=== PATIENT | female | born 1960 | race Caucasian/White ===

== ENCOUNTER → 2016-09-26 | Outpatient (REF) | payer OTHER, MEDICAID ==
[~2016-09-26] MED LIST: *MAMMOGRAM; *XRAY -; /ALEN70TA OR; /ESOM40CA OR; ACET65TA; ASPI325T OR; ATENOLOL50 PO; AUG875 PO; BEXTRA PO; CALCTAB22 OR; CELEBRE200 PO; COLC0.6T; COLC0.6T OR; CORE6.25; COREG625 PO; CRESTOR5 PO; DIOVAN80 PO; FLEXERIL10 PO; FOLI1TAB OR; INDERAL PO; ISOS30BRAN; ISOS30BRAN OR; LASI40TA OR; LIPITOR10 PO; LIPITOR40 PO; LOVASTAT20 PO; METH2.5T OR; PLAV75TA2; PLAV75TA2 OR; PLAVIX75 PO; POTA10CA2 OR; PRED1TA; PRED1TA OR; PRED20TA; PRIL20CA; PRILOSEC40 PO; RANITIDINE PO; SIMV80TA OR; SYNT50TA; SYNT50TA OR; TEMOVATECR TOPICAL; THERGRAN OR; TRAM50TA2; TRAM50TA2 OR; VICO5TAB OR; ZOCO80TA; [UNRECOGNIZED DRUG - OTHER] OR; lactobacillus; ranexa OR
[2016-09-26 17:04] LABS: MEAN CORPUSCULAR HEMOGLOBIN 30.2 pg (27.0-33.0); MEAN CORPUSCULAR HGB CONC 32.5 g/dl (32.0-36.5); MEAN CORPUSCULAR VOLUME 92.9 fl (80.0-96.0); RED CELL DISTRIBUTION WIDTH 14.1 % (11.5-14.5); WHITE BLOOD COUNT 5.8 K/mm3 (4.0-10.0)
== END ==
LOC: M SFHCCLAY 09:59
PROVIDERS: ATTEND Family Medicine
DX: E78.5 Hyperlipidemia, unspecified (principal)

== ENCOUNTER → 2016-10-13 | Outpatient (CLI) | payer MEDICARE, MEDICAID ==
--- NOTE | 2016-10-13 12:08 | REPMRS ---
Patient History The patient states she had a clinical breast exam in Patient is postmenopausal. No known family history of cancer. Digital Woman Screen Mammo: October 13, 2016 - Exam #: [id number] Bilateral CC and MLO view(s) were taken. Technologist: Emeli Espinosa, Technologist Prior study comparison: September 19, 2015, bilateral digital mammo screening bilat, performed at [facility]. September 13, 2014, bilateral digital mammo screening bilat, performed at [facility]. FINDINGS: The breast tissue is heterogeneously dense. This may lower the sensitivity of mammography. There has been no change in the appearance of the mammogram from the prior studies. There is a moderate amount of residual fibroglandular tissue which is fairly symmetric. There is no interval development of dominant mass, areas of architectural distortion, or clustered microcalcification typical of malignancy. ASSESSMENT: BI-RADS/ACR category 1 mammogram. Negative. Recommendation Routine screening mammogram in 1 year (for women over age 40). This mammogram was interpreted with the aid of an FDA-approved computer-aided dectection system. Electronically Signed By: Guerrero Fuller MD 10/13/16 [id number]
== END ==
LOC: M WHC 10:51
PROVIDERS: ATTEND Family Medicine
DX: Z12.31 Encounter for screening mammogram for malignant neoplasm of breast (principal); Z78.0 Asymptomatic menopausal state

== ENCOUNTER → 2016-11-06 | Outpatient (REF) | payer MEDICARE, MEDICAID | LOC: M SFHCCLAY 17:19 | PROVIDERS: ATTEND Family Medicine | DX: R10.30 Lower abdominal pain, unspecified (principal) | CPT/HCPCS: 81002; 87086; G0463 ==

== ENCOUNTER → 2016-11-07 | Outpatient (REF) | payer MEDICARE, MEDICAID | LOC: M SFHCCLAY 08:38 | PROVIDERS: ATTEND Family Medicine | DX: E78.5 Hyperlipidemia, unspecified (principal) ==

== ENCOUNTER → 2017-01-20 | Outpatient (REF) | payer MEDICARE, MEDICAID ==
[2017-01-20 17:17] LABS: BASO % 0.7 % (0.0-1.0); EOS # 0.2 K/mm3 (0.0-0.50); EOS % 3.1 % (0.0-3.0); LARGE UNSTAINED CELL # 0.1 K/mm3 (0.0-0.4); LARGE UNSTAINED CELL % 1.7 % (0.0-4.0); LYMPH # 1.9 K/mm3 (1.5-4.5); LYMPH % 29.4 % (24.0-44.0); MEAN CORPUSCULAR HEMOGLOBIN 31.3 pg (27.0-33.0); MEAN CORPUSCULAR VOLUME 94.9 fl (80.0-96.0); MONO # 0.3 K/mm3 (0.0-0.8); MONO % 4.9 % (0.0-5.0); NEUTROPHILS # 3.8 K/mm3 (1.8-7.7); NEUTROPHILS % 60.1 % (36.0-66.0); PLATELET COUNT, AUTOMATED 286 k/mm3 (150-450); RED CELL DISTRIBUTION WIDTH 14.9 % (11.5-14.5); WHITE BLOOD COUNT 6.4 K/mm3 (4.0-10.0)
[2017-01-20 18:55] LABS: ALT/SGPT 47 U/L (12-78); ANION GAP 8 MEQ/L (8-16); BLOOD UREA NITROGEN 15 MG/DL (7-18); CARBON DIOXIDE LEVEL 28 MEQ/L (21-32); CHLORIDE LEVEL 105 MEQ/L (98-107); CREATININE FOR GFR 0.85 MG/DL (0.55-1.02); GLOMERULAR FILTRATION RATE > 60.0 (>51); GLUCOSE, FASTING 104 MG/DL (70-105); POTASSIUM SERUM 4.5 MEQ/L (3.5-5.1); SODIUM LEVEL 141 MEQ/L (136-145)
== END ==
LOC: M SFHCCLAY 10:15
PROVIDERS: ATTEND Family Medicine
DX: M06.9 Rheumatoid arthritis, unspecified (principal)

== ENCOUNTER → 2017-03-24 | Outpatient (REF) | payer MEDICAID, MEDICARE ==
[2017-03-24 12:13] LABS: ANION GAP 7 MEQ/L (8-16); BLOOD UREA NITROGEN 10 MG/DL (7-18); CARBON DIOXIDE LEVEL 30 MEQ/L (21-32); CHLORIDE LEVEL 101 MEQ/L (98-107); CREATININE FOR GFR 0.75 MG/DL (0.55-1.02); GLOMERULAR FILTRATION RATE > 60.0 (>51); GLUCOSE, FASTING 104 MG/DL (70-105); POTASSIUM SERUM 3.9 MEQ/L (3.5-5.1); SODIUM LEVEL 138 MEQ/L (136-145)
[2017-03-24 12:14] LABS: CALCIUM LEVEL 9.1 MG/DL (8.5-10.1)
== END ==
LOC: M LABDRAWC 11:33
PROVIDERS: ATTEND Internal Medicine Cardiovascular Disease
DX: I25.10 Atherosclerotic heart disease of native coronary artery without angina pectoris (principal); I10 Essential (primary) hypertension

== ENCOUNTER → 2017-04-02 | Outpatient (REF) | payer MEDICARE ==
[2017-04-02 13:22] LABS: FREE T4 1.08 NG/DL (0.76-1.46)
== END ==
LOC: M SFHCCLAY 08:49
PROVIDERS: ATTEND Family Medicine
DX: E03.9 Hypothyroidism, unspecified (principal)

== ENCOUNTER → 2017-08-11 | Outpatient (REF) | payer MEDICARE ==
[2017-08-11 16:59] LABS: MEAN CORPUSCULAR HEMOGLOBIN 30.7 pg (27.0-33.0); MEAN CORPUSCULAR HGB CONC 33.8 g/dl (32.0-36.5); MEAN CORPUSCULAR VOLUME 90.8 fl (80.0-96.0); PLATELET COUNT, AUTOMATED 280 10^3/uL (150-450); RED CELL DISTRIBUTION WIDTH 14.6 % (11.5-14.5); WHITE BLOOD COUNT 6.8 10^3/uL (4.0-10.0)
[2017-08-11 17:09] LABS: CALCIUM LEVEL 9.2 MG/DL (8.5-10.1); CREATININE FOR GFR 1.02 MG/DL (0.55-1.02); GLOMERULAR FILTRATION RATE 59.5 (>51); POTASSIUM SERUM 3.3 MEQ/L (3.5-5.1)
== END ==
LOC: M SFHCCLAY 10:27
PROVIDERS: ATTEND Family Medicine
DX: M06.4 Inflammatory polyarthropathy (principal); Z79.899 Other long term (current) drug therapy

== ENCOUNTER → 2017-11-03 | Outpatient (REF) | payer MEDICARE ==
[2017-11-04 12:33] LABS: HEMATOCRIT 38.7 % (36.0-47.0); MEAN CORPUSCULAR HGB CONC 33.6 g/dl (32.0-36.5); MEAN CORPUSCULAR VOLUME 92.1 fl (80.0-96.0); PLATELET COUNT, AUTOMATED 276 10^3/uL (150-450); RED CELL DISTRIBUTION WIDTH 15.5 % (11.5-14.5); WHITE BLOOD COUNT 17.2 10^3/uL (4.0-10.0)
[2017-11-04 12:51] LABS: ALT/SGPT 32 U/L (12-78); ANION GAP 8 MEQ/L (8-16); BLOOD UREA NITROGEN 20 MG/DL (7-18); CALCIUM LEVEL 9.7 MG/DL (8.5-10.1); CARBON DIOXIDE LEVEL 31 MEQ/L (21-32); CHLORIDE LEVEL 101 MEQ/L (98-107); CREATININE FOR GFR 0.84 MG/DL (0.55-1.30); GLOMERULAR FILTRATION RATE > 60.0 (>51); GLUCOSE, FASTING 106 MG/DL (70-100); POTASSIUM SERUM 3.8 MEQ/L (3.5-5.1); SODIUM LEVEL 140 MEQ/L (136-145)
== END ==
LOC: M SFHCCLAY 14:30
DX: Z51.81 Encounter for therapeutic drug level monitoring (principal); Z79.899 Other long term (current) drug therapy; M06.4 Inflammatory polyarthropathy
CPT/HCPCS: 84460

== ENCOUNTER → 2017-11-05 | Outpatient (CLI) | payer MEDICARE | LOC: M WHC 10:08 | DX: Z12.31 Encounter for screening mammogram for malignant neoplasm of breast (principal) | CPT/HCPCS: 77067 ==

== ENCOUNTER → 2017-12-02 | Outpatient (REF) | payer MEDICARE ==
[2017-12-02 12:03] LABS: BASO # 0.1 10^3/uL (0.0-0.2); BASO % 0.8 % (0.0-1.0); EOS # 0.2 10^3/uL (0.0-0.50); EOS % 2.4 % (0.0-3.0); HEMATOCRIT 37.9 % (36.0-47.0); HEMOGLOBIN 12.6 g/dl (12.0-15.5); IMMATURE GRANULOCYTE % 0.2 % (0-3.0); LYMPH % 24.5 % (24.0-44.0); MEAN CORPUSCULAR HEMOGLOBIN 30.4 pg (27.0-33.0); MEAN CORPUSCULAR HGB CONC 33.2 g/dl (32.0-36.5); MEAN CORPUSCULAR VOLUME 91.5 fl (80.0-96.0); MONO # 0.6 10^3/uL (0.0-0.8); NEUTROPHILS # 5.4 10^3/uL (1.8-7.7); NEUTROPHILS % 65.1 % (36.0-66.0); PLATELET COUNT, AUTOMATED 308 10^3/uL (150-450); RED BLOOD COUNT 4.14 10^6/uL (4.00-5.40); RED CELL DISTRIBUTION WIDTH 15.7 % (11.5-14.5); WHITE BLOOD COUNT 8.3 10^3/uL (4.0-10.0)
[2017-12-02 12:30] LABS: ERYTHROCYTE SEDIMENTATION RATE 27 mm/hr (0-30)
[2017-12-02 13:08] LABS: ALBUMIN 3.9 GM/DL (3.2-5.2); ALBUMIN/GLOBULIN RATIO 1.15 (1.00-1.93); ALKALINE PHOSPHATASE 92 U/L (45-117); ALT/SGPT 28 U/L (12-78); ANION GAP 7 MEQ/L (8-16); AST/SGOT 13 U/L (7-37); BILIRUBIN,TOTAL 0.4 MG/DL (0.2-1.0); BLOOD UREA NITROGEN 17 MG/DL (7-18); CALCIUM LEVEL 9.3 MG/DL (8.5-10.1); CARBON DIOXIDE LEVEL 31 MEQ/L (21-32); CHLORIDE LEVEL 103 MEQ/L (98-107); CREATININE FOR GFR 0.66 MG/DL (0.55-1.30); GLOMERULAR FILTRATION RATE > 60.0 (>51); GLUCOSE, FASTING 90 MG/DL (70-100); POTASSIUM SERUM 4.5 MEQ/L (3.5-5.1); SODIUM LEVEL 141 MEQ/L (136-145); TOTAL PROTEIN 7.3 GM/DL (6.4-8.2)
== END ==
LOC: M LABDRAWC 11:42
DX: I31.9 Disease of pericardium, unspecified (principal); Z79.899 Other long term (current) drug therapy; M06.4 Inflammatory polyarthropathy
CPT/HCPCS: 84460

== ENCOUNTER → 2018-03-09 | Outpatient (REF) | payer MEDICARE ==
[2018-03-09 19:04] LABS: ANION GAP 6 MEQ/L (8-16); BLOOD UREA NITROGEN 17 MG/DL (7-18); CALCIUM LEVEL 8.9 MG/DL (8.5-10.1); CARBON DIOXIDE LEVEL 28 MEQ/L (21-32); CHLORIDE LEVEL 104 MEQ/L (98-107); CREATININE FOR GFR 0.73 MG/DL (0.55-1.30); GLOMERULAR FILTRATION RATE > 60.0 (>51); GLUCOSE, FASTING 98 MG/DL (70-100); HEMOGLOBIN 12.5 g/dl (12.0-15.5); MEAN CORPUSCULAR HEMOGLOBIN 31.3 pg (27.0-33.0); MEAN CORPUSCULAR HGB CONC 33.8 g/dl (32.0-36.5); MEAN CORPUSCULAR VOLUME 92.7 fl (80.0-96.0); PLATELET COUNT, AUTOMATED 245 10^3/uL (150-450); POTASSIUM SERUM 4.3 MEQ/L (3.5-5.1); RED BLOOD COUNT 3.99 10^6/uL (4.00-5.40); RED CELL DISTRIBUTION WIDTH 14.1 % (11.5-14.5); RHEUMATOID FACTOR QUANT < 10.0 IU/ML (<15.0); SODIUM LEVEL 138 MEQ/L (136-145); WHITE BLOOD COUNT 6.6 10^3/uL (4.0-10.0)
[2018-03-09 19:47] LABS: ERYTHROCYTE SEDIMENTATION RATE 2 mm/hr (0-30)
[2018-03-12 00:12] LABS: ANA (HEP2) Negative (.)
[2018-03-12 00:12] LABS: CYCLIC CITRULLINATED PEPTIDE 9 units (0-19)
== END ==
LOC: M SFHCCLAY 13:05
DX: M06.4 Inflammatory polyarthropathy (principal)
CPT/HCPCS: 80048

== ENCOUNTER → 2018-04-20 | Outpatient (REF) | payer MEDICARE ==
[2018-04-20 18:33] LABS: HEMATOCRIT 34.5 % (36.0-47.0); HEMOGLOBIN 11.6 g/dl (12.0-15.5); MEAN CORPUSCULAR HEMOGLOBIN 31.4 pg (27.0-33.0); MEAN CORPUSCULAR HGB CONC 33.6 g/dl (32.0-36.5); MEAN CORPUSCULAR VOLUME 93.5 fl (80.0-96.0); PLATELET COUNT, AUTOMATED 289 10^3/uL (150-450); RED BLOOD COUNT 3.69 10^6/uL (4.00-5.40); RED CELL DISTRIBUTION WIDTH 14.9 % (11.5-14.5); WHITE BLOOD COUNT 6.1 10^3/uL (4.0-10.0)
[2018-04-20 18:48] LABS: ANION GAP 6 MEQ/L (8-16); BLOOD UREA NITROGEN 20 MG/DL (7-18); CALCIUM LEVEL 8.8 MG/DL (8.5-10.1); CARBON DIOXIDE LEVEL 30 MEQ/L (21-32); CHLORIDE LEVEL 105 MEQ/L (98-107); CREATININE FOR GFR 0.73 MG/DL (0.55-1.30); GLOMERULAR FILTRATION RATE > 60.0 (>51); GLUCOSE, FASTING 97 MG/DL (70-100); POTASSIUM SERUM 4.1 MEQ/L (3.5-5.1); SODIUM LEVEL 141 MEQ/L (136-145)
== END ==
LOC: M SFHCCLAY 10:24
DX: M06.4 Inflammatory polyarthropathy (principal)
CPT/HCPCS: 80048

== ENCOUNTER → 2018-06-02 | Outpatient (REF) | payer MEDICARE ==
[2018-06-02 17:19] LABS: HEMATOCRIT 36.9 % (36.0-47.0); HEMOGLOBIN 12.1 g/dl (12.0-15.5); MEAN CORPUSCULAR HEMOGLOBIN 31.5 pg (27.0-33.0); MEAN CORPUSCULAR HGB CONC 32.8 g/dl (32.0-36.5); MEAN CORPUSCULAR VOLUME 96.1 fl (80.0-96.0); PLATELET COUNT, AUTOMATED 316 10^3/uL (150-450); RED BLOOD COUNT 3.84 10^6/uL (4.00-5.40); RED CELL DISTRIBUTION WIDTH 15.9 % (11.5-14.5); WHITE BLOOD COUNT 7.8 10^3/uL (4.0-10.0)
[2018-06-02 17:45] LABS: ANION GAP 9 MEQ/L (8-16); BLOOD UREA NITROGEN 14 MG/DL (7-18); CARBON DIOXIDE LEVEL 28 MEQ/L (21-32); CHLORIDE LEVEL 102 MEQ/L (98-107); CREATININE FOR GFR 0.72 MG/DL (0.55-1.30); GLOMERULAR FILTRATION RATE > 60.0 (>51); GLUCOSE, FASTING 87 MG/DL (70-100); POTASSIUM SERUM 4.2 MEQ/L (3.5-5.1); SODIUM LEVEL 139 MEQ/L (136-145)
== END ==
LOC: M SFHCCLAY 11:34
DX: M06.4 Inflammatory polyarthropathy (principal)
CPT/HCPCS: 80048

== ENCOUNTER → 2018-10-12 | Outpatient (REF) | payer MEDICARE, MEDICAID ==
[~2018-10-12] MED LIST changes: +ASPI81TA85 PO; +ATOR40TA75 PO; +CARV25TA PO; +HYDR25TAB PO; +LISI-542 PO; +OMEP40CA2 PO; +TIZA4CAP PO; +VITA20008 PO; +ZETI10TA30 PO
[2018-10-12 16:38] LABS: HEMATOCRIT 36.5 % (36.0-47.0); HEMOGLOBIN 12.2 g/dl (12.0-15.5); MEAN CORPUSCULAR HEMOGLOBIN 31.7 pg (27.0-33.0); MEAN CORPUSCULAR HGB CONC 33.4 g/dl (32.0-36.5); MEAN CORPUSCULAR VOLUME 94.8 fl (80.0-96.0); PLATELET COUNT, AUTOMATED 275 10^3/uL (150-450); RED BLOOD COUNT 3.85 10^6/uL (4.00-5.40); WHITE BLOOD COUNT 6.5 10^3/uL (4.0-10.0)
[2018-10-12 16:39] LABS: BLOOD UREA NITROGEN 16 MG/DL (7-18); CALCIUM LEVEL 8.9 MG/DL (8.5-10.1); CARBON DIOXIDE LEVEL 30 MEQ/L (21-32); CHLORIDE LEVEL 102 MEQ/L (98-107); CREATININE FOR GFR 0.65 MG/DL (0.55-1.30); GLOMERULAR FILTRATION RATE > 60.0 (>51); GLUCOSE, FASTING 86 MG/DL (70-100); POTASSIUM SERUM 3.9 MEQ/L (3.5-5.1); SODIUM LEVEL 139 MEQ/L (136-145)
== END ==
LOC: M SFHCCLAY 11:34
PROVIDERS: ATTEND Family Medicine
DX: M06.4 Inflammatory polyarthropathy (principal)
CPT/HCPCS: 80048; 85027; G0463

== ENCOUNTER → 2018-10-14 | Outpatient (REF) | payer MEDICARE ==
[2018-10-20 00:07] LABS: FATS NEUTRAL Normal (.); FATS TOTAL Normal (.)
== END ==
LOC: M SFHCCLAY 15:58
PROVIDERS: ATTEND Family Medicine
DX: M06.4 Inflammatory polyarthropathy (principal); R19.7 Diarrhea, unspecified

== ENCOUNTER → 2018-12-22 | Outpatient (CLI) | payer MEDICARE ==
[~2018-12-22] MED LIST changes: -/ESOM40CA OR; +NEXI1CAP3 OR
--- NOTE | 2018-12-22 14:05 | REPMRS ---
Patient History The patient states she has not had a clinical breast exam in over a year. Family history of endometrial cancer in maternal cousin, colorectal cancer in maternal cousin, ovarian cancer in paternal cousin. Took unspecified hormones for 5 years. 3D TOMOSYNTHESIS WAS PERFORMED. Digital Woman Screen Mammo: December 22, 2018 - Exam #: [id number] Bilateral CC and MLO view(s) were taken. Technologist: Whitney De Leon, Technologist Prior study comparison: November 05, 2017, digital woman screen mammo performed at [facility]. October 13, 2016, digital woman screen mammo performed at [facility]. FINDINGS: The breast tissue is heterogeneously dense. This may lower the sensitivity of mammography. There has been no change in the appearance of the mammogram from the prior studies. There is a moderate amount of residual fibroglandular tissue which is fairly symmetric. There is no interval development of dominant mass, areas of architectural distortion, or clustered microcalcification typical of malignancy. Assessment: BI-RADS/ACR category 1 mammogram. Negative Mammogram. Recommendation Routine screening mammogram in 1 year (for women over age 40). This mammogram was interpreted with the aid of an FDA-approved computer-aided dectection system. Electronically Signed By: Guerrero Fuller MD 12/22/18 [id number]
== END ==
LOC: M WHC 13:24
PROVIDERS: ATTEND Family Medicine
DX: Z12.31 Encounter for screening mammogram for malignant neoplasm of breast (principal)

== ENCOUNTER → 2019-01-11 | Outpatient (REF) | payer MEDICARE, MEDICAID ==
[2019-01-11 19:05] LABS: BASO % 0.3 % (0.0-1.0); LYMPH % 8.3 % (24.0-44.0); MEAN CORPUSCULAR HEMOGLOBIN 31.7 pg (27.0-33.0); MEAN CORPUSCULAR HGB CONC 32.4 g/dl (32.0-36.5); MEAN CORPUSCULAR VOLUME 97.6 fl (80.0-96.0); MONO # 0.3 10^3/uL (0.0-0.8); MONO % 2.4 % (0.0-5.0); NEUTROPHILS # 10.6 10^3/uL (1.8-7.7); NEUTROPHILS % 88.3 % (36.0-66.0); PLATELET COUNT, AUTOMATED 401 10^3/uL (150-450); RED BLOOD COUNT 3.79 10^6/uL (4.00-5.40)
[2019-01-11 19:11] LABS: ALBUMIN 3.7 GM/DL (3.2-5.2); ALT/SGPT 30 U/L (12-78); BILIRUBIN,TOTAL 0.3 MG/DL (0.2-1.0); BLOOD UREA NITROGEN 17 MG/DL (7-18); CALCIUM LEVEL 8.9 MG/DL (8.5-10.1); CARBON DIOXIDE LEVEL 25 MEQ/L (21-32); CHLORIDE LEVEL 104 MEQ/L (98-107); GLOMERULAR FILTRATION RATE > 60.0 (>51); GLUCOSE, FASTING 222 MG/DL (70-100); POTASSIUM SERUM 4.2 MEQ/L (3.5-5.1); SODIUM LEVEL 138 MEQ/L (136-145); TOTAL PROTEIN 7.3 GM/DL (6.4-8.2)
[2019-01-11 20:23] LABS: ERYTHROCYTE SEDIMENTATION RATE 32 mm/hr (0-30)
== END ==
LOC: M LABDRAWC 17:14
PROVIDERS: ATTEND Internal Medicine Rheumatology
DX: I31.9 Disease of pericardium, unspecified (principal); M17.0 Bilateral primary osteoarthritis of knee

== ENCOUNTER → 2019-02-04 | Outpatient (REF) | payer MEDICARE, MEDICAID ==
[2019-02-04 16:54] LABS: BLOOD UREA NITROGEN 24 MG/DL (7-18); CALCIUM LEVEL 9.2 MG/DL (8.5-10.1); CARBON DIOXIDE LEVEL 31 MEQ/L (21-32); CHLORIDE LEVEL 102 MEQ/L (98-107); CREATININE FOR GFR 0.57 MG/DL (0.55-1.30); FREE T4 0.92 NG/DL (0.76-1.46); GLOMERULAR FILTRATION RATE > 60.0 (>51); GLUCOSE, FASTING 90 MG/DL (70-100); POTASSIUM SERUM 3.8 MEQ/L (3.5-5.1); SODIUM LEVEL 140 MEQ/L (136-145)
[2019-02-04 17:57] LABS: HEMOGLOBIN A1c 6.3 %
== END ==
LOC: M SFHCCLAY 11:44
PROVIDERS: ATTEND Family Medicine
DX: R73.09 Other abnormal glucose (principal); M06.4 Inflammatory polyarthropathy; E03.9 Hypothyroidism, unspecified
CPT/HCPCS: 80048; 83036; 84439; 84443; G0463

== ENCOUNTER 2019-05-05 12:42 | Emergency (ER) | payer MEDICARE, MEDICAID ==
[~2019-05-05] VITALS: Ht 157.5 cm; Wt 71.8 kg
[~2019-05-05 12:42] MED LIST changes: +ZETI10TA16 PO; -ZETI10TA30 PO
[2019-05-05] MEDS ORDERED: NS 1,000 ML IV ONE (13:30)
[2019-05-05] MEDS ORDERED: MORPHINE 4 MG/ML 1ML VIAL/SYRINGE (J2270) IV ONE (13:30)
[2019-05-05] MEDS ORDERED: ONDANSETRON 4MG/2ML VIAL (J2405) IV ONE (13:30)
[2019-05-05 13:32] LABS: BASO # 0.1 10^3/uL (0.0-0.2); BASO % 0.4 % (0.0-1.0); EOS # 0.1 10^3/uL (0.0-0.5); EOS % 1.1 % (0.0-3.0); HEMATOCRIT 36.8 % (36.0-47.0); HEMOGLOBIN 12.4 g/dl (12.0-15.5); LYMPH # 1.7 10^3/uL (1.5-5.0); LYMPH % 14.8 % (24.0-44.0); MEAN CORPUSCULAR HEMOGLOBIN 31.2 pg (27.0-33.0); MEAN CORPUSCULAR HGB CONC 33.7 g/dl (32.0-36.5); MEAN CORPUSCULAR VOLUME 92.7 fl (80.0-96.0); MONO # 0.7 10^3/uL (0.0-0.8); MONO % 6.2 % (0.0-5.0); NEUTROPHILS % 77.1 % (36.0-66.0); PLATELET COUNT, AUTOMATED 362 10^3/uL (150-450); RED BLOOD COUNT 3.97 10^6/uL (4.00-5.40); WHITE BLOOD COUNT 11.7 10^3/uL (4.0-10.0)
[2019-05-05 13:57] LABS: ALBUMIN 4.1 GM/DL (3.2-5.2); ALT/SGPT 28 U/L (12-78); BILIRUBIN,DIRECT 0.2 MG/DL (0.0-0.2); BILIRUBIN,TOTAL 0.7 MG/DL (0.2-1.0); BLOOD UREA NITROGEN 19 MG/DL (7-18); CALCIUM LEVEL 9.6 MG/DL (8.5-10.1); CARBON DIOXIDE LEVEL 27 MEQ/L (21-32); CHLORIDE LEVEL 100 MEQ/L (98-107); CREATININE FOR GFR 0.82 MG/DL (0.55-1.30); GLOMERULAR FILTRATION RATE > 60.0 (>51); GLUCOSE, FASTING 94 MG/DL (70-100); LIPASE 103 U/L (73-393); POTASSIUM SERUM 4.3 MEQ/L (3.5-5.1); SODIUM LEVEL 136 MEQ/L (136-145); TOTAL PROTEIN 7.4 GM/DL (6.4-8.2)
[2019-05-05] MEDS ORDERED: ISOVUE-370 76% 100ML VIAL (Q9967) As Ordered ONE (13:58)
--- NOTE | 2019-05-05 14:27 | REP ---
Clinical: Lower abdominal pain. Technique: Axial contrast enhanced images from the lung bases to the pubic symphysis using 100 ml Isovue 370 intravenous contrast material with coronal and sagittal re-formations. Findings: A redundant sigmoid colon is appreciated extending into the deep right bola pelvis with focal area of mucosal thickening and pericolonic stranding surrounding diverticula and consistent with acute diverticulitis (images 115-130). No free air or free fluid to suggest perforation. No bowel obstruction. The remainder of the small and large bowel is grossly unremarkable. Liver includes hypodensities compatible with small benign cysts. Spleen, pancreas, gallbladder, bilateral adrenal glands and right kidney are normal. Left kidney demonstrates mild chronic cortical scarring. Pelvis demonstrates collapsed normal bladder and evidence of prior hysterectomy. No ascites. No free air. No adenopathy. Abdominal aorta without aneurysm or dissection. Musculoskeletal structures demonstrate degenerative changes without focal osseous abnormality. Lung bases are clear. Impression: 1. Redundant sigmoid colon extending into the right lower quadrant and demonstrating acute diverticulitis without perforation or obstruction. 2. Hepatic hypodensities likely representing small benign hepatic cysts measuring to 1 cm. Electronically Signed by Serafin Snyder MD 05/05/2019 02:17 P
[2019-05-05] MEDS ORDERED: AUGM500T34 PO (15:59)
[2019-05-05] MEDS ORDERED: AUGMENTIN 500 MG TAB PO ONE (16:00)
[2019-05-05] MEDS ORDERED: PERC5TAB12 PO (16:03)
[2019-05-05 16:11] VITALS: BP 124/60
[2019-05-05] MEDS ORDERED: PERCOCET 5MG/325MG TAB PO ONE (16:15)
--- NOTE | 2019-05-06 07:07 | ECGEPIP ---
[facility] - ED Test Date: 2019-05-05 Pat Name: PATRICK WALSH Department: Room: - Gender: Female Medical Claims Assistant: CT : 1960 Requested By: JEAN HARO PA-C. Order Number: [id number] Reading MD: Yung Lew Measurements Intervals Covel Rate: 64 P: 28 OK: 152 QRS: -6 QRSD: 82 T: 47 QT: 382 QTc: 396 Interpretive Statements SINUS RHYTHM BENIGN EARLY REPOLARIZATION NO PRIORS FOR COMPARISON Electronically Signed on 05-06-2019 7:07:06 EDT by Yung Lew
== END 2019-05-05 16:16 | disposition home or self-care (01) ==
LOC: EDBD 12:42 → M ED 12:42
DX: K57.32 Diverticulitis of large intestine without perforation or abscess without bleeding (principal); I25.2 Old myocardial infarction; I10 Essential (primary) hypertension; E87.5 Hyperkalemia; G43.909 Migraine, unspecified, not intractable, without status migrainosus; M54.9 Dorsalgia, unspecified; Z95.1 Presence of aortocoronary bypass graft; Z95.5 Presence of coronary angioplasty implant and graft; Z79.82 Long term (current) use of aspirin; Z79.899 Other long term (current) drug therapy; Z91.018 Allergy to other foods; Z88.1 Allergy status to other antibiotic agents; Z88.5 Allergy status to narcotic agent; Z88.8 Allergy status to other drugs, medicaments and biological substances
CPT/HCPCS: 74177; 80048; 80076; 81001; 83690; 85025; 93005; 96361; 96374; 96375; 99284; G0463; J2270; J2405; Q9967

== ENCOUNTER 2019-05-09 11:22 | Inpatient (IN) | payer MEDICARE, MEDICAID ==
[~2019-05-09] VITALS: Ht 157.5 cm; Wt 73.8 kg
[~2019-05-09 11:22] MED LIST changes: +AUGM500T34 PO; +PERC5TAB12 PO
[2019-05-09] MEDS ORDERED: ALL10TAB29 PO (11:52)
[2019-05-09 12:21] LABS: BASO # 0.1 10^3/uL (0.0-0.2); BASO % 0.4 % (0.0-1.0); EOS # 0.1 10^3/uL (0.0-0.5); EOS % 0.8 % (0.0-3.0); HEMATOCRIT 36.8 % (36.0-47.0); HEMOGLOBIN 12.5 g/dl (12.0-15.5); LYMPH # 1.1 10^3/uL (1.5-5.0); LYMPH % 7.9 % (24.0-44.0); MEAN CORPUSCULAR HEMOGLOBIN 31.6 pg (27.0-33.0); MEAN CORPUSCULAR VOLUME 93.2 fl (80.0-96.0); MONO % 6.8 % (0.0-5.0); NEUTROPHILS # 11.9 10^3/uL (1.5-8.5); NEUTROPHILS % 83.7 % (36.0-66.0); PLATELET COUNT, AUTOMATED 372 10^3/uL (150-450); RED BLOOD COUNT 3.95 10^6/uL (4.00-5.40); WHITE BLOOD COUNT 14.2 10^3/uL (4.0-10.0)
[2019-05-09 12:42] LABS: ALBUMIN 3.9 GM/DL (3.2-5.2); ALT/SGPT 22 U/L (12-78); BILIRUBIN,DIRECT 0.2 MG/DL (0.0-0.2); BILIRUBIN,TOTAL 0.5 MG/DL (0.2-1.0); BLOOD UREA NITROGEN 17 MG/DL (7-18); CALCIUM LEVEL 9.4 MG/DL (8.5-10.1); CARBON DIOXIDE LEVEL 26 MEQ/L (21-32); CHLORIDE LEVEL 98 MEQ/L (98-107); CREATININE FOR GFR 0.88 MG/DL (0.55-1.30); GLOMERULAR FILTRATION RATE > 60.0 (>51); GLUCOSE, FASTING 110 MG/DL (70-100); LIPASE 87 U/L (73-393); POTASSIUM SERUM 3.9 MEQ/L (3.5-5.1); SODIUM LEVEL 136 MEQ/L (136-145); TOTAL PROTEIN 7.2 GM/DL (6.4-8.2)
[2019-05-09] MEDS ORDERED: MORPHINE 4 MG/ML 1ML VIAL/SYRINGE (J2270) IV ONE (13:00)
[2019-05-09] MEDS ORDERED: NS 1,000 ML IV ONE (13:00)
[2019-05-09] MEDS ORDERED: ONDANSETRON 4MG/2ML VIAL (J2405) IV ONE (13:00)
[2019-05-09] MEDS ORDERED: ISOVUE-370 76% 100ML VIAL (Q9967) As Ordered ONE (13:07)
--- NOTE | 2019-05-09 13:30 | HPEPDOC ---
[facility] Medical History & Physical Date of Admission May 09, 2019 Date of Service: May 09, 2019 History and Physical CHIEF COMPLAINT: abdominal pain, diarrhea HISTORY OF PRESENT ILLNESS: 58 yo female was seen in ED on 05/05/19, discharged home with diagnosis of diverticulitis and augmentin therapy, returns for worsening abdominal pain and nausea with diarrhea. States her pain worsens with eating. Rates as 5-7/10, diffuse abdominal. Denies any other medical complaints. Denies chest pain, shortness of breath, vomiting. PAST MEDICAL HISTORY: CAD/CABG STEVIE'S SYNDROME HYPOTHYROID HYPERLIPIDEMIA GERD MIXED INCONTINENCE REVIEW OF SYSTEMS: Negative except as per HPI. HOME MEDICATIONS: Please see below. PHYSICAL EXAMINATION: VITAL SIGNS: See below GENERAL APPEARANCE: NAD, lying comfortably in bed HEENT: NC/AT, EOMI CARDIOVASCULAR: +S1S2, RRR LUNGS: CTA B/L ABDOMEN: +BS, soft, diffuse tender Ext: no edema LABORATORY DATA: See below. MICROBIOLOGY: Please see below. ASSESSMENT: 58 yo female for diverticulitis failing outpatient therapy with Augmentin #diverticulitis - NPO/IV fluids - has cipro allergy - started Zosyn #CAD s/p CABG - continue ASA/plavix/statin #HTN - HCTZ on hold, continue carvedilol, lisinopril #STEVIE'S SYNDROME #HYPOTHYROID - continue synthroid #HYPERLIPIDEMIA - continue statin, zetia therapy #GERD #MIXED INCONTINENCE #DVT prophylaxis - mechanical Vital Signs Vital Signs Date Time Temp Pulse Resp B/P (MAP) Pulse Ox O2 Delivery O2 Flow Rate FiO2 05/09/19 13:17 78 18 138/78 (98) 98 Room Air 05/09/19 11:57 99.2 Laboratory Data Labs 24H Laboratory Tests 2 05/09/19 12:04: 05/09/19 12:05: Immature Granulocyte % (Auto) 0.4, White Blood Count 14.2H, Red Blood Count 3.95L, Hemoglobin 12.5, Hematocrit 36.8, Mean Corpuscular Volume 93.2, Mean Corpuscular Hemoglobin 31.6, Mean Corpuscular Hemoglobin Concent 34.0, Red Cell Distribution Width 15.0H, Platelet Count 372, Neutrophils (%) (Auto) 83.7H, Lymphocytes (%) (Auto) 7.9L, Monocytes (%) (Auto) 6.8H, Eosinophils (%) (Auto) 0.8, Basophils (%) (Auto) 0.4, Neutrophils # (Auto) 11.9H, Lymphocytes # (Auto) 1.1L, Monocytes # (Auto) 1.0H, Eosinophils # (Auto) 0.1, Basophils # (Auto) 0.1, Nucleated Red Blood Cells % (auto) 0.0, Anion Gap 12, Glomerular Filtration Rate > 60.0, Calcium Level 9.4, Aspartate Amino Transf (AST/SGOT) 9, Alanine Aminotransferase (ALT/SGPT) 22, Alkaline Phosphatase 97, Total Bilirubin 0.5, Direct Bilirubin 0.2, Total Protein 7.2, Albumin 3.9, Albumin/Globulin Ratio 1 .18, Lipase 87 05/09/19 12:09: Urine Color BIGG, Urine Appearance HAZY, Urine pH 6.0, Urine Specific [place] 1.023, Urine Protein NEGATIVE, Urine Glucose (UA) NEGATIVE, Urine Ketones TRACEH, Urine Blood NEGATIVE, Urine Nitrite NEGATIVE, Urine Bilirubin NEGATIVE, Urine Urobilinogen 0.2, Urine Leukocyte Esterase NEGATIVE, Urine WBC (Auto) 1, Urine RBC (Auto) 4H, Urine Hyaline Casts (Auto) 0, Urine Bacteria (Auto) NEGATIVE, Urine Squamous Epithelial Cells 1, Urine Mucus (Auto) SMALL, Urine Sperm (Auto) CBC/BMP Laboratory Tests 05/09/19 12:05 Red Blood Count 3.95 L, Mean Corpuscular Volume 93.2, Mean Corpuscular Hemoglobin 31.6, Mean Corpuscular Hemoglobin Concent 34.0, Red Cell Distribution Width 15.0 H, Neutrophils (%) (Auto) 83.7 H, Lymphocytes (%) (Auto) 7.9 L, Monocytes (%) (Auto) 6.8 H, Eosinophils (%) (Auto) 0.8, Basophils (%) (Auto) 0.4, Neutrophils # (Auto) 11.9 H, Lymphocytes # (Auto) 1.1 L, Monocytes # (Auto) 1.0 H, Eosinophils # (Auto) 0.1, Basophils # (Auto) 0.1 Microbiology Microbiology 05/09/19 Blood Culture, Received Pending Home Medications Scheduled Amoxicillin/Potassium Clav (Augmentin 500-125 Tablet) 1 Each Tablet, 1 TAB PO TID FOR 7 DAYS, FILLED 05/05/19 Aspirin (Aspir 81) 81 Mg Tab, 81 MG PO DAILY Atorvastatin Calcium (Atorvastatin Calcium) 40 Mg Tab, 40 MG PO QHS Calcium Carbonate (Calcium) 600 Mg Tablet, 600 MG PO BID Carvedilol (Carvedilol) 25 Mg Tab, 25 MG PO BID Cetirizine HCl (Cetirizine HCl) 10 Mg Tablet, 1 TAB PO DAILY Cholecalciferol (Vitamin D3) (Vitamin D3) 2,000 Unit Tablet, 2,000 UNIT PO DAILY Clopidogrel Bisulfate (Clopidogrel) 75 Mg Tablet, 75 MG PO QHS Ezetimibe (Zetia) 10 Mg Tab, 10 MG PO QHS Folic Acid (Folic Acid) 1 Mg Tablet, 2 MG PO DAILY Hydrochlorothiazide (Hydrochlorothiazide) 25 Mg Tab, 25 MG PO DAILY Isosorbide Mononitrate (Isosorbide Mononitrate ER) 60 Mg Tab.er.24h, 60 MG PO DAILY Levothyroxine Sodium (Synthroid) 25 Mcg Tablet, 25 MCG PO QAM Lisinopril (Lisinopril) 10 Mg Tablet, 10 MG PO QHS Methotrexate Sodium (Methotrexate) 2.5 Mg Tablet, 15 MG PO QWEEK SATURDAYS Multivitamins (Thera M Plus Tablet) 1 Each Tablet, 1 TAB PO DAILY Omeprazole (Omeprazole) 40 Mg Cap, 40 MG PO DAILY Potassium Chloride (Potassium Chloride) 10 Meq Tablet.er, 10 MEQ PO TID Scheduled PRN Naphazoline HCl/Pheniramine (Visine-A Eye Allergy Drops) 15 Ml Drops, 1 DROP OU Q6H PRN for ALLERGIES Nitroglycerin (Nitrostat) 0.4 Mg Tab.subl, 0.4 MG SL ASDIRECTED PRN for CHEST PAIN Oxycodone HCl/Acetaminophen (Oxycodone-Acetaminophen 5-325) 1 Each Tablet, 1 TAB PO Q8H PRN for PAIN Tizanidine HCl (Tizanidine HCl) 4 Mg Tablet, 4 MG PO QHS PRN for MUSCLE SPASMS Allergies Coded Allergies: FISH (Verified Allergy, Severe, THROAT SWELLING, 02/02/18) Quinolones (Verified Allergy, Unknown, hives, and Headache, 05/05/19) ciprofloxacin (Verified Allergy, Unknown, swelling, rash, 05/05/19) codeine (Verified Adverse Reaction, Unknown, n/v, 05/05/19) A-FIB/CHADSVASC A-FIB History Current/History of A-Fib/PAF?: No Current PO Anticoag Therapy: No JUSTIN HOWARD MD May 09, 2019 13:30
[2019-05-09] MEDS ORDERED: DILUENT IV ONE (13:45)
[2019-05-09] MEDS ORDERED: NS IV ONE (13:45)
[2019-05-09] MEDS ORDERED: CLOP75TA2 PO (13:46)
[2019-05-09] MEDS ORDERED: TIZA4TAB4 PO (13:46)
[2019-05-09] MEDS ORDERED: SYNT25TA PO (13:46)
[2019-05-09] MEDS ORDERED: METH2.5T48 PO (13:46)
[2019-05-09] MEDS ORDERED: CALC600T5 PO (13:46)
[2019-05-09] MEDS ORDERED: FOLI1TAB11 PO (13:46)
[2019-05-09] MEDS ORDERED: POTA1TAB23 PO (13:46)
[2019-05-09] MEDS ORDERED: ISOS60TA2 PO (13:46)
[2019-05-09] MEDS ORDERED: LISI10TA4 PO (13:46)
[2019-05-09] MEDS ORDERED: AUGM500T34 PO (13:46)
[2019-05-09] MEDS ORDERED: D 202000 PO (13:46)
[2019-05-09] MEDS ORDERED: VITMTA PO (13:46)
[2019-05-09] MEDS ORDERED: OXYC1TAB23 PO (13:47)
[2019-05-09] MEDS ORDERED: [UNRECOGNIZED DRUG - CODE] OU (13:48)
[2019-05-09] MEDS ORDERED: NITR4TASL SL (13:48)
[2019-05-09] MEDS: PANTOPRAZOLE 40MG INJ (PROTONIX) (C9113) IV SCH (13:50)
[2019-05-09] MEDS ORDERED: PIPERACILLIN/TAZOBACTAM SOD 3.375 GM in D5W MINI-BAG PLUS 50 ML IV ONE (14:00)
[2019-05-09] MEDS ORDERED: NITROGLYCERIN 0.4 MG SUBL TABLET SL PRN (14:15)
[2019-05-09 14:35] VITALS: BP 137/67
[2019-05-09] MEDS: NS 1,000 ML IV SCH (14:51)
[2019-05-09] MEDS: ASPIRIN 81 MG ENTERIC TAB PO SCH (14:51)
[2019-05-09] MEDS: FOLIC ACID 1 MG TAB PO SCH (14:51)
[2019-05-09] MEDS: VITAMIN D 1,000 INTERNATIONAL UNITS TABLET PO SCH (14:51)
[2019-05-09] MEDS: MULTIVITAMINS/MINERALS THERAP 1 TAB PO SCH (14:51)
[2019-05-09] MEDS: ISOSORBIDE MON. (IMDUR) 60 MG XR TAB PO SCH (14:53)
--- NOTE | 2019-05-09 18:45 | REP ---
CT abdomen and pelvis without oral but with IV contrast: History: Increased right lower quadrant pain. History of diverticulitis. Comparison CT study May 05, 2019. CT contrast dose: 100 ml of intravenous Isovue [address] findings: Preliminary digital gravel machine operator radiograph is unremarkable. The lung bases are clear. There is a 1 cm cyst in the left lobe of the liver unchanged. No focal hepatic lesion is seen. Gallbladder is unremarkable. No splenic abnormalities observed. No abnormality is seen in the pancreas. No adrenal lesion is seen. There is some cortical scarring in the upper pole left kidney. A small accessory splenule is noted in the left upper quadrant. No hydronephrosis is seen. There is left colonic diverticulosis. The sigmoid colon is redundant as previously noted and on the right side of midline there is an improved pattern of mural thickening and pericolonic streaking consistent with improving diverticulitis. This appears to be adjacent to the right ovary. There is no evidence of abscess or free intraperitoneal air. Uterus is surgically absent. The appendix is normal in appearance. Impression: Improved sigmoid colon diverticulitis adjacent to the right adnexa in the right pelvis. No abscess or free air. Otherwise unchanged. Status post hysterectomy. Electronically Signed by Saroj Obando MD 05/09/2019 06:48 P
[2019-05-09] MEDS: MORPHINE 4 MG/ML 1ML VIAL/SYRINGE (J2270) IV PRN (19:57)
[2019-05-09] MEDS: LISINOPRIL 10 MG TAB PO SCH (21:00)
[2019-05-09] MEDS: CARVedilol 12.5 MG TAB PO SCH (21:00)
[2019-05-09] MEDS: CLOPIDOGREL 75 MG TAB PO SCH (21:31)
[2019-05-09] MEDS: ATORVASTATIN 20 MG TAB PO SCH (21:31)
[2019-05-09] MEDS: EZETIMIBE 10 MG TAB (ZETIA) PO SCH (21:31)
[2019-05-09] MEDS: PIPERACILLIN/TAZOBACTAM SOD 3.375 GM in D5W MINI-BAG PLUS 50 ML IV SCH (21:32)
[2019-05-09 22:00] VITALS: BP 115/54
[2019-05-10] MEDS: NS 1,000 ML IV SCH ×2 (00:59→11:49)
[2019-05-10] MEDS: LEVOTHYROXINE 25MCG TABLET (0.025MG) PO SCH (05:12)
[2019-05-10] MEDS: PIPERACILLIN/TAZOBACTAM SOD 3.375 GM in D5W MINI-BAG PLUS 50 ML IV SCH ×3 (05:12→21:11)
[2019-05-10 06:00] VITALS: BP 119/72
[2019-05-10 06:10] LABS: BASO # 0.1 10^3/uL (0.0-0.2); BASO % 0.3 % (0.0-1.0); EOS # 0.2 10^3/uL (0.0-0.5); HEMOGLOBIN 10.7 g/dl (12.0-15.5); LYMPH # 1.4 10^3/uL (1.5-5.0); LYMPH % 9.7 % (24.0-44.0); MEAN CORPUSCULAR HEMOGLOBIN 31.6 pg (27.0-33.0); MEAN CORPUSCULAR HGB CONC 33.4 g/dl (32.0-36.5); MEAN CORPUSCULAR VOLUME 94.4 fl (80.0-96.0); MONO # 1.1 10^3/uL (0.0-0.8); MONO % 7.9 % (0.0-5.0); NEUTROPHILS # 11.6 10^3/uL (1.5-8.5); NEUTROPHILS % 80.6 % (36.0-66.0); PLATELET COUNT, AUTOMATED 305 10^3/uL (150-450); RED BLOOD COUNT 3.39 10^6/uL (4.00-5.40); WHITE BLOOD COUNT 14.4 10^3/uL (4.0-10.0)
[2019-05-10 06:30] LABS: BLOOD UREA NITROGEN 11 MG/DL (7-18); CALCIUM LEVEL 8.4 MG/DL (8.5-10.1); CARBON DIOXIDE LEVEL 25 MEQ/L (21-32); CHLORIDE LEVEL 103 MEQ/L (98-107); CREATININE FOR GFR 0.78 MG/DL (0.55-1.30); GLOMERULAR FILTRATION RATE > 60.0 (>51); GLUCOSE, FASTING 106 MG/DL (70-100); POTASSIUM SERUM 3.3 MEQ/L (3.5-5.1); SODIUM LEVEL 137 MEQ/L (136-145)
[2019-05-10 08:00] VITALS: BP 112/80
[2019-05-10] MEDS ORDERED: POTASSIUM CHLORIDE 10 MEQ SR TABLET PO ONE (08:15)
--- NOTE | 2019-05-10 08:47 | IPNPDOC ---
Subjective Date Seen The patient was seen on 05/10/19. Subjective Chief Complaint/HPI Patient lying comfortably in bed as I entered the room. She reports two loose stools since last night. No blood in stools. Abdominal pain persists. Constitutional: Denies: Chills, Fever Pulmonary: Denies: Dyspnea, Cough Cardiovascular: Denies: Chest Pain, Palpitations, Orthopnea, Edema Gastrointestinal: Reports: Nausea, Abdominal Pain, Diarrhea; Denies: Vomiting, Melena, Hematochezia Psych: Reports: Mood Normal Objective Physical Examination General Exam: Positive: Alert, Cooperative, No Acute Distress ENT Exam: Positive: Mucous membr. moist/pink Neck Exam: Positive: Supple Chest Exam: Positive: Clear to auscultation, Normal air movement; Negative: Rales, Rhonchi, Wheezing Heart Exam: Positive: Rate Normal Abdomen Exam: Positive: Normal bowel sounds, Tenderness (diffuse) Extremity Exam: Negative: Edema Skin Exam: Positive: Nl turgor and temperature Psych Exam: Positive: Mood NL Assessment /Plan Problems (1) Diverticulitis Status: Acute Response to Treatment: Stable Problem Text: 05/10/19: WBC 14.4. Afebrile. Day #2 Zoysn. BC pending . NPO. IVF NS @ 90/hr CT abdomen/pelvis Impression: Improved sigmoid colon diverticulitis adjacent to the right adnexa in the right pelvis. No abscess or free air. Otherwise unchanged. Status post hysterectomy. (2) Hypertension Status: Chronic Response to Treatment: Stable Problem Text: 05/10/19 Stable. She remains on Carvidilol and Lisinopril (3) CAD (coronary artery disease) Status: Chronic Response to Treatment: Stable Problem Text: 05/10/19: Remains on Lipitor, Plavix, Zetia (4) Hypothyroid Status: Chronic Response to Treatment: Stable Problem Text: 05/10/19: Levothyroxine 25mg (5) Rheumatoid arthritis Status: Chronic Response to Treatment: Stable Plan/VTE VTE Prophylaxis Ordered?: Yes (TEDS and Sequentials ) VS, I&O, 24H, Fishbone Vital Signs/I&O Vital Signs Date Time Temp Pulse Resp B/P (MAP) Pulse Ox O2 Delivery O2 Flow Rate FiO2 05/10/19 06:00 98.1 71 17 119/72 (88) 98 05/09/19 14:28 Room Air I&O- Last 24 Hours up to 6 AM 05/10/19 05:59 Intake Total 590 ml Output Total 310 ml Balance 280 ml Laboratory Data 24H LABS Laboratory Tests 2 05/09/19 12:04: Lactic Acid Level 2.1*H 05/09/19 12:05: Immature Granulocyte % (Auto) 0.4, White Blood Count 14.2H, Red Blood Count 3.95L, Hemoglobin 12.5, Hematocrit 36.8, Mean Corpuscular Volume 93.2, Mean Corpuscular Hemoglobin 31.6, Mean Corpuscular Hemoglobin Concent 34.0, Red Cell Distribution Width 15.0H, Platelet Count 372, Neutrophils (%) (Auto) 83.7H, Lymphocytes (%) (Auto) 7.9L, Monocytes (%) (Auto) 6.8H, Eosinophils (%) (Auto) 0.8, Basophils (%) (Auto) 0.4, Neutrophils # (Auto) 11.9H, Lymphocytes # (Auto) 1.1L, Monocytes # (Auto) 1.0H, Eosinophils # (Auto) 0.1, Basophils # (Auto) 0.1, Nucleated Red Blood Cells % (auto) 0.0, Anion Gap 12, Glomerular Filtration Rate > 60.0, Calcium Level 9.4, Aspartate Amino Transf (AST/SGOT) 9, Alanine Aminotransferase (ALT/SGPT) 22, Alkaline Phosphatase 97, Total Bilirubin 0.5, Direct Bilirubin 0.2, Total Protein 7.2, Albumin 3.9, Albumin/Globulin Ratio 1.18, Lipase 87 05/09/19 12:09: Urine Color BIGG, Urine Appearance HAZY, Urine pH 6.0, Urine Specific [place] 1.023, Urine Protein NEGATIVE, Urine Glucose (UA) NEGATIVE, Urine Ketones TRACEH, Urine Blood NEGATIVE, Urine Nitrite NEGATIVE, Urine Bilirubin NEGATIVE, Urine Urobilinogen 0.2, Urine Leukocyte Esterase NEGATIVE, Urine WBC (Auto) 1, Urine RBC (Auto) 4H, Urine Hyaline Casts (Auto) 0, Urine Bacteria (Auto) NEGATIVE, Urine Squamous Epithelial Cells 1, Urine Mucus (Auto) SMALL, Urine Sperm (Auto) 05/09/19 17:22: Lactic Acid Followup at 4 Hours 1.6 05/10/19 05:46: Immature Granulocyte % (Auto) 0.5, White Blood Count 14.4H, Red Blood Count 3.39L, Hemoglobin 10.7L, Hematocrit 32.0L, Mean Corpuscular Volume 94.4, Mean Corpuscular Hemoglobin 31.6, Mean Corpuscular Hemoglobin Concent 33.4, Red Cell Distribution Width 15.2H, Platelet Count 305, Neutrophils (%) (Auto) 80.6H, Lymphocytes (%) (Auto) 9.7L, Monocytes (%) (Auto) 7.9H, Eosinophils (%) (Auto) 1.0, Basophils (%) (Auto) 0.3, Neutrophils # (Auto) 11.6H, Lymphocytes # (Auto) 1.4L, Monocytes # (Auto) 1.1H, Eosinophils # (Auto) 0.2, Basophils # (Auto) 0.1, Nucleated Red Blood Cells % (auto) 0.0, Anion Gap 9, Glomerular Filtration Rate > 60.0, Blood Urea Nitrogen 11, Creatinine 0.78, Sodium Level 137, Potassium Level 3.3L, Chloride Level 103, Carbon Dioxide Level 25, Calcium Level 8.4L CBC/BMP Laboratory Tests 05/09/19 12:05 Red Blood Count 3.95 L, Mean Corpuscular Volume 93.2, Mean Corpuscular Hemoglobin 31.6, Mean Corpuscular Hemoglobin Concent 34.0, Red Cell Distribution Width 15.0 H, Neutrophils (%) (Auto) 83.7 H, Lymphocytes (%) (Auto) 7.9 L, Monocytes (%) (Auto) 6.8 H, Eosinophils (%) (Auto) 0.8, Basophils (%) (Auto) 0.4, Neutrophils # (Auto) 11.9 H, Lymphocytes # (Auto) 1.1 L, Monocytes # (Auto) 1.0 H, Eosinophils # (Auto) 0.1, Basophils # (Auto) 0.1 05/10/19 05:46 Red Blood Count 3.39 L, Mean Corpuscular Volume 94.4, Mean Corpuscular Hemoglobin 31.6, Mean Corpuscular Hemoglobin Concent 33.4, Red Cell Distribution Width 15.2 H, Neutrophils (%) (Auto) 80.6 H, Lymphocytes (%) (Auto) 9.7 L, Monocytes (%) (Auto) 7.9 H, Eosinophils (%) (Auto) 1.0, Basophils (%) (Auto) 0.3, Neutrophils # (Auto) 11.6 H, Lymphocytes # (Auto) 1.4 L, Monocytes # (Auto) 1.1 H, Eosinophils # (Auto) 0.2, Basophils # (Auto) 0.1, Calcium Level 8.4 L Microbiology Microbiology 05/09/19 Blood Culture, Received Pending 05/09/19 Blood Culture, Received Pending DIANA FAUSTIN MACHINE ADJUSTER LEADER May 10, 2019 08:47
[2019-05-10] MEDS: CARVedilol 12.5 MG TAB PO SCH ×2 (09:00→21:10)
[2019-05-10] MEDS: PANTOPRAZOLE 40MG INJ (PROTONIX) (C9113) IV SCH (09:48)
[2019-05-10] MEDS: ASPIRIN 81 MG ENTERIC TAB PO SCH (09:56)
[2019-05-10] MEDS: MULTIVITAMINS/MINERALS THERAP 1 TAB PO SCH (09:57)
[2019-05-10] MEDS: OMEPRAZOLE 20 MG CAP PO SCH (09:58)
[2019-05-10] MEDS: FOLIC ACID 1 MG TAB PO SCH (09:58)
[2019-05-10] MEDS: VITAMIN D 1,000 INTERNATIONAL UNITS TABLET PO SCH (09:58)
[2019-05-10] MEDS: ISOSORBIDE MON. (IMDUR) 60 MG XR TAB PO SCH (09:58)
[2019-05-10] MEDS: MORPHINE 4 MG/ML 1ML VIAL/SYRINGE (J2270) IV PRN (10:30)
[2019-05-10] MEDS: ONDANSETRON 4MG/2ML VIAL (J2405) IV PRN (14:27)
[2019-05-10] MEDS: ATORVASTATIN 20 MG TAB PO SCH (21:09)
[2019-05-10] MEDS: EZETIMIBE 10 MG TAB (ZETIA) PO SCH (21:10)
[2019-05-10] MEDS: CLOPIDOGREL 75 MG TAB PO SCH (21:10)
[2019-05-10] MEDS: ACETAMINOPHEN 500 MG TAB PO PRN (21:11)
[2019-05-10] MEDS: LISINOPRIL 10 MG TAB PO SCH (21:11)
[2019-05-10 22:00] VITALS: BP 125/61
[2019-05-11] MEDS: NS 1,000 ML IV SCH (00:37)
[2019-05-11] MEDS: LEVOTHYROXINE 25MCG TABLET (0.025MG) PO SCH (05:35)
[2019-05-11] MEDS: PIPERACILLIN/TAZOBACTAM SOD 3.375 GM in D5W MINI-BAG PLUS 50 ML IV SCH ×3 (05:35→23:44)
[2019-05-11 06:00] VITALS: BP 101/46
[2019-05-11 06:13] LABS: BASO % 0.2 % (0.0-1.0); EOS # 0.1 10^3/uL (0.0-0.5); EOS % 0.7 % (0.0-3.0); HEMOGLOBIN 9.9 g/dl (12.0-15.5); LYMPH # 1.2 10^3/uL (1.5-5.0); LYMPH % 6.2 % (24.0-44.0); MEAN CORPUSCULAR HEMOGLOBIN 30.6 pg (27.0-33.0); MEAN CORPUSCULAR VOLUME 92.6 fl (80.0-96.0); MONO # 1.1 10^3/uL (0.0-0.8); MONO % 5.4 % (0.0-5.0); NEUTROPHILS # 16.7 10^3/uL (1.5-8.5); NEUTROPHILS % 86.4 % (36.0-66.0); PLATELET COUNT, AUTOMATED 295 10^3/uL (150-450); RED BLOOD COUNT 3.24 10^6/uL (4.00-5.40); WHITE BLOOD COUNT 19.3 10^3/uL (4.0-10.0)
[2019-05-11 06:36] LABS: BLOOD UREA NITROGEN 7 MG/DL (7-18); CALCIUM LEVEL 8.1 MG/DL (8.5-10.1); CARBON DIOXIDE LEVEL 24 MEQ/L (21-32); CHLORIDE LEVEL 107 MEQ/L (98-107); GLOMERULAR FILTRATION RATE > 60.0 (>51); GLUCOSE, FASTING 98 MG/DL (70-100); POTASSIUM SERUM 3.1 MEQ/L (3.5-5.1); SODIUM LEVEL 140 MEQ/L (136-145)
[2019-05-11 08:19] VITALS: BP 90/66
[2019-05-11] MEDS ORDERED: NS 500 ML IV ONE (09:45)
[2019-05-11] MEDS: PANTOPRAZOLE 40MG INJ (PROTONIX) (C9113) IV SCH (09:56)
[2019-05-11] MEDS: FOLIC ACID 1 MG TAB PO SCH (09:57)
[2019-05-11] MEDS: ASPIRIN 81 MG ENTERIC TAB PO SCH (09:57)
[2019-05-11] MEDS: OMEPRAZOLE 20 MG CAP PO SCH (09:57)
[2019-05-11] MEDS: MULTIVITAMINS/MINERALS THERAP 1 TAB PO SCH (09:57)
[2019-05-11] MEDS: VITAMIN D 1,000 INTERNATIONAL UNITS TABLET PO SCH (09:57)
--- NOTE | 2019-05-11 10:00 | IPNPDOC ---
Subjective Date Seen The patient was seen on 05/11/19. Subjective Chief Complaint/HPI Abd pain worse today. Having some diarrhea now Constitutional: Reports: Fever (Tmax 100.4); Denies: Chills Pulmonary: Reports: Dyspnea (Difficulty taking deep breath due to abd pain); Denies: Cough Cardiovascular: Denies: Chest Pain, Palpitations Gastrointestinal: Reports: Nausea, Abdominal Pain, Diarrhea; Denies: Vomiting, Constipation Objective Physical Examination General Exam: Positive: Alert, Cooperative, Mild Distress (appear uncomfortable) ENT Exam: Positive: Mucous membr. moist/pink Neck Exam: Positive: Supple Chest Exam: Positive: Clear to auscultation, Normal air movement; Negative: Rales, Rhonchi, Wheezing Heart Exam: Positive: Rate Normal, Regular Rhythm Abdomen Exam: Positive: Normal bowel sounds, Tenderness (Very tender with guarding and rebound tenderness. ) Extremity Exam: Negative: Edema Skin Exam: Positive: Nl turgor and temperature Psych Exam: Positive: Mood NL Assessment /Plan Problems (1) Sepsis Status: Acute Problem Text: Hypotension, Leukocytosis WBC now = 19. Tamx 100.4 despite Zosyn Give IVF Bolus Replace K+ with K runs and check mag level Hold Antihypertensives GI panel ordered due to new diarrhea Repeat CT/Pelvis due to above with increased tenderness (2) Diverticulitis Status: Acute Response to Treatment: Stable Problem Text: 05/11 - Increased abd pain with rise in WBC to 19 and fever 100.4 despite Zosyn. Now with diarrhea. Get Gi panel. Add Flagyl \ 05/10/19: WBC 14.4. Afebrile. Day #2 Zoysn. BC pending . NPO. IVF NS @ 90/hr CT abdomen/pelvis Impression: Improved sigmoid colon diverticulitis adjacent to the right adnexa in the right pelvis. No abscess or free air. Otherwise unchanged. Status post hysterectomy. (3) Hypertension Status: Chronic Response to Treatment: Stable Problem Text: 05/11 - Hold Carvedilol, Lisinopril and Cardura due to hypotension - see above 05/10/19 Stable. She remains on Carvidilol and Lisinopril (4) CAD (coronary artery disease) Status: Chronic Response to Treatment: Stable Problem Text: 05/10/19: Remains on Lipitor, ASA, Plavix, Zetia (5) Hypothyroid Status: Chronic Response to Treatment: Stable Problem Text: 05/10/19: Levothyroxine 25mg (6) Rheumatoid arthritis Status: Chronic Response to Treatment: Stable Plan/VTE VTE Prophylaxis Ordered?: Yes (TEDS and Sequentials ) VS, I&O, 24H, Fishbone Vital Signs/I&O Vital Signs Date Time Temp Pulse Resp B/P (MAP) Pulse Ox O2 Delivery O2 Flow Rate FiO2 05/11/19 08:19 97.7 69 16 90/66 (74) 95 05/09/19 14:28 Room Air I&O- Last 24 Hours up to 6 AM 05/11/19 06:00 Intake Total 1590 ml Output Total 600 ml Balance 990 ml Laboratory Data 24H LABS Laboratory Tests 2 05/11/19 05:21: Immature Granulocyte % (Auto) 1.1, White Blood Count 19.3H, Red Blood Count 3.24L, Hemoglobin 9.9L, Hematocrit 30.0L, Mean Corpuscular Volume 92.6, Mean Corpuscular Hemoglobin 30.6, Mean Corpuscular Hemoglobin Concent 33.0, Red Cell Distribution Width 14.7H, Platelet Count 295, Neutrophils (%) (Auto) 86.4H, Lymphocytes (%) (Auto) 6.2L, Monocytes (%) (Auto) 5.4H, Eosinophils (%) (Auto) 0.7, Basophils (%) (Auto) 0.2, Neutrophils # (Auto) 16.7H, Lymphocytes # (Auto) 1.2L, Monocytes # (Auto) 1.1H, Eosinophils # (Auto) 0.1, Basophils # (Auto) 0.0, Nucleated Red Blood Cells % (auto) 0.0, Anion Gap 9, Glomerular Filtration Rate > 60.0, Blood Urea Nitrogen 7, Creatinine 0.80, Sodium Level 140, Potassium Level 3.1L, Chloride Level 107, Carbon Dioxide Level 24, Calcium Level 8.1L CBC/BMP Laboratory Tests 05/11/19 05:21 Red Blood Count 3.24 L, Mean Corpuscular Volume 92.6, Mean Corpuscular Hemoglobin 30.6, Mean Corpuscular Hemoglobin Concent 33.0, Red Cell Distribution Width 14.7 H, Neutrophils (%) (Auto) 86.4 H, Lymphocytes (%) (Auto) 6.2 L, Mon ocytes (%) (Auto) 5.4 H, Eosinophils (%) (Auto) 0.7, Basophils (%) (Auto) 0.2, Neutrophils # (Auto) 16.7 H, Lymphocytes # (Auto) 1.2 L, Monocytes # (Auto) 1.1 H, Eosinophils # (Auto) 0.1, Basophils # (Auto) 0.0, Calcium Level 8.1 L Microbiology Microbiology 05/09/19 Blood Culture - Preliminary, Resulted No growth after 24 hours . All specim... 05/09/19 Blood Culture - Preliminary, Resulted No growth after 24 hours . All specim... LELA KELLEY PA-C May 11, 2019 10:00
[2019-05-11 10:02] LABS: MAGNESIUM LEVEL 1.9 MG/DL (1.8-2.4)
[2019-05-11] MEDS: KCL 10MEQ/100ML SWI (KRUN) 10 MEQ in APPROPRIATE DILUENT 1 EA IV SCH ×4 (10:27→14:54)
[2019-05-11] MEDS: GASTROGRAFIN SOLUTION 30ML PO SCH ×2 (10:38→11:17)
[2019-05-11] MEDS: LR 1,000 ML IV SCH ×2 (11:29→19:30)
[2019-05-11 11:50] VITALS: BP 117/65
[2019-05-11] MEDS ORDERED: ISOVUE-370 76% 100ML VIAL (Q9967) As Ordered ONE (11:58)
[2019-05-11 14:00] VITALS: BP 114/62
[2019-05-11] MEDS: metroNIDAZOLE 500 MG in APPROPRIATE DILUENT 1 EA IV SCH ×2 (14:02→21:34)
--- NOTE | 2019-05-11 14:28 | REP ---
CT ABDOMEN/PELVIS WITHOUT AND WITH IV CONTRAST: WITH ORAL CONTRAST. HISTORY: Acute worsening abdominal tenderness with increased white blood cell count. Fever. Comparison CT study, May 09, 2019 and May 05, 2019. CT CONTRAST DOSE: 100 mL of intravenous Isovue-370. CT FINDINGS: Preliminary digital deburring and tooling machine operator radiograph is unremarkable. There is no evidence of pleural effusion. The lung bases are clear. There is a small cyst in the liver, unchanged. No new focal liver lesion is seen. Gallbladder is mildly distended without wall thickening or pericholecystic fluid. No adrenal or pancreatic lesion is seen. The kidneys are again seen to enhance symmetrically. There is a small accessory splenule. No evidence of abscess in the upper abdomen. No free air is seen. There are air-fluid levels in the transverse colon question mild ileus. There is mural thickening more or less diffusely in the sigmoid colon and descending colon. There is scattered diverticulosis in the sigmoid colon. There is a persistent area of mural thickening and pericolonic streaking adjacent to the sigmoid colon in the right pelvis. There is a small quantity of fluid in the paracolic gutter associated with this. This is similar to the appearance on May 09, 2019. No charles abscess is seen. The diffuse mural thickening raises question of enterocolitis. The uterus is surgically absent. No ovarian lesion is seen. No other evidence of abscess or free air is seen elsewhere in the pelvis or abdomen. IMPRESSION: Diffuse mural thickening pattern in the left colon, question enterocolitis perhaps antibiotic associated. Mild diverticulitis pattern in the sigmoid colon with pericolonic streaking and edema to the right of midline along the pelvic sidewall as on previous CT studies and essentially unchanged. No abscess or free air seen. Electronically Signed by Saroj Obando MD 05/11/2019 03:27 P
[2019-05-11] MEDS: ACETAMINOPHEN 500 MG TAB PO PRN ×2 (14:31→23:45)
[2019-05-11 20:00] VITALS: BP 117/55
[2019-05-11] MEDS: CLOPIDOGREL 75 MG TAB PO SCH (21:34)
[2019-05-11] MEDS: EZETIMIBE 10 MG TAB (ZETIA) PO SCH (21:34)
[2019-05-11] MEDS: ATORVASTATIN 20 MG TAB PO SCH (21:34)
[2019-05-12] MEDS: LR 1,000 ML IV SCH ×3 (00:27→19:30)
[2019-05-12] MEDS ORDERED: traMADol 50 MG TAB PO PRN (01:30)
[2019-05-12] MEDS: VANCOMYCIN ORAL SOL 250MG/5ML ORAL SYRINGE PO SCH ×2 (02:29→06:48)
[2019-05-12] MEDS: metroNIDAZOLE 500 MG in APPROPRIATE DILUENT 1 EA IV SCH ×3 (04:09→20:08)
[2019-05-12] MEDS: PIPERACILLIN/TAZOBACTAM SOD 3.375 GM in D5W MINI-BAG PLUS 50 ML IV SCH ×3 (05:58→22:48)
[2019-05-12] MEDS: LEVOTHYROXINE 25MCG TABLET (0.025MG) PO SCH (05:58)
[2019-05-12 06:00] VITALS: BP 108/48
[2019-05-12 06:31] LABS: BASO # 0.1 10^3/uL (0.0-0.2); BASO % 0.6 % (0.0-1.0); EOS # 0.4 10^3/uL (0.0-0.5); EOS % 3.8 % (0.0-3.0); HEMATOCRIT 27.2 % (36.0-47.0); LYMPH % 19.1 % (24.0-44.0); MEAN CORPUSCULAR HEMOGLOBIN 31.4 pg (27.0-33.0); MEAN CORPUSCULAR HGB CONC 33.1 g/dl (32.0-36.5); MEAN CORPUSCULAR VOLUME 94.8 fl (80.0-96.0); MONO # 0.7 10^3/uL (0.0-0.8); MONO % 6.3 % (0.0-5.0); NEUTROPHILS # 7.2 10^3/uL (1.5-8.5); NEUTROPHILS % 69.4 % (36.0-66.0); PLATELET COUNT, AUTOMATED 263 10^3/uL (150-450); RED BLOOD COUNT 2.87 10^6/uL (4.00-5.40); WHITE BLOOD COUNT 10.4 10^3/uL (4.0-10.0)
[2019-05-12 06:51] LABS: BLOOD UREA NITROGEN 4 MG/DL (7-18); CALCIUM LEVEL 8.2 MG/DL (8.5-10.1); CARBON DIOXIDE LEVEL 23 MEQ/L (21-32); CHLORIDE LEVEL 111 MEQ/L (98-107); CREATININE FOR GFR 0.66 MG/DL (0.55-1.30); GLOMERULAR FILTRATION RATE > 60.0 (>51); GLUCOSE, FASTING 89 MG/DL (70-100); SODIUM LEVEL 142 MEQ/L (136-145)
[2019-05-12 08:30] VITALS: BP 110/62
[2019-05-12] MEDS: VITAMIN D 1,000 INTERNATIONAL UNITS TABLET PO SCH (09:30)
[2019-05-12] MEDS: ASPIRIN 81 MG ENTERIC TAB PO SCH (09:30)
[2019-05-12] MEDS: FOLIC ACID 1 MG TAB PO SCH (09:30)
[2019-05-12] MEDS: MULTIVITAMINS/MINERALS THERAP 1 TAB PO SCH (09:31)
[2019-05-12] MEDS: OMEPRAZOLE 20 MG CAP PO SCH (09:31)
[2019-05-12] MEDS: POTASSIUM CHLORIDE 10 MEQ SR TABLET PO SCH ×2 (10:15→20:07)
[2019-05-12] MEDS: KCL 10MEQ/100ML SWI (KRUN) 10 MEQ in APPROPRIATE DILUENT 1 EA IV SCH ×2 (10:15→11:45)
--- NOTE | 2019-05-12 11:39 | IPNPDOC ---
Subjective Date Seen The patient was seen on 05/12/19. Subjective Chief Complaint/HPI Pt this morning states that she is comfortable when lying in bed, abd pain increases with movement. She states that she has not had any diarrhea, she has had a few loose stools but none in 2 days. General: Reports: Fatigue Constitutional: Denies: Chills, Fever Pulmonary: Reports: Dyspnea, Cough Cardiovascular: Denies: Chest Pain, Palpitations Gastrointestinal: Reports: Abdominal Pain; Denies: Nausea, Vomiting, Diarrhea, Constipation Neurological: Denies: Weakness Psych: Reports: Mood Normal Objective Physical Examination General Exam: Positive: Alert, Cooperative, No Acute Distress ENT Exam: Positive: Mucous membr. moist/pink Neck Exam: Positive: Supple Chest Exam: Positive: Clear to auscultation, Normal air movement; Negative: Rales, Rhonchi, Wheezing Heart Exam: Positive: Rate Normal, Regular Rhythm Abdomen Exam: Positive: Normal bowel sounds, Tenderness (moderately diffusely tender with gentle palpation) Extremity Exam: Negative: Edema Skin Exam: Positive: Nl turgor and temperature Psych Exam: Positive: Mood NL Assessment /Plan Problems (1) Sepsis Status: Acute Problem Text: 05/12 Pressures improved, afebrile more than 24 hours, WBC down from 19 to 10, GI panel Neg, will d/c Vanco, Cont with Flagyl/Zosyn, discussed with JW. 05/11 Hypotension, Leukocytosis WBC now = 19. Tamx 100.4 despite Zosyn Give IVF Bolus Replace K+ with K runs and check mag level Hold Antihypertensives GI panel ordered due to new diarrhea Repeat CT/Pelvis due to above with increased tenderness (2) Diverticulitis Status: Acute Response to Treatment: Stable Problem Text: 05/12 see above. 05/11 - Increased abd pain with rise in WBC to 19 and fever 100.4 despite Zosyn. Now with diarrhea. Get Gi panel. Add Flagyl \ 05/10/19: WBC 14.4. Afebrile. Day #2 Zoysn. BC pending . NPO. IVF NS @ 90/hr CT abdomen/pelvis Impression: Improved sigmoid colon diverticulitis adjacent to the right adnexa in the right pelvis. No abscess or free air. Otherwise unchanged. Status post hysterectomy. (3) Hypertension Status: Chronic Response to Treatment: Stable Problem Text: 05/11 - Hold Carvedilol, Lisinopril and Cardura due to hypotension - see above 05/10/19 Stable. She remains on Carvidilol and Lisinopril (4) CAD (coronary artery disease) Status: Chronic Response to Treatment: Stable Problem Text: 05/10/19: Remains on Lipitor, ASA, Plavix, Zetia (5) Hypothyroid Status: Chronic Response to Treatment: Stable Problem Text: 05/10/19: Levothyroxine 25mg (6) Rheumatoid arthritis Status: Chronic Response to Treatment: Stable Plan/VTE VTE Prophylaxis Ordered?: Yes (TEDS and Sequentials ) VS, I&O, 24H, Fishbone Vital Signs/I&O Vital Signs Date Time Temp Pulse Resp B/P (MAP) Pulse Ox O2 Delivery O2 Flow Rate FiO2 05/12/19 08:30 98.1 62 18 110/62 (78) 97 05/09/19 14:28 Room Air I&O- Last 24 Hours up to 6 AM 05/12/19 06:00 Intake Total 3430 ml Balance 3430 ml Laboratory Data 24H LABS Laboratory Tests 2 05/12/19 05:11: Immature Granulocyte % (Auto) 0.8, White Blood Count 10.4H, Red Blood Count 2.87L, Hemoglobin 9.0L, Hematocrit 27.2L, Mean Corpuscular Volume 94.8, Mean Corpuscular Hemoglobin 31.4, Mean Corpuscular Hemoglobin Concent 33.1, Red Cell Distribution Width 15.0H, Platelet Count 263, Neutrophils (%) (Auto) 69.4H, Lymphocytes (%) (Auto) 19.1L, Monocytes (%) (Auto) 6.3H, Eosinophils (%) (Auto) 3.8H, Basophils (%) (Auto) 0.6, Neutrophils # (Auto) 7.2, Lymphocytes # (Auto) 2.0, Monocytes # (Auto) 0.7, Eosinophils # (Auto) 0.4, Basophils # (Auto) 0.1, Nucleated Red Blood Cells % (auto) 0.0, Anion Gap 8, Glomerular Filtration Rate > 60.0, Blood Urea Nitrogen 4L, Creatinine 0.66, Sodium Level 142, Potassium Level 3.0L, Chloride Level 111H, Carbon Dioxide Level 23, Calcium Level 8.2L CBC/BMP Laboratory Tests 05/12/19 05:11 Red Blood Count 2.87 L, Mean Corpuscular Volume 94.8, Mean Corpuscular H emoglobin 31.4, Mean Corpuscular Hemoglobin Concent 33.1, Red Cell Distribution Width 15.0 H, Neutrophils (%) (Auto) 69.4 H, Lymphocytes (%) (Auto) 19.1 L, Monocytes (%) (Auto) 6.3 H, Eosinophils (%) (Auto) 3.8 H, Basophils (%) (Auto) 0.6, Neutrophils # (Auto) 7.2, Lymphocytes # (Auto) 2.0, Monocytes # (Auto) 0.7, Eosinophils # (Auto) 0.4, Basophils # (Auto) 0.1, Calcium Level 8.2 L Microbiology Microbiology 05/09/19 Blood Culture - Preliminary, Resulted No Growth after 48 hours. All Specime... 05/09/19 Blood Culture - Preliminary, Resulted No Growth after 48 hours. All Specime... 05/12/19 Gastrointestinal Tract Panel (PCR) - Final, Complete CAROL BARRERA PA-C May 12, 2019 11:39
[2019-05-12] MEDS ORDERED: ISOVUE-370 76% 100ML VIAL (Q9967) As Ordered ONE (15:15)
--- NOTE | 2019-05-12 16:11 | REP ---
CT pulmonary angiogram: With IV contrast. History: Rule out pulmonary embolus. Comparison studies: Comparison CT ANGIO is from August 05, 2009. Contrast dose: 75 mL of Isovue [address] technique: Helical scanning is acquired and overlapping 1.5 mm and contiguous 3 mm axial images are reformatted. In addition, maximum intensity projection and multiplanar re-formation images are generated in sagittal and coronal imaging projections. CT pulmonary angiographic findings: There is good opacification of the pulmonary arterial tree. There is no CT evidence of pulmonary embolus. No filling defect or vessel cutoff is seen in the pulmonary arterial tree on maximal intensity projection images. Thoracic aorta enhances homogeneously. No aneurysm or dissection is seen. There is some vascular calcification. Incidental note is made of an aberrant right subclavian artery unchanged from the comparison study. Great vessel origins are otherwise unremarkable. No pericardial effusion is seen. There is a small sliver of bilateral pleural fluid. There is no evidence of infiltrate, pulmonary mass, or significant pulmonary nodule. There are surgical clips in the left axillary soft tissues. No bony destructive lesion is seen. There is a 1.1 cm cyst in the liver, unchanged from the 2009 study. Impression: No CT evidence of pulmonary embolus. Aberrant right subclavian artery again noted incidentally. Small sliver of pleural fluid present bilaterally. Otherwise negative. Electronically Signed by Saroj Obando MD 05/12/2019 04:13 P
[2019-05-12] MEDS: ENOXAPARIN 40 MG/0.4 ML SYRINGE (J1650) SC SCH (16:40)
--- NOTE | 2019-05-12 17:13 | IPN ---
DATE: 05/12/2019 Holley had pleuritic chest discomfort today. It is worse with deep inspiration. It is felt left precordial region, felt similar to previous pericarditis that she experienced. We did an EKG; it was unremarkable. Echocardiogram has been ordered. I ordered a D-Dimer; it came back elevated at 4200. Did a spiral CT angiogram. Showed no evidence of pulmonary embolism, just a small sliver of pleural fluid. The patient was made aware of negative findings. The patient was on sequential compression devices (SCDs)/thromboembolism deterrents (TEDs); pharmacologic venous thromboembolism (VTE) prophylaxis was held until we are sure she was not a surgical candidate. At this point, we will start Lovenox and discontinue the SCDs.
--- NOTE | 2019-05-12 19:07 | ECHO ---
DATE OF PROCEDURE: 05/12/2019 REFERRING PHYSICIAN: Dr. Kumar and Dr. Mendosa INDICATION: Chest pain. Height 157 cm Weight 71 kg. DIMENSIONS: IVS 1.1 LV 4.1 LVPW 1.1 LA 3.2 Aorta 2.9 IVC 1.9 Mitral E wave velocity 88, A-wave 84 E prime septal 7.4 E prime lateral 4.8 FINDINGS: The study is of acceptable technical quality. The patient is in sinus rhythm. Left ventricle is normal size and systolic function, estimated LVEF 65-70%. Right ventricle appears normal. Both atria appear normal. Aortic valve is minimally sclerotic but mobility is preserved. Mitral tricuspid valves appear normal. Pulmonic valve was not well seen. Trivial pericardial effusion is noted. Inferior vena cava is normal size. Aortic root and aortic arch appear normal. Limited visualization of the abdominal aorta also appears normal. Doppler interrogation of aortic valve reveals trace insufficiency and no stenosis. There is mild mitral and mild tricuspid insufficiency. Calculated pulmonary artery pressure is around 30 mmHg corresponding to upper limits of normal values or possibly mild pulmonary hypertension. Mitral inflow pattern and tissue Doppler imaging of mitral annulus reveal grade 2 diastolic dysfunction indicative of elevated LVEDP. CONCLUSIONS: 1. Study is of good technical quality. 2. Normal LV size with preserved LV systolic function and likely grade 2 diastolic dysfunction. 3. Trace aortic insufficiency. 4. Mild mitral and tricuspid insufficiency. 5. Probably normal central venous pressure and mild and possibly mild pulmonary hypertension. 6. Trivial pericardial effusion. COMMENT: SBE prophylaxis not recommended.
[2019-05-12] MEDS: EZETIMIBE 10 MG TAB (ZETIA) PO SCH (20:07)
[2019-05-12] MEDS: ATORVASTATIN 20 MG TAB PO SCH (20:07)
[2019-05-12] MEDS: CLOPIDOGREL 75 MG TAB PO SCH (20:07)
[2019-05-12 22:00] VITALS: BP 142/63
[2019-05-12] MEDS: ONDANSETRON 4MG/2ML VIAL (J2405) IV PRN (22:19)
[2019-05-13] MEDS: metroNIDAZOLE 500 MG in APPROPRIATE DILUENT 1 EA IV SCH ×3 (04:22→21:33)
[2019-05-13 06:00] VITALS: BP 155/70
[2019-05-13] MEDS: LEVOTHYROXINE 25MCG TABLET (0.025MG) PO SCH (06:25)
[2019-05-13] MEDS: PIPERACILLIN/TAZOBACTAM SOD 3.375 GM in D5W MINI-BAG PLUS 50 ML IV SCH ×3 (06:25→22:51)
[2019-05-13 06:34] LABS: BASO # 0.1 10^3/uL (0.0-0.2); BASO % 0.7 % (0.0-1.0); EOS # 0.3 10^3/uL (0.0-0.5); EOS % 4.6 % (0.0-3.0); HEMATOCRIT 29.1 % (36.0-47.0); HEMOGLOBIN 9.7 g/dl (12.0-15.5); LYMPH % 27.6 % (24.0-44.0); MEAN CORPUSCULAR HEMOGLOBIN 30.6 pg (27.0-33.0); MEAN CORPUSCULAR HGB CONC 33.3 g/dl (32.0-36.5); MEAN CORPUSCULAR VOLUME 91.8 fl (80.0-96.0); MONO # 0.6 10^3/uL (0.0-0.8); MONO % 7.6 % (0.0-5.0); NEUTROPHILS # 4.2 10^3/uL (1.5-8.5); NEUTROPHILS % 58.5 % (36.0-66.0); PLATELET COUNT, AUTOMATED 307 10^3/uL (150-450); RED BLOOD COUNT 3.17 10^6/uL (4.00-5.40); WHITE BLOOD COUNT 7.2 10^3/uL (4.0-10.0)
[2019-05-13 06:44] LABS: BLOOD UREA NITROGEN 4 MG/DL (7-18); CALCIUM LEVEL 8.4 MG/DL (8.5-10.1); CARBON DIOXIDE LEVEL 25 MEQ/L (21-32); CHLORIDE LEVEL 112 MEQ/L (98-107); CREATININE FOR GFR 0.62 MG/DL (0.55-1.30); GLOMERULAR FILTRATION RATE > 60.0 (>51); GLUCOSE, FASTING 87 MG/DL (70-100); POTASSIUM SERUM 3.7 MEQ/L (3.5-5.1); SODIUM LEVEL 143 MEQ/L (136-145)
[2019-05-13] MEDS: LR 1,000 ML IV SCH ×3 (09:19→21:31)
[2019-05-13] MEDS: POTASSIUM CHLORIDE 10 MEQ SR TABLET PO SCH ×2 (09:19→21:33)
[2019-05-13] MEDS: VITAMIN D 1,000 INTERNATIONAL UNITS TABLET PO SCH (09:19)
[2019-05-13] MEDS: FOLIC ACID 1 MG TAB PO SCH (09:19)
[2019-05-13] MEDS: ASPIRIN 81 MG ENTERIC TAB PO SCH (09:19)
[2019-05-13] MEDS: MULTIVITAMINS/MINERALS THERAP 1 TAB PO SCH (09:20)
[2019-05-13] MEDS: OMEPRAZOLE 20 MG CAP PO SCH (09:20)
--- NOTE | 2019-05-13 10:00 | IPNPDOC ---
Subjective Date Seen The patient was seen on 05/13/19. Subjective Chief Complaint/HPI Pt this morning states that she feels a bit better than she has. She states that her abd is still quite tender, has had green slimy stools. She reports CP with deep inspiration only, none with rest. General: Denies: Fatigue Constitutional: Denies: Fever Pulmonary: Denies: Dyspnea, Cough Cardiovascular: Reports: Chest Pain; Denies: Palpitations Gastrointestinal: Reports: Abdominal Pain; Denies: Nausea Neurological: Denies: Weakness Psych: Reports: Mood Normal Objective Physical Examination General Exam: Positive: Alert, Cooperative, No Acute Distress ENT Exam: Positive: Mucous membr. moist/pink Neck Exam: Positive: Supple Chest Exam: Positive: Clear to auscultation, Normal air movement; Negative: Rales, Rhonchi, Wheezing Heart Exam: Positive: Rate Normal, Regular Rhythm Abdomen Exam: Positive: Normal bowel sounds, Tenderness (moderately diffusely tender with gentle palpation) Extremity Exam: Negative: Edema Skin Exam: Positive: Nl turgor and temperature Psych Exam: Positive: Mood NL Assessment /Plan Problems (1) Sepsis Status: Acute Problem Text: 05/13 Pressures stable, remain afebrile, WBC has normalized. Will cont with ZOsyn/Flagyl, anticipate transition to PO tomorrow. Will attempt to advance her diet today. 05/12 Pressures improved, afebrile more than 24 hours, WBC down from 19 to 10, GI panel Neg, will d/c Vanco, Cont with Flagyl/Zosyn, discussed with JW. 05/11 Hypotension, Leukocytosis WBC now = 19. Tamx 100.4 despite Zosyn Give IVF Bolus Replace K+ with K runs and check mag level Hold Antihypertensives GI panel ordered due to new diarrhea Repeat CT/Pelvis due to above with increased tenderness (2) Pleuritic chest pain Status: Acute Response to Treatment: Stable, Improving Problem Specific Plan: Monitor Clinically Problem Text: EKG, CT ang Neg. (3) Diverticulitis Status: Acute Response to Treatment: Stable Problem Text: 05/12 see above. 05/11 - Increased abd pain with rise in WBC to 19 and fever 100.4 despite Zosyn. Now with diarrhea. Get Gi panel. Add Flagyl \ 05/10/19: WBC 14.4. Afebrile. Day #2 Zoysn. BC pending . NPO. IVF NS @ 90/hr CT abdomen/pelvis Impression: Improved sigmoid colon diverticulitis adjacent to the right adnexa in the right pelvis. No abscess or free air. Otherwise unchanged. Status post hysterectomy. (4) Hypertension Status: Chronic Response to Treatment: Stable Problem Text: 05/13 pressures starting to climb, will restart carvedilol today. 05/11 - Hold Carvedilol, Lisinopril and Cardura due to hypotension - see above 05/10/19 Stable. She remains on Carvidilol and Lisinopril (5) CAD (coronary artery disease) Status: Chronic Response to Treatment: Stable Problem Text: 05/10/19: Remains on Lipitor, ASA, Plavix, Zetia (6) Hypothyroid Status: Chronic Response to Treatment: Stable Problem Text: 05/10/19: Levothyroxine 25mg (7) Rheumatoid arthritis Status: Chronic Response to Treatment: Stable Plan/VTE VTE Prophylaxis Ordered?: Yes (TEDS and Sequentials ) VS, I&O, 24H, Fishbone Vital Signs/I&O Vital Signs Date Time Temp Pulse Resp B/P (MAP) Pulse Ox O2 Delivery O2 Flow Rate FiO2 05/13/19 06:00 99.0 60 20 155/70 (98) 98 05/09/19 14:28 Room Air I&O- Last 24 Hours up to 6 AM 05/13/19 06:00 Intake Total 2015 ml Output Total 200 ml Balance 1815 ml Laboratory Data 24H LABS Laboratory Tests 2 05/12/19 14:10: D-Dimer, Quantitative 3558.10H 05/13/19 05:37: Immature Granulocyte % (Auto) 1.0, White Blood Count 7.2, Red Blood Count 3.17L, Hemoglobin 9.7L, Hematocrit 29.1L, Mean Corpuscular Volume 91.8, Mean [place] uscular Hemoglobin 30.6, Mean Corpuscular Hemoglobin Concent 33.3, Red Cell Distribution Width 15.0H, Platelet Count 307, Neutrophils (%) (Auto) 58.5, Lymphocytes (%) (Auto) 27.6, Monocytes (%) (Auto) 7.6H, Eosinophils (%) (Auto) 4.6H, Basophils (%) (Auto) 0.7, Neutrophils # (Auto) 4.2, Lymphocytes # (Auto) 2.0, Monocytes # (Auto) 0.6, Eosinophils # (Auto) 0.3, Basophils # (Auto) 0.1, Nucleated Red Blood Cells % (auto) 0.0, Anion Gap 6L, Glomerular Filtration Rate > 60.0, Blood Urea Nitrogen 4L, Creatinine 0.62, Sodium Level 143, Potassium Level 3.7#, Chloride Level 112H, Carbon Dioxide Level 25, Calcium Level 8.4L CBC/BMP Laboratory Tests 05/13/19 05:37 Red Blood Count 3.17 L, Mean Corpuscular Volume 91.8, Mean Corpuscular Hemoglobin 30.6, Mean Corpuscular Hemoglobin Concent 33.3, Red Cell Distribution Width 15.0 H, Neutrophils (%) (Auto) 58.5, Lymphocytes (%) (Auto) 27.6, Monocytes (%) (Auto) 7.6 H, Eosinophils (%) (Auto) 4.6 H, Basophils (%) (Auto) 0.7, Neutrophils # (Auto) 4.2, Lymphocytes # (Auto) 2.0, Monocytes # (Auto) 0.6, Eosinophils # (Auto) 0.3, Basophils # (Auto) 0.1, Calcium Level 8.4 L Microbiology Microbiology 05/09/19 Blood Culture - Preliminary, Resulted No Growth after 72 hours. All specime... 05/09/19 Blood Culture - Preliminary, Resulted No Growth after 72 hours. All specime... 05/12/19 Gastrointestinal Tract Panel (PCR) - Final, Complete CAROL BARRERA PA-C May 13, 2019 10:00
[2019-05-13] MEDS: CARVedilol 12.5 MG TAB PO SCH ×2 (11:35→21:34)
[2019-05-13 14:00] VITALS: BP 144/78
[2019-05-13] MEDS ORDERED: LIDOCAINE 1% MDV 20ML VIAL As Ordered ONE (15:30)
--- NOTE | 2019-05-13 16:37 | REP ---
MIDLINE CATHETER INSERTION The procedure was performed under the direct supervision of Dr. Fuller. The risks and benefits of the procedure were explained to the patient and informed consent was obtained. The right basilic vein was localized using ultrasound guidance. The skin was prepped and draped in a sterile fashion. 1% lidocaine was used as a local anesthetic. Using ultrasound guidance the basilic vein was cannulated and a 0.018 guide wire was inserted. The needle was removed and a 4.5 Mexican dilator and peel-away sheath was inserted over the guide wire. A 4.5 Mexican single-lumen catheter was cut to length of 14 cm. The dilator was removed and the catheter was inserted over the guide wire. The peel-away sheath was removed and the catheter was flushed with heparinized saline as per Hospital protocol. The catheter was affixed to the skin and a sterile dressing was applied. The patient tolerated the procedure well and there were no immediate complications. Electronically Signed by MARIA R Sue 05/13/2019 04:20 P Electronically Signed by Saroj Oabndo MD 05/13/2019 04:28 P
--- NOTE | 2019-05-13 16:50 | ECGEPIP ---
[facility] Test Date: 2019-05-12 Pat Name: PATRICK WALSH Department: Room: [place] [address] Gender: Female Substance Abuse Specialist: JONELLE : 1960 Requested By: Ramiro Mendosa Order Number: [id number] Reading MD: Sumit Scanlon Measurements Intervals [place] Rate: 62 P: 11 OK: 148 QRS: 0 QRSD: 81 T: 13 QT: 385 QTc: 393 Interpretive Statements SINUS RHYTHM Poor R wave progression Electronically Signed on 05-13-2019 16:50:37 EDT by Sumit Scanlon
[2019-05-13] MEDS: ENOXAPARIN 40 MG/0.4 ML SYRINGE (J1650) SC SCH (17:00)
[2019-05-13] MEDS: SODIUM CHLORIDE 0.9% INJ 10 ML SYR IV SCH (17:00)
[2019-05-13] MEDS: ATORVASTATIN 20 MG TAB PO SCH (21:33)
[2019-05-13] MEDS: EZETIMIBE 10 MG TAB (ZETIA) PO SCH (21:34)
[2019-05-13] MEDS: CLOPIDOGREL 75 MG TAB PO SCH (21:34)
[2019-05-13 22:00] VITALS: BP 152/76
[2019-05-14] MEDS: metroNIDAZOLE 500 MG in APPROPRIATE DILUENT 1 EA IV SCH ×3 (03:38→21:16)
[2019-05-14 06:00] VITALS: BP 152/69
[2019-05-14] MEDS: LEVOTHYROXINE 25MCG TABLET (0.025MG) PO SCH (06:17)
[2019-05-14] MEDS: PIPERACILLIN/TAZOBACTAM SOD 3.375 GM in D5W MINI-BAG PLUS 50 ML IV SCH ×3 (06:17→22:36)
[2019-05-14] MEDS: ONDANSETRON 4MG/2ML VIAL (J2405) IV PRN ×2 (06:17→13:13)
[2019-05-14] MEDS: SODIUM CHLORIDE 0.9% INJ 10 ML SYR IV SCH ×2 (06:18→17:22)
[2019-05-14 06:32] LABS: BASO # 0.1 10^3/uL (0.0-0.2); BASO % 0.8 % (0.0-1.0); EOS # 0.3 10^3/uL (0.0-0.5); EOS % 3.5 % (0.0-3.0); HEMOGLOBIN 9.8 g/dl (12.0-15.5); LYMPH # 2.1 10^3/uL (1.5-5.0); MEAN CORPUSCULAR HEMOGLOBIN 30.6 pg (27.0-33.0); MEAN CORPUSCULAR HGB CONC 33.8 g/dl (32.0-36.5); MEAN CORPUSCULAR VOLUME 90.6 fl (80.0-96.0); MONO # 0.6 10^3/uL (0.0-0.8); MONO % 7.4 % (0.0-5.0); NEUTROPHILS % 60.7 % (36.0-66.0); PLATELET COUNT, AUTOMATED 342 10^3/uL (150-450); WHITE BLOOD COUNT 8.2 10^3/uL (4.0-10.0)
[2019-05-14 06:46] LABS: BLOOD UREA NITROGEN 3 MG/DL (7-18); CALCIUM LEVEL 8.7 MG/DL (8.5-10.1); CARBON DIOXIDE LEVEL 24 MEQ/L (21-32); CHLORIDE LEVEL 111 MEQ/L (98-107); CREATININE FOR GFR 0.69 MG/DL (0.55-1.30); GLOMERULAR FILTRATION RATE > 60.0 (>51); GLUCOSE, FASTING 85 MG/DL (70-100); POTASSIUM SERUM 3.8 MEQ/L (3.5-5.1); SODIUM LEVEL 143 MEQ/L (136-145)
[2019-05-14] MEDS: ASPIRIN 81 MG ENTERIC TAB PO SCH (07:51)
[2019-05-14] MEDS: VITAMIN D 1,000 INTERNATIONAL UNITS TABLET PO SCH (07:51)
[2019-05-14] MEDS: MULTIVITAMINS/MINERALS THERAP 1 TAB PO SCH (07:51)
[2019-05-14] MEDS: OMEPRAZOLE 20 MG CAP PO SCH (07:51)
[2019-05-14] MEDS: POTASSIUM CHLORIDE 10 MEQ SR TABLET PO SCH ×2 (07:52→21:16)
[2019-05-14] MEDS: LR 1,000 ML IV SCH ×2 (07:52→13:13)
[2019-05-14] MEDS: FOLIC ACID 1 MG TAB PO SCH (07:52)
[2019-05-14] MEDS: CARVedilol 12.5 MG TAB PO SCH ×2 (07:57→21:17)
[2019-05-14 14:00] VITALS: BP 133/69
[2019-05-14] MEDS: ENOXAPARIN 40 MG/0.4 ML SYRINGE (J1650) SC SCH (17:23)
[2019-05-14] MEDS: ATORVASTATIN 20 MG TAB PO SCH (21:16)
[2019-05-14] MEDS: CLOPIDOGREL 75 MG TAB PO SCH (21:16)
[2019-05-14] MEDS: EZETIMIBE 10 MG TAB (ZETIA) PO SCH (21:16)
[2019-05-14 22:00] VITALS: BP 149/75
[2019-05-15] MEDS: metroNIDAZOLE 500 MG in APPROPRIATE DILUENT 1 EA IV SCH ×3 (03:35→20:41)
[2019-05-15 06:00] VITALS: BP 149/70
[2019-05-15 06:29] LABS: BASO # 0.1 10^3/uL (0.0-0.2); BASO % 1.1 % (0.0-1.0); EOS # 0.3 10^3/uL (0.0-0.5); EOS % 3.6 % (0.0-3.0); HEMATOCRIT 30.6 % (36.0-47.0); HEMOGLOBIN 10.2 g/dl (12.0-15.5); LYMPH % 24.6 % (24.0-44.0); MEAN CORPUSCULAR HEMOGLOBIN 31.3 pg (27.0-33.0); MEAN CORPUSCULAR HGB CONC 33.3 g/dl (32.0-36.5); MEAN CORPUSCULAR VOLUME 93.9 fl (80.0-96.0); MONO # 0.7 10^3/uL (0.0-0.8); MONO % 8.4 % (0.0-5.0); NEUTROPHILS # 4.9 10^3/uL (1.5-8.5); NEUTROPHILS % 59.3 % (36.0-66.0); PLATELET COUNT, AUTOMATED 324 10^3/uL (150-450); RED BLOOD COUNT 3.26 10^6/uL (4.00-5.40); WHITE BLOOD COUNT 8.2 10^3/uL (4.0-10.0)
[2019-05-15] MEDS: LEVOTHYROXINE 25MCG TABLET (0.025MG) PO SCH (06:33)
[2019-05-15] MEDS: PIPERACILLIN/TAZOBACTAM SOD 3.375 GM in D5W MINI-BAG PLUS 50 ML IV SCH ×3 (06:34→23:10)
[2019-05-15] MEDS: SODIUM CHLORIDE 0.9% INJ 10 ML SYR IV SCH ×2 (06:34→17:34)
[2019-05-15 06:56] LABS: BLOOD UREA NITROGEN 6 MG/DL (7-18); CALCIUM LEVEL 8.4 MG/DL (8.5-10.1); CARBON DIOXIDE LEVEL 26 MEQ/L (21-32); CHLORIDE LEVEL 111 MEQ/L (98-107); CREATININE FOR GFR 0.72 MG/DL (0.55-1.30); GLOMERULAR FILTRATION RATE > 60.0 (>51); GLUCOSE, FASTING 95 MG/DL (70-100); POTASSIUM SERUM 3.8 MEQ/L (3.5-5.1); SODIUM LEVEL 144 MEQ/L (136-145)
--- NOTE | 2019-05-15 07:45 | IPN ---
DATE: 05/14/2019 Holley is seen [facility]. I was hoping she would be discharged today, but she says she does not feel well. She is nauseated and has abdominal pain. PHYSICAL EXAM: VITAL SIGNS: Stable. LUNGS: Clear. HEART: Regular rate and rhythm. ABDOMEN: Soft, is mildly, diffusely tender. No guarding or referred pain. LABS: CBC and CMP unremarkable. IMPRESSION: Diverticulitis. PLAN: We will continue her intravenous (IV) antibiotics for another day. I will reduce the IV fluid rate to try to stimulate appetite. Hopefully, she will be feeling well enough for discharge tomorrow.
[2019-05-15] MEDS: CARVedilol 12.5 MG TAB PO SCH ×2 (08:02→20:42)
[2019-05-15] MEDS: ASPIRIN 81 MG ENTERIC TAB PO SCH (08:02)
[2019-05-15] MEDS: LR 1,000 ML IV SCH (08:02)
[2019-05-15] MEDS: FOLIC ACID 1 MG TAB PO SCH (08:03)
[2019-05-15] MEDS: VITAMIN D 1,000 INTERNATIONAL UNITS TABLET PO SCH (08:03)
[2019-05-15] MEDS: MULTIVITAMINS/MINERALS THERAP 1 TAB PO SCH (08:03)
[2019-05-15] MEDS: POTASSIUM CHLORIDE 10 MEQ SR TABLET PO SCH ×2 (08:03→20:43)
[2019-05-15] MEDS: OMEPRAZOLE 20 MG CAP PO SCH (08:03)
[2019-05-15] MEDS ORDERED: FLUCONAZOLE 50MG TABLET PO ONE (13:00)
[2019-05-15 14:00] VITALS: BP 146/71
[2019-05-15] MEDS: SODIUM CHLORIDE 0.9% INJ 10 ML SYR IV PRN (16:20)
[2019-05-15] MEDS: ENOXAPARIN 40 MG/0.4 ML SYRINGE (J1650) SC SCH (17:33)
--- NOTE | 2019-05-15 20:21 | IPN ---
DATE: 05/15/2019 Holley is feeling better everyday. She is equivocal on going home today. She is having some right-sided abdominal pain. She also apparently is developing some vulvar vaginitis. PHYSICAL EXAMINATION: Vital signs stable, afebrile. Lungs clear. Heart regular rate, rhythm. Abdomen soft, tender right lower quadrant, less than yesterday, but still some significant tenderness. No costovertebral angle (CVA) tenderness. PLAN: Continue IV antibiotics for another day. She should be stable for discharge tomorrow. I gave her some Diflucan for the yeast infection. Anticipate discharge tomorrow.
[2019-05-15 20:37] VITALS: BP 155/94
[2019-05-15] MEDS: CLOPIDOGREL 75 MG TAB PO SCH (20:41)
[2019-05-15] MEDS: ATORVASTATIN 20 MG TAB PO SCH (20:42)
[2019-05-15] MEDS: EZETIMIBE 10 MG TAB (ZETIA) PO SCH (20:42)
[2019-05-15] MEDS: ACETAMINOPHEN 500 MG TAB PO PRN (20:43)
[2019-05-15 22:00] VITALS: BP 157/91
[2019-05-16] MEDS: SODIUM CHLORIDE 0.9% INJ 10 ML SYR IV PRN (00:51)
[2019-05-16] MEDS ORDERED: MICONAZOLE-7 VAGINAL 2% CREAM 47.7 GM PV ONE (02:30)
[2019-05-16] MEDS ORDERED: CLOTRIMAZOLE 1% VAG CR 45 GM PV ONE (02:45)
[2019-05-16] MEDS: metroNIDAZOLE 500 MG in APPROPRIATE DILUENT 1 EA IV SCH ×2 (03:22→12:42)
[2019-05-16] MEDS: PIPERACILLIN/TAZOBACTAM SOD 3.375 GM in D5W MINI-BAG PLUS 50 ML IV SCH (05:21)
[2019-05-16 06:00] VITALS: BP 142/82
[2019-05-16] MEDS: LEVOTHYROXINE 25MCG TABLET (0.025MG) PO SCH (06:07)
[2019-05-16] MEDS: SODIUM CHLORIDE 0.9% INJ 10 ML SYR IV SCH (06:47)
[2019-05-16] MEDS: VITAMIN D 1,000 INTERNATIONAL UNITS TABLET PO SCH (10:30)
[2019-05-16] MEDS: FOLIC ACID 1 MG TAB PO SCH (10:30)
[2019-05-16] MEDS: MULTIVITAMINS/MINERALS THERAP 1 TAB PO SCH (10:30)
[2019-05-16] MEDS: OMEPRAZOLE 20 MG CAP PO SCH (10:30)
[2019-05-16] MEDS: POTASSIUM CHLORIDE 10 MEQ SR TABLET PO SCH (10:30)
[2019-05-16] MEDS: ASPIRIN 81 MG ENTERIC TAB PO SCH (10:30)
[2019-05-16 10:34] VITALS: BP 147/42
[2019-05-16] MEDS: CARVedilol 12.5 MG TAB PO SCH (10:34)
[2019-05-16] MEDS: ONDANSETRON 4MG/2ML VIAL (J2405) IV PRN (12:48)
[2019-05-16] MEDS ORDERED: FLUBLOK(EGG FREE)(QUAD)INFLUENZA VACC 0.5ML SYRINGE (90682)18YRS&OLDER IM ONE (13:00)
[2019-05-16 14:00] VITALS: BP 131/66
--- NOTE | 2019-05-17 13:59 | DS.PDOC ---
Discharge Summary General Date of Admission May 09, 2019 at 13:13 Date of Discharge May 16, 2019 Primary Care Physician: Gage Kumar MD Attending Physician: Gage Kumar MD Discharge Summary PROCEDURES PERFORMED DURING STAY: [None]. ADMITTING DIAGNOSES: 1. Diverticulitis 2. HTN 3. CAD 4. Hypothyroidism 5. RA DISCHARGE DIAGNOSES: 1. Diverticulitis 2. Sepsis 3. HTN 4. CAD 5. Hypothyroidism 6. RA COMPLICATIONS/CHIEF COMPLAINT: Diverticulitis. HISTORY OF PRESENT ILLNESS: 58 yo female was seen in ED on 05/05/19, discharged home with diagnosis of diverticulitis and augmentin therapy, returns for worsening abdominal pain and nausea with diarrhea. States her pain worsens with eating. Rates as 5-7/10, diffuse abdominal. Denies any other medical complaints. Denies chest pain, shortness of breath, vomiting HOSPITAL COURSE: Patient was admitted to [facility] for further management of her diverticulitis with IV abx therpay, Zoysn initially. On day 3 she became hypotensive and her WBC trended up to 19, Temp of 100.4 despite abx therapy. At that time Metronidazole and Vanco were added to her regimen and antihypertensives were held. On day 4 her pressures started to improve, her WBC came down to 10. Vanco was d/c and she remained on Zoysn and Metrondiazole. She did develop some pleuritic chest pain on day 4 as well. She had an EKG; it was unremarkable. Echocardiogram was ordered. D-Dimer came back elevated at 4200. She had a spiral CT angiogram. Showed no evidence of pulmonary embolism, just a small sliver of pleural fluid. She did have a PICC line inserted d/t poor IV access. She improved slowly throughout her hospital course. She was ready for discharge on day #9. She was discharged on Augmentin to complete a total of 2 days. DISCHARGE MEDICATIONS: Please see below. ALLERGIES: Please see below. PHYSICAL EXAMINATION ON DISCHARGE: VITAL SIGNS: Please see below. GENERAL: AOx3, in NAD HEENT: unremarkable NECK: soft, supple, no lymphadenopathy CARDIOVASCULAR EXAMINATION: RRR RESPIRATORY EXAMINATION: CTA ABDOMINAL EXAMINATION: soft, non-tender, non-distended EXTREMITIES: no edema SKIN: warm, dry PSYCHIATRIC EXAMINATION: mood normal LABORATORY DATA: Please see below. IMAGING: Abdominal CT x 2, CTA PROGNOSIS: Good ACTIVITY: As tolerated DIET: As tolerated DISCHARGE PLAN: To home with f/u with PCP within one week DISCHARGE INSTRUCTIONS: 1. F/U with PCP in one week ITEMS TO FOLLOWUP ON ON OUTPATIENT: 1. Methotrexate on hold DISCHARGE CONDITION: Stable Vital Signs/I&Os Vital Signs Date Time Temp Pulse Resp B/P (MAP) Pulse Ox O2 Delivery O2 Flow Rate FiO2 05/16/19 06:00 97.6 54 18 142/82 (102) 96 I&O- Last 24 Hours up to 6 AM 05/16/19 05:59 Intake Total 1000 ml Output Total 1925 ml Balance -925 ml Microbiology Microbiology 05/09/19 Blood Culture - Final, Complete NO GROWTH AFTER 5 DAYS 05/09/19 Blood Culture - Final, Complete NO GROWTH AFTER 5 DAYS 05/12/19 Gastrointestinal Tract Panel (PCR) - Final, Complete Discharge Medications Scheduled Amoxicillin/Potassium Clav (Augmentin 500-125 Tablet) 1 Each Tablet, 1 TAB PO TID, (Reported) FOR 7 DAYS, FILLED 05/05/19 Aspirin (Aspir 81) 81 Mg Tab, 81 MG PO DAILY, (Reported) Atorvastatin Calcium (Atorvastatin Calcium) 40 Mg Tab, 40 MG PO QHS, (Reported) Calcium Carbonate (Calcium) 600 Mg Tablet, 600 MG PO BID, (Reported) Carvedilol (Carvedilol) 25 Mg Tab, 25 MG PO BID, (Reported) Cetirizine HCl (Cetirizine HCl) 10 Mg Tablet, 1 TAB PO DAILY, (Reported) Cholecalciferol (Vitamin D3) (Vitamin D3) 2,000 Unit Tablet, 2,000 UNIT PO DAILY, (Reported) Clopidogrel Bisulfate (Clopidogrel) 75 Mg Tablet, 75 MG PO QHS, (Reported) Ezetimibe (Zetia) 10 Mg Tab, 10 MG PO QHS, (Reported) Folic Acid (Folic Acid) 1 Mg Tablet, 2 MG PO DAILY, (Reported) Hydrochlorothiazide (Hydrochlorothiazide) 25 Mg Tab, 25 MG PO DAILY, (Reported) Isosorbide Mononitrate (Isosorbide Mononitrate ER) 60 Mg Tab.er.24h, 60 MG PO DAILY, (Reported) Levothyroxine Sodium (Synthroid) 25 Mcg Tablet, 25 MCG PO QAM, (Reported) Lisinopril (Lisinopril) 10 Mg Tablet, 10 MG PO QHS, (Reported) Multivitamins (Thera M Plus Tablet) 1 Each Tablet, 1 TAB PO DAILY, (Reported) Omeprazole (Omeprazole) 40 Mg Cap, 40 MG PO DAILY, (Reported) Potassium Chloride (Potassium Chloride) 10 Meq Tablet.er, 10 MEQ PO TID, (Reported) Scheduled PRN Naphazoline HCl/Pheniramine (Visine-A Eye Allergy Drops) 15 Ml Drops, 1 DROP OU Q6H PRN for ALLERGIES, (Reported) Nitroglycerin (Nitrostat) 0.4 Mg Tab.subl, 0.4 MG SL ASDIRECTED PRN for CHEST PAIN, (Reported) Oxycodone HCl/Acetaminophen (Oxycodone-Acetaminophen 5-325) 1 Each Tablet, 1 TAB PO Q8H PRN for PAIN, (Reported) Tizanidine HCl (Tizanidine HCl) 4 Mg Tablet, 4 MG PO QHS PRN for MUSCLE SPASMS, (Reported) Allergies Coded Allergies: FISH (Verified Allergy, Severe, THROAT SWELLING, 02/02/18) Quinolones (Verified Allergy, Unknown, hives, and Headache, 05/05/19) ciprofloxacin (Verified Allergy, Unknown, swelling, rash, 05/05/19) codeine (Verified Adverse Reaction, Unknown, n/v, 05/05/19) DIANA FAUSTIN May 16, 2019 07:41
== END 2019-05-16 14:32 | disposition home or self-care (01) | DRG 391 ==
LOC: M ED 11:22 → M ED INP 13:13 → M MSPAV 14:31
PROVIDERS: ADMIT Internal Medicine; ATTEND Family Medicine
PROC: 02HV33Z Insertion of Infusion Device into Superior Vena Cava, Percutaneous Approach (ICD-10-PCS; principal; 2019-05-13 14:59)
DX: K57.92 Diverticulitis of intestine, part unspecified, without perforation or abscess without bleeding (principal); A41.9 Sepsis, unspecified organism; I24.1 Dressler's syndrome; I10 Essential (primary) hypertension; I25.10 Atherosclerotic heart disease of native coronary artery without angina pectoris; E03.9 Hypothyroidism, unspecified; M06.9 Rheumatoid arthritis, unspecified; Z79.899 Other long term (current) drug therapy; Z79.82 Long term (current) use of aspirin; Z88.5 Allergy status to narcotic agent; Z88.8 Allergy status to other drugs, medicaments and biological substances; Z91.013 Allergy to seafood; E78.5 Hyperlipidemia, unspecified; K21.9 Gastro-esophageal reflux disease without esophagitis

== ENCOUNTER → 2019-05-25 | Outpatient (REF) | payer MEDICARE, MEDICAID ==
[~2019-05-25] MED LIST changes: +ALL10TAB29 PO; +CALC600T5 PO; +CLOP75TA2 PO; +D 202000 PO; +FOLI1TAB11 PO; +ISOS60TA2 PO; +LISI10TA4 PO; +METH2.5T48 PO; +NITR4TASL SL; -OMEP40CA2 PO; +OMEP40CA97 PO; +OXYC1TAB23 PO; +POTA1TAB23 PO; +SYNT25TA PO; +TIZA4TAB4 PO; +VITMTA PO; +[UNRECOGNIZED DRUG - CODE] OU
[2019-05-25 17:07] LABS: ALBUMIN 3.8 GM/DL (3.2-5.2); ALT/SGPT 30 U/L (12-78); BILIRUBIN,TOTAL 0.5 MG/DL (0.2-1.0); BLOOD UREA NITROGEN 18 MG/DL (7-18); CALCIUM LEVEL 9.3 MG/DL (8.5-10.1); CARBON DIOXIDE LEVEL 26 MEQ/L (21-32); CHLORIDE LEVEL 104 MEQ/L (98-107); CREATININE FOR GFR 0.74 MG/DL (0.55-1.30); GLOMERULAR FILTRATION RATE > 60.0 (>51); GLUCOSE, FASTING 100 MG/DL (70-100); POTASSIUM SERUM 4.6 MEQ/L (3.5-5.1); SODIUM LEVEL 138 MEQ/L (136-145)
[2019-05-25 17:21] LABS: BASO # 0.1 10^3/uL (0.0-0.2); BASO % 0.8 % (0.0-1.0); EOS # 0.2 10^3/uL (0.0-0.5); HEMATOCRIT 34.6 % (36.0-47.0); HEMOGLOBIN 11.4 g/dl (12.0-15.5); LYMPH # 1.5 10^3/uL (1.5-5.0); LYMPH % 16.7 % (24.0-44.0); MEAN CORPUSCULAR HEMOGLOBIN 31.1 pg (27.0-33.0); MEAN CORPUSCULAR HGB CONC 32.9 g/dl (32.0-36.5); MEAN CORPUSCULAR VOLUME 94.5 fl (80.0-96.0); MONO # 0.6 10^3/uL (0.0-0.8); MONO % 6.5 % (0.0-5.0); NEUTROPHILS # 6.7 10^3/uL (1.5-8.5); NEUTROPHILS % 73.4 % (36.0-66.0); PLATELET COUNT, AUTOMATED 394 10^3/uL (150-450); RED BLOOD COUNT 3.66 10^6/uL (4.00-5.40); WHITE BLOOD COUNT 9.1 10^3/uL (4.0-10.0)
== END ==
LOC: M SFHCCLAY 10:45
PROVIDERS: ATTEND Family Medicine
DX: K57.92 Diverticulitis of intestine, part unspecified, without perforation or abscess without bleeding (principal)

== ENCOUNTER → 2019-06-09 | Outpatient (CLI) | payer MEDICARE, MEDICAID ==
[~2019-06-09] MED LIST changes: +GASTROGRAFIN SOLUTION 30ML (Q9963) As Ordered ONE; +ISOVUE-370 76% 100ML VIAL (Q9967) As Ordered ONE
--- NOTE | 2019-06-09 16:13 | REP ---
CT abdomen pelvis with IV and oral contrast: History: Diverticulitis. Comparison CT study May 11, 2019. CT contrast dose: 100 ml of intravenous Isovue 370 CT findings: Preliminary digital professional sports scout radiograph is unremarkable. The lung bases are essentially clear. There is no evidence of pleural effusion or upper abdominal ascites. There are two stable small hepatic cysts. No splenic abnormality is seen. There is an accessory splenule inferiorly. No pancreatic abnormalities observed. No abnormalities noted in the gallbladder. Kidneys enhance symmetrically. There is some cortical scarring or thinning in the upper pole on the left unchanged. No adrenal lesion is observed. No retroperitoneal mass or adenopathy is observed. Previously noted mural thickening in the distal colon is improved. There is left colonic diverticulosis. The previously noted right pelvic sidewall pericolonic fat streaking and induration is improved. The normal right ovary is seen adjacent to this area, previously obscured by inflammation. No pericolonic fluid collection is seen. Normal appendix is seen in the region as well. No free fluid is noted. Urinary bladder is unremarkable. The uterus is surgically absent. Impression: Left colonic diverticulosis again noted. Previously noted sigmoid diverticulitis with pericolonic inflammation along the right pelvic sidewall. This is improved. No abscess is seen. Electronically Signed by Saroj Oabndo MD 06/09/2019 04:49 P
== END ==
LOC: M RAD 13:24
PROVIDERS: ATTEND Family Medicine
DX: K57.30 Diverticulosis of large intestine without perforation or abscess without bleeding (principal); K76.89 Other specified diseases of liver
CPT/HCPCS: 74177; Q9963; Q9967

== ENCOUNTER → 2019-06-15 | Outpatient (REF) | payer MEDICARE, MEDICAID ==
[~2019-06-15] MED LIST changes: -GASTROGRAFIN SOLUTION 30ML (Q9963) As Ordered ONE; -ISOVUE-370 76% 100ML VIAL (Q9967) As Ordered ONE
[2019-06-15 12:11] LABS: BASO # 0.1 10^3/uL (0.0-0.2); BASO % 0.7 % (0.0-1.0); EOS # 0.2 10^3/uL (0.0-0.5); EOS % 2.5 % (0.0-3.0); HEMATOCRIT 35.6 % (36.0-47.0); HEMOGLOBIN 11.5 g/dl (12.0-15.5); LYMPH # 2.2 10^3/uL (1.5-5.0); LYMPH % 24.5 % (24.0-44.0); MEAN CORPUSCULAR HEMOGLOBIN 30.6 pg (27.0-33.0); MEAN CORPUSCULAR HGB CONC 32.3 g/dl (32.0-36.5); MEAN CORPUSCULAR VOLUME 94.7 fl (80.0-96.0); MONO # 0.5 10^3/uL (0.0-0.8); NEUTROPHILS # 5.8 10^3/uL (1.5-8.5); NEUTROPHILS % 65.8 % (36.0-66.0); PLATELET COUNT, AUTOMATED 295 10^3/uL (150-450); RED BLOOD COUNT 3.76 10^6/uL (4.00-5.40); WHITE BLOOD COUNT 8.8 10^3/uL (4.0-10.0)
[2019-06-15 12:12] LABS: BLOOD UREA NITROGEN 14 MG/DL (7-18); C REACTIVE PROTEIN QUANTITATIV 0.35 MG/DL (0.00-0.30); CARBON DIOXIDE LEVEL 26 MEQ/L (21-32); CHLORIDE LEVEL 109 MEQ/L (98-107); CREATININE FOR GFR 0.74 MG/DL (0.55-1.30); GLOMERULAR FILTRATION RATE > 60.0 (>51); GLUCOSE, FASTING 98 MG/DL (70-100); MAGNESIUM LEVEL 2.1 MG/DL (1.8-2.4); SODIUM LEVEL 140 MEQ/L (136-145)
[2019-06-15 13:29] LABS: ERYTHROCYTE SEDIMENTATION RATE 30 mm/hr (0-30)
== END ==
LOC: M SFHCCLAY 07:50
PROVIDERS: ATTEND Family Medicine
DX: R19.7 Diarrhea, unspecified (principal); M06.4 Inflammatory polyarthropathy
CPT/HCPCS: 80048; 83735; 85025; 85652; 86140; 87493; G0463

== ENCOUNTER → 2019-08-02 | Outpatient (CLI) | payer MEDICARE, MEDICAID ==
--- NOTE | 2019-08-02 16:16 | REP ---
Clinical: Right hip pain. Technique: Neutral and frog lateral views of the right hip. Findings: Mild osteoarthritic degenerative changes include increase sclerosis to the acetabular roof with marginal spurring along with cortical irregularity and enthesopathy at the greater trochanter. No acute fracture or dislocation. Impression: Mild osteoarthritic degenerative changes. Electronically Signed by Serafin Snyder MD 08/02/2019 04:07 P
== END ==
LOC: M CLY 15:41
PROVIDERS: ATTEND Family Medicine
DX: M16.11 Unilateral primary osteoarthritis, right hip (principal); M25.551 Pain in right hip
CPT/HCPCS: 73502; G0463

== ENCOUNTER → 2019-11-04 | Outpatient (REF) | payer MEDICARE, MEDICAID ==
[2019-11-04 16:26] LABS: HEMATOCRIT 33.2 % (36.0-47.0); HEMOGLOBIN 10.9 g/dl (12.0-15.5); MEAN CORPUSCULAR HEMOGLOBIN 31.4 pg (27.0-33.0); MEAN CORPUSCULAR HGB CONC 32.8 g/dl (32.0-36.5); MEAN CORPUSCULAR VOLUME 95.7 fl (80.0-96.0); PLATELET COUNT, AUTOMATED 370 10^3/uL (150-450); RED BLOOD COUNT 3.47 10^6/uL (4.00-5.40); WHITE BLOOD COUNT 5.7 10^3/uL (4.0-10.0)
[2019-11-04 17:02] LABS: ALBUMIN 3.6 GM/DL (3.2-5.2); ALT/SGPT 30 U/L (12-78); BILIRUBIN,TOTAL 0.2 MG/DL (0.2-1.0); BLOOD UREA NITROGEN 20 MG/DL (7-18); CALCIUM LEVEL 9.1 MG/DL (8.8-10.2); CARBON DIOXIDE LEVEL 31 MEQ/L (21-32); CHLORIDE LEVEL 104 MEQ/L (98-107); CHOLESTEROL LEVEL 135 MG/DL (<200); CREATININE FOR GFR 0.76 MG/DL (0.55-1.30); GLOMERULAR FILTRATION RATE > 60.0 (>45); GLUCOSE, FASTING 98 MG/DL (70-100); HDL CHOLESTEROL 45 MG/DL (>40); LDL CHOLESTEROL 67 MG/DL (<100); NON-HDL-C 90 MG/DL; POTASSIUM SERUM 4.6 MEQ/L (3.5-5.1); SODIUM LEVEL 139 MEQ/L (136-145); TOTAL PROTEIN 6.8 GM/DL (6.4-8.2); TRIGLYCERIDES LEVEL 116 MG/DL (<150)
== END ==
LOC: M SFHCCLAY 11:56
PROVIDERS: ATTEND Family Medicine
DX: K57.92 Diverticulitis of intestine, part unspecified, without perforation or abscess without bleeding (principal); M06.9 Rheumatoid arthritis, unspecified; E03.9 Hypothyroidism, unspecified

== ENCOUNTER → 2019-11-07 | Outpatient (CLI) | payer MEDICARE, MEDICAID ==
--- NOTE | 2019-11-07 19:03 | REP ---
Right shoulder three views: There is demineralization. There is question of a nondisplaced fracture of the glenoid rim inferiorly. Recommend CT for confirmation. No dislocation. The acromioclavicular joint is unremarkable. There are no calcifications or foreign bodies. Impression: Questionable nondisplaced fracture of the glenoid rim inferiorly. Recommend CT for confirmation. Demineralization. No dislocation. Electronically Signed by Guerrero Barillas MD 11/07/2019 06:54 P
== END ==
LOC: M CLY 09:01
PROVIDERS: ATTEND Family Medicine
DX: S46.011A Strain of muscle(s) and tendon(s) of the rotator cuff of right shoulder, initial encounter (principal); W18.30XA Fall on same level, unspecified, initial encounter; Y92.9 Unspecified place or not applicable

== ENCOUNTER → 2019-11-15 | Outpatient (CLI) | payer MEDICARE, MEDICAID ==
--- NOTE | 2019-11-15 20:20 | REP ---
Clinical: History of rotator cuff injury with possible glenoid fracture on x-ray. Correlation: Right shoulder x-ray series dated 11/07/2019. Technique: Axial noncontrast images through the right shoulder with coronal and sagittal re-formations. Findings: Mild age-related osteopenia is appreciated along with mild/moderate arthritic changes including cortical irregularity and spurring at the acromioclavicular joint and acromion process as well as spurring along the greater tuberosity of the posterior humeral head. The calcified glenoid rim demonstrates subtle sclerosis and irregularity without evidence for acute fracture. Inferior spurring at the acromion with decrease subacromial space to 6.9 mm is appreciated. No obvious effusion. Musculotendinous structures appear relatively intact and normal by noncontrast CT evaluation. Impression: Moderate arthritic changes as noted above. No evidence for glenoid fracture. Electronically Signed by Serafin Snyder MD 11/15/2019 08:10 P
== END ==
LOC: M RAD 09:54
PROVIDERS: ATTEND Family Medicine
DX: S42.141A Displaced fracture of glenoid cavity of scapula, right shoulder, initial encounter for closed fracture (principal); Y92.89 Other specified places as the place of occurrence of the external cause; Y93.89 Activity, other specified; Y99.8 Other external cause status; X58.XXXA Exposure to other specified factors, initial encounter

== ENCOUNTER → 2019-12-29 | Outpatient (REF) | payer MEDICARE, MEDICAID ==
[2019-12-29 16:10] LABS: BLOOD UREA NITROGEN 18 MG/DL (7-18); CALCIUM LEVEL 9.7 MG/DL (8.8-10.2); CARBON DIOXIDE LEVEL 28 MEQ/L (21-32); CHLORIDE LEVEL 106 MEQ/L (98-107); CREATININE FOR GFR 0.82 MG/DL (0.55-1.30); GLOMERULAR FILTRATION RATE > 60.0 (>45); GLUCOSE, FASTING 106 MG/DL (70-100); POTASSIUM SERUM 4.6 MEQ/L (3.5-5.1); SODIUM LEVEL 140 MEQ/L (136-145)
[2019-12-29 16:14] LABS: HEMATOCRIT 36.1 % (36.0-47.0); HEMOGLOBIN 12.1 g/dl (12.0-15.5); MEAN CORPUSCULAR HGB CONC 33.5 g/dl (32.0-36.5); MEAN CORPUSCULAR VOLUME 95.5 fl (80.0-96.0); PLATELET COUNT, AUTOMATED 319 10^3/uL (150-450); RED BLOOD COUNT 3.78 10^6/uL (4.00-5.40); WHITE BLOOD COUNT 5.9 10^3/uL (4.0-10.0)
== END ==
LOC: M SFHCCLAY 10:45
PROVIDERS: ATTEND Family Medicine
DX: M06.4 Inflammatory polyarthropathy (principal); Z79.899 Other long term (current) drug therapy

== ENCOUNTER 2020-01-18 12:26 | Emergency (ER) | payer MEDICARE, MEDICAID ==
[~2020-01-18] VITALS: Ht 157.5 cm; Wt 69.0 kg
[2020-01-18] MEDS ORDERED: ONDANSETRON 4MG/2ML VIAL IV ONE (13:00)
[2020-01-18] MEDS ORDERED: NS 1,000 ML IV ONE (13:00)
[2020-01-18 13:25] LABS: BASO # 0.1 10^3/uL (0.0-0.2); BASO % 0.6 % (0.0-1.0); EOS # 0.2 10^3/uL (0.0-0.5); EOS % 1.8 % (0.0-3.0); HEMATOCRIT 37.1 % (36.0-47.0); HEMOGLOBIN 12.8 g/dl (12.0-15.5); LYMPH # 1.5 10^3/uL (1.5-5.0); LYMPH % 13.4 % (24.0-44.0); MEAN CORPUSCULAR HEMOGLOBIN 32.1 pg (27.0-33.0); MEAN CORPUSCULAR HGB CONC 34.5 g/dl (32.0-36.5); MONO # 0.8 10^3/uL (0.0-0.8); MONO % 7.3 % (0.0-5.0); NEUTROPHILS # 8.6 10^3/uL (1.5-8.5); NEUTROPHILS % 76.3 % (36.0-66.0); PLATELET COUNT, AUTOMATED 331 10^3/uL (150-450); RED BLOOD COUNT 3.99 10^6/uL (4.00-5.40); WHITE BLOOD COUNT 11.3 10^3/uL (4.0-10.0)
[2020-01-18 13:36] LABS: INR 1.03; PARTIAL THROMBOPLASTIN TIME 29.4 SECONDS (25.0-38.4); PROTHROMBIN TIME 13.2 SECONDS (11.8-14.0)
[2020-01-18 13:56] LABS: ALT/SGPT 32 U/L (12-78); BILIRUBIN,DIRECT 0.1 MG/DL (0.0-0.2); BILIRUBIN,TOTAL 0.4 MG/DL (0.2-1.0); BLOOD UREA NITROGEN 19 MG/DL (7-18); CALCIUM LEVEL 9.1 MG/DL (8.8-10.2); CARBON DIOXIDE LEVEL 26 MEQ/L (21-32); CHLORIDE LEVEL 103 MEQ/L (98-107); CREATININE FOR GFR 0.84 MG/DL (0.55-1.30); GLOMERULAR FILTRATION RATE > 60.0 (>45); GLUCOSE, FASTING 96 MG/DL (70-100); POTASSIUM SERUM 4.4 MEQ/L (3.5-5.1); SODIUM LEVEL 136 MEQ/L (136-145); TOTAL PROTEIN 7.6 GM/DL (6.4-8.2)
[2020-01-18] MEDS ORDERED: ISOVUE-370 76% 100ML VIAL As Ordered ONE (14:03)
[2020-01-18] MEDS ORDERED: MORPHINE 4 MG/ML 1ML VIAL/SYRINGE (J2270) IV ONE (14:45)
[2020-01-18] MEDS ORDERED: ONDA4TAB6 PO (15:29)
[2020-01-18] MEDS ORDERED: FLAG500T PO (15:29)
[2020-01-18] MEDS ORDERED: AUGM875T28 PO (15:29)
[2020-01-18] MEDS ORDERED: metroNIDAZOLE (FLAGYL) 500 MG TAB PO ONE (15:30)
[2020-01-18] MEDS ORDERED: AUGMENTIN 875 MG TAB PO ONE (15:30)
--- NOTE | 2020-01-18 15:34 | REP ---
CT ABDOMEN AND PELVIS WITH IV CONTRAST: TECHNIQUE: Axial contrast enhanced images from the lung bases to the pubic symphysis using 100 mL Isovue-370 intravenous contrast material with multiplanar reformations. The visualized lung bases demonstrate no infiltrate. There is a 1 cm cyst in the medial segment of the left lobe of the liver. A smaller subcentimeter cyst is seen in the anterior segment of the right lobe near the gallbladder fossa. There is focal fatty infiltration along the fissure of the ligamentum teres. The gallbladder is grossly unremarkable. The spleen is normal in size with no intrinsic abnormality. The adrenal glands are normal. The pancreas is unchanged in appearance. There is mild left renal atrophy with no hydronephrosis. There is atherosclerotic calcification of the abdominal aorta without aneurysm. There is no adenopathy or free air. No bowel obstruction is seen. There is left colonic and sigmoid diverticulosis. There is acute diverticulitis of the sigmoid colon with trace free fluid in the pelvis. The patient has had a prior hysterectomy. The ovaries appear unremarkable. The urinary bladder is mildly distended and grossly unremarkable. There are degenerative changes of the spine. The appendix is normal. IMPRESSION: Sigmoid diverticulitis with trace free fluid in the pelvis. No other acute abnormality. Electronically Signed by Guerrero Fuller MD 01/18/2020 04:48 P
[2020-01-18 15:41] VITALS: BP 137/68
== END 2020-01-18 15:44 | disposition home or self-care (01) ==
LOC: M ED 12:26
DX: K57.32 Diverticulitis of large intestine without perforation or abscess without bleeding (principal); I10 Essential (primary) hypertension; I25.2 Old myocardial infarction; G43.909 Migraine, unspecified, not intractable, without status migrainosus; E03.9 Hypothyroidism, unspecified; M54.9 Dorsalgia, unspecified; K21.9 Gastro-esophageal reflux disease without esophagitis; M19.90 Unspecified osteoarthritis, unspecified site; Z95.5 Presence of coronary angioplasty implant and graft; Z88.2 Allergy status to sulfonamides; Z88.1 Allergy status to other antibiotic agents; Z88.5 Allergy status to narcotic agent; Z91.013 Allergy to seafood; Z79.899 Other long term (current) drug therapy; Z79.82 Long term (current) use of aspirin; Z79.02 Long term (current) use of antithrombotics/antiplatelets
CPT/HCPCS: 36415; 74177; 80048; 80076; 81001; 85025; 85610; 85730; 96361; 96374; 96375; 99284; J2270; J2405; Q9967

== ENCOUNTER → 2020-02-20 | Outpatient (CLI) | payer MEDICARE, MEDICAID ==
[~2020-02-20] MED LIST changes: +AUGM875T28 PO; +FLAG500T PO; +ONDA4TAB6 PO
--- NOTE | 2020-02-20 11:35 | REPMRS ---
Patient History The patient states she has not had a clinical breast exam in over a year. Family history of endometrial cancer in maternal cousin, colorectal cancer in maternal cousin, ovarian cancer in paternal cousin. Took unspecified hormones for 5 years. Digital Woman Screen Mammo: February 20, 2020 - Exam #: [id number] Bilateral CC and MLO view(s) were taken. Technologist: Anya Morrison, Technologist Prior study comparison: December 22, 2018, bilateral digital woman screen mammo performed at [facility]. November 05, 2017, digital woman screen mammo performed at [facility]. October 13, 2016, digital woman screen mammo performed at [facility]. FINDINGS: There are scattered fibroglandular densities. The Volpara volumetric breast density category is:B. There has been no change in the appearance of the mammogram from the prior studies. There is a mild amount of scattered fibroglandular density which is fairly symmetric. There is no interval development of dominant mass, architectural distortion, or grouped microcalcification suggestive of malignancy. 3-D tomosynthesis shows no additional findings. Assessment: BI-RADS/ACR category 1 mammogram. Negative Mammogram. Recommendation Routine screening mammogram of both breasts in 1 year (for women over age 40). This patient's Lifetime Breast Cancer Risk is estimated at 7.6 %. This mammogram was interpreted with the aid of an FDA-approved computer-aided dectection system. Electronically Signed By: Braden Obando MD 02/20/20 1005
== END ==
LOC: M WHC 09:29
PROVIDERS: ATTEND Family Medicine
DX: Z12.31 Encounter for screening mammogram for malignant neoplasm of breast (principal); Z80.0 Family history of malignant neoplasm of digestive organs; Z80.49 Family history of malignant neoplasm of other genital organs

== ENCOUNTER → 2020-03-10 | Outpatient (CLI) | payer MEDICARE, MEDICAID ==
[~2020-03-10] MED LIST changes: -ALL10TAB29 PO; +ASPI-161 PO; -ASPI81TA85 PO; +ASPI81TA86 PO; +CALC500T44 PO; -CALC600T5 PO; +CALC600T61 PO; +CETI-24 PO; +CETI10TA4 PO; +D31000TA2 PO; +DIPH2.5T15 PO; +IBUP-1022 PO; +LOMO2.5T PO; +META1POW PO; +META28.32 PO; +METR-265 PO; +NEOM500T PO; +ONDA-195 PO; +PERCOCET PO; +PROM25TA22 PO; +VISISOL2 OP
== END ==
LOC: M LABSMTC 08:04
PROVIDERS: ATTEND Anesthesiology
DX: Z01.818 Encounter for other preprocedural examination (principal); Z11.59 Encounter for screening for other viral diseases
CPT/HCPCS: C9803; U0003

== ENCOUNTER 2020-03-15 10:10 | Day surgery (SDC) | payer MEDICARE, MEDICAID ==
[~2020-03-15] VITALS: Ht 157.5 cm; Wt 67.6 kg
[~2020-03-15 10:10] MED LIST changes: -ASPI-161 PO; -CALC500T44 PO; -CETI10TA4 PO; -DIPH2.5T15 PO; -IBUP-1022 PO; -LOMO2.5T PO; -META1POW PO; -META28.32 PO; -METR-265 PO; -NEOM500T PO; +NS 1,000 ML IV ONE; -ONDA-195 PO; -PERCOCET PO; -PROM25TA22 PO
[2020-03-15] MEDS ORDERED: LIDOCAINE 2% 100MG/5ML SDV (FOR ANES.) As Ordered ONE (10:33)
[2020-03-15] MEDS ORDERED: propofoL 200 MG/20 ML VIAL As Ordered ONE (10:33)
[2020-03-15] MEDS ORDERED: ePHEDrine SULFATE 25 MG/5 ML(5MG/ML) SYRINGE As Ordered ONE (11:48)
[2020-03-15] MEDS ORDERED: PHENYLephrine HCL 500 MCG/5 ML (100MCG/ML) SYRINGE (J2370) As Ordered ONE (11:48)
--- NOTE | 2020-03-15 11:55 | ROOR ---
Patient Name: Holley Rodriguez Procedure Date: 03/15/2020 11:29 AM Date of : 1960 Age: 59 Room: [facility] Gender: Female Note Status: Finalized Procedure: Colonoscopy Indications: Follow-up of diverticulitis Providers: Gareth Peña Jr, MD Referring MD: Gage Kumar MD Requesting Provider: Medicines: Propofol per Anesthesia Complications: No immediate complications. Procedure: Pre-Anesthesia Assessment: - Prior to the procedure, a History and Physical was performed, and patient medications and allergies were reviewed. The patient is competent. The risks and benefits of the procedure and the sedation options and risks were discussed with the patient. All questions were answered and informed consent was obtained. Patient identification and proposed procedure were verified by the physician and the nurse in the pre-procedure area and in the procedure room. Mental Status Examination: alert and oriented. Airway Examination: normal oropharyngeal airway and neck mobility. Respiratory Examination: clear to auscultation. CV Examination: normal. ASA Grade Assessment: II - A patient with mild systemic disease. After reviewing the risks and benefits, the patient was deemed in satisfactory condition to undergo the procedure. The anesthesia plan was to use moderate sedation / analgesia (conscious sedation). Immediately prior to administration of medications, the patient was re-assessed for adequacy to receive sedatives. The heart rate, respiratory rate, oxygen saturations, blood pressure, adequacy of pulmonary ventilation, and response to care were monitored throughout the procedure. The physical status of the patient was re-assessed after the procedure. The Colonoscope was introduced through the anus and advanced to the cecum, identified by appendiceal orifice and ileocecal valve. The colonoscopy was performed without difficulty. The patient tolerated the procedure well. The quality of the bowel preparation was adequate. Findings: The rectum, descending colon, transverse colon, ascending colon, cecum, appendiceal orifice and ileocecal valve appeared normal. Multiple small and large-mouthed diverticula were found in the sigmoid colon. Impression: - The rectum, descending colon, transverse colon, ascending colon, cecum, appendiceal orifice and ileocecal valve are normal. - Diverticulosis in the sigmoid colon. - No specimens collected. Recommendation: - Discharge patient to home (ambulatory). - Return to my office in 2 weeks. aGreth Peña MD Gareth Peña Jr, MD 03/15/2020 11:55:23 AM Electronically signed by Gareth Peña Jr, MD Number of Addenda: 0 Note Initiated On: 03/15/2020 11:29 AM Estimated Blood Loss: Estimated blood loss: none.
[2020-03-15 12:30] VITALS: BP 147/70
== END 2020-03-15 13:12 | disposition home or self-care (01) ==
LOC: M OPP 10:10
PROVIDERS: ATTEND Surgery
DX: K57.32 Diverticulitis of large intestine without perforation or abscess without bleeding (principal); K57.30 Diverticulosis of large intestine without perforation or abscess without bleeding; I48.91 Unspecified atrial fibrillation; I25.2 Old myocardial infarction; Z79.82 Long term (current) use of aspirin; Z79.899 Other long term (current) drug therapy; Z95.5 Presence of coronary angioplasty implant and graft; Z88.2 Allergy status to sulfonamides; Z88.5 Allergy status to narcotic agent; Z88.8 Allergy status to other drugs, medicaments and biological substances; Z91.013 Allergy to seafood
CPT/HCPCS: 45378; J2370

== ENCOUNTER → 2020-04-18 | Outpatient (REF) | payer MEDICARE, MEDICAID ==
[~2020-04-18] MED LIST changes: +ASPI-161 PO; +CALC500T44 PO; +CETI10TA4 PO; +DIPH2.5T15 PO; +IBUP-1022 PO; +LOMO2.5T PO; +META1POW PO; +META28.32 PO; +METR-265 PO; +NEOM500T PO; -NS 1,000 ML IV ONE; +ONDA-195 PO; +PERCOCET PO; +PROM25TA22 PO
[2020-04-18 14:17] LABS: ALT/SGPT 30 U/L (12-78); BLOOD UREA NITROGEN 27 MG/DL (7-18); CARBON DIOXIDE LEVEL 30 MEQ/L (21-32); CHLORIDE LEVEL 104 MEQ/L (98-107); CREATININE FOR GFR 0.79 MG/DL (0.55-1.30); GLOMERULAR FILTRATION RATE > 60.0 (>45); GLUCOSE, FASTING 89 MG/DL (70-100); POTASSIUM SERUM 4.3 MEQ/L (3.5-5.1); SODIUM LEVEL 138 MEQ/L (136-145)
[2020-04-18 14:22] LABS: BASO # 0.1 10^3/uL (0.0-0.2); BASO % 0.9 % (0.0-1.0); EOS # 0.2 10^3/uL (0.0-0.5); EOS % 2.4 % (0.0-3.0); HEMATOCRIT 36.2 % (36.0-47.0); HEMOGLOBIN 11.8 g/dl (12.0-15.5); LYMPH # 2.3 10^3/uL (1.5-5.0); LYMPH % 28.7 % (24.0-44.0); MEAN CORPUSCULAR HGB CONC 32.6 g/dl (32.0-36.5); MEAN CORPUSCULAR VOLUME 98.1 fl (80.0-96.0); MONO # 0.6 10^3/uL (0.0-0.8); MONO % 6.9 % (0.0-5.0); NEUTROPHILS # 4.9 10^3/uL (1.5-8.5); NEUTROPHILS % 60.7 % (36.0-66.0); PLATELET COUNT, AUTOMATED 297 10^3/uL (150-450); RED BLOOD COUNT 3.69 10^6/uL (4.00-5.40)
== END ==
LOC: M SFHCCLAY 12:34
PROVIDERS: ATTEND Family Medicine
DX: M06.4 Inflammatory polyarthropathy (principal)

== ENCOUNTER → 2020-05-17 | Outpatient (CLI) | payer MEDICARE, MEDICAID | LOC: M LABSMTC 09:24 | PROVIDERS: ATTEND Anesthesiology | DX: Z01.812 Encounter for preprocedural laboratory examination (principal); Z20.828 Contact with and (suspected) exposure to other viral communicable diseases | CPT/HCPCS: C9803; U0003 ==

== ENCOUNTER 2020-05-22 06:55 | Inpatient (IN) | payer MEDICARE, MEDICAID ==
[~2020-05-22] VITALS: Ht 157.5 cm; Wt 73.9 kg
[2020-05-22] VITALS (7 sets, daily range): BP systolic 129–155; BP diastolic 58–76
[~2020-05-22 06:55] MED LIST changes: -ASPI-161 PO; -CALC500T44 PO; -CETI10TA4 PO; -DIPH2.5T15 PO; -IBUP-1022 PO; -LOMO2.5T PO; -META1POW PO; -META28.32 PO; -METR-265 PO; -NEOM500T PO; -ONDA-195 PO; -PERCOCET PO; -PROM25TA22 PO
[2020-05-22] MEDS ORDERED: ERTAPENEM SODIUM 1 GM in NS MINI-BAG PLUS 50 ML IV ONE (07:00)
[2020-05-22] MEDS ORDERED: ROCURONIUM BROMIDE 50 MG/5 ML VIAL As Ordered ONE ×2 (07:12→10:05)
[2020-05-22] MEDS ORDERED: propofoL 200 MG/20 ML VIAL As Ordered ONE (07:12)
[2020-05-22] MEDS ORDERED: MIDAZOLAM INJ 2MG/2ML VIAL (J2250 PER 1MG) As Ordered ONE (07:12)
[2020-05-22] MEDS ORDERED: LIDOCAINE 2% 100MG/5ML SDV (FOR ANES.) As Ordered ONE (07:12)
[2020-05-22] MEDS ORDERED: fentaNYL 250 MCG/5 ML INJECTION (J3010) As Ordered ONE (07:12)
[2020-05-22] MEDS ORDERED: BUPIVACAINE HCL 0.25% 10ML VIAL As Ordered ONE (07:22)
[2020-05-22] MEDS ORDERED: BUPIVACAINE/EPIN 0.25% 30 ML VIAL As Ordered ONE (07:22)
[2020-05-22] MEDS ORDERED: GLUCAGON INJ 1MG VIAL As Ordered ONE (07:22)
[2020-05-22] MEDS ORDERED: BUPIVACAINE LIPOSOME/PF 1.3% 20ML VIAL (13.3MG/ML)(EXPAREL)(C9290 PER1MG) As Ordered ONE (07:22)
[2020-05-22] MEDS ORDERED: ERTAPENEM 1GM VIAL(INVanz) (J1335 PER 500MG) As Ordered ONE (07:23)
[2020-05-22] MEDS ORDERED: METR-265 PO (07:25)
[2020-05-22] MEDS ORDERED: NEOM500T PO (07:25)
[2020-05-22] MEDS ORDERED: HYDROmorphone HCL 2 MG/ML 1ML VIAL (J1170) As Ordered ONE (09:33)
[2020-05-22] MEDS ORDERED: hydrALAZINE 20MG/ML 1ML VIAL (J0360 PER 20MG) As Ordered ONE (09:36)
[2020-05-22] MEDS ORDERED: LABETALOL 100MG/20ML VIAL As Ordered ONE (09:42)
[2020-05-22] MEDS ORDERED: SUGAMMADEX SODIUM 500 MG/5 ML VIAL (BRIDION) As Ordered ONE ×2 (10:00→10:02)
[2020-05-22] MEDS ORDERED: METOCLOPRAMIDE INJ 10MG/2ML VIAL (J2765 PER 1) As Ordered ONE ×2 (10:01→12:04)
[2020-05-22] MEDS ORDERED: ONDANSETRON 4MG/2ML VIAL As Ordered ONE (10:01)
[2020-05-22] MEDS ORDERED: ACETAMINOPHEN 1000MG 100ML IV BTL (OFIRMEV) (J0131 PER 10MG) As Ordered ONE (10:02)
[2020-05-22] MEDS ORDERED: PHENYLephrine HCL 500 MCG/5 ML (100MCG/ML) SYRINGE (J2370) As Ordered ONE (10:18)
[2020-05-22] MEDS ORDERED: ONDANSETRON 4MG/2ML VIAL IV PRN ×2 (11:30→12:45)
[2020-05-22] MEDS ORDERED: fentaNYL 100 MCG/2 ML INJECTION (J3010) As Ordered ONE (11:49)
[2020-05-22] MEDS ORDERED: METOCLOPRAMIDE INJ 10MG/2ML VIAL (J2765 PER 1) IV PRN (12:45)
[2020-05-22] MEDS ORDERED: LR 1,000 ML IV SCH (12:45)
[2020-05-22] MEDS ORDERED: fentaNYL 100 MCG/2 ML INJECTION (J3010) IV PRN (12:45)
[2020-05-22] MEDS ORDERED: PERCOCET 5MG/325MG TAB PO PRN (12:45)
[2020-05-22] MEDS: NS 1,000 ML IV SCH ×2 (13:21→20:21)
[2020-05-22] MEDS: MORPHINE 2 MG/ML 1ML VIAL (J2270) IV PRN (14:25)
[2020-05-22] MEDS: KETOROLAC 30 MG/ML 1ML VIAL IV SCH ×2 (15:29→20:22)
[2020-05-23 02:00] VITALS: BP 126/53
[2020-05-23] MEDS: NS 1,000 ML IV SCH (02:39)
[2020-05-23] MEDS: KETOROLAC 30 MG/ML 1ML VIAL IV SCH ×4 (02:39→20:08)
[2020-05-23 05:59] LABS: HEMATOCRIT 32.5 % (36.0-47.0); HEMOGLOBIN 10.7 g/dl (12.0-15.5); MEAN CORPUSCULAR HEMOGLOBIN 31.6 pg (27.0-33.0); MEAN CORPUSCULAR HGB CONC 32.9 g/dl (32.0-36.5); MEAN CORPUSCULAR VOLUME 95.9 fl (80.0-96.0); PLATELET COUNT, AUTOMATED 230 10^3/uL (150-450); RED BLOOD COUNT 3.39 10^6/uL (4.00-5.40)
[2020-05-23 06:00] VITALS: BP 130/52
[2020-05-23 06:05] LABS: BLOOD UREA NITROGEN 13 MG/DL (7-18); CALCIUM LEVEL 7.7 MG/DL (8.8-10.2); CARBON DIOXIDE LEVEL 24 MEQ/L (21-32); CHLORIDE LEVEL 110 MEQ/L (98-107); CREATININE FOR GFR 0.72 MG/DL (0.55-1.30); GLOMERULAR FILTRATION RATE > 60.0 (>45); GLUCOSE, FASTING 86 MG/DL (70-100); POTASSIUM SERUM 3.9 MEQ/L (3.5-5.1); SODIUM LEVEL 140 MEQ/L (136-145)
[2020-05-23] MEDS: MORPHINE 2 MG/ML 1ML VIAL (J2270) IV PRN ×3 (06:12→18:23)
[2020-05-23] MEDS: PANTOPRAZOLE 40MG VIAL (C9113 PER 1) IV SCH (07:44)
[2020-05-23] MEDS ORDERED: ERTAPENEM SODIUM 1 GM in NS MINI-BAG PLUS 50 ML IV ONE (08:00)
[2020-05-23 10:00] VITALS: BP 131/53
[2020-05-23] MEDS: ALVIMOPAN 12 MG CAPSULE (ENTEREG) PO SCH ×2 (11:46→20:07)
[2020-05-23 14:00] VITALS: BP 130/52
[2020-05-23 18:00] VITALS: BP 140/54
[2020-05-23] MEDS: EZETIMIBE 10 MG TAB (ZETIA) PO SCH (20:09)
[2020-05-23] MEDS: CARVedilol 12.5 MG TAB PO SCH (20:09)
[2020-05-23] MEDS: lisinopriL 10 MG TAB PO SCH (20:10)
[2020-05-23 22:00] VITALS: BP 140/55
[2020-05-24 02:00] VITALS: BP 111/43
[2020-05-24] MEDS: KETOROLAC 30 MG/ML 1ML VIAL IV SCH ×4 (03:30→20:26)
[2020-05-24 06:00] VITALS: BP 111/43
[2020-05-24 06:14] LABS: HEMATOCRIT 31.3 % (36.0-47.0); HEMOGLOBIN 10.2 g/dl (12.0-15.5); MEAN CORPUSCULAR HEMOGLOBIN 31.6 pg (27.0-33.0); MEAN CORPUSCULAR HGB CONC 32.6 g/dl (32.0-36.5); MEAN CORPUSCULAR VOLUME 96.9 fl (80.0-96.0); PLATELET COUNT, AUTOMATED 206 10^3/uL (150-450); RED BLOOD COUNT 3.23 10^6/uL (4.00-5.40); WHITE BLOOD COUNT 6.2 10^3/uL (4.0-10.0)
[2020-05-24 06:33] LABS: BLOOD UREA NITROGEN 9 MG/DL (7-18); CALCIUM LEVEL 8.2 MG/DL (8.8-10.2); CARBON DIOXIDE LEVEL 26 MEQ/L (21-32); CHLORIDE LEVEL 113 MEQ/L (98-107); CREATININE FOR GFR 0.61 MG/DL (0.55-1.30); GLOMERULAR FILTRATION RATE > 60.0 (>45); GLUCOSE, FASTING 86 MG/DL (70-100); POTASSIUM SERUM 3.7 MEQ/L (3.5-5.1); SODIUM LEVEL 143 MEQ/L (136-145)
[2020-05-24] MEDS ORDERED: FLUBLOK(EGG FREE)(QUAD)INFLUENZA VACC 0.5ML SYRINGE 18YRS & OLDER IM ONE (09:00)
[2020-05-24] MEDS: PANTOPRAZOLE 40MG VIAL (C9113 PER 1) IV SCH (09:06)
[2020-05-24] MEDS: ALVIMOPAN 12 MG CAPSULE (ENTEREG) PO SCH ×2 (09:06→20:26)
[2020-05-24] MEDS: ISOSORBIDE MON. (IMDUR) 60 MG XR TAB PO SCH (09:08)
[2020-05-24] MEDS: CARVedilol 12.5 MG TAB PO SCH ×2 (09:09→20:28)
[2020-05-24 10:00] VITALS: BP 102/54
[2020-05-24] MEDS: PERCOCET 5MG/325MG TAB PO PRN ×2 (11:35→17:07)
[2020-05-24 14:00] VITALS: BP 98/48
[2020-05-24 18:00] VITALS: BP 112/64
[2020-05-24] MEDS: lisinopriL 10 MG TAB PO SCH (20:28)
[2020-05-24] MEDS: EZETIMIBE 10 MG TAB (ZETIA) PO SCH (20:28)
[2020-05-24 22:00] VITALS: BP 115/50
[2020-05-25 02:00] VITALS: BP 122/53
[2020-05-25] MEDS: KETOROLAC 30 MG/ML 1ML VIAL IV SCH ×4 (03:12→21:00)
[2020-05-25 06:00] VITALS: BP 121/53
[2020-05-25 06:56] LABS: HEMATOCRIT 30.7 % (36.0-47.0); HEMOGLOBIN 10.1 g/dl (12.0-15.5); MEAN CORPUSCULAR HEMOGLOBIN 31.6 pg (27.0-33.0); MEAN CORPUSCULAR HGB CONC 32.9 g/dl (32.0-36.5); MEAN CORPUSCULAR VOLUME 95.9 fl (80.0-96.0); PLATELET COUNT, AUTOMATED 207 10^3/uL (150-450); WHITE BLOOD COUNT 5.6 10^3/uL (4.0-10.0)
[2020-05-25 07:08] LABS: BLOOD UREA NITROGEN 12 MG/DL (7-18); CALCIUM LEVEL 8.3 MG/DL (8.8-10.2); CARBON DIOXIDE LEVEL 27 MEQ/L (21-32); CHLORIDE LEVEL 112 MEQ/L (98-107); CREATININE FOR GFR 0.66 MG/DL (0.55-1.30); GLOMERULAR FILTRATION RATE > 60.0 (>45); GLUCOSE, FASTING 89 MG/DL (70-100); POTASSIUM SERUM 3.8 MEQ/L (3.5-5.1); SODIUM LEVEL 142 MEQ/L (136-145)
[2020-05-25] MEDS: PANTOPRAZOLE 40MG VIAL (C9113 PER 1) IV SCH (09:36)
[2020-05-25] MEDS: ALVIMOPAN 12 MG CAPSULE (ENTEREG) PO SCH ×2 (09:37→20:59)
[2020-05-25] MEDS: ISOSORBIDE MON. (IMDUR) 60 MG XR TAB PO SCH (09:38)
[2020-05-25] MEDS: CARVedilol 12.5 MG TAB PO SCH ×2 (09:39→20:59)
[2020-05-25 10:00] VITALS: BP 138/54
[2020-05-25 14:00] VITALS: BP 138/62
[2020-05-25] MEDS: PERCOCET 5MG/325MG TAB PO PRN (16:02)
[2020-05-25 18:00] VITALS: BP 137/53
[2020-05-25] MEDS: lisinopriL 10 MG TAB PO SCH (20:59)
[2020-05-25] MEDS: EZETIMIBE 10 MG TAB (ZETIA) PO SCH (20:59)
[2020-05-25 22:00] VITALS: BP 142/74
[2020-05-26 02:00] VITALS: BP 136/72
[2020-05-26] MEDS: KETOROLAC 30 MG/ML 1ML VIAL IV SCH ×4 (02:56→21:51)
[2020-05-26] MEDS: PERCOCET 5MG/325MG TAB PO PRN (03:38)
[2020-05-26 06:00] VITALS: BP 130/64
[2020-05-26 06:23] LABS: HEMATOCRIT 29.8 % (36.0-47.0); HEMOGLOBIN 9.7 g/dl (12.0-15.5); MEAN CORPUSCULAR HGB CONC 32.6 g/dl (32.0-36.5); MEAN CORPUSCULAR VOLUME 95.2 fl (80.0-96.0); PLATELET COUNT, AUTOMATED 218 10^3/uL (150-450); RED BLOOD COUNT 3.13 10^6/uL (4.00-5.40); WHITE BLOOD COUNT 5.6 10^3/uL (4.0-10.0)
[2020-05-26 06:42] LABS: BLOOD UREA NITROGEN 16 MG/DL (7-18); CALCIUM LEVEL 8.3 MG/DL (8.8-10.2); CARBON DIOXIDE LEVEL 28 MEQ/L (21-32); CHLORIDE LEVEL 112 MEQ/L (98-107); CREATININE FOR GFR 0.69 MG/DL (0.55-1.30); GLOMERULAR FILTRATION RATE > 60.0 (>45); GLUCOSE, FASTING 93 MG/DL (70-100); POTASSIUM SERUM 3.8 MEQ/L (3.5-5.1); SODIUM LEVEL 145 MEQ/L (136-145)
--- NOTE | 2020-05-26 09:17 | IPNPDOC ---
Text Note Date of Service The patient was seen on 05/26/20. NOTE No acute events overnight. She is tolerating diet, but is still not eating very much. She walks around the room and walked in the gardner once yesterday. Pain is controlled, and she denies nausea or emesis. She is still passing flatus, but no BM. VSSAF NAD abd - soft, TTP appropriate, incisions c/d/i labs - below A) 59y/o female POD#4 s/p lap colon resection P) reg diet amb in halls IS monitor labs await return of bowel function and plan on d/c home today or tomorrow Anson Grigsby DO VS,Fishbone, I+O VS, Fishbone, I+O Laboratory Tests 05/26/20 05:52 Vital Signs Date Time Temp Pulse Resp B/P (MAP) Pulse Ox O2 Delivery O2 Flow Rate FiO2 05/26/20 06:00 97.8 66 16 130/64 (86) 95 Room Air 05/23/20 10:00 2.0 05/22/20 11:34 100 I&O- Last 24 Hours up to 6 AM 05/26/20 06:00 Intake Total 700 ml Output Total 1270 ml Balance -570 ml NILS GRIGSBY DO May 26, 2020 09:17
[2020-05-26] MEDS: ALVIMOPAN 12 MG CAPSULE (ENTEREG) PO SCH ×2 (09:44→21:49)
[2020-05-26] MEDS: CARVedilol 12.5 MG TAB PO SCH ×2 (09:44→21:50)
[2020-05-26] MEDS: PANTOPRAZOLE 40MG VIAL (C9113 PER 1) IV SCH (09:45)
[2020-05-26] MEDS: ISOSORBIDE MON. (IMDUR) 60 MG XR TAB PO SCH (09:45)
[2020-05-26 10:00] VITALS: BP 122/54
[2020-05-26 14:00] VITALS: BP 142/65
[2020-05-26 18:00] VITALS: BP 145/65
[2020-05-26] MEDS: EZETIMIBE 10 MG TAB (ZETIA) PO SCH (21:49)
[2020-05-26] MEDS: lisinopriL 10 MG TAB PO SCH (21:50)
[2020-05-26] MEDS: diphenhydrAMINE CREAM 30GM TOP PRN (21:51)
[2020-05-26 22:00] VITALS: BP 124/60
[2020-05-27] MEDS: PERCOCET 5MG/325MG TAB PO PRN ×3 (00:10→21:41)
[2020-05-27 02:00] VITALS: BP 132/64
[2020-05-27] MEDS: KETOROLAC 30 MG/ML 1ML VIAL IV SCH ×2 (03:30→08:56)
[2020-05-27 05:56] VITALS: BP 142/64
[2020-05-27 06:44] LABS: HEMATOCRIT 29.7 % (36.0-47.0); HEMOGLOBIN 9.8 g/dl (12.0-15.5); MEAN CORPUSCULAR HEMOGLOBIN 31.2 pg (27.0-33.0); MEAN CORPUSCULAR VOLUME 94.6 fl (80.0-96.0); PLATELET COUNT, AUTOMATED 228 10^3/uL (150-450); RED BLOOD COUNT 3.14 10^6/uL (4.00-5.40); WHITE BLOOD COUNT 5.6 10^3/uL (4.0-10.0)
[2020-05-27 07:03] LABS: BLOOD UREA NITROGEN 14 MG/DL (7-18); CALCIUM LEVEL 8.4 MG/DL (8.8-10.2); CARBON DIOXIDE LEVEL 29 MEQ/L (21-32); CHLORIDE LEVEL 111 MEQ/L (98-107); CREATININE FOR GFR 0.68 MG/DL (0.55-1.30); GLOMERULAR FILTRATION RATE > 60.0 (>45); GLUCOSE, FASTING 90 MG/DL (70-100); POTASSIUM SERUM 3.9 MEQ/L (3.5-5.1); SODIUM LEVEL 143 MEQ/L (136-145)
--- NOTE | 2020-05-27 08:37 | IPNPDOC ---
Text Note Date of Service The patient was seen on 05/27/20. NOTE No acute events overnight. She is tolerating diet, but is still not eating very much. Pain is controlled, and she denies nausea or emesis. She is still passing flatus, but no BM. VSSAF NAD abd - soft, TTP appropriate, incisions c/d/i labs - below A) 59y/o female POD#5 s/p lap colon resection P) reg diet amb in halls IS monitor labs senna plus await return of bowel function and plan on d/c home today or tomorrow Anson Grigsby DO VS,Fishbone, I+O VS, Fishbone, I+O Laboratory Tests 05/27/20 06:23 Vital Signs Date Time Temp Pulse Resp B/P (MAP) Pulse Ox O2 Delivery O2 Flow Rate FiO2 05/27/20 05:56 98.1 56 16 142/64 (90) 97 Room Air 05/23/20 10:00 2.0 05/22/20 11:34 100 I&O- Last 24 Hours up to 6 AM 05/27/20 06:00 Intake Total 580 ml Output Total 900 ml Balance -320 ml NILS GRIGSBY DO May 27, 2020 08:37
[2020-05-27] MEDS ORDERED: SENOKOT S TAB PO PRN (08:45)
[2020-05-27] MEDS: CARVedilol 12.5 MG TAB PO SCH ×2 (08:59→21:40)
[2020-05-27] MEDS: ALVIMOPAN 12 MG CAPSULE (ENTEREG) PO SCH ×2 (08:59→21:40)
[2020-05-27] MEDS: PANTOPRAZOLE 40MG VIAL (C9113 PER 1) IV SCH (09:00)
[2020-05-27] MEDS: ISOSORBIDE MON. (IMDUR) 60 MG XR TAB PO SCH (09:00)
[2020-05-27 10:00] VITALS: BP 118/54
[2020-05-27] MEDS: diphenhydrAMINE CREAM 30GM TOP PRN ×2 (11:33→21:41)
[2020-05-27 14:00] VITALS: BP 124/60
[2020-05-27] MEDS: EZETIMIBE 10 MG TAB (ZETIA) PO SCH (21:40)
[2020-05-27] MEDS: lisinopriL 10 MG TAB PO SCH (21:40)
[2020-05-27 22:00] VITALS: BP 130/62
[2020-05-28 02:00] VITALS: BP 124/56
[2020-05-28] MEDS: PERCOCET 5MG/325MG TAB PO PRN ×2 (05:45→13:58)
[2020-05-28] MEDS: diphenhydrAMINE CREAM 30GM TOP PRN (05:54)
[2020-05-28 06:00] VITALS: BP 145/72
[2020-05-28 06:07] LABS: HEMOGLOBIN 9.9 g/dl (12.0-15.5); MEAN CORPUSCULAR HEMOGLOBIN 30.7 pg (27.0-33.0); MEAN CORPUSCULAR HGB CONC 31.9 g/dl (32.0-36.5); PLATELET COUNT, AUTOMATED 221 10^3/uL (150-450); RED BLOOD COUNT 3.23 10^6/uL (4.00-5.40); WHITE BLOOD COUNT 6.2 10^3/uL (4.0-10.0)
[2020-05-28 06:32] LABS: BLOOD UREA NITROGEN 16 MG/DL (7-18); CALCIUM LEVEL 8.5 MG/DL (8.8-10.2); CARBON DIOXIDE LEVEL 28 MEQ/L (21-32); CHLORIDE LEVEL 112 MEQ/L (98-107); CREATININE FOR GFR 0.66 MG/DL (0.55-1.30); GLOMERULAR FILTRATION RATE > 60.0 (>45); GLUCOSE, FASTING 82 MG/DL (70-100); POTASSIUM SERUM 3.9 MEQ/L (3.5-5.1); SODIUM LEVEL 145 MEQ/L (136-145)
[2020-05-28 08:21] VITALS: BP 142/72
[2020-05-28] MEDS: CARVedilol 12.5 MG TAB PO SCH (08:21)
[2020-05-28] MEDS: ALVIMOPAN 12 MG CAPSULE (ENTEREG) PO SCH (08:21)
[2020-05-28] MEDS: PANTOPRAZOLE 40MG VIAL (C9113 PER 1) IV SCH (08:22)
[2020-05-28] MEDS: ISOSORBIDE MON. (IMDUR) 60 MG XR TAB PO SCH (08:22)
[2020-05-28 10:38] VITALS: BP 127/56
[2020-05-28] MEDS ORDERED: PERCOCET PO (11:33)
[2020-05-28 14:04] VITALS: BP 128/56
--- NOTE | 2020-06-01 07:57 | IPN ---
DATE: 05/23/2020 SUBJECTIVE: The patient is postop from her laparoscopic sigmoid colectomy and has done well with the operation although pain control has been somewhat difficult overnight. She has been taking some minimal pain medication, had a little bit of nausea but no fevers, no chills. Her white count is normal. Her CLINT drain has been draining some serosanguinous fluid. Her urine output has been good overnight. OBJECTIVE: VITALS: Her vitals have been stable. Her urine output overnight was 725 yesterday and is making good urine output this morning, CLINT drain as I stated has serosanguinous fluid. LUNGS: Clear anteriorly. HEART: Regular. ABDOMEN: Slightly distended, mildly tender around the incision but without guarding, rebound or peritoneal signs. EXTREMITIES: Warm and well-perfused. IMPRESSION/PLAN: Patient is status post laparoscopic sigmoid colectomy and is doing well at this point, pain control has been somewhat of an issue overnight and will modify her pain medications today and we will see how she does. I do feel it is reasonable to start her on some clear liquids and see how she does with this. Will also drop her IV rate down given that she has an excellent urine output and will restart her medications later on today. MAXI
--- NOTE | 2020-06-01 08:07 | IPN ---
DATE: 05/23/2020 SUBJECTIVE: The patient overall has been doing well overnight. Still has some pain and discomfort in the incision site, but otherwise has had some flatus, has tolerated some clears without nausea, without vomiting. No bowel movements as of yet. Her Cristian-Nelson drain is decreased in amount but still has some serosanguinous fluid coming out. She has been afebrile. Her white count is normal. PHYSICAL EXAMINATION: On examination her abdomen is softly distended. It is a little less distended than yesterday and she has had more flatus. Otherwise her incision is plate drying machine tender around the incision itself, but otherwise no significant abdominal findings. Dressings are clean and dry. IMPRESSION AND PLAN: The patient is starting to make some progress. It is very slow at this point. We will discontinue her Mendieta catheter. We will start her on a regular diet and I have asked her to go slowly with that and take food as tolerated. We will continue to have her increase her activity as tolerated over the next 24-48 hours and depending on her tolerance, we may be able to get her out of the hospital as soon as she is ambulating well on her own. At this point it is still uncomfortable to get out of bed and that seems to be the most uncomfortable, when she has to use her abdominal muscles, as appropriately so in this postoperative setting. MAXI
--- NOTE | 2020-06-01 08:11 | RO ---
DATE OF OPERATION: 05/22/2020 PREOPERATIVE DIAGNOSIS: Recurrent episodes of sigmoid diverticulitis. POSTOPERATIVE DIAGNOSIS: Recurrent episodes of sigmoid diverticulitis. PROCEDURE: Laparoscopic sigmoid colectomy with coloproctostomy. SURGEON: Gareth Peña MD ICT TRAINER: Dr. Grigsby (provided retraction, exposure, assistance with the colorectal anastomosis). ANESTHESIA: General endotracheal. EBL: Minimal. FLUIDS: Crystalloid. DISPOSITION: Patient was brought to the recovery room awake, alert and hemodynamically stable. BRIEF OPERATIVE SUMMARY: The patient was brought to the operating room, was given general anesthesia. After adequate anesthesia and preoperative antibiotics were given the patient was prepped and draped in usual sterile fashion. A supraumbilical incision was made with skin knife; blunt dissection was carried down to fascia. Veress needle placed into the abdominal cavity and insufflated to 15 mmHg. 10 mm trocar was placed at this time and under direct visualization two lateral 5 mm right lateral 5 mm and right lower quadrant 12 mm trocar was placed. The patient was placed in steep Trendelenburg position and there were several adhesions of the sigmoid colon to the pelvis and these were taken down with Harmonic scalpel. Eventually after mobilizing this further where there was some obvious thickening of the sigmoid colon where these adhesions were, we were able to mobilize this quite nicely. There was quite a redundancy to the sigmoid colon in this area as well but eventually after mobilizing this area the mesentery was scored on the right side down to where the rectum was appreciated and the mesentery was taken with Harmonic scalpel down to the rectal branch off the sigmoid artery/inferior mesenteric artery. At this point the hole in the mesentery was made more proximal to the vessels and then UNIQUE stapler was used to transect the vessels on the mesentery itself. Once this was accomplished the descending colon/sigmoid area was mobilized a little bit further along the white line of Toldt making it easier to mobilize this sigmoid area so that it would flop down into the rectum nicely. Given the redundancy of this not a significant amount of mobilization was necessary and did not even have to take this off the Gerotas on this side, given the relative redundancy of this. After this was mobilized nicely the rectum/rectosigmoid junction was transected using [place] 60 stapler and periumbilical incision was made with skin knife. Electrocautery was used to cut the dermis and underlying subcutaneous tissue down through fascia and the sigmoid colon was brought out through this. It was transected using UNIQUE stapler after an anvil was placed in this and brought out through the end. There was a diverticulum right along the site and because of the diverticulum close to the anvil I resected this diverticulum and closed the site with 3-0 Vicryl and brought it over to the anvil itself making sure that this was going to be included within the specimen removed. Once this was accomplished this was returned to the abdominal cavity and the incision was closed with running #1 Vicryl. The anastomosis was created with 25 EEA stapler and air insufflation revealed no air leak under water pressure. The Tisseel was placed along the anastomosis and Cristian-Nelson drain was left in the bed of the dissection/pelvis area and the right lower quadrant was closed with Hal- Ruddy for the12 mm trocar site. All trocars were removed under direct visualization. #1 Vicryl was used to close the midline incision; once this was irrigated out it was closed with dexter as all incisions were. The drain was sutured in with silk and dry, sterile dressing applied. The patient was awakened, extubated and brought to recovery room awake, alert, and hemodynamically stable. Sponge and needle counts correct x2. MTDD
--- NOTE | 2020-06-01 08:14 | IPN ---
DATE: 05/25/2020 SUBJECTIVE: Patient is status post sigmoid colectomy with a coloproctostomy. Patient medically has done well and overall her drainage has been significantly less. Her overall pain is still problematic when she is moving around. She still has periumbilical discomfort and pain. She has been tolerating a diet without complaints. She has had no nausea or vomiting. She has had flatus without bowel movements and no blood per rectum. Her white count has been normal and her hematocrit has been slightly on the low side, but stable and she has been afebrile. IMPRESSION AND PLAN: The patient is status post sigmoid colectomy, is making slow but progressive improvement and currently her discharge is dependent on her activity level and whether she is comfortable enough to get out of bed alone or whether she will need assistance. So, we have physical therapy do a safety evaluation on her, but give her another 24 hours. I anticipate she should be leaving over the weekend, but we will see how she does with activity level prior to discharge. MAXI
--- NOTE | 2020-07-03 07:32 | DS ---
DATE OF ADMISSION: 05/22/2020 DATE OF DISCHARGE: 05/28/2020 PRINCIPAL DIAGNOSIS: Recurrent episodes of diverticulitis. ASSOCIATED DIAGNOSES: * History of hypertension. * History of hypercholesterolemia. * History of heart disease. * History of coronary artery disease. * History of pericarditis. * History of coronary artery bypass. * History of hysterectomy. * History of tubal ligation. * History of cardiac catheterization. * History of . PROCEDURES PERFORMED: Laparoscopic sigmoid colectomy with a coloproctostomy. BRIEF HISTORY OF PRESENT ILLNESS: The patient is a 59-year-old female who has had multiple episodes of recurrent diverticulitis with multiple treatments for this with antibiotics and presented for a semi-elective/sigmoid colectomy for this and recurrent episodes of diverticulitis. HOSPITAL COURSE SUMMARY: The patient was taken to the Operating Room where she underwent a laparoscopic sigmoid colectomy, tolerated the procedure well, however had a significant amount of discomfort postoperatively that eventually started to improve on a daily basis, but she was slow to be active and more around. She had some pain control issues at the site of her incision, but eventually she started mobilizing herself quite nicely and she was started on a clear liquid diet an advanced to a regular diet. Throughout her hospital course she was afebrile, had a normal white count. Hematocrit was stable. The pathology revealed segments of colon with diverticulosis, no active diverticulitis at this time. Prior to discharge she had some bowel movements and was tolerating a regular diet. DISCHARGE MEDICATIONS: At the time of discharge she was continued on her regular medications which include: * Atorvastatin. * Calcium. * Carvedilol. * Vitamin D. * Plavix. * Zetia. * Folic Acid. * Hydrochlorothiazide. * Isosorbide Mononitrate. * Lisinopril. * Multivitamins. * Omeprazole. * Potassium Chloride. * Tizanidine. * Synthroid. * P.r.n. Nitroglycerin. FOLLOW UP: She was to follow up in one week for stable removal and in 2-3 weeks for reevaluation. ACTIVITY/DIET: She was slowly told to increase her activity and diet. DISCHARGE INSTRUCTIONS: Local wound care advice had been given prior to discharge. MAXI
== END 2020-05-28 15:43 | disposition home health service (06) | DRG 331 ==
LOC: M OR 06:55 → M MSPAV 13:16
PROVIDERS: ADMIT Surgery; ATTEND Surgery
PROC: 0DBN4ZZ Excision of Sigmoid Colon, Percutaneous Endoscopic Approach (ICD-10-PCS; principal; 2020-05-22 08:30)
DX: K57.32 Diverticulitis of large intestine without perforation or abscess without bleeding (principal)

== ENCOUNTER 2020-06-05 15:46 | Inpatient (IN) | payer MEDICARE, MEDICAID ==
[~2020-06-05] VITALS: Ht 157.5 cm; Wt 76.1 kg
[2020-06-05] MEDS: CARVedilol 12.5 MG TAB PO SCH (03:33)
[~2020-06-05 15:46] MED LIST changes: +METR-265 PO; +NEOM500T PO; +PERCOCET PO
[2020-06-05] MEDS ORDERED: METH2.5T48 PO ×2 (16:14→21:16)
[2020-06-05] MEDS ORDERED: ONDANSETRON 4MG/2ML VIAL IV ONE (16:30)
[2020-06-05 17:00] LABS: BASO # 0.1 10^3/uL (0.0-0.2); BASO % 0.4 % (0.0-1.0); EOS # 0.1 10^3/uL (0.0-0.5); EOS % 1.3 % (0.0-3.0); HEMATOCRIT 34.8 % (36.0-47.0); HEMOGLOBIN 11.6 g/dl (12.0-15.5); LYMPH # 1.6 10^3/uL (1.5-5.0); LYMPH % 14.2 % (24.0-44.0); MEAN CORPUSCULAR HEMOGLOBIN 31.3 pg (27.0-33.0); MEAN CORPUSCULAR HGB CONC 33.3 g/dl (32.0-36.5); MEAN CORPUSCULAR VOLUME 93.8 fl (80.0-96.0); MONO # 0.7 10^3/uL (0.0-0.8); NEUTROPHILS # 8.6 10^3/uL (1.5-8.5); NEUTROPHILS % 76.9 % (36.0-66.0); PLATELET COUNT, AUTOMATED 370 10^3/uL (150-450); RED BLOOD COUNT 3.71 10^6/uL (4.00-5.40); WHITE BLOOD COUNT 11.1 10^3/uL (4.0-10.0)
--- NOTE | 2020-06-05 17:02 | REPVR ---
PROCEDURE INFORMATION: Exam: XR Chest, 1 View Exam date and time: 06/05/2020 4:23 PM Age: 59 years old Clinical indication: Chest pain TECHNIQUE: Imaging protocol: XR of the chest Views: 1 view. COMPARISON: CT ANGIO CHEST 05/12/2019 3:36 PM FINDINGS: Lungs: Clear appearing lungs. Pleural space: There is no evidence of pneumothorax and no evidence of pleural effusion. Heart/Mediastinum: The heart is normal in size. Bones/joints: There is osteophyte formation of the thoracic spine. IMPRESSION: Clear appearing lungs. Electronically signed by: Abdelrahman Harper On 06/05/2020 17:02:05 PM
[2020-06-05] MEDS ORDERED: ISOVUE-370 76% 100ML VIAL As Ordered ONE (17:04)
[2020-06-05 17:21] LABS: INR 1.08; PROTHROMBIN TIME 14.2 SECONDS (12.5-14.3)
[2020-06-05 17:22] LABS: PARTIAL THROMBOPLASTIN TIME 28.2 SECONDS (24.2-38.5)
[2020-06-05 17:26] LABS: ALBUMIN 3.3 GM/DL (3.2-5.2); BILIRUBIN,DIRECT 0.2 MG/DL (0.0-0.2); BILIRUBIN,TOTAL 0.6 MG/DL (0.2-1.0); C REACTIVE PROTEIN QUANTITATIV 12.8 MG/DL (0.00-0.30); THYROID STIMULATING HORMONE 0.99 uIU/ML (0.358-3.740); TOTAL PROTEIN 6.8 GM/DL (6.4-8.2)
[2020-06-05 17:34] LABS: ERYTHROCYTE SEDIMENTATION RATE 60 mm/hr (0-30)
[2020-06-05] MEDS: MORPHINE 2 MG/ML 1ML VIAL (J2270) IV PRN ×2 (18:06→21:02)
--- NOTE | 2020-06-05 18:40 | REPVR ---
PROCEDURE INFORMATION: Exam: CT Angiography Chest With Contrast Exam date and time: 06/05/2020 5:50 PM Age: 59 years old Clinical indication: Chest pain; Additional info: Chest pain, recent surgery TECHNIQUE: Imaging protocol: Computed tomographic angiography of the chest with intravenous contrast. 3D rendering (Not supervised by radiologist): MIP and/or 3D reconstructed images were created by the technologist. Radiation optimization: All CT scans at this facility use at least one of these dose optimization techniques: automated exposure control; mA and/or kV adjustment per patient size (includes targeted exams where dose is matched to clinical indication); or iterative reconstruction. Contrast material: ISOVUE 370; Contrast volume: 100 ml; Contrast route: INTRAVENOUS (IV); COMPARISON: CT ANGIO CHEST 05/12/2019 3:36 PM FINDINGS: Pulmonary arteries: There is opacification of the pulmonary arteries with no evidence of pulmonary embolus. Aorta: There is opacification of the aorta which appears intact. Lungs: The lungs appear clear. Heart: The heart is normal in size and there is no pericardial effusion. Mediastinal space: The right subclavian artery extends from the aortic arch and crosses the posterior aspect of the esophagus as a vascular sling consistent normal variation. Lymph nodes: There is no evidence of lymphadenopathy. Soft tissues: There is no evidence of soft tissue abnormality. Other findings: There is anterolateral osteophyte formation. IMPRESSION: No evidence of pulmonary embolus. Electronically signed by: Abdelrahman Harper On 06/05/2020 18:40:28 PM
--- NOTE | 2020-06-05 19:26 | REPVR ---
PROCEDURE INFORMATION: Exam: CT Abdomen And Pelvis With Contrast Exam date and time: 06/05/2020 5:50 PM Age: 59 years old Clinical indication: Abdominal pain; Generalized; Additional info: Abdominal pain, recent surgery TECHNIQUE: Imaging protocol: Computed tomography of the abdomen and pelvis with intravenous contrast. Radiation optimization: All CT scans at this facility use at least one of these dose optimization techniques: automated exposure control; mA and/or kV adjustment per patient size (includes targeted exams where dose is matched to clinical indication); or iterative reconstruction. Contrast material: ISOVUE 370; Contrast volume: 100 ml; Contrast route: INTRAVENOUS (IV); COMPARISON: CT ABD/PEL W/IV CONTRAST ONLY 01/18/2020 2:06 PM FINDINGS: Liver: There is a 1 cm cyst upper aspect of the liver. Variation in the enhancement of the liver which may in part be due to the timing of the bolus. Some of this may be the result of irregular fatty infiltration of the liver. Gallbladder and bile ducts: Normal appearing gallbladder. Pancreas: There is some irregularity of the pancreas but thought to be normal variation. Spleen: Normal size spleen. Small splenic nodule. Adrenals: Normal adrenal glands. Kidneys and ureters: There is enhancement of both kidneys. The left kidney is small compared to the right with areas of scarring probably the result previous pyelonephritis. Stomach and bowel: Patient has had removal of a portion of the sigmoid colon with a row of surgical clips at the anastomosis. Both distal and proximal to the area of anastomosis is evidence of perforation which abuts the surgical clips within the left pelvic sidewall and abutting the left side of the sigmoid colon. There are numerous diverticula in these areas. To the left within the pelvis is a collection of loculated pneumoperitoneum/ air measuring 6 cm x 6 cm. There is a small amount of fluid and inflammation which tracks back to the left side of the sigmoid colon. Considerations for this loculation of air would include perforated diverticula and anastomotic leak. The anastomosis does not appear grossly however the anastomosis is contiguous with the additional sutures in the left pelvic fat. The bubbles of free air are contiguous with the sutures in the left parapelvic fat. Above this 6 cm collection and anterior to the left psoas muscle and enhanced iliac artery is a additional 3 cm collection which communicates with the larger deeper collection. This has both air and fluid consistent with loculated pneumoperitoneum and infected fluid/early abscess formation. This can be tracked back to the area of diverticula along the left side of the sigmoid colon and the area of surgical clips that extend to the left pelvic sidewall. Appendix: The appendix appears within the range of normal. Intraperitoneal space: There is a moderate to large amount of pneumoperitoneum with collections below the diaphragm more anterior in position. Vasculature: Small left renal artery with atherosclerotic change at the origin. There is opacification of the aorta. There is atherosclerotic change of the aorta. Lymph nodes: Unremarkable. No enlarged lymph nodes. Urinary bladder: There is inflammation along the left side of the urinary bladder. Reproductive: The patient is status post hysterectomy.Findings were discussed with CRISTO AVILES at 06/05/2020 7:13 PM EDT. This was all discussed in detail. Bones/joints: DJD IMPRESSION: 1. Patient had surgery approximately 18 days ago. There is now moderate to severe pneumoperitoneum with a prominent amount of air below the diaphragm. And 2 loculations pneumoperitoneum left pelvis. 2. There is a row of surgical clips at the anastomosis of the sigmoid colon. The surgical clips also extend to the left pelvic region/left pelvic fat. Contiguous with the surgical clips at the left pelvic fat and also associated with the left side of the sigmoid colon is a loculation of free air measuring 6 cm. There is a small amount of fluid and inflammation. This is also contiguous with multiple diverticula proximal and distal to the area anastomosis. This large loculation pneumoperitoneum may be from diverticular perforation or anastomotic leak. This tracks anteriorly along the left psoas muscle and opacified left iliac artery where there is a additional 3 cm loculation of air and a small amount of fluid suspicious for early abscess formation . This is consistent with an area of inflammation and infected fluid. This mostly contains loculated free air. Inflammation also along the left side of the urinary bladder. Electronically signed by: Abdelrahman Harper On 06/05/2020 19:26:06 PM
[2020-06-05] MEDS ORDERED: PIPERACILLIN/TAZOBACTAM SOD 3.375 GM in D5W MINI-BAG PLUS 50 ML IV ONE (19:30)
[2020-06-05] MEDS ORDERED: LIDOCAINE 1% SDV 30ML VIAL As Ordered ONE (20:47)
[2020-06-05] MEDS ORDERED: BUPIVACAINE HCL 0.25% 30ML VIAL As Ordered ONE (20:47)
[2020-06-05] MEDS ORDERED: CETI10TA4 PO (21:16)
[2020-06-05] MEDS ORDERED: OXYC1TAB23 PO (21:16)
[2020-06-05] MEDS ORDERED: ASPI-161 PO (21:16)
[2020-06-05] MEDS ORDERED: fentaNYL 100 MCG/2 ML INJECTION (J3010) As Ordered ONE (21:49)
[2020-06-05] MEDS ORDERED: LIDOCAINE 2% 100MG/5ML SDV (FOR ANES.) As Ordered ONE (21:50)
[2020-06-05] MEDS ORDERED: dexameTHASONE 4 MG/ML 1ML VIAL (J1100 PER 1MG) As Ordered ONE (21:50)
[2020-06-05] MEDS ORDERED: ONDANSETRON 4MG/2ML VIAL As Ordered ONE (21:50)
[2020-06-05] MEDS ORDERED: MIDAZOLAM INJ 2MG/2ML VIAL (J2250 PER 1MG) As Ordered ONE (21:50)
[2020-06-05] MEDS ORDERED: propofoL 200 MG/20 ML VIAL As Ordered ONE (21:50)
[2020-06-05] MEDS ORDERED: ROCURONIUM BROMIDE 50 MG/5 ML VIAL As Ordered ONE (21:50)
[2020-06-05] MEDS ORDERED: ACETAMINOPHEN 1000MG 100ML IV BTL (OFIRMEV) (J0131 PER 10MG) As Ordered ONE (23:00)
[2020-06-05] MEDS ORDERED: HYDROmorphone HCL 2 MG/ML 1ML VIAL (J1170) As Ordered ONE (23:42)
[2020-06-05] MEDS ORDERED: hydrALAZINE 20MG/ML 1ML VIAL (J0360 PER 20MG) As Ordered ONE (23:46)
[2020-06-06] VITALS (12 sets, daily range): BP systolic 80–149; BP diastolic 38–90
[2020-06-06] MEDS ORDERED: SUGAMMADEX SODIUM 500 MG/5 ML VIAL (BRIDION) As Ordered ONE (00:03)
[2020-06-06] MEDS ORDERED: ROCURONIUM BROMIDE 50 MG/5 ML VIAL As Ordered ONE (01:13)
[2020-06-06] MEDS ORDERED: fentaNYL 100 MCG/2 ML INJECTION (J3010) As Ordered ONE (02:07)
[2020-06-06] MEDS: fentaNYL 100 MCG/2 ML INJECTION (J3010) IV PRN ×4 (02:10→02:38)
[2020-06-06] MEDS: LABETALOL 100MG/20ML VIAL IV PRN ×3 (02:18→02:32)
[2020-06-06] MEDS ORDERED: LR 1,000 ML IV SCH (02:45)
[2020-06-06] MEDS ORDERED: METOCLOPRAMIDE INJ 10MG/2ML VIAL (J2765 PER 1) IV PRN (02:45)
[2020-06-06] MEDS ORDERED: ONDANSETRON 4MG/2ML VIAL IV PRN (02:45)
[2020-06-06] MEDS ORDERED: LABETALOL 100MG/20ML VIAL As Ordered ONE (03:23)
[2020-06-06] MEDS: ONDANSETRON 4MG/2ML VIAL IV PRN (03:58)
[2020-06-06] MEDS: PIPERACILLIN/TAZOBACTAM SOD 3.375 GM in D5W MINI-BAG PLUS 50 ML IV SCH ×4 (03:59→21:22)
[2020-06-06] MEDS: LR 1,000 ML IV SCH ×3 (03:59→17:10)
[2020-06-06] MEDS: EZETIMIBE 10 MG TAB (ZETIA) PO SCH ×2 (04:10→21:22)
[2020-06-06] MEDS: ATORVASTATIN 20 MG TAB PO SCH ×2 (04:10→21:24)
[2020-06-06] MEDS: lisinopriL 10 MG TAB PO SCH ×2 (04:11→20:47)
[2020-06-06] MEDS: MORPHINE 2 MG/ML 1ML VIAL (J2270) IV PRN ×2 (05:36→14:36)
--- NOTE | 2020-06-06 08:27 | HPEPDOC ---
General Surgery H&P Date of Admission Jun 06, 2020 Attending Physician: JONATHAN LEMONS MD History and Physical CHIEF COMPLAINT: chest pain, shortness of breath HISTORY OF PRESENT ILLNESS: Patient is a 59 F who underwent laparoscopic sigmoid colectomy with anastomosis for recurrent acute diverticulitis on 05/22/2020 and discharged home on 05/28/2020. So she was about a week at home now. She presents with sudden onset of upper epigastric and chest pain which she describes as sharp, constant associated with her having difficulty taking deep breaths and being short of breath yesterday and has persisted through the night. This morning when she woke up felt worse, thus she decided to go to the ER. She denies fevers or chills. Since going home has been able to move her bowels which she describes as soft and formed but has had some loose stools this morning, nonbloddy. She reports fair appetite with some nausea since being discharged home. ALLERGIES: Please see below. HOME MEDICATIONS: Please see below. PAST MEDICAL HISTORY: 1. migraines. 2. Funmi's syndrome/pericarditis. 3. coronary artery disease/VA 4. hypercholesterolemia 5. recurrent acute diverticulits 6. GERD PAST SURGICAL HISTORY: 1. Laparoscopic sigmoid colectomy 2. cardiac stents november 05, CABG January 05. PERSONAL/SOCIAL HISTORY: Denies smoking, alcohol use, or recreational drug use. REVIEW OF SYSTEMS: GENERAL: as above, fair appetie since surgery. HEENT: Denies blurred vision and double vision. reports occasional tinnitus. Denies hoarseness. NECK: Denies any neck pain. CARDIOVASCULAR: reports associated lower mid chest pain. MUSCULOSKELETAL: Denies arthralgias, back pain and thrombophlebitis. SKIN: Denies rash. NEUROLOGIC: no recent migraine attacks. ENDOCRINE: Denies thyroid disease. HEMATOLOGY/ONCOLOGY: Denies any bleeding or clotting disorder. PULMONARY: Denies chronic cough, dyspnea and wheezing. GASTROINTESTINAL: see HPI. GENITOURINARY: Denies dysuria, frequency, hematuria and nocturia. ENDOCRINE: Denies polydipsia, polyphagia, polyuria, heat or cold intolerance. INFECTIOUS: received a dose antibiotic 2 weeks ago with surgery. NUTRITION: reports poor to fair appetite post surgery. PHYSICAL EXAMINATION: VITAL SIGNS: Please see below. GENERAL APPEARANCE: Patient seen at bedside, appears very uncomfortable, anxious appearance. Awake, alert, oriented. HEENT: Normocephalic, atraumatic. [place] palpebral conjunctivae. Anicteric sclerae. Lips very dry CHEST: No chest wall abnormalities. slight shallow breathing, splinting with deep breaths d/t abdominal distention NECK: Supple. No thyromegaly. No JVD LUNGS: Lung sounds are clear to auscultation bilaterally. No wheezing appreciated. HEART: No chest wall abnormalities. tachycardic and normal rhythm are regular with no murmurs. ABDOMEN: abdomen is moderately distended, soft, tympanitic, quiet. tender to palpation on all 4 quadrants but most tender over suprapubic area with moderate guarding throughout. Prior incisions around umbilicus - dry, no drainage, port sites dry. SKIN: warm and dry. EXTREMITIES: no significant extremity edema. NEUROLOGICAL: awake, alert, oriented. ANCILLARIES: . LABORATORY DATA: Please see below. MICROBIOLOGY: Please see below. IMAGING: CT abdomen and pelvis. IMPRESSION AND PLAN: concern for anastomotic leakage with her 2 weeks postop and with sudden onset of new abdominal pain/abdominal distention. Imaging shows pneumoperitoneum as well as focus of air around anastomosis, though not much ascites; associated ileus. Clinically has generalized peritonitis. to OR for diagnostic laparoscopy, possible exploratory laparotomy, possible bowel resection, diversion (ostomy) Vital Signs Vital Signs Date Time Temp Pulse Resp B/P (MAP) Pulse Ox O2 Delivery O2 Flow Rate FiO2 06/06/20 08:00 97.3 71 16 104/60 (75) 96 Nasal Cannula 2.0 I&Os I&O- Last 24 Hours up to 6 AM 06/06/20 06:00 Intake Total 1850 ml Output Total 530 ml Balance 1320 ml Laboratory Data Labs 24H Laboratory Tests 2 06/05/20 16:35: Immature Granulocyte % (Auto) 1.2, Neutrophils (%) (Auto) 76.9H, Lymphocytes (%) (Auto) 14.2L, Monocytes (%) (Auto) 6.0H, Eosinophils (%) (Auto) 1.3, Basophils (%) (Auto) 0.4, Neutrophils # (Auto) 8.6H, Lymphocytes # (Auto) 1.6, Monocytes # (Auto) 0.7, Eosinophils # (Auto) 0.1, Basophils # (Auto) 0.1, Nucleated Red Blood Cells % (auto) 0.0, Erythrocyte Sedimentation Rate 60H, Prothrombin Time 14.2H, Prothromb Time International Ratio 1.08, Activated Partial Thromboplast Time 28.2, Lactic Acid Level 1.1, Total Bilirubin 0.6, Direct Bilirubin 0.2, Aspartate Amino Transf (AST/SGOT) 13, Alanine Aminotransferase (ALT/SGPT) 26, Alkaline Phosphatase 112, C-Reactive Protein, Quantitative 12.80H, FT-Xda-V-Type Natriuretic Peptide 40, Total Protein 6.8, Albumin 3.3, Albumin/Globulin Ratio 0.9L, Lipase 53L, Thyroid Stimulating Hormone (TSH) 0.990 06/05/20 16:37: POC Glucose (Misc Panel) 104, POC Sodium (Misc Panel) 136, POC Potassium (Misc Panel) 3.8, POC Chloride (Misc Panel) 99, POC Total CO2 (Misc Panel) 23.0, POC Blood Urea Nitrogen (Misc Panel 16, POC Ionized Calcium (Misc Panel) 4.5, POC Creatinine (Misc Panel) 0.8, POC Hematocrit (Misc Panel) 35.0L 06/05/20 16:41: POC Troponin I (Misc) 0.00 06/05/20 21:08: Coronavirus (COVID-19)(PCR) NEGATIVE 06/06/20 08:10: CBC/BMP Laboratory Tests 06/05/20 16:35 Microbiology Microbiology 06/05/20 Blood Culture, Received Pending 06/05/20 Blood Culture, Received Pending Home Medications Scheduled Aspirin (Aspirin EC) 81 Mg Tablet.dr, 81 MG PO DAILY, (Reported) Atorvastatin Calcium (Atorvastatin Calcium) 40 Mg Tab, 40 MG PO QHS, (Reported) Calcium Carbonate/Vitamin D3 (Calcium 500-Vit D3 200 Tablet) 1 Each Tablet, 1 TAB PO BID, (Reported) Carvedilol (Carvedilol) 25 Mg Tab, 25 MG PO BID, (Reported) HOLD IF SBP<130 Cetirizine HCl (Cetirizine HCl) 10 Mg Tablet, 10 MG PO DAILY, (Reported) Cholecalciferol (Vitamin D3) (Vitamin D3) 1,000 Unit Tablet, 2,000 UNITS PO DAILY, (Reported) Clopidogrel Bisulfate (Clopidogrel) 75 Mg Tablet, 75 MG PO QHS, (Reported) Diphenoxylate HCl/Atropine (Lomotil 2.5-0.025 mg Tablet) 1 Each Tablet, 2 TAB PO QID, (Reported) Ezetimibe (Zetia) 10 Mg Tab, 10 MG PO QHS, (Reported) Folic Acid (Folic Acid) 1 Mg Tablet, 2 MG PO DAILY, (Reported) Isosorbide Mononitrate (Isosorbide Mononitrate ER) 60 Mg Tab.er.24h, 60 MG PO DAILY, (Reported) Levothyroxine Sodium (Synthroid) 25 Mcg Tablet, 25 MCG PO DAILY, (Reported) Methotrexate Sodium (Methotrexate) 2.5 Mg Tablet, 15 MG PO 1XWK, (Reported) THURSDAY Multivitamins (Thera M Plus Tablet) 1 Each Tablet, 1 TAB PO DAILY, (Reported) Omeprazole (Omeprazole) 40 Mg Cap, 40 MG PO DAILY, (Reported) Potassium Chloride (Potassium Chloride) 10 Meq Tablet.er, 10 MEQ PO TID, (Reported) Psyllium Husk (with Sugar) (Metamucil Powder) 575 Gm Powder, 1 PKT PO BID, (Reported) Scheduled PRN Nitroglycerin (Nitrostat) 0.4 Mg Tab.subl, 0.4 MG SL NITRO PRN for CHEST PAIN, (Reported) Ondansetron HCl (Ondansetron HCl) 4 Mg Tablet, 4 MG PO QID PRN for NAUSEA, (Reported) Oxycodone HCl/Acetaminophen (Oxycodone-Acetaminophen 5-325) 1 Each Tablet, 1 TAB PO Q6H PRN for PAIN, (Reported) Promethazine HCl (Promethazine HCl) 25 Mg Tablet, 25 MG PO TID PRN for NAUSEA, (Reported) Tizanidine HCl (Tizanidine HCl) 4 Mg Tablet, 4 MG PO QHS PRN for MUSCLE SPASMS, (Reported) Allergies Coded Allergies: FISH (Verified Allergy, Severe, THROAT SWELLING, 07/02/20) Quinolones (Verified Allergy, Intermediate, hives, and Headache, 07/02/20) ciprofloxacin (Verified Allergy, Intermediate, swelling, rash, 07/02/20) Sulfa (Sulfonamide Antibiotics) (Verified Allergy, Mild, rash, 07/02/20) codeine (Verified Adverse Reaction, Mild, n/v, 07/02/20) A-FIB/CHADSVASC A-FIB History Current/History of A-Fib/PAF?: No Current PO Anticoag Therapy: No JONATHAN LEMONS MD Jun 06, 2020 08:26
--- NOTE | 2020-06-06 08:30 | ECGEPIP ---
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
[2020-06-06 08:43] LABS: BASO % 0.1 % (0.0-1.0); HEMATOCRIT 31.1 % (36.0-47.0); HEMOGLOBIN 10.3 g/dl (12.0-15.5); LYMPH # 0.6 10^3/uL (1.5-5.0); LYMPH % 5.3 % (24.0-44.0); MEAN CORPUSCULAR HEMOGLOBIN 30.7 pg (27.0-33.0); MEAN CORPUSCULAR HGB CONC 33.1 g/dl (32.0-36.5); MEAN CORPUSCULAR VOLUME 92.8 fl (80.0-96.0); MONO # 0.2 10^3/uL (0.0-0.8); MONO % 2.2 % (0.0-5.0); NEUTROPHILS % 91.8 % (36.0-66.0); PLATELET COUNT, AUTOMATED 342 10^3/uL (150-450); RED BLOOD COUNT 3.35 10^6/uL (4.00-5.40); WHITE BLOOD COUNT 10.9 10^3/uL (4.0-10.0)
[2020-06-06 08:46] LABS: BLOOD UREA NITROGEN 12 MG/DL (7-18); CALCIUM LEVEL 8.6 MG/DL (8.8-10.2); CARBON DIOXIDE LEVEL 24 MEQ/L (21-32); CHLORIDE LEVEL 106 MEQ/L (98-107); CREATININE FOR GFR 0.71 MG/DL (0.55-1.30); GLOMERULAR FILTRATION RATE > 60.0 (>45); GLUCOSE, FASTING 140 MG/DL (70-100); POTASSIUM SERUM 3.9 MEQ/L (3.5-5.1); SODIUM LEVEL 137 MEQ/L (136-145)
[2020-06-06] MEDS: CETIRIZINE (ZyrTEC) 10 MG TAB PO SCH (09:19)
[2020-06-06] MEDS: KETOROLAC 30 MG/ML 1ML VIAL IV PRN ×2 (09:20→17:39)
[2020-06-06] MEDS: LEVOTHYROXINE 25MCG TABLET (0.025MG) PO SCH (09:20)
[2020-06-06] MEDS: PANTOPRAZOLE 40MG VIAL (C9113 PER 1) IV SCH (09:20)
[2020-06-06] MEDS: hydroCHLOROthiazide 25 MG TAB PO SCH (09:20)
[2020-06-06] MEDS: PERCOCET 5MG/325MG TAB PO PRN ×2 (09:20→17:39)
[2020-06-06] MEDS: ISOSORBIDE MON. (IMDUR) 60 MG XR TAB PO SCH (09:23)
[2020-06-06] MEDS: CARVedilol 12.5 MG TAB PO SCH ×2 (09:23→21:00)
[2020-06-06] MEDS: ENOXAPARIN 40MG/0.4ML SYRINGE (J1650 PER 10MG) SC SCH (09:33)
[2020-06-06] MEDS ORDERED: NS 500 ML IV ONE (21:00)
[2020-06-06] MEDS ORDERED: NS 1,000 ML IV ONE (22:15)
[2020-06-07] VITALS (7 sets, daily range): BP systolic 82–125; BP diastolic 40–60
[2020-06-07] MEDS ORDERED: NS 1,000 ML IV ONE (00:15)
[2020-06-07] MEDS ORDERED: NS 500 ML IV ONE (01:30)
[2020-06-07] MEDS: LR 1,000 ML IV SCH ×3 (02:34→21:14)
[2020-06-07] MEDS: PIPERACILLIN/TAZOBACTAM SOD 3.375 GM in D5W MINI-BAG PLUS 50 ML IV SCH ×4 (04:11→21:13)
[2020-06-07 07:13] LABS: HEMATOCRIT 28.2 % (36.0-47.0); HEMOGLOBIN 8.8 g/dl (12.0-15.5); MEAN CORPUSCULAR HEMOGLOBIN 31.1 pg (27.0-33.0); MEAN CORPUSCULAR HGB CONC 31.2 g/dl (32.0-36.5); MEAN CORPUSCULAR VOLUME 99.6 fl (80.0-96.0); PLATELET COUNT, AUTOMATED 246 10^3/uL (150-450); RED BLOOD COUNT 2.83 10^6/uL (4.00-5.40); WHITE BLOOD COUNT 9.2 10^3/uL (4.0-10.0)
[2020-06-07 08:06] LABS: BLOOD UREA NITROGEN 11 MG/DL (7-18); CALCIUM LEVEL 7.4 MG/DL (8.8-10.2); CARBON DIOXIDE LEVEL 22 MEQ/L (21-32); CHLORIDE LEVEL 115 MEQ/L (98-107); CREATININE FOR GFR 0.88 MG/DL (0.55-1.30); GLOMERULAR FILTRATION RATE > 60.0 (>45); GLUCOSE, FASTING 84 MG/DL (70-100); SODIUM LEVEL 144 MEQ/L (136-145)
[2020-06-07] MEDS: ENOXAPARIN 40MG/0.4ML SYRINGE (J1650 PER 10MG) SC SCH (08:32)
[2020-06-07] MEDS: LEVOTHYROXINE 25MCG TABLET (0.025MG) PO SCH (08:32)
[2020-06-07] MEDS: hydroCHLOROthiazide 25 MG TAB PO SCH (08:32)
[2020-06-07] MEDS: PANTOPRAZOLE 40MG VIAL (C9113 PER 1) IV SCH (08:32)
[2020-06-07] MEDS: CETIRIZINE (ZyrTEC) 10 MG TAB PO SCH (08:32)
[2020-06-07] MEDS: CARVedilol 12.5 MG TAB PO SCH ×2 (08:33→21:00)
[2020-06-07] MEDS: ISOSORBIDE MON. (IMDUR) 60 MG XR TAB PO SCH (08:33)
[2020-06-07] MEDS: KETOROLAC 30 MG/ML 1ML VIAL IV PRN (09:45)
[2020-06-07 09:49] LABS: C REACTIVE PROTEIN QUANTITATIV 7.35 MG/DL (0.00-0.30)
[2020-06-07 10:15] LABS: BASO % 0.4 % (0.0-1.0); EOS # 0.3 10^3/uL (0.0-0.5); LYMPH # 1.4 10^3/uL (1.5-5.0); LYMPH % 15.2 % (24.0-44.0); MONO # 0.5 10^3/uL (0.0-0.8); MONO % 5.9 % (0.0-5.0); NEUTROPHILS # 6.9 10^3/uL (1.5-8.5); NEUTROPHILS % 75.1 % (36.0-66.0)
[2020-06-07 10:21] LABS: PLATELET ESTIMATE NORMAL (NORMAL)
--- NOTE | 2020-06-07 10:57 | ROOPDOC ---
[facility] Report Of Operation Report of Operation DATE OF PROCEDURE: 06/05/20 PREPROCEDURE DIAGNOSES: pneumoperitoneum, possible anastomotic leakage. POSTPROCEDURE DIAGNOSES: anastomotic leakage. PROCEDURE: Diagnostic Laparoscopy, flexible sigmoidoscopy, diverting ileostomy, washout of abdomen. SURGEON: Ervin Johnson MD ENGINEER STATION MAINLINE: ANESTHESIA: General Anesthesia. ESTIMATED BLOOD LOSS: Approximately 30 mL. COMPLICATIONS:none REMARKS: Patient is a 59-year-old female who 2 weeks ago underwent laparoscopic sigmoid colectomy for recurrent acute diverticulitis and now presents today to the emergency room with a 2 day history of pain and discomfort over the upper abdomen and midline chest area, right shoulder area shortness of breath, abdominal distention and nausea and found to have positive pneumoperitoneum and air around the anastomotic site on evaluation in the ED. She's taken to the OR for diagnostic laparoscopy for suspicion for anastomotic leakage. PROCEDURE NOTE: . DESCRIPTION OF PROCEDURE: Patient was given a dose of Zosyn 3.375 g IV preoperatively while she was in the emergency room as well as IV fluid hydration. She was brought to the operating room, placed initially supine on the procedure table, compression boots and TEDs stockings were placed for DVT prophylaxis. Gen. endotracheal anesthesia then started. Anesthesia also placed additional peripheral IV and a radial A-line for intraoperative monitoring. A Mendieta catheter was placed with moderately concentrated urine. She had leftover Steri-Strips and the abdomen which was removed. She was placed on a lithotomy position on Vic stirrups. Her abdomen was then widely prepped and draped in usual sterile fashion.We paused for a surgical timeout using both pre-incision safety checklist to verify correct patient, procedure site and additional clinical information prior to beginning the procedure Patient's abdomen appears moderately distended. There is no drainage from her previous laparoscopic port sites even extraction site at the mid abdomen around the umbilicus. I have marked an area both on the right paramedian left paramedian for potential ostomy placement. I started with a left upper quadrant insertion of a Veress needle. Proper placement was confirmed with saline drop technique. CO2 insufflation started to pressure 15 mmHg. Using the same incision a 5 mm optical port was placed under direct vision of laparoscope. The insertion site was inspected for injury and none was found. She was placed on a steep Trendelenburg position. On entry I did not see any significant amounts of ascites. She has some small amount of scattered exudate on top of the liver as well as the right hemidiaphragm. The bowels were covered with omentum down to the pelvis including the area of the left colon and rectum. There were mildly distended loops of small bowel. I placed a 5 mm port over on the patient's periumbilical area also at the right lower quadrant area. There were some attachments of the omentum to the left colon as well as the pelvis which I divided with the Harmonic scalpel and retracted the omentum into the upper quadrants. She was repositioned tilting the left side upwards. There were a few loops of bowel that appears stuck to the medial side of the mesentery of the left colon with some associated inflammatory changes on the serosa. This was sharply divided with laparoscopic dionicio to avoid injury to the small bowel. After disorder all freed the small bowel was retracted away from the pelvis both manually and with her repositioning to a steeper Trendelenburg. There were a few signs of inflammatory changes but what I anticipate is the anastomotic site at the mid pelvic area. Patient has had a prior hysterectomy but both her ovaries and tubes are present. There is a small amount of serosanguineous fluid at the cul-de-sac but no gross purulent fluid nor stool found in that area. The descending colon approaching the area of the anastomosis is moderately distended. This was stuck over the left pelvic sidewall and I continued to mostly but bluntly dissect the colon away from the left anterior abdominal sidewall approaching the left pelvic sidewall and I was able to free this up to well beyond the area of the anastomosis as evidenced by the presence of the staple. The staple line itself appears mostly intact so inflamed and none initially manipulating the colon off the left pelvic sidewall there were some freed of bubbling of the leftover fluid. Again there was no evidence for gross stool spillage. At this point I feel that the pelvis with saline and draped to locate the site of anastomotic leakage by putting back pressure to the anastomosis from the distended left colon and I did not find any obvious areas of bubbling. After doing this, I decided to perform a flexible sigmoidoscopy. A flexible sigmoidoscope was placed transanally on entry there were hard pieces of stool in the rectum. Carefully I slowly advanced while looking for signs of bubbling with the pelvis filled with saline. There wasn't any evidence bubbling that I Notes and eventually well manipulating the colonoscope around the hard stools I was able to get beyond the anastomosis I slowly pulled down irrigated at the anastomotic line. This is only visible senior care mostly in the left anterior and posterior are hard bulky stools over the area that I could move. Overall I did not get any leakage evident with this maneuver. I sucked out some of the intracolonic air again to gain space. I re-scrubbed and returned to the operating room table. As the is no evidence of ongoing leakage at this point but there is concern for a prior anastomotic leak with the inflammatory exudates at the dome of the liver and left pelvic side wall, I decided to perform a diverting ileostomy. The cecum was located as well as the terminal ileum and I retrogradely ran the bowel to an area of the distal ileum that would reach the previously marked area in the right lower quadrant area. The proximal and distal points were marked and this was held with a grasper. The pneumoperitoneum was released. A circular skin i ncision was then created for the ileostomy with portion of the subcutaneous tissue removed. A vertical incision was created on the anterior sheath, the rectus muscles were bluntly divided and the posterior sheath was opened up nutrition. After release of the pneumoperitoneum the moderately distended loops of small bowel was preventing us from retrieving the marked area of the distal ileum, thus I placed a small Roni wound retractor. Eventually we found our marked area and delivered it through the ileostomy incision. The proximal and distal markings were located. The small bowel was then divided with a 55 mm stapler with a blue load and the distal and pushed back intra-abdominally. The mesentery was trimmed to straighten out the proximal small bowel for the ileostomy later on. At this point I returned to laparoscopy and look back on the pelvis. A 19 Bryce drain was placed on the left optic sidewall were de-aired initially was some either left over care or where the prior anastomotic leakage occurred. This came out through a separate incision in the left lower quadrant where her previous drain wasn't placed on the initial surgery. The abdomen was then deflated all ports were removed. The ileostomy was matured in a Staci fashion. The rest of the incisions closed with 4-0 Monocryl in subcuticular fashion Steri-Strips and gauze dressings in place until this incisions. The ileostomy flange was placed. The drain was secured to the skin with 2-0 silk. Overall patient remained hemodynamically stable though her blood pressures have been high throughout the case. At the end of the case she was making a lot less dilated.. She was successfully awakened, extubated and brought to recovery room in the stable condition. ERVIN JOHNSON MD Jun 07, 2020 10:35
--- NOTE | 2020-06-07 11:00 | IPNPDOC ---
Text Note Date of Service The patient was seen on 06/07/20. NOTE Patient looks much more comfortable today. She reports discomfort about 5 out of 10 on the lower abdomen. Her ileostomy has been working. She is denying any nausea, shortness of breath, persistent right shoulder pain. She has stayed mostly in bed postoperatively yesterday. There is reports blood pressure is better controlled. She is making adequate urine. On examination Patient appears to be a lot more comfortable than she was preoperatively and able to talk without any distress or shortness of breath. Skin is warm and dry. Lips appear mildly dry. No obvious jugular venous distention. No further splinting on deep breathing. Lung sounds are fairly clear though respiratory efforts are on a slight shallow side. No signs of increased efforts on breathing. Abdomen is mildly distended and slightly tympanitic to percussion. Right lower quadrant ostomy is viable and working. She has about 3 port sites that are covered with gauze to further clean and dry. She has a left lower quadrant drain that is still somewhat thick serosanguineous. Minimal lower extremity edema. POD1 Laparoscopy, diverting ileostomy, washout for anastomotic leak s/p sigmoid colectomy ileostomy is functioning She was advised to start getting out of bed and ambulate. He will continue antibiotics at this point but if she is able to tolerate diet may be able to convert this orally. We will DC the Mendieta catheter. She will require ostomy teaching [place] ostomy which most likely will determine how long she will stay in the hospital for. start clears follow up labs start ostomy teaching DVT prophylaxis in place with Lovenox. VS,Fishbone, I+O VS, Fishbone, I+O Laboratory Tests 06/07/20 06:08 06/07/20 06:09 Vital Signs Date Time Temp Pulse Resp B/P (MAP) Pulse Ox O2 Delivery O2 Flow Rate FiO2 06/07/20 08:00 98.8 67 16 125/60 (81) 100 Nasal Cannula 2.0 I&O- Last 24 Hours up to 6 AM 06/07/20 05:59 Intake Total 0 ml Output Total 2230 ml Balance -2230 ml JONATHAN LEMONS MD Jun 07, 2020 08:15
[2020-06-07] MEDS: PERCOCET 5MG/325MG TAB PO PRN ×2 (12:24→21:13)
[2020-06-07] MEDS: ACETAMINOPHEN TAB 650MG DOSE (2X325MG) PO PRN (15:26)
[2020-06-07] MEDS: lisinopriL 10 MG TAB PO SCH (21:00)
[2020-06-07] MEDS: EZETIMIBE 10 MG TAB (ZETIA) PO SCH (21:13)
[2020-06-07] MEDS: ATORVASTATIN 20 MG TAB PO SCH (21:14)
[2020-06-08] VITALS: BP 106/56
[2020-06-08] MEDS: LR 1,000 ML IV SCH (02:17)
[2020-06-08 04:00] VITALS: BP 120/70
[2020-06-08] MEDS: PIPERACILLIN/TAZOBACTAM SOD 3.375 GM in D5W MINI-BAG PLUS 50 ML IV SCH ×4 (04:04→22:42)
[2020-06-08] MEDS: PERCOCET 5MG/325MG TAB PO PRN ×2 (04:04→16:04)
[2020-06-08 08:00] VITALS: BP 133/63
[2020-06-08] MEDS: ENOXAPARIN 40MG/0.4ML SYRINGE (J1650 PER 10MG) SC SCH (09:20)
[2020-06-08] MEDS: PANTOPRAZOLE 40MG VIAL (C9113 PER 1) IV SCH (09:20)
[2020-06-08] MEDS: hydroCHLOROthiazide 25 MG TAB PO SCH (09:21)
[2020-06-08] MEDS: KETOROLAC 30 MG/ML 1ML VIAL IV PRN (09:22)
[2020-06-08] MEDS: CARVedilol 12.5 MG TAB PO SCH ×2 (09:23→20:55)
[2020-06-08] MEDS: LEVOTHYROXINE 25MCG TABLET (0.025MG) PO SCH (09:23)
[2020-06-08] MEDS: ISOSORBIDE MON. (IMDUR) 60 MG XR TAB PO SCH (09:23)
[2020-06-08] MEDS: CETIRIZINE (ZyrTEC) 10 MG TAB PO SCH (09:23)
--- NOTE | 2020-06-08 09:51 | IPNPDOC ---
Text Note Date of Service The patient was seen on 06/08/20. NOTE Patient mostly has had an uneventful 24 hours. She is complaining of some vague discomfort perirectally. Mild leftover discomfort on her abdomen. She is denying any shortness of breath, nausea. Her ileostomy has been working appropriately and has not been leaking. She has ambulated from the bed to the bathroom with a walker but has not yet outside. She has been afebrile and hemodynamically stable for the past 24 hours. On examination Patient looks comfortable, not showing any shortness of breath or discomfort l aying on the bed. Skin is warm and dry. Lungs are clear to auscultation bilaterally but slightly decreased on both lower areas mostly due to shallow respiratory effort. No rales or wheezing. Regular heart rate and rhythm Abdomen is round soft, mildly distended. Mild tenderness around the port site and the drain site. The drainage from the CLINT drain is starting to get thin serosanguineous mostly serous on the tube but still pinkish on the bowel. The drainage is gradually decreasing. Ileostomy is working. POD2 Laparoscopy, diverting ileostomy, washout for anastomotic leak s/p sigmoid colectomy i I think she is progressing accordingly. She is not showing any persistent peritonitis and cord drain is not leaking any stool. Her complaint of perirectal discomfort may be due to the fact that she does have a solid stools in the rectum and in the sigmoid colon. I'll give her 1 Dulcolax suppository and see if this will help her evacuate this. I'll advance her to soft diet. I instructed her to ambulate the hallways. I will move her to the regular floors that she has been hemodynamically stable for more than 24 hours. We will continue on getting her comfortable with taking care of her ostomy. Continue IV antibiotics for now. DVT prophylaxis via Lovenox. I anticipate she will need a few more days to a week to get comfortable with taking care of her ileostomy. VS,Fishbone, I+O VS, Fishbone, I+O Vital Signs Date Time Temp Pulse Resp B/P (MAP) Pulse Ox O2 Delivery O2 Flow Rate FiO2 06/08/20 09:23 133/63 06/08/20 09:23 65 06/08/20 08:00 97.7 18 97 Room Air 06/08/20 00:00 I&O- Last 24 Hours up to 6 AM 06/08/20 06:00 Intake Total 2592.5 ml Output Total 4085 ml Balance -1492.5 ml JONATHAN LEMONS MD Jun 08, 2020 09:51
[2020-06-08] MEDS ORDERED: SLF 3 ML SYR IV PRN (11:00)
[2020-06-08] MEDS ORDERED: BISACODYL 10 MG SUPP PR ONE (11:00)
[2020-06-08] MEDS: ONDANSETRON 4MG/2ML VIAL IV PRN (12:32)
[2020-06-08] MEDS: SLF 3 ML SYR IV SCH ×2 (12:33→22:42)
[2020-06-08 16:25] VITALS: BP 122/55
[2020-06-08] MEDS: ACETAMINOPHEN TAB 650MG DOSE (2X325MG) PO PRN (20:41)
[2020-06-08] MEDS: ATORVASTATIN 20 MG TAB PO SCH (20:55)
[2020-06-08] MEDS: EZETIMIBE 10 MG TAB (ZETIA) PO SCH (20:55)
[2020-06-08] MEDS: lisinopriL 10 MG TAB PO SCH (20:56)
[2020-06-08 22:00] VITALS: BP 104/52
[2020-06-09] MEDS: PIPERACILLIN/TAZOBACTAM SOD 3.375 GM in D5W MINI-BAG PLUS 50 ML IV SCH ×4 (04:51→17:32)
[2020-06-09] MEDS: ACETAMINOPHEN TAB 650MG DOSE (2X325MG) PO PRN ×2 (04:54→18:03)
[2020-06-09 05:40] LABS: BASO % 0.3 % (0.0-1.0); EOS # 0.3 10^3/uL (0.0-0.5); HEMATOCRIT 29.3 % (36.0-47.0); HEMOGLOBIN 9.6 g/dl (12.0-15.5); LYMPH # 1.1 10^3/uL (1.5-5.0); LYMPH % 10.6 % (24.0-44.0); MEAN CORPUSCULAR HEMOGLOBIN 30.2 pg (27.0-33.0); MEAN CORPUSCULAR HGB CONC 32.8 g/dl (32.0-36.5); MEAN CORPUSCULAR VOLUME 92.1 fl (80.0-96.0); MONO # 0.4 10^3/uL (0.0-0.8); MONO % 3.6 % (0.0-5.0); NEUTROPHILS # 8.8 10^3/uL (1.5-8.5); PLATELET COUNT, AUTOMATED 277 10^3/uL (150-450); RED BLOOD COUNT 3.18 10^6/uL (4.00-5.40); WHITE BLOOD COUNT 10.7 10^3/uL (4.0-10.0)
[2020-06-09 06:26] LABS: BLOOD UREA NITROGEN 8 MG/DL (7-18); CALCIUM LEVEL 8.2 MG/DL (8.8-10.2); CARBON DIOXIDE LEVEL 28 MEQ/L (21-32); CHLORIDE LEVEL 103 MEQ/L (98-107); CREATININE FOR GFR 0.82 MG/DL (0.55-1.30); GLOMERULAR FILTRATION RATE > 60.0 (>45); GLUCOSE, FASTING 100 MG/DL (70-100); POTASSIUM SERUM 3.1 MEQ/L (3.5-5.1); SODIUM LEVEL 138 MEQ/L (136-145)
[2020-06-09] MEDS: SLF 3 ML SYR IV SCH ×2 (06:39→17:31)
--- NOTE | 2020-06-09 08:54 | IPNPDOC ---
Text Note Date of Service The patient was seen on 06/09/20. NOTE No acute events overnight. She is starting to spike low grade fevers and she was sweating all night. Abd pains are improved and she overall feels better than she did yesterday. Denies nausea, emesis, or fevers, and she is having output from the ileostomy and a BM yesterday. No other complaints. Denies cough, SOB, or pain with urination. VSSAF T max 100.4 overnight Drain - 115cc/24 hours NAD abd - soft, TTP appropriate, incision c/d/i, drain serosanguinous labs - below A) 59y/o female s/p abd washout and diverting ileostomy for likely anastamotic leak s/p sigmoidectomy P) soft diet today ambulate in halls encourage IS plan on repeat CT tomorrow to look for fluid collections if she continues with fevers. Anson Grigsby DO VS,Fishbone, I+O VS, Fishbone, I+O Laboratory Tests 06/09/20 05:30 Vital Signs Date Time Temp Pulse Resp B/P (MAP) Pulse Ox O2 Delivery O2 Flow Rate FiO2 06/09/20 06:15 98.8 06/08/20 22:00 84 17 104/52 (69) 95 Room Air 06/08/20 00:00 I&O- Last 24 Hours up to 6 AM 06/09/20 06:00 Intake Total 1750 ml Output Total 3510 ml Balance -1760 ml NILS GRIGSBY DO Jun 09, 2020 08:54
[2020-06-09] MEDS: CARVedilol 12.5 MG TAB PO SCH ×2 (09:00→20:22)
[2020-06-09] MEDS: hydroCHLOROthiazide 25 MG TAB PO SCH (09:00)
[2020-06-09] MEDS: ISOSORBIDE MON. (IMDUR) 60 MG XR TAB PO SCH (09:00)
[2020-06-09 09:44] VITALS: BP 102/52
[2020-06-09] MEDS: PANTOPRAZOLE 40MG VIAL (C9113 PER 1) IV SCH (09:55)
[2020-06-09] MEDS: CETIRIZINE (ZyrTEC) 10 MG TAB PO SCH (09:55)
[2020-06-09] MEDS: POTASSIUM CHLORIDE 10 MEQ SR TABLET PO SCH ×2 (09:56→20:22)
[2020-06-09] MEDS: LEVOTHYROXINE 25MCG TABLET (0.025MG) PO SCH (09:56)
[2020-06-09] MEDS: ENOXAPARIN 40MG/0.4ML SYRINGE (J1650 PER 10MG) SC SCH (09:57)
[2020-06-09] MEDS: PERCOCET 5MG/325MG TAB PO PRN ×2 (10:11→17:31)
[2020-06-09 14:00] VITALS: BP 102/51
[2020-06-09] MEDS: ONDANSETRON 4MG/2ML VIAL IV PRN (17:29)
[2020-06-09 17:50] VITALS: BP 126/65
[2020-06-09] MEDS: metroNIDAZOLE (FLAGYL) 500MG TABLET PO SCH (20:21)
[2020-06-09] MEDS: EZETIMIBE 10 MG TAB (ZETIA) PO SCH (20:22)
[2020-06-09] MEDS: ATORVASTATIN 20 MG TAB PO SCH (20:22)
[2020-06-09] MEDS: lisinopriL 10 MG TAB PO SCH (20:23)
[2020-06-09] MEDS ORDERED: AUGMENTIN 875 MG TAB PO SCH (21:00)
[2020-06-09 22:00] VITALS: BP 110/56
[2020-06-10 02:00] VITALS: BP 113/57
[2020-06-10] MEDS: PERCOCET 5MG/325MG TAB PO PRN ×3 (02:11→20:31)
[2020-06-10] MEDS: metroNIDAZOLE (FLAGYL) 500MG TABLET PO SCH (04:04)
[2020-06-10 06:00] VITALS: BP 115/50
[2020-06-10 06:35] LABS: BASO % 0.4 % (0.0-1.0); EOS # 0.6 10^3/uL (0.0-0.5); HEMATOCRIT 28.3 % (36.0-47.0); HEMOGLOBIN 9.1 g/dl (12.0-15.5); LYMPH # 1.4 10^3/uL (1.5-5.0); LYMPH % 12.7 % (24.0-44.0); MEAN CORPUSCULAR HEMOGLOBIN 30.3 pg (27.0-33.0); MEAN CORPUSCULAR HGB CONC 32.2 g/dl (32.0-36.5); MEAN CORPUSCULAR VOLUME 94.3 fl (80.0-96.0); MONO # 0.5 10^3/uL (0.0-0.8); MONO % 4.5 % (0.0-5.0); NEUTROPHILS # 8.7 10^3/uL (1.5-8.5); NEUTROPHILS % 76.7 % (36.0-66.0); PLATELET COUNT, AUTOMATED 352 10^3/uL (150-450); WHITE BLOOD COUNT 11.3 10^3/uL (4.0-10.0)
[2020-06-10 07:03] LABS: ALBUMIN 2.4 GM/DL (3.2-5.2); ALT/SGPT 18 U/L (12-78); BILIRUBIN,TOTAL 0.3 MG/DL (0.2-1.0); BLOOD UREA NITROGEN 10 MG/DL (7-18); CALCIUM LEVEL 8.6 MG/DL (8.8-10.2); CARBON DIOXIDE LEVEL 24 MEQ/L (21-32); CHLORIDE LEVEL 107 MEQ/L (98-107); CREATININE FOR GFR 0.76 MG/DL (0.55-1.30); GLOMERULAR FILTRATION RATE > 60.0 (>45); GLUCOSE, FASTING 109 MG/DL (70-100); MAGNESIUM LEVEL 1.7 MG/DL (1.8-2.4); POTASSIUM SERUM 3.7 MEQ/L (3.5-5.1); SODIUM LEVEL 139 MEQ/L (136-145); TOTAL PROTEIN 5.9 GM/DL (6.4-8.2)
[2020-06-10] MEDS: hydroCHLOROthiazide 25 MG TAB PO SCH (09:00)
[2020-06-10] MEDS: ISOSORBIDE MON. (IMDUR) 60 MG XR TAB PO SCH (09:00)
[2020-06-10] MEDS: CARVedilol 12.5 MG TAB PO SCH ×2 (09:00→20:33)
--- NOTE | 2020-06-10 09:08 | IPNPDOC ---
Text Note Date of Service The patient was seen on 06/10/20. NOTE Yesterday she was having fevers throughout the day as well as an infiltrated IV in the left arm. The pain in the arm is improving and she is afebrile currently. Denies nausea, emesis, or abd pains and she is having output from the ileostomy and another BM yesterday. No other complaints. Denies cough, SOB, or pain with urination. VSSAF T max 101.8 overnight NAD abd - soft, TTP appropriate, incision c/d/i, drain serosanguinous labs - below A) 59y/o female s/p abd washout and diverting ileostomy for likely anastamotic leak s/p sigmoidectomy continuing to have fevers and leukocytosis P) soft diet today ambulate in halls encourage IS plan on repeat CT today to look for fluid collections switched her back to IV abx now that she has another IV Anson Grigsby DO VS,Fishbone, I+O VS, Fishbone, I+O Laboratory Tests 06/10/20 05:35 Vital Signs Date Time Temp Pulse Resp B/P (MAP) Pulse Ox O2 Delivery O2 Flow Rate FiO2 06/10/20 06:00 99.2 87 17 115/50 (71) 95 Room Air 06/08/20 00:00 I&O- Last 24 Hours up to 6 AM 06/10/20 06:00 Intake Total 1445 ml Output Total 1375 ml Balance 70 ml NILS GRIGSBY DO Jun 10, 2020 09:08
[2020-06-10] MEDS: PANTOPRAZOLE 40MG TAB (PROTONIX) PO SCH (09:36)
[2020-06-10] MEDS: CETIRIZINE (ZyrTEC) 10 MG TAB PO SCH (09:36)
[2020-06-10] MEDS: LEVOTHYROXINE 25MCG TABLET (0.025MG) PO SCH (09:36)
[2020-06-10] MEDS: POTASSIUM CHLORIDE 10 MEQ SR TABLET PO SCH ×2 (09:36→20:32)
[2020-06-10] MEDS: GASTROGRAFIN SOLUTION 30ML PO SCH ×2 (09:37→10:14)
[2020-06-10] MEDS: ENOXAPARIN 40MG/0.4ML SYRINGE (J1650 PER 10MG) SC SCH (09:38)
[2020-06-10 10:00] VITALS: BP 121/58
[2020-06-10] MEDS ORDERED: ISOVUE-370 76% 100ML VIAL As Ordered ONE (10:55)
[2020-06-10] MEDS: ONDANSETRON 4 MG TAB PO PRN ×2 (11:57→20:30)
[2020-06-10] MEDS: PIPERACILLIN/TAZOBACTAM SOD 3.375 GM in D5W MINI-BAG PLUS 50 ML IV SCH ×3 (11:57→23:53)
--- NOTE | 2020-06-10 12:27 | REPVR ---
PROCEDURE INFORMATION: Exam: CT Abdomen And Pelvis With Contrast Exam date and time: 06/10/2020 11:22 AM Age: 59 years old Clinical indication: Other: Leukocytosis; Prior surgery; Surgery date: <1 month; Surgery type: Resection and perf; Additional info: Leukocytosis S/P bowel perforation TECHNIQUE: Imaging protocol: Computed tomography of the abdomen and pelvis with intravenous contrast. Radiation optimization: All CT scans at this facility use at least one of these dose optimization techniques: automated exposure control; mA and/or kV adjustment per patient size (includes targeted exams where dose is matched to clinical indication); or iterative reconstruction. Contrast material: ISOUVE 370; Contrast volume: 100 ml; Contrast route: INTRAVENOUS (IV); Other contrast: Oral; COMPARISON: CT ABD/PEL W/IV CONTRAST ONLY 06/05/2020 5:39 PM FINDINGS: Lungs: The visualized lung bases demonstrate minor dependent atelectasis. Liver: The liver again contains a 12 mm cyst. It appears otherwise unremarkable. Gallbladder and bile ducts: No gallstones are evident, but ultrasound would be more sensitive. No gross biliary ductal dilatation. Pancreas: There is again mild fatty change of the pancreas. Spleen: A splenule is again present. The spleen itself appears unremarkable. Adrenals: Normal. No mass. Kidneys and ureters: The left kidney is again relatively small and with heterogeneous areas of scarring. It appears otherwise unremarkable. The right kidney appears unremarkable. Stomach and bowel: The small bowel is not obstructed. There is an interval new right lower quadrant ileostomy. There is again surgical anastomosis along the sigmoid colon. A new surgical drain is present in the pelvis, extending adjacent to the sigmoid colon, with its tip in the right pelvis. Previously, there was an extraluminal collection predominantly containing gas posterior to the sigmoid colon. Presently, there is a more irregularly shaped collection of fluid and gas here and extending anterior to the sigmoid colon with mild extension superiorly into the right pelvis, including adjacent to the tip of the surgical drain. This collection measures approximately 3.6 x 3.3 cm adjacent to the sigmoid colon (image [id number]) and 2.2 x 1.7 cm in the right pelvis (image [id number]). An additional collection of fluid and gas more superiorly in the left pelvis measures approximately 3.1 x 2.0 cm (image [id number]). A collection in the region previously measured approximately 3.0 x 2.0 cm). Appendix: The appendix appears normal. Intraperitoneal space: A few small foci of pneumoperitoneum are present. There is very small free fluid in the pelvis. Vasculature: Coronary artery calcifications are noted. The abdominal aorta is nonaneurysmal. Atherosclerotic vascular calcifications are again present. Lymph nodes: Unremarkable. No enlarged lymph nodes. Urinary bladder: Some gas is present in the urinary bladder. Reproductive: There has again been hysterectomy. Bones/joints: Degenerative changes again involve the spine and hips. Soft tissues: Unremarkable. IMPRESSION: 1. Interval right lower quadrant ileostomy since 06/05/20. 2. Interval placement of a surgical drain in the pelvis, including adjacent to the postoperative sigmoid colon. 3. Irregularly shaped collection of fluid and gas adjacent to to the operative sigmoid colon with mild extension superiorly into the right pelvis, including adjacent to the tip of the surgical drain, potentially an abscess, previously with a collection of predominantly gas more posteriorly. 4. Similar additional collection of fluid and gas more superiorly in the left pelvis. 5. Few small foci of pneumoperitoneum, presumably postoperative, with very small free fluid. Electronically signed by: Adria Szymanski On 06/10/2020 12:26:24 PM
[2020-06-10 14:00] VITALS: BP 120/70
[2020-06-10] MEDS: KETOROLAC 30 MG/ML 1ML VIAL IV PRN (14:56)
[2020-06-10 18:00] VITALS: BP 121/69
[2020-06-10] MEDS: ATORVASTATIN 20 MG TAB PO SCH (20:31)
[2020-06-10] MEDS: EZETIMIBE 10 MG TAB (ZETIA) PO SCH (20:31)
[2020-06-10] MEDS: lisinopriL 10 MG TAB PO SCH (20:33)
[2020-06-10 22:00] VITALS: BP 116/67
[2020-06-11 02:00] VITALS: BP 124/71
[2020-06-11 06:00] VITALS: BP 122/66
[2020-06-11] MEDS: PIPERACILLIN/TAZOBACTAM SOD 3.375 GM in D5W MINI-BAG PLUS 50 ML IV SCH ×3 (06:06→17:29)
[2020-06-11 06:46] LABS: BASO # 0.1 10^3/uL (0.0-0.2); BASO % 0.6 % (0.0-1.0); EOS # 0.7 10^3/uL (0.0-0.5); HEMATOCRIT 28.7 % (36.0-47.0); HEMOGLOBIN 9.1 g/dl (12.0-15.5); LYMPH # 1.8 10^3/uL (1.5-5.0); LYMPH % 19.1 % (24.0-44.0); MEAN CORPUSCULAR HEMOGLOBIN 30.2 pg (27.0-33.0); MEAN CORPUSCULAR HGB CONC 31.7 g/dl (32.0-36.5); MEAN CORPUSCULAR VOLUME 95.3 fl (80.0-96.0); MONO # 0.6 10^3/uL (0.0-0.8); MONO % 6.4 % (0.0-5.0); NEUTROPHILS % 64.2 % (36.0-66.0); PLATELET COUNT, AUTOMATED 371 10^3/uL (150-450); RED BLOOD COUNT 3.01 10^6/uL (4.00-5.40); WHITE BLOOD COUNT 9.3 10^3/uL (4.0-10.0)
[2020-06-11 07:42] LABS: ALBUMIN 2.4 GM/DL (3.2-5.2); ALT/SGPT 14 U/L (12-78); BILIRUBIN,TOTAL 0.4 MG/DL (0.2-1.0); BLOOD UREA NITROGEN 16 MG/DL (7-18); CALCIUM LEVEL 8.8 MG/DL (8.8-10.2); CARBON DIOXIDE LEVEL 24 MEQ/L (21-32); CHLORIDE LEVEL 111 MEQ/L (98-107); CREATININE FOR GFR 0.78 MG/DL (0.55-1.30); GLOMERULAR FILTRATION RATE > 60.0 (>45); GLUCOSE, FASTING 91 MG/DL (70-100); MAGNESIUM LEVEL 1.8 MG/DL (1.8-2.4); POTASSIUM SERUM 4.4 MEQ/L (3.5-5.1); SODIUM LEVEL 140 MEQ/L (136-145); TOTAL PROTEIN 5.7 GM/DL (6.4-8.2)
[2020-06-11] MEDS: CARVedilol 12.5 MG TAB PO SCH ×2 (08:01→20:26)
[2020-06-11] MEDS: CETIRIZINE (ZyrTEC) 10 MG TAB PO SCH (08:02)
[2020-06-11] MEDS: hydroCHLOROthiazide 25 MG TAB PO SCH (08:02)
[2020-06-11] MEDS: POTASSIUM CHLORIDE 10 MEQ SR TABLET PO SCH ×2 (08:02→20:26)
[2020-06-11] MEDS: ISOSORBIDE MON. (IMDUR) 60 MG XR TAB PO SCH (08:02)
[2020-06-11] MEDS: LEVOTHYROXINE 25MCG TABLET (0.025MG) PO SCH (08:02)
[2020-06-11] MEDS: PANTOPRAZOLE 40MG TAB (PROTONIX) PO SCH (08:02)
[2020-06-11 10:00] VITALS: BP 118/54
--- NOTE | 2020-06-11 10:39 | IPNPDOC ---
Text Note Date of Service The patient was seen on 06/11/20. NOTE Patient's we can course reviewed. She had low-grade fever on Thursday as well as mild leukocytosis and some nausea. The fever went away after the IV antibiotics was restarted. Her WBC count today is normal. She has CT abdomen and pelvis done yesterday. She has been afebrile since Thursday evening. She still reports some mild nausea. On examination Patient looks comfortable, not showing any shortness of breath or discomfort laying on the bed. She was working on her incentive spirometer and able to get up to 1000mls but only for a few breath. This does not seem to be short of breath. Skin is warm and dry. Lungs are clear to auscultation bilaterally but slightly decreased on both lower areas mostly due to shallow respiratory effort. No rales or wheezing. Regular heart rate and rhythm Abdomen is round soft, minimally distended. Mild tenderness around the port site and the drain site. The drainage from the CLINT drain is starting to get thin serosanguineous mostly serous on the tube but still pinkish on the bowel. The drainage is gradually decreasing. Ileostomy is working. Drain output for the past 48 hours has trailed off. Still serosanguineous. POD2 Laparoscopy, diverting ileostomy, washout for anastomotic leak s/p sigmoid colectomy A few issues remain. She still has some mild nausea. She is on soft diet and I will keep her on it for now. She hasn't ambulated to the hallways yet and we will get physical therapy for that. She had some mild leukocytosis which is resolved after resumption of Zosyn. I reviewed the CT abdomen and pelvis and I don't think that there is a discrete abscess collection. I will observe her course for now and if she continues to get better that collection may not need to be drained though if she still shows some signs of systemic inflammatory response, we may need to place a new drain to where the collection is and remove the surgical drain which is only at the tip of the collection. Otherwise the CAT scan did not reveal anything surprising save for some postoperative changes. I have spoken to the nurse to continue to work with her with getting her familiar with ostomy care. Continue IV antibiotics for now. She remains on Zosyn day 5. I'll get Absent CRP tomorrow. She is scheduled to have a midline catheter placed today as were having a hard time maintaining peripheral access on her. VS,Saranyae, I+O VS, Juarezbone, I+O Laboratory Tests 06/11/20 06:29 Vital Signs Date Time Temp Pulse Resp B/P (MAP) Pulse Ox O2 Delivery O2 Flow Rate FiO2 06/11/20 08:02 114/57 06/11/20 08:01 79 06/11/20 06:00 98.6 14 98 Room Air 06/08/20 00:00 I&O- Last 24 Hours up to 6 AM 06/11/20 05:59 Intake Total 1990 ml Output Total 1970 ml Balance 20 ml JONATHAN LEMONS MD Jun 11, 2020 10:39
[2020-06-11] MEDS: ONDANSETRON 4 MG TAB PO PRN ×2 (10:41→18:45)
[2020-06-11] MEDS: PERCOCET 5MG/325MG TAB PO PRN ×2 (11:29→18:45)
[2020-06-11 14:00] VITALS: BP 134/56
[2020-06-11] MEDS ORDERED: LIDOCAINE 1% MDV 20ML VIAL As Ordered ONE (14:14)
[2020-06-11] MEDS: ENOXAPARIN 40MG/0.4ML SYRINGE (J1650 PER 10MG) SC SCH (15:22)
[2020-06-11] MEDS: SODIUM CHLORIDE 0.9% INJ 10 ML SYR IV SCH (17:30)
[2020-06-11 18:00] VITALS: BP 123/51
[2020-06-11] MEDS: lisinopriL 10 MG TAB PO SCH (20:26)
[2020-06-11] MEDS: ATORVASTATIN 20 MG TAB PO SCH (20:26)
[2020-06-11] MEDS: EZETIMIBE 10 MG TAB (ZETIA) PO SCH (20:27)
[2020-06-11] MEDS ORDERED: PROMETHAZINE 25 MG TAB PO ONE (21:00)
[2020-06-11 22:00] VITALS: BP 145/69
[2020-06-12] VITALS (9 sets, daily range): BP systolic 83–137; BP diastolic 46–73
[2020-06-12] MEDS: PIPERACILLIN/TAZOBACTAM SOD 3.375 GM in D5W MINI-BAG PLUS 50 ML IV SCH ×4 (00:06→17:55)
[2020-06-12] MEDS: ONDANSETRON 4 MG TAB PO PRN ×3 (00:51→16:54)
[2020-06-12] MEDS: PERCOCET 5MG/325MG TAB PO PRN ×3 (00:52→16:54)
[2020-06-12] MEDS ORDERED: SODIUM CHLORIDE 0.9% 1000ML IV ONE (03:30)
[2020-06-12 05:36] LABS: BASO # 0.1 10^3/uL (0.0-0.2); BASO % 0.8 % (0.0-1.0); EOS # 0.6 10^3/uL (0.0-0.5); EOS % 6.5 % (0.0-3.0); HEMATOCRIT 29.4 % (36.0-47.0); HEMOGLOBIN 9.2 g/dl (12.0-15.5); LYMPH # 1.8 10^3/uL (1.5-5.0); LYMPH % 19.8 % (24.0-44.0); MEAN CORPUSCULAR HEMOGLOBIN 30.1 pg (27.0-33.0); MEAN CORPUSCULAR HGB CONC 31.3 g/dl (32.0-36.5); MEAN CORPUSCULAR VOLUME 96.1 fl (80.0-96.0); MONO # 0.6 10^3/uL (0.0-0.8); MONO % 7.2 % (0.0-5.0); NEUTROPHILS # 5.5 10^3/uL (1.5-8.5); NEUTROPHILS % 61.5 % (36.0-66.0); PLATELET COUNT, AUTOMATED 430 10^3/uL (150-450); RED BLOOD COUNT 3.06 10^6/uL (4.00-5.40); WHITE BLOOD COUNT 8.9 10^3/uL (4.0-10.0)
[2020-06-12] MEDS ORDERED: NS 1,000 ML IV ONE ×3 (05:45→18:30)
[2020-06-12 06:02] LABS: ALBUMIN 2.5 GM/DL (3.2-5.2); BILIRUBIN,TOTAL 0.3 MG/DL (0.2-1.0); C REACTIVE PROTEIN QUANTITATIV 13.5 MG/DL (0.00-0.30); CALCIUM LEVEL 8.7 MG/DL (8.8-10.2); CREATININE FOR GFR 1.52 MG/DL (0.55-1.30); GLOMERULAR FILTRATION RATE 37.1 (>45); MAGNESIUM LEVEL 1.8 MG/DL (1.8-2.4); POTASSIUM SERUM 5.4 MEQ/L (3.5-5.1); TOTAL PROTEIN 6.1 GM/DL (6.4-8.2)
[2020-06-12] MEDS: SODIUM CHLORIDE 0.9% INJ 10 ML SYR IV SCH ×2 (06:13→17:55)
--- NOTE | 2020-06-12 07:47 | ECGEPIP ---
[facility] Test Date: 2020-06-12 Pat Name: PATRICK WALSH Department: Room: [place] [address] Gender: Female Frontload Driver: HADLEY : 1960 Requested By: Kimberly Patel Order Number: [id number] Reading MD: Corrine Law Measurements Intervals [place] Rate: 61 P: 29 WV: 143 QRS: 12 QRSD: 88 T: 32 QT: 394 QTc: 399 Interpretive Statements SINUS RHYTHM CHANGE IN P AXIS IMPROVED STS COMPRED WITH 06/05/20 Electronically Signed on 06-12-2020 7:47:10 EDT by Corrine Law
--- NOTE | 2020-06-12 08:03 | IPNPDOC ---
Text Note Date of Service The patient was seen on 06/12/20. NOTE Overnight patient reports that she was having some intermittent chills. Early this morning she had some leakage from her ostomy and while getting up to go to the bathroom, patient felt dizzy was having some heavy, chest pain at the midsternal area as well as nausea which is no longer present at the time that I saw the patient. She had negative cardiac workup including an EKG and a troponin at that time. Patient reports still has some low-grade nausea but no chest pain is no longer present. Her vitals for the past 24 hours show she is afebrile heart rate is in the 60s t o 70s. Early this morning when she was symptomatic with her chest pain her blood pressure was low in the mid 80s systolic. This morning when she was asymptomatic her blood pressure is return to normal at 115/73. She is satting 96 200% at room air. On examination Patient looks fairly comfortable, not showing any shortness of breath or discomfort laying on the bed. Skin is warm and dry. Lungs are clear to auscultation bilaterally but slightly decreased on both lower areas mostly due to shallow respiratory effort. No rales or wheezing. Regular heart rate and rhythm Abdomen is round soft, minimally distended. Minimally tender on deep palpation over the left lower abdomen and slightly in the suprapubic area. Her CLINT drain has not been draining much for the past 24 hours. I stripped the tubing of the drain and did not get any further drainage. Her ileostomy has a new function is working appropriately POD2 Laparoscopy, diverting ileostomy, washout for anastomotic leak s/p sigmoid colectomy She still acting she's having some low-grade sepsis may be some continued leakage at the anastomosis specially with the most prior CT. There is some undrained collection medial to the sigmoid colon which I'll have radiology place a drain on as our current drain though located at the tip of this collection is not draining much. She also has some pockets of air at the left lateral sidewall, not much fluid around that area. Her ileostomy is working but she has not been taking much orally which probably is contributing to the low blood pressure as her ostomy has been putting out more than a liter since this started working. I'll give her an extra 1 L IV fluid today. I will continue current an tibiotics for now. We will continue to work with her getting comfortable with her ileostomy. This does not seem like she would be ready to go home the next few days. DVT prophylaxis with Lovenox. VS,Fishbone, I+O VS, Fishbone, I+O Laboratory Tests 06/12/20 05:16 Vital Signs Date Time Temp Pulse Resp B/P (MAP) Pulse Ox O2 Delivery O2 Flow Rate FiO2 06/12/20 06:00 97.0 66 16 97 Room Air 06/12/20 05:55 115/73 (87) 06/08/20 00:00 I&O- Last 24 Hours up to 6 AM 06/12/20 05:59 Intake Total 1540 ml Output Total 2595 ml Balance -1055 ml JONATHAN LEMONS MD Jun 12, 2020 08:03
[2020-06-12] MEDS: CARVedilol 12.5 MG TAB PO SCH ×2 (08:23→21:00)
[2020-06-12] MEDS: hydroCHLOROthiazide 25 MG TAB PO SCH (08:23)
[2020-06-12] MEDS: ISOSORBIDE MON. (IMDUR) 60 MG XR TAB PO SCH (08:24)
[2020-06-12] MEDS: LR 1,000 ML IV SCH ×2 (08:30→16:53)
[2020-06-12] MEDS: CETIRIZINE (ZyrTEC) 10 MG TAB PO SCH (08:32)
[2020-06-12] MEDS: PANTOPRAZOLE 40MG TAB (PROTONIX) PO SCH (08:32)
[2020-06-12] MEDS: LEVOTHYROXINE 25MCG TABLET (0.025MG) PO SCH (08:32)
[2020-06-12] MEDS: POTASSIUM CHLORIDE 10 MEQ SR TABLET PO SCH ×2 (08:38→21:00)
[2020-06-12] MEDS: MAALOX 30 ML SUSP *UDC PO SCH ×2 (13:39→17:55)
[2020-06-12] MEDS ORDERED: LIDOCAINE 1% MDV 20ML VIAL As Ordered ONE (14:04)
[2020-06-12] MEDS ORDERED: SODIUM BICARBONATE 8.4% INJ 50MEQ 50 ML VIAL As Ordered ONE (14:04)
[2020-06-12] MEDS: ENOXAPARIN 40MG/0.4ML SYRINGE (J1650 PER 10MG) SC SCH (16:53)
[2020-06-12 17:15] LABS: CALCIUM LEVEL 9.3 MG/DL (8.8-10.2); CREATININE FOR GFR 1.23 MG/DL (0.55-1.30); GLOMERULAR FILTRATION RATE 47.4 (>45); POTASSIUM SERUM 6.1 MEQ/L (3.5-5.1)
[2020-06-12] MEDS ORDERED: DEXTROSE 50% 50 ML SYRINGE IV STA (18:29)
[2020-06-12] MEDS ORDERED: ALBUTEROL SULFATE 2.5 MG/0.5 ML INH NEB SOLN NEB ONE (18:30)
--- NOTE | 2020-06-12 18:36 | CR.PDOC ---
General Date of Consultation: Jun 12, 2020 Attending Physician: DARLENE HOBBS MD Consultation REASON FOR CONSULTATION/CHIEF COMPLAINT: acute kidney injury HISTORY OF PRESENT ILLNESS: Ms. Rodriguez is a 59 yo F with a hx of rheumatoid arthritis, CAD s/p CABG in 2007, HTN, and recurrent diverticulitis. She is POD #6 from a laparoscopy, diverting ileostomy, washout for anastomotic leak s/p sigmoid colectomy. Hospital services consulted for rising creatinine and potassium, as well as lactic acidosis. Suspect infectious process from persistently leaking anastomosis. CT abdo from 06/10/20 showing fluid collection adjacent to operative sigmoid possibly an abscess, as well as a similar collection superiorly in the pelvis. , Status post CT-guided drain placement near noted collection on prior imaging. Discussed with Dr. Johnson, it appears her ileostomy is producing a lot of liquid, approximately 2 L today concerned that her hypotension is likely related to hypovolemia from increased output. On my examination, blood pressure is 137/60, heart rate 72, respiratory rate 16, temperature 98.9. Chart review, however, patient was hypertensive this morning to 90s over 40s. Pressure rebounded after IV bolus administration. Lab review from this morning shows potassium of 5.4, creatinine 1.5, GFR 37.1, and a CRP of 13.5. Aggressive fluid resuscitation. Patient's creatinine normalized to 1.23. However, repeat P showing elevated potassium to 6.1. Lactic acid 2.2. For the patient endorsed pressure-like chest pain this morning, substernal, nonradiating, however, EKG do not show acute ischemic findings, troponins were negative 2 today. ALLERGIES: Please see below. HOME MEDICATIONS: Please see below. PAST MEDICAL HISTORY: Rheumatoid arthritis Coronary artery disease status post CABG in 2007 Hypertension Hypothyroidism FUNMI'S SYNDROME PAST SURGICAL HISTORY: Laparoscopic sigmoid colectomy Laparoscopy, diverting ileostomy and washout for anastomotic leak FAMILY HISTORY: negative per patient SOCIAL HISTORY: Patient denies smoking Patient denies etoh use Patient denies illicit drug use REVIEW OF SYSTEMS: CONSTITUTIONAL: patient denies fevers, chills HEENT: patient denies blurred vision, loss of vision, headache,. CARDIOVASCULAR: patient denies chest pain, palpitations. RESPIRATORY: patient denies shortness of breath, cough, hemoptysis. GASTROINTESTINAL: abdominal pain, worse at LLQ drain GENITOURINARY: patient denies dysuria, discharge. SKIN: patient denies rashes. MUSCULOSKELETAL: patient denies joint pain, neck pain. NEUROLOGICAL: patient denies focal weakness, numbness, seizures. PSYCHIATRIC: patient denies SI/HI. ENDOCRINE: patient denies polyuria, heat intolerance, cold intolerance. HEMATOLOGIC/LYMPHATIC: patient denies easy bruising. PHYSICAL EXAMINATION: VITAL SIGNS: Please see below. General: NAD, comfortable HEENT: PERRLA, EOMI, sclerae clear Neck: supple, normal ROM, no JVD Respiratory: lungs CTAB, no wheeze, no rales, no crackles CVS: RRR, normal S1, S2, no murmurs Abdo: No rebound tenderness, tender to palpation in all 4 quadrant, worsening left lower quadrant drain. No rigidity Extremities: no edema, pulses 2+ MSK: no joint deformities, normal ROM Neuro: no focal neuro deficits, moving all 4 extremities, CN2-12 intact. Strength 5/5 in all 4 extremities. No nystagmus. Psych: calm, cooperative, AAO x 3 LABORATORY DATA: Please see below. ASSESSMENT/PLAN: Ms. Rodriguez is a 59 yo F with a hx of rheumatoid arthritis, CAD s/p CABG in 2007, HTN, and recurrent diverticulitis. She is POD #6 from a laparoscopy, diverting ileostomy, washout for anastomotic leak s/p sigmoid colectomy. Hospital services consulted for rising creatinine and potassium, as well as lactic acidosis. # Hyperkalemia: K 6.1. Hold lisinopril. Stopped potassium tabs. 5 units regular insulin. 25 g dextrose. 10 g albuterol. NS. Repeat BMP. #ALMITA: likely secondary to dehydration from high ostomy output. S/p 3L NS. Cr normalized. Trend. Monitor urine output. #Lactic acidosis: likely 2/2 tissue hypoperfusion from hypovelemia. Patient did not meet SIRS/sepsis criteria this morning. S/p 2.5L NS bolus. LA 2.5. Will give additional NS bolus, c/w NS 150 cc/hr given noted mild hyponatremia. Continue zosyn #CAD: c/w asa/statin. Monitor trop. EKG in am. 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 Monitor. Thank you for the consult. Will continue to follow. Vital Signs/I&O Vital Signs Date Time Temp Pulse Resp B/P (MAP) Pulse Ox O2 Delivery O2 Flow Rate FiO2 06/12/20 17:47 98.8 72 16 137/60 (85) 100 Room Air 06/08/20 00:00 I&O- Last 24 Hours up to 6 AM 06/12/20 06:00 Intake Total 1580 ml Output Total 3061 ml Balance -1481 ml Laboratory Data Labs 24H Laboratory Tests 2 06/12/20 05:16: Immature Granulocyte % (Auto) 4.2H, Neutrophils (%) (Auto) 61.5, Lymphocytes (%) (Auto) 19.8L, Monocytes (%) (Auto) 7.2H, Eosinophils (%) (Auto) 6.5H, Basophils (%) (Auto) 0.8, Neutrophils # (Auto) 5.5, Lymphocytes # (Auto) 1.8, Monocytes # (Auto) 0.6, Eosinophils # (Auto) 0.6H, Basophils # (Auto) 0.1, Nucleated Red Blood Cells % (auto) 0.0, Anion Gap 6L, Glomerular Filtration Rate 37.1L, Calcium Level 8.7L, Magnesium Level 1.8, Total Bilirubin 0.3, Aspartate Amino Transf (AST/SGOT) 10, Alanine Aminotransferase (ALT/SGPT) 16, Alkaline Phosphatase 92, C-Reactive Protein, Quantitative 13.50H, Total Protein 6.1L, Albumin 2.5L, Albumin/Globulin Ratio 0.7L 06/12/20 05:54: Bedside Glucose (Misc Panel) 87 06/12/20 06:13: Troponin I < 0.02 06/12/20 12:02: Troponin I < 0.02 06/12/20 16:33: Anion Gap 8, Glomerular Filtration Rate 47.4, Lactic Acid Level 2.2*H, Calcium Level 9.3 CBC/BMP Laboratory Tests 06/12/20 05:16 06/12/20 16:33 Microbiology Microbiology 06/12/20 Gram Stain, Received Pending 06/12/20 Abscess Culture, Received Pending 06/12/20 Anaerobic Culture, Received Pending 06/05/20 Blood Culture - Final, Complete NO GROWTH AFTER 5 DAYS 06/05/20 Blood Culture - Final, Complete NO GROWTH AFTER 5 DAYS Allergies Coded Allergies: FISH (Verified Allergy, Severe, THROAT SWELLING, 07/02/20) Quinolones (Verified Allergy, Intermediate, hives, and Headache, 07/02/20) ciprofloxacin (Verified Allergy, Intermediate, swelling, rash, 07/02/20) Sulfa (Sulfonamide Antibiotics) (Verified Allergy, Mild, rash, 07/02/20) codeine (Verified Adverse Reaction, Mild, n/v, 07/02/20) Home Medications Scheduled Aspirin (Aspirin EC) 81 Mg Tablet.dr, 81 MG PO DAILY, (Reported) Atorvastatin Calcium (Atorvastatin Calcium) 40 Mg Tab, 40 MG PO QHS, (Reported) Calcium Carbonate/Vitamin D3 (Calcium 500-Vit D3 200 Tablet) 1 Each Tablet, 1 TAB PO BID, (Reported) Carvedilol (Carvedilol) 25 Mg Tab, 25 MG PO BID, (Reported) HOLD IF SBP<130 Cetirizine HCl (Cetirizine HCl) 10 Mg Tablet, 10 MG PO DAILY, (Reported) Cholecalciferol (Vitamin D3) (Vitamin D3) 1,000 Unit Tablet, 2,000 UNITS PO DAILY, (Reported) Clopidogrel Bisulfate (Clopidogrel) 75 Mg Tablet, 75 MG PO QHS, (Reported) Diphenoxylate HCl/Atropine (Lomotil 2.5-0.025 mg Tablet) 1 Each Tablet, 2 TAB PO QID, (Reported) Ezetimibe (Zetia) 10 Mg Tab, 10 MG PO QHS, (Reported) Folic Acid (Folic Acid) 1 Mg Tablet, 2 MG PO DAILY, (Reported) Isosorbide Mononitrate (Isosorbide Mononitrate ER) 60 Mg Tab.er.24h, 60 MG PO DAILY, (Reported) Levothyroxine Sodium (Synthroid) 25 Mcg Tablet, 25 MCG PO DAILY, (Reported) Methotrexate Sodium (Methotrexate) 2.5 Mg Tablet, 15 MG PO 1XWK, (Reported) THURSDAY Multivitamins (Thera M Plus Tablet) 1 Each Tablet, 1 TAB PO DAILY, (Reported) Omeprazole (Omeprazole) 40 Mg Cap, 40 MG PO DAILY, (Reported) Potassium Chloride (Potassium Chloride) 10 Meq Tablet.er, 10 MEQ PO TID, (Reported) Psyllium Husk (with Sugar) (Metamucil Powder) 575 Gm Powder, 1 PKT PO BID, (Reported) Scheduled PRN Nitroglycerin (Nitrostat) 0.4 Mg Tab.subl, 0.4 MG SL NITRO PRN for CHEST PAIN, (Reported) Ondansetron HCl (Ondansetron HCl) 4 Mg Tablet, 4 MG PO QID PRN for NAUSEA, (Reported) Oxycodone HCl/Acetaminophen (Oxycodone-Acetaminophen 5-325) 1 Each Tablet, 1 TAB PO Q6H PRN for PAIN, (Reported) Promethazine HCl (Promethazine HCl) 25 Mg Tablet, 25 MG PO TID PRN for NAUSEA, (Reported) Tizanidine HCl (Tizanidine HCl) 4 Mg Tablet, 4 MG PO QHS PRN for MUSCLE SPASMS, (Reported) DARLENE HOBBS MD Jun 12, 2020 18:36
[2020-06-12] MEDS ORDERED: HumuLIN R (REGULAR) INSULIN (NovoLIN R) **100U/ML** PER UNIT IV STA (18:39)
[2020-06-12] MEDS ORDERED: HumuLIN R (REGULAR) INSULIN (NovoLIN R) **100U/ML** PER UNIT SC ONE (18:45)
[2020-06-12] MEDS: NS 1,000 ML IV SCH (20:11)
[2020-06-12] MEDS: ATORVASTATIN 20 MG TAB PO SCH (21:06)
[2020-06-12] MEDS: EZETIMIBE 10 MG TAB (ZETIA) PO SCH (21:06)
[2020-06-12 22:20] LABS: BLOOD UREA NITROGEN 17 MG/DL (7-18); CALCIUM LEVEL 8.8 MG/DL (8.8-10.2); CARBON DIOXIDE LEVEL 20 MEQ/L (21-32); CHLORIDE LEVEL 111 MEQ/L (98-107); CREATININE FOR GFR 1.12 MG/DL (0.55-1.30); GLOMERULAR FILTRATION RATE 52.8 (>45); GLUCOSE, FASTING 110 MG/DL (70-100); POTASSIUM SERUM 3.7 MEQ/L (3.5-5.1); SODIUM LEVEL 137 MEQ/L (136-145); TROPONIN I < 0.02 NG/ML (< 0.10)
[2020-06-13] MEDS: MAALOX 30 ML SUSP *UDC PO SCH ×4 (00:14→18:37)
[2020-06-13] MEDS: PIPERACILLIN/TAZOBACTAM SOD 3.375 GM in D5W MINI-BAG PLUS 50 ML IV SCH ×4 (00:14→18:37)
[2020-06-13] MEDS: NS 1,000 ML IV SCH ×3 (01:10→16:07)
[2020-06-13 02:00] VITALS: BP 138/54
[2020-06-13] MEDS: SODIUM CHLORIDE 0.9% INJ 10 ML SYR IV SCH ×2 (05:48→18:00)
[2020-06-13 06:00] VITALS: BP 150/70
[2020-06-13 06:20] LABS: BASO # 0.1 10^3/uL (0.0-0.2); BASO % 0.6 % (0.0-1.0); EOS # 0.5 10^3/uL (0.0-0.5); HEMATOCRIT 26.7 % (36.0-47.0); HEMOGLOBIN 8.4 g/dl (12.0-15.5); LYMPH # 1.5 10^3/uL (1.5-5.0); LYMPH % 14.8 % (24.0-44.0); MEAN CORPUSCULAR HEMOGLOBIN 29.5 pg (27.0-33.0); MEAN CORPUSCULAR HGB CONC 31.5 g/dl (32.0-36.5); MEAN CORPUSCULAR VOLUME 93.7 fl (80.0-96.0); MONO # 0.8 10^3/uL (0.0-0.8); MONO % 7.7 % (0.0-5.0); NEUTROPHILS # 7.1 10^3/uL (1.5-8.5); NEUTROPHILS % 68.4 % (36.0-66.0); PLATELET COUNT, AUTOMATED 447 10^3/uL (150-450); RED BLOOD COUNT 2.85 10^6/uL (4.00-5.40); WHITE BLOOD COUNT 10.3 10^3/uL (4.0-10.0)
[2020-06-13 06:52] LABS: ALBUMIN 2.2 GM/DL (3.2-5.2); ALT/SGPT 22 U/L (12-78); BILIRUBIN,TOTAL 0.2 MG/DL (0.2-1.0); BLOOD UREA NITROGEN 12 MG/DL (7-18); C REACTIVE PROTEIN QUANTITATIV 7.02 MG/DL (0.00-0.30); CALCIUM LEVEL 8.2 MG/DL (8.8-10.2); CARBON DIOXIDE LEVEL 19 MEQ/L (21-32); CHLORIDE LEVEL 114 MEQ/L (98-107); GLOMERULAR FILTRATION RATE > 60.0 (>45); GLUCOSE, FASTING 98 MG/DL (70-100); MAGNESIUM LEVEL 1.6 MG/DL (1.8-2.4); POTASSIUM SERUM 4.7 MEQ/L (3.5-5.1); SODIUM LEVEL 141 MEQ/L (136-145); TOTAL PROTEIN 5.5 GM/DL (6.4-8.2); TROPONIN I < 0.02 NG/ML (< 0.10)
--- NOTE | 2020-06-13 07:24 | IPNPDOC ---
Date Seen The patient was seen on 06/13/20. Progress Note SUBJECTIVE: patient was seen and examined at bedside. Reports peristent abdominal pain, worsening in lower abdomen. States that she is having trouble urinating. Per RN, she sat on comonode but was unable to urinate. Bladder scan at bedside reveals 400 cc. She denies fevers, chills. Chest pain has resolved. OBJECTIVE PHYSICAL EXAMINATION: VITAL SIGNS: Please see below. General: NAD, comfortable HEENT: PERRLA, EOMI, sclerae clear Neck: supple, normal ROM, no JVD Respiratory: lungs CTAB, no wheeze, no rales, no crackles CVS: RRR, normal S1, S2, no murmurs Abdo: No rebound tenderness, tender to palpation in all 4 quadrant, worse at left lower quadrant drain. Lower abdo pain to palpation overlying bladder. No rigidity Extremities: no edema, pulses 2+ MSK: no joint deformities, normal ROM Neuro: no focal neuro deficits, moving all 4 extremities, CN2-12 intact. Strength 5/5 in all 4 extremities. No nystagmus. Psych: calm, cooperative, AAO x 3 LABORATORY DATA, IMAGING STUDIES, MICROBIOLOGY: Please see below. DVT prophylaxis ordered?: Y, lovenox. ASSESSMENT AND PLAN: 59 yo F with a hx of rheumatoid arthritis, CAD s/p CABG in 2007, HTN, and recurrent diverticulitis. She is POD #6 from a laparoscopy, diverting ileostomy, washout for anastomotic leak s/p sigmoid colectomy. Hospit al services consulted for rising creatinine and potassium, as well as lactic acidosis. Suspect infectious process from persistently leaking anastomosis. Hyperkalemia and ALMITA have resolved. Acidosis persists, I discussed Dr. Johnson. No suspicion for bowel ischemia. Suspected hypovolemia from high-output stoma, will attempt to reduce output. # Hyperkalemia: resolved after stopping KCL tabs as well as albuterol, insulin/dextrose. Reduce dose of KCL to 20 meq bid. Continue to hold lisinopril. Repeat BMP in am. #ALMITA: resolved with IV hydration. #Lactic acidosis: likely 2/2 tissue hypoperfusion from hypovelemia. High output stoma. Continue zosyn. Surgery plan to reduce output with lomotil, metamucil. #CAD: c/w asa/statin.Trop <0.02 x 3. 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 Monitor. Will continue to follow. VS, [facility]O Vital Signs Date Time Temp Pulse Resp B/P (MAP) Pulse Ox O2 Delivery O2 Flow Rate FiO2 06/13/20 06:00 98.1 79 18 150/70 (96) 96 Room Air 06/08/20 00:00 I&O- Last 24 Hours up to 6 AM 06/13/20 06:00 Intake Total 3760 ml Output Total 3420 ml Balance 340 ml Laboratory Data 24H LABS Laboratory Tests 2 06/12/20 12:02: Troponin I < 0.02 06/12/20 16:33: Anion Gap 8, Glomerular Filtration Rate 47.4, Lactic Acid Level 2.2*H, Calcium Level 9.3 06/12/20 19:38: Bedside Glucose (Misc Panel) 134H 06/12/20 21:42: Lactic Acid Level 1.3 06/12/20 21:43: Anion Gap 6L, Glomerular Filtration Rate 52.8, Calcium Level 8.8, Troponin I < 0.02 06/13/20 06:08: Anion Gap 8, Glomerular Filtration Rate > 60.0, Calcium Level 8.2L, Troponin I < 0.02, Immature Granulocyte % (Auto) 3.5H, Neutrophils (%) (Auto) 68.4H, Lymphocytes (%) (Auto) 14.8L, Monocytes (%) (Auto) 7.7H, Eosinophils (%) (Auto) 5.0H, Basophils (%) (Auto) 0.6, Neutrophils # (Auto) 7.1, Lymphocytes # (Auto) 1.5, Monocytes # (Auto) 0.8, Eosinophils # (Auto) 0.5, Basophils # (Auto) 0.1, Nucleated Red Blood Cells % (auto) 0.0, Lactic Acid Level 2.1*H, Magnesium Level 1.6L, Total Bilirubin 0.2, Aspartate Amino Transf (AST/SGOT) 26, Alanine Aminotransferase (ALT/SGPT) 22, Alkaline Phosphatase 86, C-Reactive Protein, Quantitative 7.02H, Total Protein 5.5L, Albumin 2.2L, Albumin/Globulin Ratio 0.7L CBC/BMP Laboratory Tests 06/12/20 16:33 06/12/20 21:43 06/13/20 06:08 Microbiology Microbiology 06/12/20 Gram Stain - Final, Resulted 06/12/20 Abscess Culture, Resulted Pending 06/12/20 Anaerobic Culture, Received Pending 06/05/20 Blood Culture - Final, Complete NO GROWTH AFTER 5 DAYS 06/05/20 Blood Culture - Final, Complete NO GROWTH AFTER 5 DAYS DARLENE HOBBS MD Jun 13, 2020 07:24
--- NOTE | 2020-06-13 07:42 | IPNPDOC ---
Text Note Date of Service The patient was seen on 06/13/20. NOTE Her vitals for the past 24 hours show she is afebrile heart rate is in the 60s to 70s. Early this morning when she was symptomatic with her chest pain her blood pressure was low in the mid 80s systolic. This morning when she was asymptomatic her blood pressure is return to normal at 115/73. She is satting 96 200% at room air. On examination Patient looks fairly comfortable, not showing any shortness of breath or discomfort laying on the bed. Skin is warm and dry. Lungs are clear to auscultation bilaterally but slightly decreased on both lower areas mostly due to shallow respiratory effort. No rales or wheezing. Regular heart rate and rhythm Abdomen is round soft, minimally distended. Minimally tender on deep palpation over the left lower abdomen and slightly in the suprapubic area. Her CLINT drain has not been draining much for the past 24 hours. I stripped the tubing of the drain and did not get any further drainage. Her ileostomy has a new function is working appropriately POD8 Laparoscopy, diverting ileostomy, washout for anastomotic leak s/p sigmoid colectomy high ouput from ileostomy with volume contraction/dehydration/metabolic acidosis Ill try to slow down the output with metamucil and lomotil, continue with IVF hydration continue with PT continue with abx - WBC mildly elevated but PMNs not so much, CRP dropping down to 7 from 13 yesterday, await new cultures from the percutaneous drainage done yesterday, possibly need a repeat CT late this week or next week depending on hospital course DVT prophylaxis with lovenox VS,Fishbone, I+O VS, Fishbone, I+O Laboratory Tests 06/12/20 16:33 06/12/20 21:43 06/13/20 06:08 Vital Signs Date Time Temp Pulse Resp B/P (MAP) Pulse Ox O2 Delivery O2 Flow Rate FiO2 06/13/20 06:00 98.1 79 18 150/70 (96) 96 Room Air 06/08/20 00:00 I&O- Last 24 Hours up to 6 AM 06/13/20 06:00 Intake Total 3760 ml Output Total 3420 ml Balance 340 ml JONATHAN LEMONS MD Jun 13, 2020 07:42
[2020-06-13] MEDS: METAMUCIL (PSYLLIUM) PACKET PO SCH ×2 (08:32→20:50)
[2020-06-13] MEDS: ONDANSETRON 4 MG TAB PO PRN ×2 (08:33→16:12)
[2020-06-13] MEDS: CETIRIZINE (ZyrTEC) 10 MG TAB PO SCH (08:33)
[2020-06-13] MEDS: ENOXAPARIN 40MG/0.4ML SYRINGE (J1650 PER 10MG) SC SCH (08:33)
[2020-06-13] MEDS: PANTOPRAZOLE 40MG TAB (PROTONIX) PO SCH (08:33)
[2020-06-13] MEDS: PERCOCET 5MG/325MG TAB PO PRN ×3 (08:34→22:09)
[2020-06-13] MEDS: LEVOTHYROXINE 25MCG TABLET (0.025MG) PO SCH (08:34)
[2020-06-13] MEDS: LOMOTIL 2.5MG/0.025MG TABLET PO SCH ×3 (08:34→20:56)
[2020-06-13] MEDS: hydroCHLOROthiazide 25 MG TAB PO SCH (08:35)
[2020-06-13] MEDS: ISOSORBIDE MON. (IMDUR) 60 MG XR TAB PO SCH (08:35)
[2020-06-13] MEDS: CARVedilol 12.5 MG TAB PO SCH ×2 (08:36→20:51)
[2020-06-13] MEDS: POTASSIUM CHLORIDE 10 MEQ SR TABLET PO SCH ×3 (08:39→20:51)
[2020-06-13 11:35] VITALS: BP 120/60
[2020-06-13 13:45] VITALS: BP 117/56
[2020-06-13 14:36] LABS: BLOOD UREA NITROGEN 10 MG/DL (7-18); CALCIUM LEVEL 8.5 MG/DL (8.8-10.2); CARBON DIOXIDE LEVEL 19 MEQ/L (21-32); CHLORIDE LEVEL 111 MEQ/L (98-107); CREATININE FOR GFR 0.84 MG/DL (0.55-1.30); GLOMERULAR FILTRATION RATE > 60.0 (>45); GLUCOSE, FASTING 111 MG/DL (70-100); SODIUM LEVEL 140 MEQ/L (136-145)
[2020-06-13] MEDS: MAG SULF 1GM/100ML (MAG RUN) 1 GM in IV 1 EA IV SCH ×2 (16:08→17:17)
[2020-06-13] MEDS: IBUPROFEN 600MG TAB PO PRN (16:45)
[2020-06-13 17:48] VITALS: BP 107/48
[2020-06-13] MEDS: EZETIMIBE 10 MG TAB (ZETIA) PO SCH (20:52)
[2020-06-13] MEDS: ATORVASTATIN 20 MG TAB PO SCH (20:52)
[2020-06-13 22:00] VITALS: BP 132/59
[2020-06-14] MEDS: MAALOX 30 ML SUSP *UDC PO SCH ×5 (00:15→23:54)
[2020-06-14] MEDS: PIPERACILLIN/TAZOBACTAM SOD 3.375 GM in D5W MINI-BAG PLUS 50 ML IV SCH ×5 (00:15→23:54)
[2020-06-14 02:00] VITALS: BP 128/60
[2020-06-14] MEDS: NS 1,000 ML IV SCH (02:55)
[2020-06-14] MEDS: SODIUM CHLORIDE 0.9% INJ 10 ML SYR IV SCH ×2 (05:10→17:08)
[2020-06-14 05:40] LABS: HEMATOCRIT 25.2 % (36.0-47.0); MEAN CORPUSCULAR HEMOGLOBIN 30.1 pg (27.0-33.0); MEAN CORPUSCULAR HGB CONC 31.7 g/dl (32.0-36.5); MEAN CORPUSCULAR VOLUME 94.7 fl (80.0-96.0); PLATELET COUNT, AUTOMATED 438 10^3/uL (150-450); RED BLOOD COUNT 2.66 10^6/uL (4.00-5.40); WHITE BLOOD COUNT 8.3 10^3/uL (4.0-10.0)
[2020-06-14 05:57] LABS: EOSINOPHILS 3 % (0-3); LYMPHOCYTES 18 % (16-44); METAMYELOCYTES 1 % (0-0); MONOCYTES 6 % (0-5); MYELOCYTES 4 % (0-0); NEUTROPHILS 68 % (28-66); PLATELET ESTIMATE INCREASED (NORMAL)
[2020-06-14 06:00] VITALS: BP 100/50
[2020-06-14 06:01] LABS: ALBUMIN 2.3 GM/DL (3.2-5.2); ALT/SGPT 22 U/L (12-78); BILIRUBIN,TOTAL 0.2 MG/DL (0.2-1.0); BLOOD UREA NITROGEN 9 MG/DL (7-18); CALCIUM LEVEL 8.1 MG/DL (8.8-10.2); CARBON DIOXIDE LEVEL 21 MEQ/L (21-32); CHLORIDE LEVEL 112 MEQ/L (98-107); CREATININE FOR GFR 0.84 MG/DL (0.55-1.30); GLOMERULAR FILTRATION RATE > 60.0 (>45); GLUCOSE, FASTING 87 MG/DL (70-100); MAGNESIUM LEVEL 2.3 MG/DL (1.8-2.4); POTASSIUM SERUM 4.2 MEQ/L (3.5-5.1); SODIUM LEVEL 141 MEQ/L (136-145); TOTAL PROTEIN 5.6 GM/DL (6.4-8.2)
--- NOTE | 2020-06-14 07:30 | IPNPDOC ---
Date Seen The patient was seen on 06/14/20. Progress Note SUBJECTIVE: patient was seen and examined at bedside. Voiding has improved. Abdo pain improved. Tolerating diet. OBJECTIVE PHYSICAL EXAMINATION: VITAL SIGNS: Please see below. General: NAD, comfortable HEENT: PERRLA, EOMI, sclerae clear Neck: supple, normal ROM, no JVD Respiratory: lungs CTAB, no wheeze, no rales, no crackles CVS: RRR, normal S1, S2, no murmurs Abdo: No rebound tenderness, pain to palpation improved. CLINT drain minimal serosanguinous output. Extremities: no edema, pulses 2+ MSK: no joint deformities, normal ROM Neuro: no focal neuro deficits, moving all 4 extremities, CN2-12 intact. Strength 5/5 in all 4 extremities. No nystagmus. Psych: calm, cooperative, AAO x 3 LABORATORY DATA, IMAGING STUDIES, MICROBIOLOGY: Please see below. DVT prophylaxis ordered?: Y, lovenox. ASSESSMENT AND PLAN: 59 yo F with a hx of rheumatoid arthritis, CAD s/p CABG in 2007, HTN, and recurrent diverticulitis. She is POD #9 from a laparoscopy, diverting ileostomy, washout for anastomotic leak s/p sigmoid colectomy. Hospital services consulted for rising creatinine and potassium, as well as lactic acidosis. Suspect infectious process from persistently leaking anastomosis. Hyperkalemia and ALMITA have resolved. Lactic acid normalized. # Hyperkalemia: resolved. Reduce dose of KCL to 20 meq bid. Resume lisinopril at a reduced dose of 5 mg with parameters. Monitor BMP. #ALMITA: resolved with IV hydration. #Lactic acidosis: resolved. likely 2/2 tissue hypoperfusion from hypovelemia. High output stoma. Continue zosyn. Surgery plan to reduce output with lomotil, metamucil. #CAD: c/w asa/statin.Trop <0.02 x 3. 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 Monitor. DVT ppx: lovenox. Thank you for involving me in the care of this patient. Will sign off. Please re-consult as needed. VS, I&O, 24H, Fishbone Vital Signs/I&O Vital Signs Date Time Temp Pulse Resp B/P (MAP) Pulse Ox O2 Delivery O2 Flow Rate FiO2 06/14/20 06:00 98.3 60 18 100/50 (67) 97 Room Air 06/08/20 00:00 I&O- Last 24 Hours up to 6 AM 06/14/20 06:00 Intake Total 3560 ml Output Total 5000 ml Balance -1440 ml Laboratory Data 24H LABS Laboratory Tests 2 06/13/20 10:24: Lactic Acid Followup at 4 Hours 1.7 06/13/20 11:27: Urine Color YELLOW, Urine Appearance CLEAR, Urine pH 5.0, Urine Specific [place] 1.014, Urine Protein NEGATIVE, Urine Glucose (UA) NEGATIVE, Urine Ketones NE GATIVE, Urine Blood NEGATIVE, Urine Nitrite NEGATIVE, Urine Bilirubin NEGATIVE, Urine Urobilinogen 0.2, Urine Leukocyte Esterase NEGATIVE, Urine WBC (Auto) 10H, Urine RBC (Auto) 2, Urine Hyaline Casts (Auto) 0, Urine Bacteria (Auto) NEGATIVE, Urine Squamous Epithelial Cells 0, Urine Mucus (Auto) SMALL, Urine Sperm (Auto) 06/13/20 13:53: Anion Gap 10, Glomerular Filtration Rate > 60.0, Calcium Level 8.5L 06/14/20 05:20: Anion Gap 8, Glomerular Filtration Rate > 60.0, Calcium Level 8.1L, Immature Granulocyte % (Auto) , Neutrophils (%) (Auto) , Nucleated Red Blood Cells % (auto) 0.0, Neutrophils 68H, Lymphocytes (Manual) 18, Monocytes (Manual) 6H, Eo sinophils (Manual) 3, Metamyelocytes 1H, Myelocytes 4H, Platelet Estimate INCREASED, Magnesium Level 2.3, Total Bilirubin 0.2, Aspartate Amino Transf (AST/SGOT) 14, Alanine Aminotransferase (ALT/SGPT) 22, Alkaline Phosphatase 85, Total Protein 5.6L, Albumin 2.3L, Albumin/Globulin Ratio 0.7L CBC/BMP Laboratory Tests 06/13/20 13:53 06/14/20 05:20 Microbiology Microbiology 06/12/20 Gram Stain - Final, Resulted 06/12/20 Abscess Culture, Resulted Pending 06/12/20 Anaerobic Culture, Received Pending 06/05/20 Blood Culture - Final, Complete NO GROWTH AFTER 5 DAYS 06/05/20 Blood Culture - Final, Complete NO GROWTH AFTER 5 DAYS DARLENE HOBBS MD Jun 14, 2020 07:30
--- NOTE | 2020-06-14 08:19 | IPNPDOC ---
Text Note Date of Service The patient was seen on 06/14/20. NOTE Patient seems to turn the corner that she has done relatively well yesterday. She tolerated food. She still says she has episodes of nausea mostly in the morning when she wakes up but gets better during the course of the tape. No further chest pain episodes. He will also caught up with her hydration with resolution of the acidosis and electrolyte imbalance. I have put her on Metamucil and Lomotil to slow down her ileostomy output so she still had high output from yesterday. She is on IV fluid for extra hydration. On examination Patient looks fairly comfortable. Skin is warm and dry. Lungs are clear to auscultation bilaterally Regular heart rate and rhythm Abdomen is round soft, nondistended. CLINT drainage has markedly slowed down to almost nothing. 25 mL's recorded yesterday. This remained serosanguineous. Her ileostomy output remains thin liquid. No real area of tenderness on palpation. POD9 Laparoscopy, diverting ileostomy, washout for anastomotic leak s/p sigmoid colectomy high ouput from ileostomy with volume contraction/dehydration/metabolic acidosis L increase the Lomotil to 2 tablets 3 times a day and continue the Metamucil. I'll slow down on the IV fluid as it is under 50 mL seven-hour for now. Continue to monitor electrolytes. Continue with physical therapy and getting her comfortable with ileostomy care. DVT prophylaxis with Lovenox Continue with Zosyn VS,Fishbone, I+O VS, Fishbone, I+O Laboratory Tests 06/13/20 13:53 06/14/20 05:20 Vital Signs Date Time Temp Pulse Resp B/P (MAP) Pulse Ox O2 Delivery O2 Flow Rate FiO2 06/14/20 06:00 98.3 60 18 100/50 (67) 97 Room Air 06/08/20 00:00 I&O- Last 24 Hours up to 6 AM 06/14/20 06:00 Intake Total 3560 ml Output Total 5000 ml Balance -1440 ml JONATHAN LEMONS MD Jun 14, 2020 08:18
[2020-06-14] MEDS: PERCOCET 5MG/325MG TAB PO PRN ×2 (10:54→17:18)
[2020-06-14] MEDS: METAMUCIL (PSYLLIUM) PACKET PO SCH ×2 (10:54→21:05)
[2020-06-14] MEDS: LOMOTIL 2.5MG/0.025MG TABLET PO SCH ×3 (10:54→21:04)
[2020-06-14] MEDS: CARVedilol 12.5 MG TAB PO SCH ×2 (10:55→21:05)
[2020-06-14] MEDS: LEVOTHYROXINE 25MCG TABLET (0.025MG) PO SCH (10:56)
[2020-06-14] MEDS: hydroCHLOROthiazide 25 MG TAB PO SCH (10:56)
[2020-06-14] MEDS: CETIRIZINE (ZyrTEC) 10 MG TAB PO SCH (10:56)
[2020-06-14] MEDS: PANTOPRAZOLE 40MG TAB (PROTONIX) PO SCH (10:56)
[2020-06-14] MEDS: ONDANSETRON 4 MG TAB PO PRN (10:56)
[2020-06-14] MEDS: ISOSORBIDE MON. (IMDUR) 60 MG XR TAB PO SCH (10:56)
[2020-06-14] MEDS: ENOXAPARIN 40MG/0.4ML SYRINGE (J1650 PER 10MG) SC SCH (10:57)
[2020-06-14] MEDS: POTASSIUM CHLORIDE 10 MEQ SR TABLET PO SCH ×2 (10:57→21:04)
[2020-06-14] MEDS: KCL 20MEQ IN D5/0.45NS 1000ML 1,000 ML IV SCH (10:58)
[2020-06-14] MEDS: IBUPROFEN 600MG TAB PO PRN (12:34)
--- NOTE | 2020-06-14 13:25 | REP ---
PICC LINE INSERTION WITH SITE-RITE The procedure was performed by MARIA R Griffin, under the direct supervision of Dr. Obando. The risks and benefits of the procedure were explained to the patient and an informed consent was obtained both verbally and written. Directly prior to the start of the procedure, a formal time-out was done in the procedure room. The left lateral brachial vein was localized using ultrasound guidance. The skin was prepped and draped in a sterile fashion. Approximately 1 mL of 1% Lidocaine 10 mg/mL was used as a local anesthetic. Using ultrasound guidance, the left brachial vein was cannulated and a 0.018 guidewire was inserted. The needle was removed and a 4.5 Greek dilator and Peel-Away sheath was inserted over the guidewire. A 4.5 Greek single-lumen catheter was cut to a length of 10 cm. The dilator was removed and the catheter was inserted over the guidewire. The Peel- Away sheath was removed, and the catheter was flushed with heparinized saline as per hospital protocol. The catheter was affixed to the skin and a sterile dressing was applied. The patient tolerated the procedure well, and there were no immediate complications. The patient was discharged back up to the unit. MAXI
[2020-06-14 14:00] VITALS: BP 136/62
[2020-06-14 18:00] VITALS: BP 110/51
[2020-06-14] MEDS: EZETIMIBE 10 MG TAB (ZETIA) PO SCH (21:03)
[2020-06-14] MEDS: ATORVASTATIN 20 MG TAB PO SCH (21:04)
[2020-06-14 22:00] VITALS: BP 128/63
[2020-06-15] VITALS (7 sets, daily range): BP systolic 98–129; BP diastolic 50–64
[2020-06-15] MEDS: PERCOCET 5MG/325MG TAB PO PRN ×4 (00:07→21:58)
[2020-06-15] MEDS: KCL 20MEQ IN D5/0.45NS 1000ML 1,000 ML IV SCH ×2 (01:22→11:56)
[2020-06-15] MEDS: MAALOX 30 ML SUSP *UDC PO SCH ×4 (05:10→23:51)
[2020-06-15] MEDS: SODIUM CHLORIDE 0.9% INJ 10 ML SYR IV SCH ×2 (05:10→18:00)
[2020-06-15] MEDS: PIPERACILLIN/TAZOBACTAM SOD 3.375 GM in D5W MINI-BAG PLUS 50 ML IV SCH ×4 (05:13→23:50)
[2020-06-15 07:41] LABS: HEMATOCRIT 25.1 % (36.0-47.0); MEAN CORPUSCULAR HEMOGLOBIN 30.2 pg (27.0-33.0); MEAN CORPUSCULAR HGB CONC 31.9 g/dl (32.0-36.5); MEAN CORPUSCULAR VOLUME 94.7 fl (80.0-96.0); PLATELET COUNT, AUTOMATED 447 10^3/uL (150-450); RED BLOOD COUNT 2.65 10^6/uL (4.00-5.40); WHITE BLOOD COUNT 9.4 10^3/uL (4.0-10.0)
--- NOTE | 2020-06-15 08:01 | IPNPDOC ---
Text Note Date of Service The patient was seen on 06/15/20. NOTE Patient continues to slowly but gradually improve clinically. No events for the past 24 hours. Oral intake is still fair and she reports still some nausea after eating that goes away with Zofran. No vomiting reported. Her ileostomy output still remains high which is the main issue keeping her in the hospital as this has caused her to get dehydrated over the weekend. We have caught up with that and she is now adequately hydrated but after keep her on some IV fluids to maintain adequate hydration. She has been afebrile. We removed the drain yesterday. From her last laboratories her leukocytosis has resolved. On examination Patient looks a lot more comfortable, she is not showing any shortness of breath when we are conversing. Skin is warm and moist. Lungs are clear to auscultation bilaterally Regular heart rate and rhythm Abdomen is round soft, nondistended. Mild tenderness over the suprapubic area. A lot less tender over the left lower quadrant area. Nontender over the epigastric area. CLINT drain site is covered with a dry gauze. CLINT has been discontinued. Her ileostomy output still thin but showing some signs of curdling with the Metamucil. POD10 Laparoscopy, diverting ileostomy, washout for anastomotic leak s/p sigmoid colectomy high ouput from ileostomy with volume contraction/dehydration/metabolic acidosis Continue with current Lomotil at 2 tablets 3 times a day and Metamucil. I will give her Sandostatin once daily as an injection to continue to try slow down the output. Complete a 14 day course with Zosyn Repeat CT to be determined depending on clinical course. DVT prophylaxis with Lovenox Continue to work with physical therapy. She has made a good amount of improvement in terms of tolerance to activity the past few days Anticipate the discharge will be held up by how soon we can control the ileostomy output. VS,Fishbone, I+O VS, Fishbone, I+O Vital Signs Date Time Temp Pulse Resp B/P (MAP) Pulse Ox O2 Delivery O2 Flow Rate FiO2 06/15/20 03:44 65 112/50 (70) 06/15/20 02:00 98.5 18 96 Room Air I&O- Last 24 Hours up to 6 AM 06/15/20 06:00 Intake Total 3330 ml Output Total 4990 ml Balance -1660 ml JONATHAN LEMONS MD Jun 15, 2020 07:25
[2020-06-15 08:10] LABS: ALBUMIN 2.3 GM/DL (3.2-5.2); ALT/SGPT 21 U/L (12-78); BILIRUBIN,TOTAL 0.2 MG/DL (0.2-1.0); BLOOD UREA NITROGEN 9 MG/DL (7-18); CALCIUM LEVEL 8.5 MG/DL (8.8-10.2); CARBON DIOXIDE LEVEL 21 MEQ/L (21-32); CHLORIDE LEVEL 109 MEQ/L (98-107); CREATININE FOR GFR 0.92 MG/DL (0.55-1.30); GLOMERULAR FILTRATION RATE > 60.0 (>45); GLUCOSE, FASTING 92 MG/DL (70-100); MAGNESIUM LEVEL 1.9 MG/DL (1.8-2.4); POTASSIUM SERUM 4.7 MEQ/L (3.5-5.1); SODIUM LEVEL 139 MEQ/L (136-145); TOTAL PROTEIN 5.7 GM/DL (6.4-8.2)
[2020-06-15 08:20] LABS: EOSINOPHILS 7 % (0-3); LYMPHOCYTES 34 % (16-44); METAMYELOCYTES 2 % (0-0); MYELOCYTES 1 % (0-0); NEUTROPHILS 55 % (28-66)
[2020-06-15 08:21] LABS: PLATELET ESTIMATE NORMAL (NORMAL)
[2020-06-15] MEDS: ISOSORBIDE MON. (IMDUR) 60 MG XR TAB PO SCH (09:00)
[2020-06-15] MEDS ORDERED: OCTREOTIDE ACETATE 100MCG/ML VIAL (J2354 PER 25MCG) SC SCH (09:00)
[2020-06-15] MEDS: CARVedilol 12.5 MG TAB PO SCH ×2 (09:00→20:19)
[2020-06-15] MEDS: hydroCHLOROthiazide 25 MG TAB PO SCH (09:00)
[2020-06-15] MEDS: CETIRIZINE (ZyrTEC) 10 MG TAB PO SCH (10:01)
[2020-06-15] MEDS: POTASSIUM CHLORIDE 10 MEQ SR TABLET PO SCH ×2 (10:01→20:18)
[2020-06-15] MEDS: LEVOTHYROXINE 25MCG TABLET (0.025MG) PO SCH (10:02)
[2020-06-15] MEDS: LOMOTIL 2.5MG/0.025MG TABLET PO SCH ×4 (10:02→20:17)
[2020-06-15] MEDS: PANTOPRAZOLE 40MG TAB (PROTONIX) PO SCH (10:02)
[2020-06-15] MEDS: ENOXAPARIN 40MG/0.4ML SYRINGE (J1650 PER 10MG) SC SCH (10:03)
[2020-06-15] MEDS: METAMUCIL (PSYLLIUM) PACKET PO SCH ×2 (10:07→20:17)
--- NOTE | 2020-06-15 12:19 | REP ---
PERCUTANEOUS ABSCESS DRAINAGE DONE UNDER CT GUIDANCE The procedure was performed by MARIA R Griffin, under the direct supervision of Dr. Obando. The risks and benefits of the procedure were explained to the patient and an informed consent was obtained both verbally and written. Directly prior to the start of the procedure, a formal time-out was completed in the procedure room. The pelvic abscess was localized using CT guidance. The skin was prepped and draped in a sterile fashion. Approximately 7 mL of buffered Lidocaine was used as a local anesthetic. Using CT guidance a 17-gauge coaxial needle was inserted and advanced into an air pocket of abscess. Approximately 0.5 mL of fluid was aspirated and sent to the lab for further analysis. The needle was removed and hemostasis was achieved. Post CT imaging did not show any complications. The air pocket of abscess had disappeared. The patient tolerated the procedure fairly well and was discharged back up to the unit. MAXI
[2020-06-15] MEDS: ATORVASTATIN 20 MG TAB PO SCH (20:17)
[2020-06-15] MEDS: EZETIMIBE 10 MG TAB (ZETIA) PO SCH (20:18)
[2020-06-16] MEDS ORDERED: MICONAZOLE TOPICAL 2% CREAM 15GM EXT ONE (01:00)
[2020-06-16 02:00] VITALS: BP 131/60
[2020-06-16] MEDS: KCL 20MEQ IN D5/0.45NS 1000ML 1,000 ML IV SCH (04:08)
[2020-06-16] MEDS: PIPERACILLIN/TAZOBACTAM SOD 3.375 GM in D5W MINI-BAG PLUS 50 ML IV SCH ×3 (05:21→17:18)
[2020-06-16] MEDS: MAALOX 30 ML SUSP *UDC PO SCH ×3 (05:21→17:18)
[2020-06-16] MEDS: SODIUM CHLORIDE 0.9% INJ 10 ML SYR IV SCH ×2 (05:22→17:19)
[2020-06-16 06:00] VITALS: BP 140/73
[2020-06-16 07:10] LABS: HEMATOCRIT 28.1 % (36.0-47.0); HEMOGLOBIN 9.1 g/dl (12.0-15.5); MEAN CORPUSCULAR HEMOGLOBIN 30.3 pg (27.0-33.0); MEAN CORPUSCULAR HGB CONC 32.4 g/dl (32.0-36.5); MEAN CORPUSCULAR VOLUME 93.7 fl (80.0-96.0); PLATELET COUNT, AUTOMATED 503 10^3/uL (150-450); WHITE BLOOD COUNT 10.3 10^3/uL (4.0-10.0)
[2020-06-16 07:27] LABS: ALBUMIN 2.5 GM/DL (3.2-5.2); ALT/SGPT 30 U/L (12-78); BILIRUBIN,TOTAL 0.2 MG/DL (0.2-1.0); BLOOD UREA NITROGEN 10 MG/DL (7-18); C REACTIVE PROTEIN QUANTITATIV 2.49 MG/DL (0.00-0.30); CALCIUM LEVEL 8.7 MG/DL (8.8-10.2); CARBON DIOXIDE LEVEL 22 MEQ/L (21-32); CHLORIDE LEVEL 107 MEQ/L (98-107); CREATININE FOR GFR 0.88 MG/DL (0.55-1.30); GLOMERULAR FILTRATION RATE > 60.0 (>45); GLUCOSE, FASTING 92 MG/DL (70-100); POTASSIUM SERUM 4.9 MEQ/L (3.5-5.1); SODIUM LEVEL 136 MEQ/L (136-145); TOTAL PROTEIN 6.3 GM/DL (6.4-8.2)
[2020-06-16 08:24] LABS: ATYPICAL LYMPH 3 % (0-5); BASOPHILS 1 % (0-1); EOSINOPHILS 4 % (0-3); LYMPHOCYTES 19 % (16-44); METAMYELOCYTES 2 % (0-0); MONOCYTES 4 % (0-5); MYELOCYTES 1 % (0-0); NEUTROPHILS 63 % (28-66); PLATELET ESTIMATE INCREASED (NORMAL)
[2020-06-16 08:25] LABS: ANISOCYTOSIS 1+; MICROCYTOSIS 1+
[2020-06-16] MEDS: hydroCHLOROthiazide 25 MG TAB PO SCH (09:00)
[2020-06-16] MEDS: ISOSORBIDE MON. (IMDUR) 60 MG XR TAB PO SCH (09:00)
[2020-06-16] MEDS: CARVedilol 12.5 MG TAB PO SCH ×2 (09:00→20:49)
--- NOTE | 2020-06-16 09:07 | IPNPDOC ---
Text Note Date of Service The patient was seen on 06/16/20. NOTE No significant events for the past 24 hours. Continue patient continues to g radually feel better. Appetite remains fair though she has not have any significant nausea. No further chest pains. Her ileostomy continues to put out significant amount of this is decreased by an liter the less than 2 L yesterday with our current regimen. She's been afebrile. On examination Patient looks a lot more comfortable, she is not showing any shortness of breath when we are conversing. Skin is warm and moist. Lungs are clear to auscultation bilaterally Regular heart rate and rhythm Abdomen is round soft, nondistended. Minimal tenderness over the suprapubic area and left lower quadrant area. Nontender over the epigastric area. CLINT drain site is covered with a dry gauze. Ileostomy output still quite thin fluid, not normal succus yet with coagulated solid from the metamucil. Output is down to 1900mL yesterday. POD11 Laparoscopy, diverting ileostomy, washout for anastomotic leak s/p sigmoid colectomy high ouput from ileostomy with volume contraction/dehydration/metabolic acidosis Continue with current Lomotil at 2 tablets 3 times a day and Metamucil. I will increase the sandostatin to twice a day Complete a 14 day course with Zosyn DVT prophylaxis with Lovenox I will discontinue the ivf and just give her bolus if she needs it. advance diet to as tolerated. Continue to work with physical therapy. She has made a good amount of improvement in terms of tolerance to activity the past few days Anticipate the discharge will be held up by how soon we can control the ileostom y output. VS,Fishbone, I+O VS, Fishbone, I+O Laboratory Tests 06/16/20 06:35 Vital Signs Date Time Temp Pulse Resp B/P (MAP) Pulse Ox O2 Delivery O2 Flow Rate FiO2 06/16/20 06:00 98.7 63 19 140/73 (95) 97 06/15/20 22:28 Room Air l I&O- Last 24 Hours up to 6 AM 06/16/20 05:59 Intake Total 2910 ml Output Total 4740 ml Balance -1830 ml JONATHAN LEMONS MD Jun 16, 2020 09:07
[2020-06-16] MEDS: LEVOTHYROXINE 25MCG TABLET (0.025MG) PO SCH (09:59)
[2020-06-16] MEDS: LOMOTIL 2.5MG/0.025MG TABLET PO SCH ×4 (09:59→20:43)
[2020-06-16 10:00] VITALS: BP 122/59
[2020-06-16] MEDS: PANTOPRAZOLE 40MG TAB (PROTONIX) PO SCH (10:00)
[2020-06-16] MEDS: CETIRIZINE (ZyrTEC) 10 MG TAB PO SCH (10:01)
[2020-06-16] MEDS: POTASSIUM CHLORIDE 10 MEQ SR TABLET PO SCH ×2 (10:01→20:50)
[2020-06-16] MEDS: METAMUCIL (PSYLLIUM) PACKET PO SCH ×2 (10:02→20:50)
[2020-06-16] MEDS: OCTREOTIDE ACETATE 100MCG/ML VIAL (J2354 PER 25MCG) SC SCH ×2 (10:03→20:49)
[2020-06-16] MEDS: ENOXAPARIN 40MG/0.4ML SYRINGE (J1650 PER 10MG) SC SCH (10:05)
[2020-06-16] MEDS: IBUPROFEN 600MG TAB PO PRN ×2 (10:07→16:25)
[2020-06-16 14:00] VITALS: BP 115/62
[2020-06-16 18:00] VITALS: BP 117/68
[2020-06-16] MEDS: PERCOCET 5MG/325MG TAB PO PRN (20:43)
[2020-06-16] MEDS: ATORVASTATIN 20 MG TAB PO SCH (20:43)
[2020-06-16] MEDS: EZETIMIBE 10 MG TAB (ZETIA) PO SCH (20:43)
[2020-06-16 22:00] VITALS: BP 109/52
[2020-06-17] MEDS: PIPERACILLIN/TAZOBACTAM SOD 3.375 GM in D5W MINI-BAG PLUS 50 ML IV SCH ×4 (00:09→17:05)
[2020-06-17] MEDS: MAALOX 30 ML SUSP *UDC PO SCH ×4 (00:09→17:05)
[2020-06-17 06:00] VITALS: BP 124/69
[2020-06-17] MEDS: SODIUM CHLORIDE 0.9% INJ 10 ML SYR IV SCH ×2 (06:13→18:27)
[2020-06-17] MEDS: OCTREOTIDE ACETATE 100MCG/ML VIAL (J2354 PER 25MCG) SC SCH ×2 (09:33→20:13)
[2020-06-17] MEDS: LOMOTIL 2.5MG/0.025MG TABLET PO SCH ×4 (09:33→20:11)
[2020-06-17] MEDS: ENOXAPARIN 40MG/0.4ML SYRINGE (J1650 PER 10MG) SC SCH (09:33)
[2020-06-17] MEDS: LEVOTHYROXINE 25MCG TABLET (0.025MG) PO SCH (09:34)
[2020-06-17] MEDS: hydroCHLOROthiazide 25 MG TAB PO SCH (09:34)
[2020-06-17] MEDS: ISOSORBIDE MON. (IMDUR) 60 MG XR TAB PO SCH (09:34)
[2020-06-17] MEDS: PANTOPRAZOLE 40MG TAB (PROTONIX) PO SCH (09:34)
[2020-06-17] MEDS: CETIRIZINE (ZyrTEC) 10 MG TAB PO SCH (09:35)
[2020-06-17] MEDS: IBUPROFEN 600MG TAB PO PRN ×2 (09:35→17:06)
[2020-06-17] MEDS: CARVedilol 12.5 MG TAB PO SCH ×2 (09:35→20:12)
[2020-06-17] MEDS: POTASSIUM CHLORIDE 10 MEQ SR TABLET PO SCH ×2 (09:35→20:12)
[2020-06-17] MEDS: METAMUCIL (PSYLLIUM) PACKET PO SCH ×2 (09:36→20:13)
[2020-06-17] MEDS: SODIUM CHLORIDE 0.9% INJ 10 ML SYR IV PRN (09:36)
[2020-06-17] MEDS: ONDANSETRON 4 MG TAB PO PRN ×2 (09:38→17:06)
[2020-06-17 10:00] VITALS: BP 151/69
[2020-06-17] MEDS ORDERED: FLUCONAZOLE 100 MG TAB PO ONE (11:00)
--- NOTE | 2020-06-17 11:55 | IPNPDOC ---
Text Note Date of Service The patient was seen on 06/17/20. NOTE Patient is just about the same as yesterday. No significant events from yesterday. She seems to be more comfortable, tolerating more oral intake. Her ileostomy output also has started to thicken up a bit though output is still about 1900. She does not look dehydrated. On examination, patient looks very comfortable Lung sounds are clear to auscultation bilaterally Heart rate and rhythm are regular without murmurs Abdomen is soft, nondistended, mild tenderness over the suprapubic area. Ileostomy output looks curdled soft still not due to thick succus we usually see an ileostomy Impression and plan POD12 Laparoscopy, diverting ileostomy, washout for anastomotic leak s/p sigmoid colectomy high ouput from ileostomy with volume contraction/dehydration/metabolic acidosis Continue with current Lomotil at 2 tablets 3 times a day and Metamucil. I will increase the sandostatin to twice a day Complete a 14 day course with Zosyn DVT prophylaxis with Lovenox advance diet to as tolerated. Continue to work with physical therapy. She has made a good amount of improvement in terms of tolerance to activity the past few days L repeat the CT tomorrow as a follow-up. If she is able to maintain adequate hydration possibly looking and discharged sometime midweek. VS,Fishbone, I+O VS, Fishbone, I+O Vital Signs Date Time Temp Pulse Resp B/P (MAP) Pulse Ox O2 Delivery O2 Flow Rate FiO2 06/17/20 10:00 96.0 69 17 151/69 (96) 99 Room Air I&O- Last 24 Hours up to 6 AM 06/17/20 06:00 Intake Total 2410 ml Output Total 2425 ml Balance -15 ml JONATHAN LEMONS MD Jun 17, 2020 11:55
[2020-06-17 14:00] VITALS: BP 103/54
[2020-06-17 18:00] VITALS: BP 125/59
[2020-06-17] MEDS: PERCOCET 5MG/325MG TAB PO PRN (20:11)
[2020-06-17] MEDS: ATORVASTATIN 20 MG TAB PO SCH (20:12)
[2020-06-17] MEDS: EZETIMIBE 10 MG TAB (ZETIA) PO SCH (20:12)
[2020-06-17 22:00] VITALS: BP 127/55
[2020-06-18] MEDS: MAALOX 30 ML SUSP *UDC PO SCH ×4 (00:18→17:38)
[2020-06-18] MEDS: PIPERACILLIN/TAZOBACTAM SOD 3.375 GM in D5W MINI-BAG PLUS 50 ML IV SCH ×4 (00:18→17:36)
[2020-06-18 06:00] VITALS: BP_SYST 110; BP_DIAS 4; BP_DIAS 54
[2020-06-18] MEDS: SODIUM CHLORIDE 0.9% INJ 10 ML SYR IV SCH ×2 (06:04→17:38)
[2020-06-18] MEDS: GASTROGRAFIN SOLUTION 30ML PO SCH ×2 (08:22→09:01)
[2020-06-18] MEDS: ENOXAPARIN 40MG/0.4ML SYRINGE (J1650 PER 10MG) SC SCH (08:24)
[2020-06-18] MEDS: LEVOTHYROXINE 25MCG TABLET (0.025MG) PO SCH (08:24)
[2020-06-18] MEDS: ONDANSETRON 4 MG TAB PO PRN ×2 (08:24→17:37)
[2020-06-18] MEDS: POTASSIUM CHLORIDE 10 MEQ SR TABLET PO SCH ×2 (08:24→21:06)
[2020-06-18] MEDS: PANTOPRAZOLE 40MG TAB (PROTONIX) PO SCH (08:25)
[2020-06-18] MEDS: IBUPROFEN 600MG TAB PO PRN (08:25)
[2020-06-18 08:28] VITALS: BP 99/49
[2020-06-18] MEDS: CARVedilol 12.5 MG TAB PO SCH ×2 (08:29→21:07)
[2020-06-18] MEDS: hydroCHLOROthiazide 25 MG TAB PO SCH (08:29)
[2020-06-18] MEDS: ISOSORBIDE MON. (IMDUR) 60 MG XR TAB PO SCH (08:29)
[2020-06-18] MEDS: CETIRIZINE (ZyrTEC) 10 MG TAB PO SCH (09:03)
[2020-06-18] MEDS ORDERED: ISOVUE-370 76% 100ML VIAL As Ordered ONE (09:24)
--- NOTE | 2020-06-18 09:52 | REPVR ---
PROCEDURE INFORMATION: Exam: CT Abdomen And Pelvis With Contrast Exam date and time: 06/18/2020 9:26 AM Age: 59 years old Clinical indication: Abdominal pain; Prior surgery; Surgery date: Post-operative (0-2 days); Additional info: Ffup anastomotic leak S/P sigmoid colectomy TECHNIQUE: Imaging protocol: Computed tomography of the abdomen and pelvis with intravenous contrast. Radiation optimization: All CT scans at this facility use at least one of these dose optimization techniques: automated exposure control; mA and/or kV adjustment per patient size (includes targeted exams where dose is matched to clinical indication); or iterative reconstruction. Contrast material: ISOVUE 370; Contrast volume: 100 ml; Contrast route: INTRAVENOUS (IV); COMPARISON: CT ABD PELVIS WITH CONTRAST 06/10/2020 11:17 AM FINDINGS: Liver: 11 mm cyst within the hepatic dome. Heterogeneous hepatic steatosis. Stable 3 mm right hepatic lobe hypodensity, which is too small to definitively characterize, but likely represents a cyst. Gallbladder and bile ducts: Normal. No calcified stones. No ductal dilation. Pancreas: Normal. No ductal dilation. Spleen: Normal. No splenomegaly. Adrenals: Normal. No mass. Kidneys and ureters: Left renal cortical scarring. No hydronephrosis. Stomach and bowel: Status post partial colectomy. There is a tiny midline pelvic rim enhancing fluid collection along the caudal aspect of the distal sigmoid, measuring 1.7 cm x 1.8 cm. This is significantly decreased in size. Tiny gas and fluid containing collection in the left adnexal region, extending into the left paracolic gutter, also decreased in size. This measures up to approximately 3.0 cm x 0.9 cm. Trace gas within the right adnexal region. All of these collections appear to communicate with one another. The previously visualized fluid collection in the right adnexa has resolved. Colonic diverticulosis. Right upper quadrant ileostomy. No bowel obstruction. Appendix: No evidence of appendicitis. Intraperitoneal space: See "Stomach and bowel" finding. Vasculature: Moderate atherosclerotic vascular calcifications. Coronary artery calcifications. Lymph nodes: Unremarkable. No enlarged lymph nodes. Urinary bladder: Unremarkable as visualized. Reproductive: The patient appears to be status post hysterectomy. Bones/joints: Degenerative change of the spine. Bilateral hip joint DJD. Chronic mild L4 vertebral body compression deformity. Soft tissues: Unremarkable. IMPRESSION: 1. Marked interval decrease in size of the multiloculated gas and fluid containing pelvic collection. 2. Colonic diverticulosis. Electronically signed by: Anushka Ann On 06/18/2020 09:52:20 AM
[2020-06-18 10:00] VITALS: BP 117/58
[2020-06-18] MEDS: METAMUCIL (PSYLLIUM) PACKET PO SCH ×2 (10:08→21:07)
[2020-06-18] MEDS: OCTREOTIDE ACETATE 100MCG/ML VIAL (J2354 PER 25MCG) SC SCH ×2 (10:09→21:07)
[2020-06-18] MEDS: LOMOTIL 2.5MG/0.025MG TABLET PO SCH ×4 (10:09→21:06)
[2020-06-18 14:00] VITALS: BP 103/56
[2020-06-18 18:00] VITALS: BP 118/57
[2020-06-18] MEDS: ATORVASTATIN 20 MG TAB PO SCH (21:06)
[2020-06-18] MEDS: EZETIMIBE 10 MG TAB (ZETIA) PO SCH (21:07)
[2020-06-18] MEDS: PERCOCET 5MG/325MG TAB PO PRN (21:14)
[2020-06-18 22:00] VITALS: BP 143/68
[2020-06-19] MEDS: PIPERACILLIN/TAZOBACTAM SOD 3.375 GM in D5W MINI-BAG PLUS 50 ML IV SCH ×4 (00:20→17:09)
[2020-06-19] MEDS: MAALOX 30 ML SUSP *UDC PO SCH ×4 (00:20→17:09)
[2020-06-19 02:00] VITALS: BP 144/66
[2020-06-19] MEDS: SODIUM CHLORIDE 0.9% INJ 10 ML SYR IV SCH ×2 (05:09→17:10)
[2020-06-19 06:00] VITALS: BP 145/63
[2020-06-19 06:14] LABS: BASO # 0.1 10^3/uL (0.0-0.2); BASO % 0.9 % (0.0-1.0); EOS # 0.4 10^3/uL (0.0-0.5); EOS % 4.9 % (0.0-3.0); HEMATOCRIT 28.8 % (36.0-47.0); HEMOGLOBIN 9.2 g/dl (12.0-15.5); LYMPH # 1.7 10^3/uL (1.5-5.0); LYMPH % 19.4 % (24.0-44.0); MEAN CORPUSCULAR HEMOGLOBIN 29.4 pg (27.0-33.0); MEAN CORPUSCULAR HGB CONC 31.9 g/dl (32.0-36.5); MONO # 0.6 10^3/uL (0.0-0.8); NEUTROPHILS # 5.6 10^3/uL (1.5-8.5); NEUTROPHILS % 65.4 % (36.0-66.0); PLATELET COUNT, AUTOMATED 538 10^3/uL (150-450); RED BLOOD COUNT 3.13 10^6/uL (4.00-5.40); WHITE BLOOD COUNT 8.6 10^3/uL (4.0-10.0)
[2020-06-19 06:37] LABS: C REACTIVE PROTEIN QUANTITATIV 1.19 MG/DL (0.00-0.30); CREATININE FOR GFR 1.05 MG/DL (0.55-1.30); GLOMERULAR FILTRATION RATE 56.9 (>45); POTASSIUM SERUM 4.7 MEQ/L (3.5-5.1)
[2020-06-19] MEDS: OCTREOTIDE ACETATE 100MCG/ML VIAL (J2354 PER 25MCG) SC SCH ×2 (08:25→21:07)
[2020-06-19] MEDS: LOMOTIL 2.5MG/0.025MG TABLET PO SCH ×4 (08:25→21:08)
[2020-06-19] MEDS: METAMUCIL (PSYLLIUM) PACKET PO SCH ×2 (08:25→21:07)
[2020-06-19] MEDS: CETIRIZINE (ZyrTEC) 10 MG TAB PO SCH (08:26)
[2020-06-19] MEDS: POTASSIUM CHLORIDE 10 MEQ SR TABLET PO SCH ×2 (08:26→21:09)
[2020-06-19] MEDS: LEVOTHYROXINE 25MCG TABLET (0.025MG) PO SCH (08:26)
[2020-06-19] MEDS: PANTOPRAZOLE 40MG TAB (PROTONIX) PO SCH (08:26)
[2020-06-19] MEDS: ENOXAPARIN 40MG/0.4ML SYRINGE (J1650 PER 10MG) SC SCH (08:28)
[2020-06-19] MEDS: ISOSORBIDE MON. (IMDUR) 60 MG XR TAB PO SCH (08:29)
[2020-06-19] MEDS: CARVedilol 12.5 MG TAB PO SCH ×2 (08:29→21:09)
[2020-06-19] MEDS: hydroCHLOROthiazide 25 MG TAB PO SCH (08:29)
[2020-06-19 10:00] VITALS: BP 111/51
[2020-06-19] MEDS: PERCOCET 5MG/325MG TAB PO PRN ×2 (11:15→21:13)
[2020-06-19 14:00] VITALS: BP_SYST 114; BP_SYST 115; BP_DIAS 55; BP_DIAS 59
[2020-06-19 18:00] VITALS: BP 120/40
[2020-06-19] MEDS: ATORVASTATIN 20 MG TAB PO SCH (21:08)
[2020-06-19] MEDS: EZETIMIBE 10 MG TAB (ZETIA) PO SCH (21:08)
[2020-06-19 22:00] VITALS: BP 144/68
[2020-06-20] MEDS: MAALOX 30 ML SUSP *UDC PO SCH ×3 (00:38→11:16)
[2020-06-20] MEDS: PIPERACILLIN/TAZOBACTAM SOD 3.375 GM in D5W MINI-BAG PLUS 50 ML IV SCH ×3 (00:39→11:16)
[2020-06-20] MEDS: SODIUM CHLORIDE 0.9% INJ 10 ML SYR IV SCH (05:53)
[2020-06-20] MEDS: OCTREOTIDE ACETATE 100MCG/ML VIAL (J2354 PER 25MCG) SC SCH (08:16)
[2020-06-20] MEDS: ENOXAPARIN 40MG/0.4ML SYRINGE (J1650 PER 10MG) SC SCH (08:16)
[2020-06-20] MEDS: METAMUCIL (PSYLLIUM) PACKET PO SCH (08:18)
[2020-06-20] MEDS: CARVedilol 12.5 MG TAB PO SCH (08:20)
[2020-06-20 08:21] VITALS: BP 121/56
[2020-06-20] MEDS: hydroCHLOROthiazide 25 MG TAB PO SCH (08:21)
[2020-06-20] MEDS: LEVOTHYROXINE 25MCG TABLET (0.025MG) PO SCH (08:21)
[2020-06-20] MEDS: PANTOPRAZOLE 40MG TAB (PROTONIX) PO SCH (08:21)
[2020-06-20] MEDS: CETIRIZINE (ZyrTEC) 10 MG TAB PO SCH (08:21)
[2020-06-20] MEDS: ISOSORBIDE MON. (IMDUR) 60 MG XR TAB PO SCH (08:21)
[2020-06-20] MEDS: POTASSIUM CHLORIDE 10 MEQ SR TABLET PO SCH (08:22)
[2020-06-20] MEDS: LOMOTIL 2.5MG/0.025MG TABLET PO SCH ×2 (08:23→12:57)
[2020-06-20 10:00] VITALS: BP 107/57
[2020-06-20] MEDS: PERCOCET 5MG/325MG TAB PO PRN (11:11)
[2020-06-20] MEDS ORDERED: META1POW PO (12:21)
[2020-06-20] MEDS ORDERED: OXYC1TAB23 PO (12:21)
[2020-06-20] MEDS ORDERED: IBUP-1022 PO (12:21)
[2020-06-20] MEDS ORDERED: DIPH2.5T15 PO (12:24)
[2020-06-20] MEDS: SODIUM CHLORIDE 0.9% INJ 10 ML SYR IV PRN (12:26)
[2020-06-20] MEDS: ONDANSETRON 4 MG TAB PO PRN (13:36)
[2020-06-20 13:47] VITALS: BP 106/58
--- NOTE | 2020-07-17 11:25 | DS.PDOC ---
Discharge Summary General Date of Admission Jun 06, 2020 at 02:27 Date of Discharge 2019 Attending Physician: JONATHAN LEMONS MD Discharge Summary PROCEDURES PERFORMED DURING STAY: Diagnostic laparoscopy, intraoperative flexible sigmoidoscopy, drainage of abscess, diverting ileostomy for anastomotic leak. ADMITTING DIAGNOSES: DISCHARGE DIAGNOSES: 1. Generalized peritonitis secondary to anastomotic leak status post drainage and diversion 2. Status post sigmoid colectomy for recurrent acute diverticulitis. 3. High output ileostomy COMPLICATIONS/CHIEF COMPLAINT: Perforated Viscus. HISTORY OF PRESENT ILLNESS: Patient is a 59 F who underwent laparoscopic sigmoid colectomy with anastomosis for recurrent acute diverticulitis on 05/22/2020 and discharged home on 05/28/2020. So she was about a week at home now. She presents with sudden onset of upper epigastric and chest pain which she describes as sharp, constant associated with her having difficulty taking deep breaths and being short of breath yesterday and has persisted through the night. This morning when she woke up felt worse, thus she decided to go to the ER. She denies fevers or chills. Since going home has been able to move her bowels which she describes as soft and formed but has had some loose stools this morning, nonbloddy. She reports fair appetite with some nausea since being discharged home. HOSPITAL COURSE: Patient was emergently brought to the operating room after a brief period of IV fluid resuscitation. Intraoperatively there is evidence of some exudates around the liver likewise in the pelvis with IV was not able to find a big hole in the anastomosis at least laparoscopically. I tried to prove this with a flexible sigmoidoscopy and there was no active leakage when I insufflated air. A divert ing ileostomy was performed likewise drains were placed. She was continued on IV antibiotics. The drains remained serosanguineous and once the output has decreased this was removed. She did not immediately put out any output from her ileostomy up until postop day 2. We then advance her diet which she was initially tolerating. About postop day 4 she started putting out more than a l iter from her ileostomy and we had to give her Lomotil to help decrease this as well as Sandostatin as subcutaneous injection later on to help in decreasing the output and eventually were able to decrease the output. This did take a while and much of her levator hospital course was related to her high ileostomy output. I repeated the CT abdomen and pelvis to follow up on the anastomotic leakage and there were some small pockets of air fluid collections but smaller on repeat imaging on 06/10. I had radiology try to place a drain but this collections are fairly small. There were able to get in one of the pockets with CT guidance and aspirated fluid here but was too small to leave a drain in. Cultures of that were sent and there were no growth in that culture. Once we were able to control her ileostomy output and she felt comfortable taking care of her ileostomy, she was subsequently discharged home. At this point I have stopped her antibiotics that she has completed 14 days of it and she is not showing any further signs of retinitis nor sepsis. She will follow-up in my clinic in 2 weeks' time. She likewise has been set up for nursing visits at home to help her with her new ileostomy. DISCHARGE MEDICATIONS: Please see below. ALLERGIES: Please see below. PHYSICAL EXAMINATION ON DISCHARGE: VITAL SIGNS: Please see below. GENERAL: generally comfortable HEENT: normocephalic, anticteric sclerae, moist lips and mucosa NECK: supple, no JVD CARDIOVASCULAR EXAMINATION: regular heart rate and rhythm RESPIRATORY EXAMINATION: clear breath sounds ABDOMINAL EXAMINATION: slightly rounded, soft, nondistended, no tenderness, new rlq ileostomy with slightly thickened output semi liquid output. port sites incisions healing accordingly EXTREMITIES: no significan extremity edema SKIN: warm and moist NEUROLOGICAL EXAMINATION: awake, alert, oriented LABORATORY DATA: Please see below. IMAGING: CT abdomen and pelvis x 2 CT guided aspiration of postop fluid/abscess PROGNOSIS: good ACTIVITY: light activity, advance as tolerated. DIET: high fiber diet DISCHARGE PLAN: d/c home follow up in 2 weeks. Take lomotil, titrate to effect DISPOSITION: 01 Home, Self-Care. DISCHARGE INSTRUCTIONS: 1. follow up in clinic in 2 weeks 2. lomotil 2 tabs tid, titrate to ileostomy output. ITEMS TO FOLLOWUP ON ON OUTPATIENT: 1. ileostomy output. DISCHARGE CONDITION: Stable. TIME SPENT ON DISCHARGE: Greater than 45 minutes. Discharge Medications Scheduled Aspirin (Aspirin EC) 81 Mg Tablet.dr, 81 MG PO DAILY, (Reported) Atorvastatin Calcium (Atorvastatin Calcium) 40 Mg Tab, 40 MG PO QHS, (Reported) Calcium Carbonate/Vitamin D3 (Calcium 500-Vit D3 200 Tablet) 1 Each Tablet, 1 TAB PO BID, (Reported) Carvedilol (Carvedilol) 25 Mg Tab, 25 MG PO BID, (Reported) HOLD IF SBP<130 Cetirizine HCl (Cetirizine HCl) 10 Mg Tablet, 10 MG PO DAILY, (Reported) Cholecalciferol (Vitamin D3) (Vitamin D3) 1,000 Unit Tablet, 2,000 UNITS PO DAILY, (Reported) Clopidogrel Bisulfate (Clopidogrel) 75 Mg Tablet, 75 MG PO QHS, (Reported) Diphenoxylate HCl/Atropine (Lomotil 2.5-0.025 mg Tablet) 1 Each Tablet, 2 TAB PO QID, (Reported) Ezetimibe (Zetia) 10 Mg Tab, 10 MG PO QHS, (Reported) Folic Acid (Folic Acid) 1 Mg Tablet, 2 MG PO DAILY, (Reported) Isosorbide Mononitrate (Isosorbide Mononitrate ER) 60 Mg Tab.er.24h, 60 MG PO DAILY, (Reported) Levothyroxine Sodium (Synthroid) 25 Mcg Tablet, 25 MCG PO DAILY, (Reported) Methotrexate Sodium (Methotrexate) 2.5 Mg Tablet, 15 MG PO 1XWK, (Reported) THURSDAY Multivitamins (Thera M Plus Tablet) 1 Each Tablet, 1 TAB PO DAILY, (Reported) Omeprazole (Omeprazole) 40 Mg Cap, 40 MG PO DAILY, (Reported) Potassium Chloride (Potassium Chloride) 10 Meq Tablet.er, 10 MEQ PO TID, (Reported) Psyllium Husk (with Sugar) (Metamucil Powder) 575 Gm Powder, 1 PKT PO BID, (Reported) Scheduled PRN Nitroglycerin (Nitrostat) 0.4 Mg Tab.subl, 0.4 MG SL NITRO PRN for CHEST PAIN, (Reported) Ondansetron HCl (Ondansetron HCl) 4 Mg Tablet, 4 MG PO QID PRN for NAUSEA, (Reported) Oxycodone HCl/Acetaminophen (Oxycodone-Acetaminophen 5-325) 1 Each Tablet, 1 TAB PO Q6H PRN for PAIN, (Reported) Promethazine HCl (Promethazine HCl) 25 Mg Tablet, 25 MG PO TID PRN for NAUSEA, (Reported) Tizanidine HCl (Tizanidine HCl) 4 Mg Tablet, 4 MG PO QHS PRN for MUSCLE SPASMS, (Reported) Allergies Coded Allergies: FISH (Verified Allergy, Severe, THROAT SWELLING, 07/02/20) Quinolones (Verified Allergy, Intermediate, hives, and Headache, 07/02/20) ciprofloxacin (Verified Allergy, Intermediate, swelling, rash, 07/02/20) Sulfa (Sulfonamide Antibiotics) (Verified Allergy, Mild, rash, 07/02/20) codeine (Verified Adverse Reaction, Mild, n/v, 07/02/20) JONATHAN LEMONS MD Jul 17, 2020 11:24
== END 2020-06-20 14:21 | disposition home or self-care (01) | DRG 329 ==
LOC: M ED 15:46 → M SDC 21:01 → M ED INP 06-06 02:27 → ENRESERV 06-06 02:31 → M PCU 06-06 03:14 → M MSPAV 06-08 16:24
PROVIDERS: ADMIT Surgery; ATTEND Family Medicine
PROC: 0D1B4Z4 Bypass Ileum to Cutaneous, Percutaneous Endoscopic Approach (ICD-10-PCS; principal; 2020-06-06)
PROC: 02HV33Z Insertion of Infusion Device into Superior Vena Cava, Percutaneous Approach (ICD-10-PCS; 2020-06-11)
PROC: 0W9J3ZZ Drainage of Pelvic Cavity, Percutaneous Approach (ICD-10-PCS; 2020-06-12)
DX: K91.89 Other postprocedural complications and disorders of digestive system (principal); A41.9 Sepsis, unspecified organism; K57.92 Diverticulitis of intestine, part unspecified, without perforation or abscess without bleeding; N17.9 Acute kidney failure, unspecified; E87.2 Acidosis; Z79.82 Long term (current) use of aspirin; Z79.899 Other long term (current) drug therapy; Z88.2 Allergy status to sulfonamides; Z91.013 Allergy to seafood; Z88.5 Allergy status to narcotic agent; Z88.8 Allergy status to other drugs, medicaments and biological substances; G43.909 Migraine, unspecified, not intractable, without status migrainosus; I25.10 Atherosclerotic heart disease of native coronary artery without angina pectoris; I25.2 Old myocardial infarction; K21.9 Gastro-esophageal reflux disease without esophagitis; E78.00 Pure hypercholesterolemia, unspecified; I10 Essential (primary) hypertension; E03.9 Hypothyroidism, unspecified; E87.5 Hyperkalemia

== ENCOUNTER → 2020-06-26 | Outpatient (REF) | payer MEDICARE, MEDICAID ==
[~2020-06-26] MED LIST changes: +ACET1TAB55 PO; +ASPI-161 PO; +CALC500T44 PO; +CETI10TA4 PO; +CHOL4PW PO; +DIPH2.5T15 PO; +IBUP-1022 PO; +LOMO2.5T PO; +META1POW PO; +META28.32 PO; +ONDA-195 PO; +PRED5TA PO; +PROM25TA22 PO
[2020-06-26 15:52] LABS: HEMATOCRIT 36.7 % (36.0-47.0); HEMOGLOBIN 12.1 g/dl (12.0-15.5); MEAN CORPUSCULAR HEMOGLOBIN 30.3 pg (27.0-33.0); PLATELET COUNT, AUTOMATED 537 10^3/uL (150-450); RED BLOOD COUNT 3.99 10^6/uL (4.00-5.40); WHITE BLOOD COUNT 7.4 10^3/uL (4.0-10.0)
[2020-06-26 16:17] LABS: CALCIUM LEVEL 10.7 MG/DL (8.8-10.2); CREATININE FOR GFR 1.19 MG/DL (0.55-1.30); GLOMERULAR FILTRATION RATE 49.3 (>45)
== END ==
LOC: M SFHCCLAY 14:15
PROVIDERS: ATTEND Family Medicine
DX: R11.0 Nausea (principal); I25.10 Atherosclerotic heart disease of native coronary artery without angina pectoris; Z98.890 Other specified postprocedural states
CPT/HCPCS: 80048; 85027; G0463

== ENCOUNTER 2020-07-02 15:34 | Inpatient (IN) | payer MEDICARE, MEDICAID ==
[~2020-07-02] VITALS: Ht 157.5 cm; Wt 63.3 kg
[~2020-07-02 15:34] MED LIST changes: -ACET1TAB55 PO; -CALC500T44 PO; -CHOL4PW PO; -LOMO2.5T PO; -META28.32 PO; -ONDA-195 PO; -PRED5TA PO; -PROM25TA22 PO
[2020-07-02] MEDS ORDERED: NS 1,000 ML IV SCH (16:21)
[2020-07-02] MEDS ORDERED: ONDANSETRON 4MG/2ML VIAL IV ONE ×2 (16:30→22:30)
[2020-07-02 17:40] LABS: BASO # 0.1 10^3/uL (0.0-0.2); BASO % 0.9 % (0.0-1.0); EOS # 0.2 10^3/uL (0.0-0.5); EOS % 1.5 % (0.0-3.0); HEMATOCRIT 35.2 % (36.0-47.0); HEMOGLOBIN 11.6 g/dl (12.0-15.5); LYMPH # 1.7 10^3/uL (1.5-5.0); LYMPH % 16.5 % (24.0-44.0); MEAN CORPUSCULAR HEMOGLOBIN 29.5 pg (27.0-33.0); MEAN CORPUSCULAR VOLUME 89.6 fl (80.0-96.0); MONO # 0.8 10^3/uL (0.0-0.8); MONO % 7.5 % (0.0-5.0); NEUTROPHILS # 7.4 10^3/uL (1.5-8.5); NEUTROPHILS % 72.7 % (36.0-66.0); PLATELET COUNT, AUTOMATED 407 10^3/uL (150-450); RED BLOOD COUNT 3.93 10^6/uL (4.00-5.40); WHITE BLOOD COUNT 10.2 10^3/uL (4.0-10.0)
[2020-07-02 18:13] LABS: ALBUMIN 3.8 GM/DL (3.2-5.2); ALT/SGPT 98 U/L (12-78); BILIRUBIN,DIRECT 0.1 MG/DL (0.0-0.2); BILIRUBIN,TOTAL 0.3 MG/DL (0.2-1.0); BLOOD UREA NITROGEN 24 MG/DL (7-18); CALCIUM LEVEL 10.3 MG/DL (8.8-10.2); CARBON DIOXIDE LEVEL 18 MEQ/L (21-32); CHLORIDE LEVEL 103 MEQ/L (98-107); CK-MB VALUE MASS < 1.0 NG/ML (<3.6); CPK CREATINE PHOSPHOKINASE 47 U/L (26-192); GLOMERULAR FILTRATION RATE 53.9 (>45); GLUCOSE, FASTING 98 MG/DL (70-100); LIPASE 176 U/L (73-393); MB/CK RELATIVE INDEX 2.13 (< OR =4); POTASSIUM SERUM 4.6 MEQ/L (3.5-5.1); SODIUM LEVEL 132 MEQ/L (136-145); TOTAL PROTEIN 8.1 GM/DL (6.4-8.2); TROPONIN I < 0.02 NG/ML (< 0.10)
[2020-07-02] MEDS: GASTROGRAFIN SOLUTION 30ML PO SCH ×2 (19:32→19:57)
--- NOTE | 2020-07-02 19:49 | ECGEPIP ---
[facility] - ED Test Date: 2020-07-02 Pat Name: PATRICK WALSH Department: Room: - Gender: Female [employer] Dispatcher: jose d : 1960 Requested By: Chris Shelley Order Number: [id number] Reading MD: Wanda Brush Measurements Intervals [place] Rate: 90 P: 63 AK: 151 QRS: 3 QRSD: 82 T: 48 QT: 330 QTc: 406 Interpretive Statements SINUS RHYTHM NSTTW abnormalities Electronically Signed on 07-02-2020 19:48:58 EST by Wanda Brush
[2020-07-02] MEDS ORDERED: ISOVUE-370 76% 100ML VIAL As Ordered ONE (19:57)
--- NOTE | 2020-07-02 22:05 | REPVR ---
PROCEDURE INFORMATION: Exam: CT Abdomen And Pelvis With Contrast Exam date and time: 07/02/2020 9:14 PM Age: 59 years old Clinical indication: Abdominal pain; Generalized; Additional info: Gen abd pain, vomiting TECHNIQUE: Imaging protocol: Computed tomography of the abdomen and pelvis with intravenous contrast. Radiation optimization: All CT scans at this facility use at least one of these dose optimization techniques: automated exposure control; mA and/or kV adjustment per patient size (includes targeted exams where dose is matched to clinical indication); or iterative reconstruction. Contrast material: ISOVUE 370; Contrast volume: 100 ml; Contrast route: INTRAVENOUS (IV); COMPARISON: CT ABD PELVIS WITH CONTRAST 06/18/2020 9:36 AM FINDINGS: Lungs: Clear appearing lung bases. Heart: The heart is normal in size and there is no evidence pericardial effusion. Liver: 1.2 cm cyst midportion of the liver unchanged. 2.3 cm low-density area of the right lobe of liver abutting the falciform ligament. This is probably an area of fatty infiltration, however I would recommend a follow-up CT scan in 6 months for re-evaluation of this and to document stability. This area is more apparent than previous examinations. Gallbladder and bile ducts: Normal appearing common bile duct. The gallbladder is partially contracted there is some enhancement of the gallbladder wall. Pancreas: There is irregular fatty infiltration of the head of the pancreas but unchanged. Spleen: Normal spleen. Splenic nodule is noted. Adrenal glands: Normal adrenal glands. Kidneys and ureters: There is opacification of the kidneys. There is no evidence of hydronephrosis. Stomach and bowel: Abscess in the lower pelvis has markedly decreased since previous exams. Small abscess left pelvis decreased with a bubble of air probably in a diverticulum. There is no evidence of bowel obstruction. An ileostomy is noted right lower quadrant with no evidence of obstruction. Numerous surgical clips are noted in the pelvis at the sigmoid colon. Small abscess in the right pelvis is decreased since 06/18/2020. Intraperitoneal space: There is no evidence of pneumoperitoneum. Vasculature: There is prominent calcification of the aorta consistent with atherosclerotic change. There is opacification of the SMV and SMA. Lymph nodes: Unremarkable. No enlarged lymph nodes. Urinary bladder: Normal urinary bladder. There is some inflammation along the left side of the urinary bladder. Reproductive: Post hysterectomy. Bones/joints: There is moderate posterior disc osteophyte complex at the L5-S1 level. There is moderate broad-based disc protrusion L3-L4 and L4-L5. Old compression of the superior endplate of L4. IMPRESSION: 1. Surgical clips are noted in the region of the sigmoid colon. On the previous examination there were 3 areas of abscess within the pelvis and these are all markedly decreased. Continued inflammation along the left side of the urinary bladder and pelvis. 2. No evidence of bowel obstruction. 3. Gallbladder is contracted and there is some enhancement of the gallbladder wall but no surrounding inflammation. 4. 2.3 cm area of low density right lobe of the liver near the lower falciform ligament probably fatty infiltration but more apparent than previous exams. The patient should have a follow-up CT in 6 months to document stability Electronically signed by: Abdelrahman Harper On 07/02/2020 22:05:40 PM
[2020-07-02] MEDS ORDERED: META28.32 PO (23:11)
[2020-07-02] MEDS ORDERED: ONDA-195 PO (23:11)
[2020-07-02] MEDS ORDERED: CALC500T44 PO (23:11)
[2020-07-02] MEDS ORDERED: PROM25TA22 PO (23:11)
[2020-07-02] MEDS ORDERED: OXYC1TAB23 PO (23:11)
[2020-07-02] MEDS ORDERED: LOMO2.5T PO (23:11)
--- NOTE | 2020-07-02 23:23 | IPNPDOC ---
Text Note Date of Service The patient was seen on 07/02/20. NOTE TIME OF SERVICE 1150PM Ms. Paz is a 59 yr old F w a hx of diverticular abscess w perforation s/p colectomy w subsequent ileostomy in May, CAD/CABG & Dresslers syndrome, HTN, RA & Hypothyroidism who presented w c/o abdominal pain, n/v and anorexia. Despite recently completing a course of abx CT confirmed the presence of 3 small abscesses. She met SIRS criterial with transient tachycardia (RR 22 @ 15:34 and HR 107 @ 15:43). She will be admitted for management of SIRS vs sepsis, abdominal abscesses, and n/v. Plan: NPO, IVF, f/u lactic acid, Metronidazole , f/u w Rest per H&P VS,Fishbone, I+O VS, Fishbone, I+O Laboratory Tests 07/02/20 17:14 Vital Signs Date Time Temp Pulse Resp B/P (MAP) Pulse Ox O2 Delivery O2 Flow Rate FiO2 07/02/20 21:15 85 138/63 (88) 100 07/02/20 19:30 16 07/02/20 15:34 98.0 Room Air JAKY BENDER MD Jul 02, 2020 23:23
[2020-07-02] MEDS ORDERED: tiZANidine 4 MG TAB PO PRN (23:30)
[2020-07-02] MEDS ORDERED: PERCOCET 5MG/325MG TAB PO PRN (23:30)
[2020-07-02] MEDS ORDERED: NITROGLYCERIN 0.4 MG SUBL TABLET SL PRN (23:30)
--- NOTE | 2020-07-02 23:57 | HPEPDOC ---
[facility] Medical History & Physical Date of Admission Jul 02, 2020 Date of Service: Jul 02, 2020 Primary Care Physician: Gage Kumar MD Attending Physician: JAKY BENDER MD History and Physical CHIEF COMPLAINT: Nausea/vomiting HISTORY OF PRESENT ILLNESS: Patient is a 59-year-old female who presents with a 1 day history of vomiting. Patient states that she has been nauseous since being discharged from the hospital on 06/17/2020. Patient went to see her primary care physician last week who started her on medication for nausea which she says has not really been helping. Patient states that the medication has been putting her to sleep. Patient states that she started vomiting yesterday and had 2 or 3 episodes of vomiting yesterday. Patient described the liquid is a foamy green to yellow liquid. Patient says she hasn't been able to eat that much because of the nausea. Patient didn't vomit today until she arrived at the emergency department. Patient states that since being in the emergency department she did vomit once and again it was a foamy greenyellow. Patient states that since vomiting in the ED, her ostomy has been leaking and she feels like the stoma is smaller than it had been in the past. Patient recently had surgery forming the diverting ileostomy after she had an anastomosis site leak. Patient says she does not have any abdominal pain unless someone pushes on her abdomen. Patient has only been able to drink a small amount of cole tasha and ate a few crackers today. Patient does not have any other complaints today. PAST MEDICAL HISTORY: 1. Rheumatoid arthritis. 2. Coronary artery disease status post CABG. 3. Hypertension. 4. Hypothyroidism 5. Funmi's syndrome 6. Diverticulitis PAST SURGICAL HISTORY: 1. CABG in 2007. 2. Hysterectomy. 3. Previous . 4. Right ankle surgery 5. Colon resection 6. Colon surgery with diverting ileostomy due to anastomosis leak SOCIAL HISTORY: Patient denies tobacco, alcohol, or drug use. Patient lives at home with her . 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 Patient states that her brother had a heart attack when he was younger. Patient's sister has rheumatoid arthritis ALLERGIES: Please see below. REVIEW OF SYSTEMS: General: Patient denies fevers HEENT: Patient denies headaches Cardiovascular: Patient denies chest pain Respiratory: Patient denies shortness of breath, cough GI: Patient reports nausea and vomiting as above in HPI. Patient reports abdominal pain only to palpation : Patient denies increased frequency or pain with urination Extremities: Patient denies swelling or pain in extremities Neurological: Patient denies numbness or tingling in legs Skin: Patient denies any new rashes or lesions. Hematologic: Patient reports easy bruising which she attributes to being on Plavix Lymphatic: Patient denies any lumps lumps or bumps in neck, axilla, or groin HOME MEDICATIONS: Please see below. PHYSICAL EXAMINATION: VITAL SIGNS: See below General: Alert and oriented female patient who was sitting in the chair when I walked in the room. Patient did not appear to be in any acute distress. HEENT: Normocephalic, atraumatic, moist mucous membranes. Neck: No lymphadenopathy or thyromegaly Cardiac: Regular rate and rhythm, no murmurs, normal S1, normal S2 Pulm: Clear to auscultation bilaterally. No wheezes, rhonchi, rales Abd: Mildly tender to palpation. Abdomen was nondistended. Ileostomy was in place on the right side of the abdomen. Yellow fluid was in the bag and was leaking around the dressing. Ext: No edema bilateral lower extremities, dorsalis pedis and posterior tibial pulses 2/4 bilaterally. LABORATORY DATA: See below. IMAGING: CT of the abdomen and pelvis with IV and oral contrast performed on 07/02/2020 was reported to show surgical clips are noted in the region the sigmoid colon. On the previous examination there were 3 areas of abscess within the pelvis and these are all markedly decreased. Continued inflammation along the left side of the urinary bladder and pelvis. No evidence of bowel obstruction. Gallbladder is contracted and there is some enhancement of the gallbladder wall but no surrounding inflammation. 2.3 cm area of low density in the right lobe of the liver near the lower falciform ligament probably fatty infiltration but more apparent than previous exams. Patient should have a follow-up CT in 6 months to document stability MICROBIOLOGY: Please see below. ASSESSMENT: Patient is a 59 year old female who presents to the emergency department with a 1 day history of vomiting who is his about 4 weeks status post surgery for diverging ileostomy after perforated viscus. PLAN: 1. Nausea/vomiting. Patient has vomited a few times in the last 24 hours. Patient does not appear to be overly dehydrated on exam however, we will start IV fluids at 100 mL per hour of normal saline. We will advance the patient's diet as tolerated. Patient states that she has been nauseous since leaving the hospital on 06/20/2020. Patient has been on several different antinausea m edications status has not helped. Patient was due to see her surgeon tomorrow morning, 07/03/2020. Surgical consultation may be warranted. ER physician did speak with on-call surgeon who agreed with admission for vomiting control and IV hydration. 2. Abdominal abscess. This seems to be resolving secondary to her previous surgery. Patient's white blood cells are very mildly elevated at 10.2. Patient has no other signs of systemic inflammation as she has not been tachycardic or hypotensive nor has she had any fevers. Lactic acid level was drawn and is 1.9. We'll continue to monitor the patient. ER physician spoke with on-call surgeon who did not recommend antibiotics at this time. 3. Status post diverging ileostomy. At the time of examination the ileostomy was leaking. I will speak with nursing to see what can be done to redress the area. Patient does not like changing her bag because the smell makes her very nauseous. Patient does have a visiting nurse who has been coming in to help with changing of the ileostomy. If the ileostomy is still leaking, surgical consultation the warranted in the morning. 4. Elevated liver enzymes. Patient's AST and ALT are elevated which is a new finding. Patient's alkaline phosphatase is also elevated. This may be secondary to nausea and vomiting as well as slight dehydration. Repeat CMP has been ordered for tomorrow morning. Patient does have a possible fatty infiltration that was found on CT scan. Hepatitis panel will be ordered with the morning labs. Since the low density area in the patient's liver is new along with the new elevation the patient's liver enzymes, dedicated right upper quadrant ultrasound will be ordered for the morning. Patient is also on methotrexate which could be the issue however, the patient's never had any elevated liver enzymes. This medication will be held. 5. Hypertension. We will continue with the patient's home medications. 6. Coronary artery disease status post CABG. We'll continue with the patient's home medications. 7. GERD. Continue patient's home medications. 8. Rheumatoid arthritis. Patient's methotrexate is on hold at this time due to the patient's elevated liver enzymes. 9. Hypothyroidism. Continue the patient's home medications. 10. DVT prophylaxis: Heparin 5000 units every 8 hours. CODE STATUS: Full code Vital Signs Vital Signs Date Time Temp Pulse Resp B/P (MAP) Pulse Ox O2 Delivery O2 Flow Rate FiO2 07/02/20 21:15 85 138/63 (88) 100 07/02/20 19:30 16 07/02/20 15:34 98.0 Room Air Laboratory Data Labs 24H Laboratory Tests 2 07/02/20 17:14: Immature Granulocyte % (Auto) 0.9, Neutrophils (%) (Auto) 72.7H, Lymphocytes (%) (Auto) 16.5L, Monocytes (%) (Auto) 7.5H, Eosinophils (%) (Auto) 1.5, Basophils (%) (Auto) 0.9, Neutrophils # (Auto) 7.4, Lymphocytes # (Auto) 1.7, Monocytes # (Auto) 0.8, Eosinophils # (Auto) 0.2, Basophils # (Auto) 0.1, Nucleated Red Blood Cells % (auto) 0.0, Anion Gap 11, Glomerular Filtration Rate 53.9, Calcium Level 10.3H, Total Bilirubin 0.3, Direct Bilirubin 0.1, Aspartate Amino Transf (AST/SGOT) 79H, Alanine Aminotransferase (ALT/SGPT) 98H, Alkaline Phosphatase 122H, Total Creatine Kinase 47, Creatine Kinase MB < 1.0, Creatine Kinase MB Relative Index 2.13, Troponin I < 0.02, Total Protein 8.1, Albumin 3.8, Albumin /Globulin Ratio 0.9L, Lipase 176 07/02/20 17:48: POC Glucose (Misc Panel) 98, POC Sodium (Misc Panel) 131L, POC Potassium (Misc Panel) 4.7, POC Chloride (Misc Panel) 104, POC Total CO2 (Misc Panel) 18.0L, POC Blood Urea Nitrogen (Misc Panel 32H, POC Ionized Calcium (Misc Panel) 5.1, POC Creatinine (Misc Panel) 1.1, POC Hematocrit (Misc Panel) 38.0 07/02/20 22:50: CBC/BMP Laboratory Tests 07/02/20 17:14 Microbiology Microbiology 07/02/20 Blood Culture, Received Pending Home Medications Scheduled Aspirin (Aspirin EC) 81 Mg Tablet.dr, 81 MG PO DAILY Atorvastatin Calcium (Atorvastatin Calcium) 40 Mg Tab, 40 MG PO QHS Calcium Carbonate/Vitamin D3 (Calcium 500-Vit D3 200 Tablet) 1 Each Tablet, 1 TAB PO BID Carvedilol (Carvedilol) 25 Mg Tab, 25 MG PO BID HOLD IF SBP<130 Cetirizine HCl (Cetirizine HCl) 10 Mg Tablet, 10 MG PO DAILY Cholecalciferol (Vitamin D3) (Vitamin D3) 1,000 Unit Tablet, 2,000 UNITS PO DAILY Clopidogrel Bisulfate (Clopidogrel) 75 Mg Tablet, 75 MG PO QHS Diphenoxylate HCl/Atropine (Lomotil 2.5-0.025 mg Tablet) 1 Each Tablet, 2 TAB PO QID Ezetimibe (Zetia) 10 Mg Tab, 10 MG PO QHS Folic Acid (Folic Acid) 1 Mg Tablet, 2 MG PO DAILY Isosorbide Mononitrate (Isosorbide Mononitrate ER) 60 Mg Tab.er.24h, 60 MG PO DAILY Levothyroxine Sodium (Synthroid) 25 Mcg Tablet, 25 MCG PO DAILY Methotrexate Sodium (Methotrexate) 2.5 Mg Tablet, 15 MG PO 1XWK THURSDAY Multivitamins (Thera M Plus Tablet) 1 Each Tablet, 1 TAB PO DAILY Omeprazole (Omeprazole) 40 Mg Cap, 40 MG PO DAILY Potassium Chloride (Potassium Chloride) 10 Meq Tablet.er, 10 MEQ PO TID Psyllium Husk (with Sugar) (Metamucil Powder) 575 Gm Powder, 1 PKT PO BID Scheduled PRN Nitroglycerin (Nitrostat) 0.4 Mg Tab.subl, 0.4 MG SL NITRO PRN for CHEST PAIN Ondansetron HCl (Ondansetron HCl) 4 Mg Tablet, 4 MG PO QID PRN for NAUSEA Oxycodone HCl/Acetaminophen (Oxycodone-Acetaminophen 5-325) 1 Each Tablet, 1 TAB PO Q6H PRN for PAIN Promethazine HCl (Promethazine HCl) 25 Mg Tablet, 25 MG PO TID PRN for NAUSEA Tizanidine HCl (Tizanidine HCl) 4 Mg Tablet, 4 MG PO QHS PRN for MUSCLE SPASMS Allergies Coded Allergies: FISH (Verified Allergy, Severe, THROAT SWELLING, 07/02/20) Quinolones (Verified Allergy, Intermediate, hives, and Headache, 07/02/20) ciprofloxacin (Verified Allergy, Intermediate, swelling, rash, 07/02/20) Sulfa (Sulfonamide Antibiotics) (Verified Allergy, Mild, rash, 07/02/20) codeine (Verified Adverse Reaction, Mild, n/v, 07/02/20) A-FIB/CHADSVASC A-FIB History Current/History of A-Fib/PAF?: No GME ATTESTATION GME ATTESTATION My faculty preceptor for this patient encounter was physically present during the encounter and was fully available. All aspects of the patient interview, examination, medical decision making process, and medical care plan development were reviewed and approved by the faculty preceptor. The faculty preceptor is aware and concurs with the plan as stated in the body of this note and will attest to such by his/her cosignature. ATTENDING NOTE I reviewed the notes and agree with the findings as documented by with the additional diagnosis # SIRS vs Sepsis - metronidazole Pls see my addendum dated 07/02/20 for additional details MISSY MARTIN DO Jul 02, 2020 23:57 JAKY BENDER MD Jul 03, 2020 04:08
[2020-07-03 00:25] VITALS: BP 133/61
[2020-07-03] MEDS: NS 1,000 ML IV SCH ×3 (01:17→22:30)
[2020-07-03] MEDS: EZETIMIBE 10 MG TAB (ZETIA) PO SCH ×2 (01:17→20:26)
[2020-07-03] MEDS: ATORVASTATIN 20 MG TAB PO SCH ×2 (01:17→20:25)
[2020-07-03] MEDS: CLOPIDOGREL 75 MG TAB PO SCH ×2 (01:17→20:25)
[2020-07-03 04:00] VITALS: BP 124/61
[2020-07-03 04:59] LABS: BASO # 0.1 10^3/uL (0.0-0.2); EOS # 0.2 10^3/uL (0.0-0.5); EOS % 2.9 % (0.0-3.0); HEMATOCRIT 29.7 % (36.0-47.0); HEMOGLOBIN 9.9 g/dl (12.0-15.5); LYMPH % 24.8 % (24.0-44.0); MEAN CORPUSCULAR HEMOGLOBIN 30.1 pg (27.0-33.0); MEAN CORPUSCULAR HGB CONC 33.3 g/dl (32.0-36.5); MEAN CORPUSCULAR VOLUME 90.3 fl (80.0-96.0); MONO # 0.8 10^3/uL (0.0-0.8); MONO % 10.4 % (0.0-5.0); NEUTROPHILS # 4.8 10^3/uL (1.5-8.5); PLATELET COUNT, AUTOMATED 325 10^3/uL (150-450); RED BLOOD COUNT 3.29 10^6/uL (4.00-5.40)
[2020-07-03] MEDS ORDERED: metroNIDAZOLE 500 MG in IV 1 EA IV SCH (05:00)
[2020-07-03 05:29] LABS: ALBUMIN 3.2 GM/DL (3.2-5.2); ALT/SGPT 74 U/L (12-78); BILIRUBIN,TOTAL 0.3 MG/DL (0.2-1.0); BLOOD UREA NITROGEN 20 MG/DL (7-18); CALCIUM LEVEL 8.8 MG/DL (8.8-10.2); CARBON DIOXIDE LEVEL 18 MEQ/L (21-32); CHLORIDE LEVEL 107 MEQ/L (98-107); CREATININE FOR GFR 1.01 MG/DL (0.55-1.30); GLOMERULAR FILTRATION RATE 59.5 (>45); GLUCOSE, FASTING 94 MG/DL (70-100); MAGNESIUM LEVEL 1.8 MG/DL (1.8-2.4); SODIUM LEVEL 134 MEQ/L (136-145); TOTAL PROTEIN 6.3 GM/DL (6.4-8.2)
[2020-07-03] MEDS: HEPARIN SOD (PORCINE) 5000UNITS/ML 1ML VIAL/SYRINGE SC SCH ×3 (06:11→21:10)
[2020-07-03 08:00] VITALS: BP 140/65
[2020-07-03] MEDS ORDERED: CALCIUM/VITAMIN D 500 MG TAB PO SCH (09:00)
[2020-07-03] MEDS: ONDANSETRON 4MG/2ML VIAL IV PRN ×2 (09:35→17:00)
[2020-07-03] MEDS: CARVedilol 12.5 MG TAB PO SCH ×2 (09:37→20:25)
[2020-07-03] MEDS: LEVOTHYROXINE 25MCG TABLET (0.025MG) PO SCH (09:37)
[2020-07-03] MEDS: ISOSORBIDE MON. (IMDUR) 60 MG XR TAB PO SCH (09:38)
[2020-07-03] MEDS: OMEPRAZOLE 20 MG CAP PO SCH (09:38)
[2020-07-03] MEDS: MULTIVITAMINS/MINERALS THERAP 1 TAB PO SCH (09:38)
[2020-07-03] MEDS: ASPIRIN 81 MG ENTERIC TAB PO SCH (09:38)
[2020-07-03] MEDS: CETIRIZINE (ZyrTEC) 10 MG TAB PO SCH (09:38)
[2020-07-03] MEDS: FOLIC ACID 1 MG TAB PO SCH (09:38)
[2020-07-03] MEDS: VITAMIN D 1,000 INTERNATIONAL UNITS TABLET PO SCH (09:39)
[2020-07-03] MEDS: POTASSIUM CHLORIDE 10 MEQ SR TABLET PO SCH ×3 (09:39→20:26)
[2020-07-03] MEDS: LOMOTIL 2.5MG/0.025MG TABLET PO SCH ×4 (09:54→21:09)
[2020-07-03 10:27] LABS: HEPATITIS A ANTIBODY IGM NEGATIVE (NEGATIVE); HEPATITIS B SURFACE ANTIGEN NEGATIVE (NEGATIVE); HEPATITIS C VIRUS ABY INDEX 0.1 INDEX (<0.8)
[2020-07-03 12:00] VITALS: BP 123/63
[2020-07-03 12:12] LABS: C REACTIVE PROTEIN QUANTITATIV 0.84 MG/DL (0.00-0.30)
--- NOTE | 2020-07-03 14:16 | IPNPDOC ---
Text Note Date of Service The patient was seen on 07/03/20. NOTE Subjective: Patient is a 59-year-old female with a PMHx of CAD s/p CABG, HTN, Hypothyroidism, RA, Funmi's syndrome, Diverticulitis s/p ostomy presented to the hospital with a one-day history of nausea and vomiting. Patient was admitted to hospital service for further evaluation and treatment. General surgery was called on consultation. Patient was seen and examined at the bedside. Patient has had an uneventful evening. Has not experience any episodes of vomiting this morning. However, she did report nausea without any vomiting. Denies any chest pain, shortness of breath, palpitations, abdominal pain, or urinary discomfort. The output from her ostomy has remained relatively the same and continues to remain watery. Objective: Vitals (See below) General: Lying in bed, appears comfortable, awake / alert HEENT: NC, AT CVS: RRR, +S1S2 Lungs: Fair air entry b/l, -w/r/r Abdomen: Soft, ND, NT, + Ostomy Extremities: No evidence of edema, - Calf tenderness Assessment and plan: Nausea/vomiting - Patient has known experience any further episodes of vomiting yesterday - Patient has experienced some nausea this morning - Hemodynamically stable and afebrile - s/p leukocytosis - Lipase normal - CT abdomen / pelvis 07/03: 1. Surgical clips are noted in the region of the sigmoid colon. On the previous examination there were 3 areas of abscess within the pelvis and these are all markedly decreased. Continued inflammation along the left side of the urinary bladder and pelvis. 2. No evidence of bowel obstruction. 3. Gallbladder is contracted and there is some enhancement of the gallbladder wall but no surrounding inflammation. 4. 2.3 cm area of low density right lobe of the liver near the lower falciform ligament probably fatty infiltration but more apparent than previous exams. The patient should have a follow-up CT in 6 months to document stability - Will start patient on clear liquid diet; advance as tolerated - General surgery on consultation; discussed case with Dr. Peña - will advance diet and control nausea - c/w IV fluid hydration Abdominal abscess - Imaging compared to prior does show improvement - Hemodynamically stable and afebrile - s/p Leukocytosis - Will check pro-calcitonin - Discussed with general surgery; will discontinue antibiotics at this time. Dehydration - Cr appears to be elevated compared to baseline - c/w IV fluid hydration s/p Diverting ileostomy - c/w Dressing changes s/p Elevated liver enzymes - Improving - Hepatitis panel negative - Will c/w Atorvastatin; Will resume Methotrexate within 24 hours Hypertension - BP well controlled - c/w Isosorbide mononitrate, Carvedilol CAD s/p CABG - c/w ASA, Plavix, Isosorbide mononitrate, Carvedilol, Atovastatin Rheumatoid arthritis - Methotrexate on hold (re: elevated liver enzymes) - Will resume within 24 hours Hypothyroidism - c/w Levothyroxine GERD - c/w Omeprazole DVT prophylaxis - c/w Heparin Disposition: - Anticipate DC within 24 hours VS,Saranyae, I+O VS, Fishbone, I+O Laboratory Tests 07/02/20 17:14 07/03/20 04:49 Vital Signs Date Time Temp Pulse Resp B/P (MAP) Pulse Ox O2 Delivery O2 Flow Rate FiO2 07/03/20 12:00 96.5 69 18 123/63 (83) 96 Room Air I&O- Last 24 Hours up to 6 AM 07/03/20 06:00 Intake Total 1000 ml Output Total 400 ml Balance 600 ml VALERIA POTTS MD Jul 03, 2020 14:16
[2020-07-03] MEDS: METAMUCIL (PSYLLIUM) PACKET PO SCH ×2 (14:31→21:09)
[2020-07-03 16:00] VITALS: BP 130/60
[2020-07-03 20:00] VITALS: BP 126/60
[2020-07-03] MEDS: CALCIUM/VITAMIN D 500 MG TAB PO SCH (20:26)
[2020-07-04] VITALS: BP 114/57
[2020-07-04 04:00] VITALS: BP 146/70
[2020-07-04] MEDS: HEPARIN SOD (PORCINE) 5000UNITS/ML 1ML VIAL/SYRINGE SC SCH (04:57)
[2020-07-04 05:59] LABS: HEMATOCRIT 29.4 % (36.0-47.0); HEMOGLOBIN 9.2 g/dl (12.0-15.5); MEAN CORPUSCULAR HEMOGLOBIN 29.8 pg (27.0-33.0); MEAN CORPUSCULAR HGB CONC 31.3 g/dl (32.0-36.5); MEAN CORPUSCULAR VOLUME 95.1 fl (80.0-96.0); PLATELET COUNT, AUTOMATED 261 10^3/uL (150-450); RED BLOOD COUNT 3.09 10^6/uL (4.00-5.40); WHITE BLOOD COUNT 5.8 10^3/uL (4.0-10.0)
[2020-07-04 06:31] LABS: ATYPICAL LYMPH 1 % (0-5); BASOPHILS 2 % (0-1); EOSINOPHILS 9 % (0-3); LYMPHOCYTES 37 % (16-44); MONOCYTES 4 % (0-5); NEUTROPHILS 47 % (28-66); PLATELET ESTIMATE NORMAL (NORMAL)
[2020-07-04 06:35] LABS: ALBUMIN 2.4 GM/DL (3.2-5.2); ALT/SGPT 54 U/L (12-78); BILIRUBIN,TOTAL 0.1 MG/DL (0.2-1.0); BLOOD UREA NITROGEN 10 MG/DL (7-18); CALCIUM LEVEL 8.3 MG/DL (8.8-10.2); CARBON DIOXIDE LEVEL 16 MEQ/L (21-32); CHLORIDE LEVEL 117 MEQ/L (98-107); CREATININE FOR GFR 0.81 MG/DL (0.55-1.30); GLOMERULAR FILTRATION RATE > 60.0 (>45); GLUCOSE, FASTING 83 MG/DL (70-100); MAGNESIUM LEVEL 1.7 MG/DL (1.8-2.4); POTASSIUM SERUM 3.8 MEQ/L (3.5-5.1); SODIUM LEVEL 141 MEQ/L (136-145); TOTAL PROTEIN 5.7 GM/DL (6.4-8.2)
[2020-07-04] MEDS ORDERED: MAG SULF 1GM/100ML (MAG RUN) 1 GM in IV 1 EA IV ONE (06:45)
[2020-07-04 08:00] VITALS: BP 115/55
--- NOTE | 2020-07-04 08:40 | DS.PDOC ---
Discharge Summary General Date of Admission Jul 02, 2020 at 22:33 Date of Discharge 07/04/2020 Discharge Summary PROCEDURES PERFORMED DURING STAY: [None]. ADMITTING DIAGNOSES / DISCHARGE DIAGNOSES: s/p Nausea/vomiting Abdominal fluid collections - likely 2/2 sterile fluid collections, unlikely 2/2 abscess Dehydration s/p Diverting ileostomy s/p Elevated liver enzymes Hypertension CAD s/p CABG Rheumatoid arthritis Hypothyroidism GERD DVT prophylaxis COMPLICATIONS/CHIEF COMPLAINT: Sent in by home care HISTORY OF PRESENT ILLNESS: Patient is a 59-year-old female with a PMHx of CAD s/p CABG, HTN, Hypothyroidism, RA, Funmi's syndrome, Diverticulitis s/p ostomy presented to the hospital with a one-day history of nausea and vomiting. Patient was admitted to hospital service for further evaluation and treatment. General surgery was called on consultation. HOSPITAL COURSE: s/p Nausea/vomiting - Patient has tolerated regular diet; experiences some nausea, no vomiting - Hemodynamically stable and afebrile - s/p leukocytosis - Lipase normal - CT abdomen / pelvis 07/03: 1. Surgical clips are noted in the region of the sigmoid colon. On the previous examination there were 3 areas of abscess within the pelvis and these are all markedly decreased. Continued inflammation along the left side of the urinary bladder and pelvis. 2. No evidence of bowel obstruction. 3. Gallbladder is contracted and there is some enhancement of the gallbladder wall but no surrounding inflammation. 4. 2.3 cm area of low density right lobe of the liver near the lower falciform ligament probably fatty inf iltration but more apparent than previous exams. The patient should have a follow-up CT in 6 months to document stability - Diet fully advanced and tolerating - General surgery, Dr. Peña on consultation; will have outpatient follow up within 7 days - s/p IV fluid hydration Abdominal fluid collections - likely 2/2 sterile fluid collections, unlikely 2/2 abscess - Imaging compared to prior does show improvement - Hemodynamically stable and afebrile - s/p Leukocytosis - Pro-calcitonin negative; - s/p antibiotics. Dehydration - Cr appears to be elevated compared to baseline - c/w IV fluid hydration s/p Diverting ileostomy - c/w Dressing changes s/p Elevated liver enzymes - Improving - Hepatitis panel negative - c/w Atorvastatin; Will resume Methotrexate on discharge Hypertension - BP well controlled - c/w Isosorbide mononitrate, Carvedilol CAD s/p CABG - c/w ASA, Plavix, Isosorbide mononitrate, Carvedilol, Atorvastatin Rheumatoid arthritis - Methotrexate on hold (re: elevated liver enzymes) - Will resume on discharge Hypothyroidism - c/w Levothyroxine GERD - c/w Omeprazole DVT prophylaxis - c/w Heparin DISCHARGE MEDICATIONS: Please see below. ALLERGIES: Please see below. PHYSICAL EXAMINATION ON DISCHARGE: Vitals (See below) General: Lying in bed, remains comfortable and in no acute distress, awake / alert / oriented x3 HEENT: NC, AT CVS: RRR, +S1S2 Lungs: Fair air entry b/l, no visual wheezing, rhonchi or rales Abdomen: Soft, nondistended and nontender, + Ostomy Extremities: No evidence of LE edema, - Calf tenderness LABORATORY DATA: Please see below. ACTIVITY: [As tolerated]. DISCHARGE PLAN: Follow-up with primary care provider and Dr. Peña within the next 7 days Remain compliant with treatment plan and medications Return to the ER if you experience any problems DISPOSITION: Home with services DISCHARGE CONDITION: [Stable]. TIME SPENT ON DISCHARGE: 35 minutes. Vital Signs/I&Os Vital Signs Date Time Temp Pulse Resp B/P (MAP) Pulse Ox O2 Delivery O2 Flow Rate FiO2 07/04/20 08:00 97.0 66 18 115/55 (75) 100 Room Air I&O- Last 24 Hours up to 6 AM 07/04/20 06:00 Intake Total 1560 ml Output Total 1975 ml Balance -415 ml Laboratory Data Labs 24H Laboratory Tests 2 07/04/20 05:35: Neutrophils (%) (Auto) , Nucleated Red Blood Cells % (auto) 0.0, Neutrophils 47, Lymphocytes (Manual) 37, Monocytes (Manual) 4, Eosinophils (Manual) 9H, Basophils (Manual) 2H, Atypical Lymphocytes 1, Red Blood Cell Morphology NORMAL, Platelet Estimate NORMAL, Anion Gap 8, Glomerular Filtration Rate > 60.0, Calcium Level 8.3L, Magnesium Level 1.7L, Total Bilirubin 0.1#L, Aspartate Amino Transf (AST/SGOT) 30, Alanine Aminotransferase (ALT/SGPT) 54, Alkaline Phosphatase 79, Total Protein 5.7L, Albumin 2.4#L, Albumin/Globulin Ratio 0.7L CBC/BMP Laboratory Tests 07/04/20 05:35 Microbiology Microbiology 11/2/20 Blood Culture - Preliminary, Resulted No growth after 24 hours . All specim... Discharge Medications Scheduled Aspirin (Aspirin EC) 81 Mg Tablet.dr, 81 MG PO DAILY, (Reported) Atorvastatin Calcium (Atorvastatin Calcium) 40 Mg Tab, 40 MG PO QHS, (Reported) Calcium Carbonate/Vitamin D3 (Calcium 500-Vit D3 200 Tablet) 1 Each Tablet, 1 TAB PO BID, (Reported) Carvedilol (Carvedilol) 25 Mg Tab, 25 MG PO BID, (Reported) HOLD IF SBP<130 Cetirizine HCl (Cetirizine HCl) 10 Mg Tablet, 10 MG PO DAILY, (Reported) Cholecalciferol (Vitamin D3) (Vitamin D3) 1,000 Unit Tablet, 2,000 UNITS PO DAILY, (Reported) Clopidogrel Bisulfate (Clopidogrel) 75 Mg Tablet, 75 MG PO QHS, (Reported) Diphenoxylate HCl/Atropine (Lomotil 2.5-0.025 mg Tablet) 1 Each Tablet, 2 TAB PO QID, (Reported) Ezetimibe (Zetia) 10 Mg Tab, 10 MG PO QHS, (Reported) Folic Acid (Folic Acid) 1 Mg Tablet, 2 MG PO DAILY, (Reported) Isosorbide Mononitrate (Isosorbide Mononitrate ER) 60 Mg Tab.er.24h, 60 MG PO DAILY, (Reported) Levothyroxine Sodium (Synthroid) 25 Mcg Tablet, 25 MCG PO DAILY, (Reported) Methotrexate Sodium (Methotrexate) 2.5 Mg Tablet, 15 MG PO 1XWK, (Reported) THURSDAY Multivitamins (Thera M Plus Tablet) 1 Each Tablet, 1 TAB PO DAILY, (Reported) Omeprazole (Omeprazole) 40 Mg Cap, 40 MG PO DAILY, (Reported) Potassium Chloride (Potassium Chloride) 10 Meq Tablet.er, 10 MEQ PO TID, (Reported) Psyllium Husk (with Sugar) (Metamucil Powder) 575 Gm Powder, 1 PKT PO BID, (Reported) Scheduled PRN Nitroglycerin (Nitrostat) 0.4 Mg Tab.subl, 0.4 MG SL NITRO PRN for CHEST PAIN, (Reported) Ondansetron HCl (Ondansetron HCl) 4 Mg Tablet, 4 MG PO QID PRN for NAUSEA, (Reported) Oxycodone HCl/Acetaminophen (Oxycodone-Acetaminophen 5-325) 1 Each Tablet, 1 TAB PO Q6H PRN for PAIN, (Reported) Promethazine HCl (Promethazine HCl) 25 Mg Tablet, 25 MG PO TID PRN for NAUSEA, (Reported) Tizanidine HCl (Tizanidine HCl) 4 Mg Tablet, 4 MG PO QHS PRN for MUSCLE SPASMS, (Reported) Allergies Coded Allergies: FISH (Verified Allergy, Severe, THROAT SWELLING, 07/02/20) Quinolones (Verified Allergy, Intermediate, hives, and Headache, 07/02/20) ciprofloxacin (Verified Allergy, Intermediate, swelling, rash, 07/02/20) Sulfa (Sulfonamide Antibiotics) (Verified Allergy, Mild, rash, 07/02/20) codeine (Verified Adverse Reaction, Mild, n/v, 07/02/20) VALERIA POTTS MD Jul 04, 2020 08:40
[2020-07-04] MEDS: METAMUCIL (PSYLLIUM) PACKET PO SCH (09:00)
[2020-07-04] MEDS: CARVedilol 12.5 MG TAB PO SCH ×2 (09:00→10:10)
[2020-07-04] MEDS: MULTIVITAMINS/MINERALS THERAP 1 TAB PO SCH (10:07)
[2020-07-04] MEDS: CALCIUM/VITAMIN D 500 MG TAB PO SCH (10:07)
[2020-07-04 10:08] VITALS: BP 115/55
[2020-07-04] MEDS: CETIRIZINE (ZyrTEC) 10 MG TAB PO SCH (10:08)
[2020-07-04] MEDS: OMEPRAZOLE 20 MG CAP PO SCH (10:08)
[2020-07-04] MEDS: POTASSIUM CHLORIDE 10 MEQ SR TABLET PO SCH (10:08)
[2020-07-04] MEDS: ISOSORBIDE MON. (IMDUR) 60 MG XR TAB PO SCH (10:08)
[2020-07-04] MEDS: LEVOTHYROXINE 25MCG TABLET (0.025MG) PO SCH (10:08)
[2020-07-04] MEDS: FOLIC ACID 1 MG TAB PO SCH (10:09)
[2020-07-04] MEDS: LOMOTIL 2.5MG/0.025MG TABLET PO SCH (10:09)
[2020-07-04] MEDS: ASPIRIN 81 MG ENTERIC TAB PO SCH (10:09)
[2020-07-04] MEDS: VITAMIN D 1,000 INTERNATIONAL UNITS TABLET PO SCH (10:09)
== END 2020-07-04 11:18 | disposition home health service (06) | DRG 392 ==
LOC: M ED 15:34 → M ED INP 22:33 → ENRESERV 23:08 → M PCU 07-03 00:24
PROVIDERS: ADMIT Internal Medicine; ATTEND Internal Medicine
DX: R11.2 Nausea with vomiting, unspecified (principal); I24.1 Dressler's syndrome; K21.9 Gastro-esophageal reflux disease without esophagitis; E03.9 Hypothyroidism, unspecified; I10 Essential (primary) hypertension; I25.10 Atherosclerotic heart disease of native coronary artery without angina pectoris; E86.0 Dehydration; Z95.1 Presence of aortocoronary bypass graft; M06.9 Rheumatoid arthritis, unspecified; Z93.2 Ileostomy status; Z79.82 Long term (current) use of aspirin; Z79.899 Other long term (current) drug therapy; Z91.013 Allergy to seafood; Z88.2 Allergy status to sulfonamides; Z88.5 Allergy status to narcotic agent; K57.30 Diverticulosis of large intestine without perforation or abscess without bleeding

== ENCOUNTER → 2020-07-10 | Outpatient (REF) | payer MEDICARE, MEDICAID ==
[~2020-07-10] MED LIST changes: +ACET1TAB55 PO; +CALC500T44 PO; +CHOL4PW PO; +LOMO2.5T PO; +META28.32 PO; +ONDA-195 PO; +PRED5TA PO; +PROM25TA22 PO
[2020-07-11 11:44] LABS: HEMATOCRIT 36.3 % (36.0-47.0); HEMOGLOBIN 11.4 g/dl (12.0-15.5); MEAN CORPUSCULAR HEMOGLOBIN 29.8 pg (27.0-33.0); MEAN CORPUSCULAR HGB CONC 31.4 g/dl (32.0-36.5); PLATELET COUNT, AUTOMATED 238 10^3/uL (150-450); RED BLOOD COUNT 3.82 10^6/uL (4.00-5.40); WHITE BLOOD COUNT 9.5 10^3/uL (4.0-10.0)
[2020-07-11 12:16] LABS: ALBUMIN 4.2 GM/DL (3.2-5.2); BILIRUBIN,TOTAL 0.3 MG/DL (0.2-1.0); CALCIUM LEVEL 9.9 MG/DL (8.8-10.2); CREATININE FOR GFR 1.33 MG/DL (0.55-1.30); GLOMERULAR FILTRATION RATE 43.3 (>45); POTASSIUM SERUM 4.8 MEQ/L (3.5-5.1); THYROID STIMULATING HORMONE 1.87 uIU/ML (0.358-3.740); TOTAL PROTEIN 7.9 GM/DL (6.4-8.2)
== END ==
LOC: M SFHCCLAY 14:57
PROVIDERS: ATTEND Family Medicine
DX: K57.92 Diverticulitis of intestine, part unspecified, without perforation or abscess without bleeding (principal); D64.9 Anemia, unspecified; E03.9 Hypothyroidism, unspecified
CPT/HCPCS: 80053; 84443; 85027; G0463

== ENCOUNTER 2020-07-23 10:28 | Inpatient (IN) | payer MEDICARE, MEDICAID ==
[~2020-07-23] VITALS: Ht 157.5 cm; Wt 62.8 kg
[~2020-07-23 10:28] MED LIST changes: -ACET1TAB55 PO; -CHOL4PW PO; -PRED5TA PO
[2020-07-23] MEDS ORDERED: NS 1,000 ML IV ONE (11:45)
--- NOTE | 2020-07-23 11:46 | REP ---
INDICATION: CHEST PAIN COMPARISON: 06/05/2020 TECHNIQUE: Portable AP view of the chest FINDINGS: The mediastinum and cardiac silhouette are stable and within normal limits for portable technique. The lung eli are clear without acute consolidation, effusion, or pneumothorax. Skeletal structures are intact. IMPRESSION: No acute cardiopulmonary process appreciated. <Electronically signed by Serafin Snyder > 07/23/20 [id number]
[2020-07-23 12:18] LABS: BASO # 0.1 10^3/uL (0.0-0.2); BASO % 0.6 % (0.0-1.0); EOS # 0.1 10^3/uL (0.0-0.5); EOS % 0.9 % (0.0-3.0); HEMATOCRIT 38.8 % (36.0-47.0); HEMOGLOBIN 12.8 g/dl (12.0-15.5); LYMPH # 1.3 10^3/uL (1.5-5.0); LYMPH % 16.5 % (24.0-44.0); MEAN CORPUSCULAR HEMOGLOBIN 29.4 pg (27.0-33.0); MEAN CORPUSCULAR VOLUME 89.2 fl (80.0-96.0); MONO # 0.4 10^3/uL (0.0-0.8); MONO % 5.5 % (0.0-5.0); NEUTROPHILS # 5.8 10^3/uL (1.5-8.5); NEUTROPHILS % 75.9 % (36.0-66.0); PLATELET COUNT, AUTOMATED 447 10^3/uL (150-450); RED BLOOD COUNT 4.35 10^6/uL (4.00-5.40); WHITE BLOOD COUNT 7.7 10^3/uL (4.0-10.0)
[2020-07-23 12:29] LABS: INR 1.02; PROTHROMBIN TIME 13.6 SECONDS (12.5-14.3)
[2020-07-23 12:30] LABS: PARTIAL THROMBOPLASTIN TIME 24.4 SECONDS (24.2-38.5)
[2020-07-23] MEDS ORDERED: PRED5TA PO (12:49)
[2020-07-23 12:58] LABS: ALBUMIN 4.5 GM/DL (3.2-5.2); BILIRUBIN,DIRECT 0.1 MG/DL (0.0-0.2); BILIRUBIN,TOTAL 0.4 MG/DL (0.2-1.0); FREE T4 1.13 NG/DL (0.76-1.46); THYROID STIMULATING HORMONE 3.1 uIU/ML (0.358-3.740); TOTAL PROTEIN 8.7 GM/DL (6.4-8.2)
--- NOTE | 2020-07-23 13:55 | HPEPDOC ---
[facility] Medical History & Physical Date of Admission Jul 23, 2020 Date of Service: Jul 23, 2020 History and Physical CHIEF COMPLAINT: weakness HISTORY OF PRESENT ILLNESS: 59-year-old female past medical history of CAD status post CABG, rheumatoid arthritis, hypertension, hypothyroidism, colon surgery with diverting ileostomy due to anastomosis leak presents to the emergency department with ongoing and progressive weakness, nausea and dry heaving that has gotten worse over the past 1-2 weeks. She generally she is unable to tolerate most solids and fluids and feels she is very dehydrated and gets dizzy when she walks around the room. She denies any abdominal pain and says her ileostomy bag has been working well. She denies any chest pain, or shortness of breath. She tells me she saw her surgeon Dr. Peña in his clinic approximately 2 weeks ago and she was reassured that she is recovering well from her surgery. She also saw her primary care doctor who suggested she does the emergency department due not being able to tolerate much by mouth and may be dehydrated. In the emergency department patient was started on IV fluids and will be admitted to the medical service for management of dehydration, nausea and vomiting. PAST MEDICAL HISTORY: 1. Rheumatoid arthritis. 2. Coronary artery disease status post CABG. 3. Hypertension. 4. Hypothyroidism 5. Funmi's syndrome 6. Diverticulitis PAST SURGICAL HISTORY: 1. CABG in 2007. 2. Hysterectomy. 3. Previous . 4. Right ankle surgery 5. Colon resection 6. Colon surgery with diverting ileostomy due to anastomosis leak SOCIAL HISTORY: Denies alcohol use Denies tobacco use Denies illicit drug use Patient lives at home with her . FAMILY HISTORY: Brother CAD Sister RA ALLERGIES: Please see below. REVIEW OF SYSTEMS: 10 point review of systems complete all negative otherwise stated in HPI HOME MEDICATIONS: Please see below. PHYSICAL EXAMINATION: Constitutional: Awake and alert, in no apparent distress ENT: Sclera are clear. Mucosa is moist. Respiratory: Lungs CTA bilaterally. No respiratory distress. No use of accessory muscles. Cardiovascular: RRR S1 and S2 are normal, no murmur Gastrointestinal: Abdomen is soft, non distended, non tender, BS present. R ileostomy bag. Musculoskeletal: No edema. No joint deformities. RUE 5/5, LUE 5/5, BLE 5/5 Neurologic: No focal neurological deficit. Mental Status: A&O x3, normal affect Skin: Warm, dry LABORATORY DATA: See below. IMAGIN07/23/2020 CXR: No acute cardiopulmonary process MICROBIOLOGY: Please see below. ASSESSMENT/PLAN 59-year-old female past medical history of CAD status post CABG, rheumatoid arthritis, hypertension, hypothyroidism, colon surgery with diverting ileostomy due to anastomosis leak presents to the emergency department with ongoing and progressive weakness, nausea and dry heaving that has gotten worse over the past 1-2 weeks. # Dehydration: poor PO intake. Decreased appetite to solids and liquids. Nutritional evaluation. Advance diet at tolerated. Reglan scheduled, Zofran PRN. n/v. IVFs. # ALMITA: Cr 1.67 on admit. IVFs. Avoid nephrotoxins. Trend Creatine. # Hyponatremia: Na 126 on admit. NS. Trend BMP. # Hyperkalemia: k 5.5 on admit. IVFs. kayexelate. # Recent Hx Abdominal abscess: Followed up with surgery in clinic. Repeat CT abdomen imaging reviewed by Dr Owens shows improvement to prior. Currently no abdominal pain. Febrile. No leukocytosis. # s/p Diverting ileostomy: dressing changes. # Hypertension: continue home meds Isosorbide mononitrate, Carvedilol. Monitor and titrate. # CAD s/p CABG: ASA, statin. # Rheumatoid arthritis: resume methotrexate if LFTs are ok. # Hypothyroidism: Levothyroxine # GERD: Omeprazole # DVT prophylaxis: Heparin A Yousef Hospitalist Vital Signs Vital Signs Date Time Temp Pulse Resp B/P (MAP) Pulse Ox O2 Delivery O2 Flow Rate FiO2 07/23/20 12:39 80 148/66 (93) 97 132/60 (84) 112 106/66 (79) 07/23/20 10:29 97.5 18 99 Room Air Laboratory Data Labs 24H Laboratory Tests 2 07/23/20 12:01: Immature Granulocyte % (Auto) 0.6, Neutrophils (%) (Auto) 75.9H, Lymphocytes (%) (Auto) 16.5L, Monocytes (%) (Auto) 5.5H, Eosinophils (%) (Auto) 0.9, Basophils (%) (Auto) 0.6, Neutrophils # (Auto) 5.8, Lymphocytes # (Auto) 1.3L, Monocytes # (Auto) 0.4, Eosinophils # (Auto) 0.1, Basophils # (Auto) 0.1, Nucleated Red Blood Cells % (auto) 0.0, Prothrombin Time 13.6, Prothromb Time International Ratio 1.02, Activated Partial Thromboplast Time 24.4L, Total Bilirubin 0.4, Direct Bilirubin 0.1, Aspartate Amino Transf (AST/SGOT) 50H, Alanine Aminotransferase (ALT/SGPT) 88H, Alkaline Phosphatase 158H, Total Protein 8.7H, Albumin 4.5, Albumin/Globulin Ratio 1.1L, Lipase 295, Thyroid Stimulating Hormone (TSH) 3.100, Free Thyroxine 1.13 CBC/BMP Laboratory Tests 07/23/20 12:01 Microbiology Microbiology 07/23/20 Blood Culture, Received Pending 07/23/20 Blood Culture, Received Pending Home Medications Scheduled Aspirin (Aspirin EC) 81 Mg Tablet.dr, 81 MG PO DAILY Atorvastatin Calcium (Atorvastatin Calcium) 40 Mg Tab, 40 MG PO QHS Calcium Carbonate/Vitamin D3 (Calcium 500-Vit D3 200 Tablet) 1 Each Tablet, 1 TAB PO BID Cetirizine HCl (Cetirizine HCl) 10 Mg Tablet, 10 MG PO DAILY Cholecalciferol (Vitamin D3) (Vitamin D3) 1,000 Unit Tablet, 2,000 UNITS PO DAILY Clopidogrel Bisulfate (Clopidogrel) 75 Mg Tablet, 75 MG PO QHS Diphenoxylate HCl/Atropine (Lomotil 2.5-0.025 mg Tablet) 1 Each Tablet, 1 TAB PO QID Ezetimibe (Zetia) 10 Mg Tab, 10 MG PO QHS Folic Acid (Folic Acid) 1 Mg Tablet, 2 MG PO DAILY Isosorbide Mononitrate (Isosorbide Mononitrate ER) 60 Mg Tab.er.24h, 60 MG PO DAILY Levothyroxine Sodium (Synthroid) 25 Mcg Tablet, 25 MCG PO DAILY Methotrexate Sodium (Methotrexate) 2.5 Mg Tablet, 15 MG PO 1XWK DAY Multivitamins (Thera M Plus Tablet) 1 Each Tablet, 1 TAB PO DAILY Omeprazole (Omeprazole) 40 Mg Cap, 40 MG PO DAILY Potassium Chloride (Potassium Chloride) 10 Meq Tablet.er, 10 MEQ PO TID Psyllium Husk (with Sugar) (Metamucil Powder) 575 Gm Powder, 1 PKT PO BID Scheduled PRN Nitroglycerin (Nitrostat) 0.4 Mg Tab.subl, 0.4 MG SL NITRO PRN for CHEST PAIN Ondansetron HCl (Ondansetron HCl) 4 Mg Tablet, 4 MG PO QID PRN for NAUSEA Oxycodone HCl/Acetaminophen (Oxycodone-Acetaminophen 5-325) 1 Each Tablet, 1 TAB PO Q6H PRN for PAIN Prednisone (Prednisone) 5 Mg Tablet, 5 MG PO DAILY PRN for PERICARDITIS Promethazine HCl (Promethazine HCl) 25 Mg Tablet, 25 MG PO TID PRN for NAUSEA Tizanidine HCl (Tizanidine HCl) 4 Mg Tablet, 4 MG PO QHS PRN for MUSCLE SPASMS Allergies Coded Allergies: FISH (Verified Allergy, Severe, THROAT SWELLING, 07/02/20) Quinolones (Verified Allergy, Intermediate, hives, and Headache, 07/02/20) ciprofloxacin (Verified Allergy, Intermediate, swelling, rash, 07/02/20) Sulfa (Sulfonamide Antibiotics) (Verified Allergy, Mild, rash, 07/02/20) codeine (Verified Adverse Reaction, Mild, n/v, 07/02/20) CHARLES ACUNA MD Jul 23, 2020 13:28
[2020-07-23] MEDS ORDERED: MOM 30ML SUSPENSION UDC PO PRN (14:30)
[2020-07-23] MEDS ORDERED: ACETAMINOPHEN TAB 650MG DOSE (2X325MG) PO PRN (14:30)
[2020-07-23 15:03] LABS: CALCIUM LEVEL 10.6 MG/DL (8.8-10.2); CREATININE FOR GFR 1.67 MG/DL (0.55-1.30); GLOMERULAR FILTRATION RATE 33.3 (>45); POTASSIUM SERUM 5.5 MEQ/L (3.5-5.1)
[2020-07-23 15:20] VITALS: BP 134/74
[2020-07-23] MEDS ORDERED: PERCOCET 5MG/325MG TAB PO PRN (15:30)
[2020-07-23] MEDS ORDERED: ONDANSETRON 4MG/2ML VIAL IV PRN (15:30)
[2020-07-23] MEDS ORDERED: tiZANidine 4 MG TAB PO PRN (15:30)
[2020-07-23] MEDS ORDERED: predniSONE 5 MG TAB PO PRN (15:30)
[2020-07-23] MEDS: ASPIRIN 81 MG ENTERIC TAB PO SCH (16:03)
[2020-07-23] MEDS: FOLIC ACID 1 MG TAB PO SCH (16:04)
[2020-07-23] MEDS: METOCLOPRAMIDE INJ 10MG/2ML VIAL (J2765 PER 1) IV SCH ×2 (16:04→23:30)
[2020-07-23] MEDS: NS 1,000 ML IV SCH (16:04)
[2020-07-23] MEDS ORDERED: EZETIMIBE 10 MG TAB (ZETIA) PO SCH (21:00)
[2020-07-23] MEDS ORDERED: CLOPIDOGREL 75 MG TAB PO SCH (21:00)
[2020-07-23] MEDS ORDERED: ATORVASTATIN 20 MG TAB PO SCH (21:00)
[2020-07-23] MEDS: HEPARIN SOD (PORCINE) 5000UNITS/ML 1ML VIAL/SYRINGE SC SCH (21:03)
[2020-07-23 22:00] VITALS: BP 135/72
--- NOTE | 2020-07-23 22:07 | ECGEPIP ---
[facility] - ED Test Date: 2020-07-23 Pat Name: PATRICK WALSH Department: Room: - Gender: Female Computer System Technician: ADELIA : 1960 Requested By: Chris Shelley Order Number: [id number] Reading MD: Yung Lew Measurements Intervals [place] Rate: 76 P: 31 MO: 144 QRS: 10 QRSD: 83 T: 64 QT: 339 QTc: 383 Interpretive Statements SINUS RHYTHM WITH SINUS ARRHYTHMIA NSTTW ABNORMALITY(S) BASELINE ARTIFACT AFFECTS INTERPRETATION SIMILAR TO 07/02/20 Electronically Signed on 07-23-2020 22:06:37 EST by Yung Lew
[2020-07-24] MEDS: NS 1,000 ML IV SCH ×2 (01:50→09:33)
[2020-07-24] MEDS: HEPARIN SOD (PORCINE) 5000UNITS/ML 1ML VIAL/SYRINGE SC SCH (05:35)
[2020-07-24 06:00] VITALS: BP 113/60
[2020-07-24] MEDS ORDERED: LEVOTHYROXINE 25MCG TABLET (0.025MG) PO SCH (06:00)
[2020-07-24 06:18] LABS: HEMATOCRIT 32.4 % (36.0-47.0); MEAN CORPUSCULAR HEMOGLOBIN 29.3 pg (27.0-33.0); MEAN CORPUSCULAR HGB CONC 31.8 g/dl (32.0-36.5); RED BLOOD COUNT 3.52 10^6/uL (4.00-5.40); WHITE BLOOD COUNT 5.7 10^3/uL (4.0-10.0)
[2020-07-24 06:30] LABS: HEMOGLOBIN 10.3 g/dl (12.0-15.5); PLATELET COUNT, AUTOMATED 310 10^3/uL (150-450)
[2020-07-24 06:40] LABS: ALBUMIN 3.3 GM/DL (3.2-5.2); BILIRUBIN,TOTAL 0.5 MG/DL (0.2-1.0); CALCIUM LEVEL 8.8 MG/DL (8.8-10.2); CREATININE FOR GFR 1.17 MG/DL (0.55-1.30); GLOMERULAR FILTRATION RATE 50.2 (>45); MAGNESIUM LEVEL 1.9 MG/DL (1.8-2.4); POTASSIUM SERUM 4.1 MEQ/L (3.5-5.1); TOTAL PROTEIN 6.4 GM/DL (6.4-8.2)
[2020-07-24 09:00] VITALS: BP 101/54
[2020-07-24] MEDS ORDERED: ISOSORBIDE MON. (IMDUR) 60 MG XR TAB PO SCH (09:00)
[2020-07-24] MEDS ORDERED: OMEPRAZOLE 20 MG CAP PO SCH (09:00)
[2020-07-24] MEDS ORDERED: CHOLESTYRAMINE 4 GM PWD PKT PO SCH (09:00)
[2020-07-24] MEDS: METOCLOPRAMIDE INJ 10MG/2ML VIAL (J2765 PER 1) IV SCH (09:24)
[2020-07-24] MEDS: ASPIRIN 81 MG ENTERIC TAB PO SCH (09:24)
[2020-07-24] MEDS: FOLIC ACID 1 MG TAB PO SCH (09:29)
[2020-07-24] MEDS ORDERED: ACET1TAB55 PO (11:22)
[2020-07-24] MEDS ORDERED: CHOL4PW PO (11:22)
[2020-07-24] MEDS ORDERED: ONDA-195 PO (11:22)
--- NOTE | 2020-07-24 13:27 | DS.PDOC ---
Discharge Summary General Date of Admission Jul 23, 2020 at 14:26 Date of Discharge 07/24/20 Discharge Summary PROCEDURES PERFORMED DURING STAY: None ADMITTING DIAGNOSES: 1. Dehydration 2. ALMITA 3. Hyponatremia 4. Hyperkalemia 5. Hypertension 6. Recent diverting ileostomy 7. Recent hx of intraabdominal abscesses 8. RA 9. Hypothyroidism 10. GERD DISCHARGE DIAGNOSES: 1. Dehydration 2. ALMITA 3. Hyponatremia 4. Hyperkalemia 5. Hypertension 6. Recent diverting ileostomy 7. Recent hx of intraabdominal abscesses 8. RA 9. Hypothyroidism 10. GERD COMPLICATIONS/CHIEF COMPLAINT: Dehydration/Hyponatremia. HISTORY OF PRESENT ILLNESS: 59-year-old female past medical history of CAD status post CABG, rheumatoid arthritis, hypertension, hypothyroidism, colon surgery with diverting ileostomy due to anastomosis leak presents to the emergency department with ongoing and progressive weakness, nausea and dry heaving that has gotten worse over the past 1-2 weeks. She generally she is unable to tolerate most solids and fluids and feels she is very dehydrated and gets dizzy when she walks around the room. She denies any abdominal pain and says her ileostomy bag has been working well. She denies any chest pain, or shortness of breath. She tells me she saw her surgeon Dr. Peña in his clinic approximately 2 weeks ago and she was reassured that she is recovering well from her surgery. She also saw her primary care doctor who suggested she does the emergency department due not being able to tolerate much by mouth and may be dehydrated. In the emergency department patient was started on IV fluids and will be admitted to the medical service for management of dehydration, nausea and vomiting. HOSPITAL COURSE: # Dehydration: PO intake improved, tolerating mech soft diet. Nausea improved with zofran. Spoke to Dr. Peña, does not believe the nausea to be related to surgical issue. Added cholestyramine to med regimen, he will see patient in clinic. # ALMITA: resolved with IVF # Hyponatremia: Resolved with IVF, Na 135. # Hyperkalemia: k 5.5 on admit, resolved, K 4.1 on DC. # Recent Hx Abdominal abscess: Followed up with surgery in clinic. Repeat CT abdomen imaging reviewed by Dr Owens shows improvement to prior. Currently no abdominal pain. Afebrile. No leukocytosis. # Anemia: dilutional, no signs of bleeding # s/p Diverting ileostomy: dressing changes. # Hypertension: Isosorbide mononitrate, Carvedilol. # CAD s/p CABG: ASA, statin. # Rheumatoid arthritis: methotrexate # Hypothyroidism: Levothyroxine # GERD: Omeprazole # DVT prophylaxis: Heparin DISCHARGE MEDICATIONS: Please see below. ALLERGIES: Please see below. PHYSICAL EXAMINATION ON DISCHARGE: VITAL SIGNS: Please see below. Constitutional: Awake and alert, in no apparent distress ENT: Sclera are clear. Mucosa is moist. Respiratory: Lungs CTA bilaterally. No respiratory distress. No use of accessory muscles. Cardiovascular: RRR S1 and S2 are normal, no murmur Gastrointestinal: Abdomen is soft, non distended, non tender, BS present. R ileostomy bag. Musculoskeletal: No edema. No joint deformities. RUE 5/5, LUE 5/5, BLE 5/5 Neurologic: No focal neurological deficit. Mental Status: A&O x3, normal affect Skin: Warm, dry LABORATORY DATA: Please see below. IMAGING: CXR (07/23/20): FINDINGS: The mediastinum and cardiac silhouette are stable and within normal limits for portable technique. The lung eli are clear without acute consolidation, effusion, or pneumothorax. Skeletal structures are intact. IMPRESSION: No acute cardiopulmonary process appreciated. PROGNOSIS: good ACTIVITY: [As tolerated]. DIET: [facility] soft DISCHARGE PLAN: home with close PCP and general surgery follow up. Cholestyrami ne added to assist in reduction of ileostomy output DISCHARGE INSTRUCTIONS: [facility] will see you for resumption of care. ([phone]) PLEASE FOLLOW UP WITH YOUR PRIMARY CARE DOCTOR WITHIN 2-3 DAYS PLEASE FOLLOW UP WITH DR. PEÑA WITHIN 1 WEEK PLEASE TAKE YOUR MEDICATIONS PRESCRIBED IF YOU DEVELOP CHEST PAIN, SHORTNESS OF BREATH, FEVERS, CHILLS, BLEEDING OR OTHERWISE WORSENING of YOUR SYMPTOMS, PLEASE CALL 911 OR RETURN TO THE EMERGENCY DEPARTMENT. ITEMS TO FOLLOWUP ON ON OUTPATIENT: 1. Repeat BMP DISCHARGE CONDITION: Stable TIME SPENT ON DISCHARGE: 35 minutes Vital Signs/I&Os Vital Signs Date Time Temp Pulse Resp B/P (MAP) Pulse Ox O2 Delivery O2 Flow Rate FiO2 07/24/20 09:00 101/54 07/24/20 06:00 98.4 83 18 98 Room Air I&O- Last 24 Hours up to 6 AM 07/24/20 06:00 Intake Total 1860 ml Output Total 1900 ml Balance -40 ml Laboratory Data Labs 24H Laboratory Tests 2 07/23/20 13:43: Coronavirus (COVID-19)(PCR) NEGATIVE 07/23/20 23:15: Urine Color YELLOW, Urine Appearance CLEAR, Urine pH 5.0, Urine Specific [place] 1.010, Urine Protein NEGATIVE, Urine Glucose (UA) NEGATIVE, Urine Ketones NEGATIVE, Urine Blood NEGATIVE, Urine Nitrite NEGATIVE, Urine Bilirubin NEGATIVE, Urine Urobilinogen 0.2, Urine Leukocyte Esterase NEGATIVE, Urine WBC (Auto) 2, Urine RBC (Auto) 1, Urine Hyaline Casts (Auto) 9, Urine Bacteria (Auto) NEGATIVE, Urine Squamous Epithelial Cells 1, Urine Sperm (Auto) 07/24/20 05:40: Nucleated Red Blood Cells % (auto) 0.0, Anion Gap 10, Glomerular Filtration Rate 50.2, Calcium Level 8.8#, Magnesium Level 1.9, Total Bilirubin 0.5, Aspartate Amino Transf (AST/SGOT) 39H, Alanine Aminotransferase (ALT/SGPT) 69, Alkaline Phosphatase 113, Total Protein 6.4#, Albumin 3.3#, Albumin/Globulin Ratio 1.1L 07/24/20 10:19: Lab Scanned Report Miscellaneous Lab CBC/BMP Laboratory Tests 07/24/20 05:40 Microbiology Microbiology 07/23/20 Blood Culture, Received Pending 07/23/20 Blood Culture - Preliminary, Resulted No growth after 24 hours . All specim... Discharge Medications Scheduled Aspirin (Aspirin EC) 81 Mg Tablet.dr, 81 MG PO DAILY, (Reported) Atorvastatin Calcium (Atorvastatin Calcium) 40 Mg Tab, 40 MG PO QHS, (Reported) Calcium Carbonate/Vitamin D3 (Calcium 500-Vit D3 200 Tablet) 1 Each Tablet, 1 TAB PO BID, (Reported) Cetirizine HCl (Cetirizine HCl) 10 Mg Tablet, 10 MG PO DAILY, (Reported) Cholecalciferol (Vitamin D3) (Vitamin D3) 1,000 Unit Tablet, 2,000 UNITS PO DAILY, (Reported) Cholestyramine (Cholestyramine Packet) 4 Gm Powd.pack, 2 GM PO BID Clopidogrel Bisulfate (Clopidogrel) 75 Mg Tablet, 75 MG PO QHS, (Reported) Diphenoxylate HCl/Atropine (Lomotil 2.5-0.025 mg Tablet) 1 Each Tablet, 1 TAB PO QID, (Reported) Ezetimibe (Zetia) 10 Mg Tab, 10 MG PO QHS, (Reported) Folic Acid (Folic Acid) 1 Mg Tablet, 2 MG PO DAILY, (Reported) Isosorbide Mononitrate (Isosorbide Mononitrate ER) 60 Mg Tab.er.24h, 60 MG PO DAILY, (Reported) Levothyroxine Sodium (Synthroid) 25 Mcg Tablet, 25 MCG PO DAILY, (Reported) Methotrexate Sodium (Methotrexate) 2.5 Mg Tablet, 15 MG PO 1XWK, (Reported) THURSDAY Multivitamins (Thera M Plus Tablet) 1 Each Tablet, 1 TAB PO DAILY, (Reported) Omeprazole (Omeprazole) 40 Mg Cap, 40 MG PO DAILY, (Reported) Potassium Chloride (Potassium Chloride) 10 Meq Tablet.er, 10 MEQ PO TID, (Reported) Psyllium Husk (with Sugar) (Metamucil Powder) 575 Gm Powder, 1 PKT PO BID, (Reported) Scheduled PRN Acetaminophen (Acetaminophen) 325 Mg Tablet, 650 MG PO Q6HP PRN for PAIN OR FEVER Nitroglycerin (Nitrostat) 0.4 Mg Tab.subl, 0.4 MG SL NITRO PRN for CHEST PAIN, (Reported) Ondansetron HCl (Ondansetron HCl) 4 Mg Tablet, 4 MG PO QID PRN for NAUSEA Oxycodone HCl/Acetaminophen (Oxycodone-Acetaminophen 5-325) 1 Each Tablet, 1 TAB PO Q6H PRN for PAIN, (Reported) Prednisone (Prednisone) 5 Mg Tablet, 5 MG PO DAILY PRN for PERICARDITIS, (Reported) Promethazine HCl (Promethazine HCl) 25 Mg Tablet, 25 MG PO TID PRN for NAUSEA, (Reported) Tizanidine HCl (Tizanidine HCl) 4 Mg Tablet, 4 MG PO QHS PRN for MUSCLE SPASMS, (Reported) Allergies Coded Allergies: FISH (Verified Allergy, Severe, THROAT SWELLING, 07/02/20) Quinolones (Verified Allergy, Intermediate, hives, and Headache, 07/02/20) ciprofloxacin (Verified Allergy, Intermediate, swelling, rash, 07/02/20) Sulfa (Sulfonamide Antibiotics) (Verified Allergy, Mild, rash, 07/02/20) codeine (Verified Adverse Reaction, Mild, n/v, 07/02/20) DARLENE HOBBS MD Jul 24, 2020 13:27
== END 2020-07-24 13:38 | disposition home health service (06) | DRG 641 ==
LOC: M ED 10:28 → EDBEDREQSVC 13:06 → M ED INP 14:26 → ENRESERV 14:57 → M MSPAV 15:24
PROVIDERS: ADMIT Family Medicine; ATTEND Family Medicine
DX: E86.0 Dehydration (principal); N17.9 Acute kidney failure, unspecified; E87.6 Hypokalemia; E03.9 Hypothyroidism, unspecified; K21.9 Gastro-esophageal reflux disease without esophagitis; M06.9 Rheumatoid arthritis, unspecified; E87.5 Hyperkalemia; I10 Essential (primary) hypertension; I25.10 Atherosclerotic heart disease of native coronary artery without angina pectoris; Z93.2 Ileostomy status; Z79.82 Long term (current) use of aspirin; Z79.899 Other long term (current) drug therapy; Z88.2 Allergy status to sulfonamides; Z88.5 Allergy status to narcotic agent; Z88.8 Allergy status to other drugs, medicaments and biological substances; Z91.013 Allergy to seafood; K57.30 Diverticulosis of large intestine without perforation or abscess without bleeding

== ENCOUNTER → 2020-08-10 | Outpatient (REF) | payer MEDICARE, MEDICAID ==
[~2020-08-10] MED LIST changes: +ACET1TAB55 PO; +CHOL4PW PO; +PRED5TA PO
[2020-08-10 15:54] LABS: ALBUMIN 3.8 GM/DL (3.2-5.2); BILIRUBIN,TOTAL 0.3 MG/DL (0.2-1.0); CALCIUM LEVEL 9.3 MG/DL (8.8-10.2); CREATININE FOR GFR 1.29 MG/DL (0.55-1.30); GLOMERULAR FILTRATION RATE 44.9 (>45); TOTAL PROTEIN 6.8 GM/DL (6.4-8.2)
== END ==
LOC: M SFHCCLAY 10:10
PROVIDERS: ATTEND Family Medicine
DX: I25.10 Atherosclerotic heart disease of native coronary artery without angina pectoris (principal); R11.0 Nausea

== ENCOUNTER → 2020-09-14 | Outpatient (CLI) | payer MEDICARE, MEDICAID ==
[~2020-09-14] MED LIST changes: +HYDR-3490 PO; -HYDR25TAB PO; +ISOS1TAB36 PO; -ISOS60TA2 PO; +LIQUID POLIBAR PLUS 105% w/v 1900ML BTL As Ordered ONE; -LISI-542 PO; +LISI-898 PO; +LISI10TA22 PO; -LISI10TA4 PO
--- NOTE | 2020-09-14 17:52 | REP ---
INDICATION: DVTRCLI OF LG INT W/O PERFORATION OR ABSCESS W/O BLEEDING. COMPARISON: None TECHNIQUE: The procedure was performed by Carmina Serrano [facility], under the direct supervision of Dr. Fuller. The images were reviewed with Dr. Dr. Fuller. Liquid barium was instilled into the colon and retrograde flow of the barium air mixture. FINDINGS: The bookkeeping machine operator film shows no organomegaly, or pathological masses. The intestinal gas pattern is unremarkable. The colon is normal in position and contour. Postradiation bulla is unremarkable throughout. There is free flow of contrast to the cecum. The appendix is visualized. There is reflux into the terminal ileum. The colonic mucosal pattern is normal in course and caliber. Multiple diverticulum are visualized in the descending colon. There is a surgical diverticulum in the retro sigmoid colon in the region of the surgical anastomosis. Retained stool was visualized throughout the colon as well. . IMPRESSION: 1. Multiple diverticula of the descending and sigmoid colon. 2. Surgical diverticulum in the retrosigmoid, in the region of the surgical anastomosis. 3. Retained stool is visualized in the colon. 0.5 minutes of fluoroscopy time was utilized for this procedure. Some fluoroscopic images are performed with last image hold technology. These images require no additional radiation <Electronically signed by Carmina Serrano > 09/14/20 [id number] <Electronically signed by Guerrero Fuller > 09/14/20 [id number]
== END ==
LOC: M RAD 10:02
PROVIDERS: ATTEND Surgery
DX: K57.32 Diverticulitis of large intestine without perforation or abscess without bleeding (principal)

== ENCOUNTER → 2020-10-09 | Outpatient (REF) | payer MEDICARE, MEDICAID ==
[~2020-10-09] MED LIST changes: -LIQUID POLIBAR PLUS 105% w/v 1900ML BTL As Ordered ONE
[2020-10-09 16:23] LABS: BASO # 0.1 10^3/uL (0.0-0.2); BASO % 1.2 % (0.0-1.0); EOS # 0.2 10^3/uL (0.0-0.5); EOS % 2.5 % (0.0-3.0); HEMATOCRIT 37.4 % (36.0-47.0); HEMOGLOBIN 11.9 g/dl (12.0-15.5); LYMPH # 1.9 10^3/uL (1.5-5.0); LYMPH % 25.7 % (24.0-44.0); MEAN CORPUSCULAR HGB CONC 31.8 g/dl (32.0-36.5); MEAN CORPUSCULAR VOLUME 94.2 fl (80.0-96.0); MONO # 0.5 10^3/uL (0.0-0.8); MONO % 6.5 % (0.0-5.0); NEUTROPHILS # 4.8 10^3/uL (1.5-8.5); NEUTROPHILS % 63.4 % (36.0-66.0); PLATELET COUNT, AUTOMATED 417 10^3/uL (150-450); RED BLOOD COUNT 3.97 10^6/uL (4.00-5.40); WHITE BLOOD COUNT 7.5 10^3/uL (4.0-10.0)
[2020-10-09 16:44] LABS: CREATININE FOR GFR 1.71 MG/DL (0.55-1.30); GLOMERULAR FILTRATION RATE 32.3 (>45); POTASSIUM SERUM 4.4 MEQ/L (3.5-5.1)
[2020-10-09 16:45] LABS: BILIRUBIN,TOTAL 0.5 MG/DL (0.2-1.0); CALCIUM LEVEL 9.3 MG/DL (8.8-10.2); CHOLESTEROL RISK RATIO 2.565 (<5); FREE T4 0.95 NG/DL (0.76-1.46); THYROID STIMULATING HORMONE 3.66 uIU/ML (0.358-3.740); TOTAL PROTEIN 7.7 GM/DL (6.4-8.2)
[2020-10-09 17:30] LABS: ERYTHROCYTE SEDIMENTATION RATE 27 mm/hr (0-30)
== END ==
LOC: M SFHCCLAY 10:38
PROVIDERS: ATTEND Family Medicine
DX: M06.4 Inflammatory polyarthropathy (principal); Z93.2 Ileostomy status; M06.9 Rheumatoid arthritis, unspecified; I25.10 Atherosclerotic heart disease of native coronary artery without angina pectoris; E07.9 Disorder of thyroid, unspecified

== ENCOUNTER → 2020-10-18 | Outpatient (CLI) | payer MEDICARE, MEDICAID | LOC: M LABSMTC 13:26 | PROVIDERS: ATTEND Surgery | DX: Z20.822 Contact with and (suspected) exposure to COVID-19 (principal) ==

== ENCOUNTER → 2020-10-26 | Outpatient (REF) | payer MEDICARE, MEDICAID ==
[2020-10-26 11:53] LABS: HEMATOCRIT 32.8 % (36.0-47.0); HEMOGLOBIN 10.1 g/dl (12.0-15.5); MEAN CORPUSCULAR HEMOGLOBIN 29.4 pg (27.0-33.0); MEAN CORPUSCULAR HGB CONC 30.8 g/dl (32.0-36.5); MEAN CORPUSCULAR VOLUME 95.3 fl (80.0-96.0); PLATELET COUNT, AUTOMATED 287 10^3/uL (150-450); RED BLOOD COUNT 3.44 10^6/uL (4.00-5.40); WHITE BLOOD COUNT 7.7 10^3/uL (4.0-10.0)
[2020-10-26 12:31] LABS: CALCIUM LEVEL 9.5 MG/DL (8.8-10.2); CREATININE FOR GFR 1.2 MG/DL (0.55-1.30); GLOMERULAR FILTRATION RATE 48.6 (>45); POTASSIUM SERUM 4.2 MEQ/L (3.5-5.1)
== END ==
LOC: M SFHCCLAY 08:53
PROVIDERS: ATTEND Family Medicine
DX: I10 Essential (primary) hypertension (principal)

== ENCOUNTER 2020-11-23 15:50 | Inpatient (IN) | payer MEDICARE, MEDICAID ==
[~2020-11-23] VITALS: Ht 157.5 cm; Wt 59.1 kg
[2020-11-23] MEDS ORDERED: LEVO25TA5 PO (16:24)
[2020-11-23] MEDS ORDERED: CVS1CHW13 PO (16:24)
--- NOTE | 2020-11-23 16:56 | REP ---
INDICATION: CHEST PAIN. COMPARISON: 07/23/2020. TECHNIQUE: SINGLE PORTABLE AP VIEW OF THE CHEST WAS PERFORMED. FINDINGS: THERE IS NO ACUTE INFILTRATE OR PULMONARY EDEMA. LUNGS ARE CLEAR. HEART IS NOT SIGNIFICANTLY ENLARGED. MEDIASTINAL SILHOUETTE IS UNREMARKABLE. THE VISUALIZED OSSEOUS STRUCTURES ARE INTACT.Metallic clips are again seen in the left chest wall. IMPRESSION: NO ACUTE PULMONARY DISEASE. <Electronically signed by Guerrero Fuller > 11/23/20 [id number]
[2020-11-23] MEDS: MORPHINE 2 MG/ML 1ML VIAL (J2270) IV PRN ×3 (17:15→21:41)
[2020-11-23 17:19] LABS: HEMOGLOBIN 10.9 g/dl (12.0-15.5); MEAN CORPUSCULAR HEMOGLOBIN 30.7 pg (27.0-33.0); MEAN CORPUSCULAR HGB CONC 32.1 g/dl (32.0-36.5); MEAN CORPUSCULAR VOLUME 95.8 fl (80.0-96.0); PLATELET COUNT, AUTOMATED 341 10^3/uL (150-450); RED BLOOD COUNT 3.55 10^6/uL (4.00-5.40); WHITE BLOOD COUNT 7.2 10^3/uL (4.0-10.0)
[2020-11-23 17:59] LABS: ANISOCYTOSIS 1+; ATYPICAL LYMPH 7 % (0-5); BASOPHILS 1 % (0-1); EOSINOPHILS 1 % (0-3); LYMPHOCYTES 23 % (16-44); METAMYELOCYTES 1 % (0-0); NEUTROPHILS 67 % (28-66); OVALOCYTES 1+; PLATELET ESTIMATE NORMAL (NORMAL); POIKILOCYTOSIS 1+
[2020-11-23 18:15] LABS: ALBUMIN 4.1 GM/DL (3.2-5.2); ALT/SGPT 42 U/L (12-78); BILIRUBIN,DIRECT < 0.1 MG/DL (0.0-0.2); BILIRUBIN,TOTAL 0.1 MG/DL (0.2-1.0); BLOOD UREA NITROGEN 27 MG/DL (7-18); CALCIUM LEVEL 9.1 MG/DL (8.8-10.2); CARBON DIOXIDE LEVEL 15 MEQ/L (21-32); CHLORIDE LEVEL 113 MEQ/L (98-107); CREATININE FOR GFR 1.83 MG/DL (0.55-1.30); GLOMERULAR FILTRATION RATE 29.9 (>45); GLUCOSE, FASTING 112 MG/DL (70-100); LIPASE 240 U/L (73-393); NT-PRO BNP 38 PG/ML (<125); POTASSIUM SERUM 4.4 MEQ/L (3.5-5.1); SODIUM LEVEL 138 MEQ/L (136-145); TOTAL PROTEIN 7.8 GM/DL (6.4-8.2)
[2020-11-23] MEDS ORDERED: NS 1,000 ML IV ONE (19:10)
--- NOTE | 2020-11-23 19:16 | REP ---
INDICATION: SOB; r/o DVT. COMPARISON: None. TECHNIQUE: Bilateral lower extremity duplex venous ultrasound. FINDINGS: The deep veins are anechoic and fully compressible from the groin to the popliteal fossa in the left lower extremity. Color flow imaging is homogeneous. Spectral Doppler interrogation demonstrates intact respiratory variation in flow and normal manual augmentation of flow. There is no evidence of deep vein thrombosis. 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 One of these femoral veins contains nonocclusive thrombus consistent with deep vein thrombosis. There is also a small focus of nonocclusive thrombosis in the popliteal vein on the right. Otherwise, the femoral vein and common femoral vein and popliteal vein segments are clear. IMPRESSION: Negative left lower extremity duplex venous ultrasound. No evidence of deep vein thrombosis. 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 <Electronically signed by Braden Obando > 11/23/201911
[2020-11-23] MEDS ORDERED: MAALOX 30 ML SUSP *UDC PO PRN (20:10)
[2020-11-23] MEDS ORDERED: ACETAMINOPHEN TAB 650MG DOSE (2X325MG) PO PRN (20:10)
[2020-11-23] MEDS ORDERED: MOM 30ML SUSPENSION UDC PO PRN (20:10)
--- NOTE | 2020-11-23 20:10 | HPEPDOC ---
[facility] Medical History & Physical Date of Admission Nov 23, 2020 Date of Service: Nov 23, 2020 Primary Care Physician: Gage Kumar MD Attending Physician: JAKY BENDER MD History and Physical TIME OF SERVICE: 1136pm CHIEF COMPLAINT: back pain HISTORY OF PRESENT ILLNESS: This 60 yr old F w a hx of RLE DVT that was managed with partial thrombolysis & DOAC, presented w c/o 8/10 in severity at its worst, left upper back pain that radiates to her chest and is made worse by taking deep breaths. The pain is persistent & begun suddenly. She denies having f/c/ or coughing blood. She has been having cramps in her legs, has not travelled recently but admits to being less active this winter. US confirmed the presence a right non-occlusive DVT but CTA couldnt be done bc of ALMITA. REVIEW OF SYSTEMS: 12-point review of systems negative except as listed in HPI PAST MEDICAL/ SURGICAL HISTORY: Rheumatoid arthritis RLE DVT that was managed with partial thrombolysis & DOAC Coronary artery disease status post CABG Hypertension. Hypothyroidism Funmi's syndrome Diverticulitis requiring partial colectomy with placement of temporary diverting ileostomy Tubal ligation Hysterectomy. Previous . Right ankle surgery SOCIAL HISTORY: Denies alcohol use Denies tobacco (quit) Denies illicit drug use Patient lives at home with her . FAMILY HISTORY: Brother CAD Sister RA Father HTN Cirrhosis Mother Cirrhosis ALLERGIES: Please see below. HOME MEDICATIONS: Please see below. PHYSICAL EXAMINATION: Vital Signs Date Time Temp Pulse Resp B/P (MAP) Pulse Ox O2 Delivery O2 Flow Rate FiO2 11/23/20 15:51 97.8 94 16 172/79 (110) 98 Room Air GENERAL APPEARANCE: HEENT: well nourished and developed / NAD CARDIOVASCULAR: RRR/NMRG LUNGS: CTAB on RA / not coughing ABDOMEN: MUSCULOSKELETAL: NCAT /KEVIN x 4 /c/o pain when I palpate her left calf INTEGUMENT: not cyanotic /not flushed NEUROLOGICAL:CN 2-12 grossly intact /speech not dysarthric PSYCHIATRIC: A&ox 3 / able to understand and follow all commands LABORATORY DATA: 11/23/20 17:08 IMAGING: Chest xray IMPRESSION: NO ACUTE PULMONARY DISEASE. BLE US IMPRESSION: Negative left lower extremity duplex venous ultrasound. No evidence of deep vein thrombosis. 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 MICROBIOLOGY: respiratory panel neg ASSESSMENT: is a 60 yr old w a hx of RA, RLE DVT, CAD/CABG, HTN, hypothyroidism, Dresslers, and multiple surgeries who presented w back pain that radiates to her chest and leg cramping; she will be admitted for ALMITA and evaluation of back/chest pain. PLAN: 1 ALMITA Plan: monitor UOP / IVF / f/u renal panel, CK, Ulytes for FENa or FEUrea / renal US / hold nephrotoxic drugs 2 Pleuritic back/chest pain Plan: telemetry / c/w DOAC pending VQ scan or CTA if ALMITA has resolved to r/o PE / DOAC failure / f/u serial trops / f/u repeat EKG / if work-up is neg day time team may consider contacting Cardio to discuss whether the CP may be a reoccurrence of pericarditis / Funmi's 3 N Anemia Plan: Iron studies & stool occult 4 Rheumatoid arthritis Plan: Methotrexate with Folic acid 5 RLE DVT Plan: Rivaroxaban 6 Coronary artery disease status post CABG Plan: Aspirin, Atorvastatin, Ezetimibe, Nitroglycerin, Isosorbide 7 Hypertension. Plan: start amlodipine 8 Hypothyroidism Plan: Levothyroxine DVT n/a on DOAC Dispo home after at least 2 midnights stay Home Medications Scheduled Aspirin (Aspirin EC) 81 Mg Tablet.dr, 81 MG PO DAILY Atorvastatin Calcium (Atorvastatin Calcium) 40 Mg Tab, 40 MG PO QHS Calcium Carbonate/Vitamin D3 (Calcium 500-Vit D3 200 Tablet) 1 Each Tablet, 1 TAB PO BID Cetirizine HCl (Cetirizine HCl) 10 Mg Tablet, 10 MG PO DAILY Cholecalciferol (Vitamin D3) (Vitamin D3) 1,000 Unit Tablet, 2,000 UNITS PO QHS Ezetimibe (Zetia) 10 Mg Tab, 10 MG PO QHS Folic Acid (Folic Acid) 0.4 Mg Tablet, 400 MCG PO BID Inulin (Fiber Gummies) 2 Gm Tab.chew, 1 TAB PO BID Isosorbide Mononitrate (Isosorbide Mononitrate ER) 60 Mg Tab.er.24h, 60 MG PO DAILY Levothyroxine Sodium (Levothyroxine Sodium) 25 Mcg Tablet, 25 MCG PO QAM Methotrexate Sodium (Methotrexate) 2.5 Mg Tablet, 15 MG PO 1XWK SATURDAY Multivitamins (Thera M Plus Tablet) 1 Each Tablet, 1 TAB PO DAILY Omeprazole (Omeprazole) 40 Mg Cap, 40 MG PO DAILY Potassium Chloride (Potassium Chloride) 10 Meq Tablet.er, 10 MEQ PO TID Rivaroxaban (Xarelto) 20 Mg Tablet, 20 MG PO QPM Scheduled PRN Acetaminophen (Acetaminophen) 500 Mg Tablet, 1,000 MG PO Q6H PRN for PAIN Nitroglycerin (Nitrostat) 0.4 Mg Tab.subl, 0.4 MG SL NITRO PRN for CHEST PAIN Oxycodone HCl/Acetaminophen (Oxycodone-Acetaminophen 5-325) 1 Each Tablet, 1 TAB PO Q6H PRN for PAIN Tizanidine HCl (Tizanidine HCl) 4 Mg Tablet, 4 MG PO QHS PRN for MUSCLE SPASMS Allergies Coded Allergies: FISH (Verified Allergy, Severe, THROAT SWELLING, 07/02/20) Quinolones (Verified Allergy, Intermediate, hives, and Headache, 07/02/20) ciprofloxacin (Verified Allergy, Intermediate, swelling, rash, 07/02/20) Sulfa (Sulfonamide Antibiotics) (Verified Allergy, Mild, rash, 07/02/20) codeine (Verified Adverse Reaction, Mild, n/v, 07/02/20) A-FIB/CHADSVASC A-FIB History Current/History of A-Fib/PAF?: No Current PO Anticoag Therapy: No JAKY BENDER MD Nov 23, 2020 20:10
[2020-11-23 20:44] LABS: FERRITIN 92 NG/ML (8-252); IRON (FE) 23 UG/DL (50-170); PERCENT SATURATION 6.7 % (13.2-45.0); TOTAL IRON BINDING CAPACITY 341 UG/DL (250-450)
[2020-11-23] MEDS ORDERED: FOLI400T13 PO (20:50)
[2020-11-23] MEDS ORDERED: ACET-683 PO (20:51)
[2020-11-23] MEDS ORDERED: XARE20TA PO (20:52)
[2020-11-23 20:53] LABS: FOLATE > 24.0 NG/ML; VITAMIN B12 LEVEL 616 PG/ML
[2020-11-23 21:37] LABS: RSV AMPLIFICATION NEGATIVE (NEGATIVE)
[2020-11-23] MEDS: NS 1,000 ML IV SCH (21:41)
--- NOTE | 2020-11-23 22:33 | ECGEPIP ---
[facility] - ED Test Date: 2020-11-23 Pat Name: PATRICK WALSH Department: Room: - Gender: Female Tax Appraiser: MARU : 1960 Requested By: SUMIT CUELLAR Order Number: [id number] Reading MD: Sumit Rivera Measurements Intervals [place] Rate: 72 P: 59 MT: 134 QRS: 14 QRSD: 70 T: 45 QT: 374 QTc: 409 Interpretive Statements Normal sinus rhythm Nonspecific ST-T wave abnormalities Similar to tracing done 07-23-20 Electronically Signed on 11-23-2020 22:33:06 EDT by Sumit Rivera
[2020-11-23 22:35] VITALS: BP 144/67
[2020-11-23 23:25] LABS: OSMOLALITY URINE 638 MOSM/KG (50-1400)
[2020-11-23 23:45] LABS: POTASSIUM RANDOM URINE 87.2 MEQ/L; SODIUM,RANDOM URINE < 10 MEQ/L; TOTAL PROTEIN,RANDOM URINE 70.4 MG/DL (0.0-12.0)
[2020-11-24] MEDS ORDERED: VITAMIN D 1,000 INTERNATIONAL UNITS TABLET PO SCH (00:20)
[2020-11-24] MEDS ORDERED: ATORVASTATIN 20 MG TAB PO SCH (00:20)
[2020-11-24] MEDS ORDERED: EZETIMIBE 10 MG TAB (ZETIA) PO SCH (00:20)
[2020-11-24] MEDS ORDERED: tiZANidine 4 MG TAB PO PRN (00:20)
[2020-11-24] MEDS ORDERED: NITROGLYCERIN 0.4 MG SUBL TABLET SL PRN (00:20)
[2020-11-24] MEDS: RIVAROXABAN 20 MG TAB (XARELTO) PO SCH ×2 (00:49→18:20)
[2020-11-24] MEDS: CALCIUM/VITAMIN D 500 MG TAB PO SCH ×2 (00:49→08:44)
[2020-11-24] MEDS: POTASSIUM CHLORIDE 10 MEQ SR TABLET PO SCH ×3 (00:49→16:34)
[2020-11-24] MEDS: PERCOCET 5MG/325MG TAB PO PRN ×3 (00:50→13:56)
[2020-11-24 06:00] VITALS: BP 101/57
[2020-11-24 06:28] LABS: HEMATOCRIT 32.1 % (36.0-47.0); HEMOGLOBIN 10.2 g/dl (12.0-15.5); MEAN CORPUSCULAR HEMOGLOBIN 30.4 pg (27.0-33.0); MEAN CORPUSCULAR HGB CONC 31.8 g/dl (32.0-36.5); MEAN CORPUSCULAR VOLUME 95.8 fl (80.0-96.0); PLATELET COUNT, AUTOMATED 305 10^3/uL (150-450); RED BLOOD COUNT 3.35 10^6/uL (4.00-5.40)
[2020-11-24 07:03] LABS: BLOOD UREA NITROGEN 19 MG/DL (7-18); CALCIUM LEVEL 8.5 MG/DL (8.8-10.2); CARBON DIOXIDE LEVEL 16 MEQ/L (21-32); CHLORIDE LEVEL 115 MEQ/L (98-107); CREATININE FOR GFR 1.49 MG/DL (0.55-1.30); GLOMERULAR FILTRATION RATE 37.9 (>45); GLUCOSE, FASTING 89 MG/DL (70-100); POTASSIUM SERUM 3.8 MEQ/L (3.5-5.1); SODIUM LEVEL 137 MEQ/L (136-145); TROPONIN I < 0.02 NG/ML (< 0.10)
[2020-11-24] MEDS: NS 1,000 ML IV SCH (07:47)
[2020-11-24] MEDS ORDERED: NS 1,000 ML IV ONE (08:00)
--- NOTE | 2020-11-24 08:40 | REP ---
INDICATION: ALMITA. COMPARISON: Comparison CT study July 02, 2020.. TECHNIQUE: Urinary tract sonography. FINDINGS: Scanning of the level of the urinary bladder shows no abnormality. The bladder is largely empty.. Renal cortical echogenicity pattern is normal bilaterally and contours are smooth. There is no evidence of hydronephrosis, cyst, mass, or calculus in either kidney. The right kidney measures 10.1 x 4.8 x 4.5 cm. Left renal dimensions are 9.3 x 4.2 x 3.4 cm. IMPRESSION: Normal urinary tract sonography. <Electronically signed by Braden Obando > 11/24/20 [id number]
[2020-11-24] MEDS ORDERED: METHOTREXATE 2.5 MG TAB (J8610 PER 2.5MG) PO SCH (09:00)
[2020-11-24] MEDS ORDERED: ISOSORBIDE MON. (IMDUR) 60 MG XR TAB PO SCH (09:00)
[2020-11-24] MEDS ORDERED: LEVOTHYROXINE 25MCG TABLET (0.025MG) PO SCH (09:00)
[2020-11-24] MEDS ORDERED: ASPIRIN 81MG ENTERIC TABLET PO SCH (09:00)
[2020-11-24] MEDS ORDERED: MULTIVITAMINS/MINERALS THERAP 1 TAB PO SCH (09:00)
[2020-11-24] MEDS ORDERED: FOLIC ACID 1 MG TAB PO SCH (09:00)
[2020-11-24] MEDS ORDERED: CETIRIZINE (ZyrTEC) 10 MG TAB PO SCH (09:00)
[2020-11-24 09:16] VITALS: BP 118/65
[2020-11-24 12:23] LABS: CALCIUM LEVEL 7.9 MG/DL (8.8-10.2); CREATININE FOR GFR 1.37 MG/DL (0.55-1.30); GLOMERULAR FILTRATION RATE 41.7 (>45); POTASSIUM SERUM 3.8 MEQ/L (3.5-5.1)
[2020-11-24] MEDS ORDERED: ISOVUE-370 76% 100ML VIAL As Ordered ONE (13:10)
--- NOTE | 2020-11-24 13:49 | REP ---
INDICATION: chest pain, recent dvt in feb, rule out PE.. COMPARISON: Comparison study is from June 05, 2020.. TECHNIQUE: Contrast dose: 75 ML of Isovue [address] technique: Helical scanning is acquired and overlapping 1.5 mm and contiguous 3 mm axial images are reformatted. In addition, maximum intensity projection and multiplanar re-formation images are generated in sagittal and coronal imaging projections. FINDINGS: There is good opacification in the pulmonary arterial tree. There is no evidence of vessel cut off or filling defect to suggest pulmonary embolus. Homogeneous opacity is seen in the thoracic aorta. There is no evidence of aneurysm or dissection. There is an aberrant right subclavian artery unchanged from the prior study. Great vessel origins are otherwise unremarkable. No pleural or pericardial effusion is seen. Lung window settings demonstrate the lung eli are essentially clear. No infiltrate, mass, or significant nodule is appreciated. No bony destructive lesion is seen. In the upper abdomen, normal adrenal glands are observed. There is a small low-density lesion in the left lobe of the liver unchanged from the June 05, 2020 study and is compatible with a cyst. The visualized upper abdominal structures are otherwise unremarkable. IMPRESSION: No CT evidence of pulmonary embolus. Aberrant right subclavian artery. Otherwise no active disease. <Electronically signed by Braden Obando > 11/24/20 [id number]
[2020-11-24 14:00] VITALS: BP 119/66
--- NOTE | 2020-11-24 17:45 | ECGEPIP ---
[facility] Test Date: 2020-11-24 Pat Name: PATRICK WALSH Department: Room: [place] [address] Gender: Female Icu Specialist: josue : 1960 Requested By: JAKY BENDER Order Number: [id number] Reading MD: Kane Arce Measurements Intervals [place] Rate: 64 P: 29 [place]: 148 QRS: 16 QRSD: 82 T: 50 QT: 422 QTc: 435 Interpretive Statements Normal sinus rhythm Early anterior R wave progression No significant change when compared to prior tracing of 11/23/2020 Electronically Signed on 11-24-2020 17:44:35 EDT by Kane Arce
[2020-11-24] MEDS ORDERED: PRED20TA PO (18:10)
[2020-11-24] MEDS ORDERED: D5W/0.9% SODIUM CHLORIDE 1,000 ML IV SCH (23:55)
--- NOTE | 2020-11-26 09:51 | ECHO ---
DATE OF PROCEDURE: 11/24/2020 Age: 60 Gender: Female Height: 158 cm Weight: 59 kg REFERRING PHYSICIAN: Mary Grace Dennis MD. INDICATION: Pericardial effusion. MEASUREMENTS: 2D Measurements: Aortic root 2.9 cm Left atrium 3.0 cm Intraventricular septum 1.0 cm Posterior wall 0.8 cm Left ventricle diastole 4.3 cm Inferior vena cava 1.5 cm (more than 50% respiratory variation). Doppler Measurements: Trace aortic regurgitation No aortic stenosis Aortic valve velocity 156 cm/s LVOT velocity 106 cm/s LVOT VTI 21.1 cm Very mild mitral regurgitation Mitral E velocity 85.9 cm/s Mitral A velocity 114 cm/s Mitral deceleration time 293 msec Very mild tricuspid regurgitation Estimated right ventricular systolic pressure 25 - 30mmHg Estimated right atrial pressure 5-10 mmHg Very mild pulmonic regurgitation Pulmonary artery acceleration time 115 msec MITRAL ANNULAR TISSUE DOPPLER E prime septal 7.4 cm/s, E prime lateral 9.7 cm/s DESCRIPTION: Rhythm was sinus. Image quality was adequate. This was a 2D, M- mode, color flow Doppler, and pulsed wave Doppler examination. CONCLUSIONS: 1. Very small pericardial effusion, which was circumferential measuring 0.44 cm over the posterior wall of the left ventricle and measuring 0.53 cm over the anterior wall of the right ventricle. No diastolic chamber collapse. No significant respiratory variation of intracardiac velocities. 2. Normal left ventricle internal dimensions and wall thickness. Normal regional LV wall motion and wall thickening. Normal LV systolic function. LVEF 55% by visual estimate. Grade 1 LV diastolic dysfunction (impaired relaxation filling pattern). 3. Otherwise normal appearing echocardiogram Doppler findings. Results of this study were relayed by telephone to Dr. Mary Grace Dennis. [facility]
--- NOTE | 2020-12-04 01:53 | DS.PDOC ---
Discharge Summary General Date of Admission Nov 23, 2020 at 20:39 Date of Discharge 11/24/20 Discharge Summary PROCEDURES PERFORMED DURING STAY: ECHO: 1. Very small pericardial effusion, which was circumferential measuring 0.44 cmover the posterior wall of the left ventricle and measuring 0.53 cm over the anterior wall of the right ventricle. No diastolic chamber collapse. No significant respiratory variation of intracardiac velocities. 2. Normal left ventricle internal dimensions and wall thickness. Normal regional LV wall motion and wall thickening. Normal LV systolic function. LVEF 55% by visual estimate. Grade 1 LV diastolic dysfunction (impaired relaxation filling pattern). 3. Otherwise normal appearing echocardiogram Doppler findings. DISCHARGE DIAGNOSES: Possible Pericarditis Flare of Funmi syndrome Pulmonary embolism ruled out ALMITA Non anion gap Metabolic acidosis from ileostomy losses DVT from Oct 2020 SECONDARY DIAGNOSIS: Rheumatoid arthritis RLE DVT that was managed with partial thrombolysis & DOAC Coronary artery disease status post CABG Hypertension. Hypothyroidism HLD Funmi's syndrome H/O Recurrent Sigmoid Diverticulitis s/p laparoscopic sigmoid colectomy in 05/2020 complicated by anastomotic leak 2 weeks post op requiring diverting ileostomy and wash out of the abdomen in 2019. COMPLICATIONS/CHIEF COMPLAINT: Chest Pain, Almita, Dvt. HOSPITAL COURSE: This 60 yr old F w a hx of Rheumatoid Arthritis,CAD/CABG, HTN, hypothyroidism, Dresslers syndrome, multiple surgeries, recent RLE DVT in Oct 2020 that was managed with partial thrombolysis & DOAC, presented w c/o 8/10 in severity at its worst, left upper back pain that radiates to her chest and is made worse by taking deep breaths. The pain is persistent & begun suddenly. She denies having f/c/ or coughing blood. She has been having cramps in her legs, has not travelled recently. She has had a prolonged hospitalization in May and May 2020 so has been less active this winter. She was found to have a RLE DVT in oct 2020. US here confirmed the presence a right non-occlusive DVT. It was felt that she may have a pulmonary embolism so was admitted for further evaluation. Initially CTA couldnt be done bc of ALMITA. She was hydrated and after her creatinine improved she was able to get a CTA of the chest which was negative for any pulmonary embolism. She also had an echo done as part of work up for chest pain and was found to have a very small pericardial effusion. With her history of Funmi syndrome her symptoms could be due to a flare of pericarditis. Though EKGs did not show any typical pattern suggestive of pericarditis. So she was given a short course of prednisone. She was continued on her other home medications as below. Chest pain possible pericarditis due to funmi syndrome flare vs musculoskeletal given prednisone. ALMITA with nonanion gap metabolic acidosis likely from excessive loss in the ileostomy improved with IVF Rheumatoid arthritis Methotrexate with Folic acid RLE DVT Rivaroxaban Coronary artery disease status post CABG Aspirin, Atorvastatin, Ezetimibe, Nitroglycerin, Isosorbide Hypertension. not on any meds HLD statin and ezetimibe Hypothyroidism Levothyroxine DISCHARGE MEDICATIONS: Please see below. ALLERGIES: Please see below. PHYSICAL EXAMINATION ON DISCHARGE: VITAL SIGNS: Please see below. GENERAL: Sitting up in bed in no distress. CARDIOVASCULAR: RRR/No Murmur or Rub or Gallop LUNGS: Clear to auscultation bilaterally ABDOMEN: Soft, nontender, bowel sounds normal, ileostomy working properly. MUSCULOSKELETAL: NCAT /KEVIN x 4 NEUROLOGICAL:CN 2-12 grossly intact /speech not dysarthric PSYCHIATRIC: A&ox 3 / able to understand and follow all commands LABORATORY DATA: Please see below. IMAGING: CTA of chest: FINDINGS: There is good opacification in the pulmonary arterial tree. There is no evidence of vessel cut off or filling defect to suggest pulmonary embolus. Homogeneous opacity is seen in the thoracic aorta. There is no evidence of aneurysm or dissection. There is an aberrant right subclavian artery unchanged from the prior study. Great vessel origins are otherwise unremarkable. No pleural or pericardial effusion is seen. Lung window settings demonstrate the lung eli are essentially clear. No infiltrate, mass, or significant nodule is appreciated. No bony destructive lesion is seen. In the upper abdomen, normal adrenal glands are observed. There is a small low-density lesion in the left lobe of the liver unchanged from the June 05, 2020 study and is compatible with a cyst. The visualized upper abdominal structures are otherwise unremarkable. IMPRESSION: No CT evidence of pulmonary embolus. Aberrant right subclavian artery. Otherwise no active disease. RENAL US: Scanning of the level of the urinary bladder shows no abnormality. The bladder is largely empty. Renal cortical echogenicity pattern is normal bilaterally and contours are smooth. There is no evidence of hydronephrosis, cyst, mass, or calculus in either kidney. The right kidney measures 10.1 x 4.8 x 4.5 cm. Left renal dimensions are 9.3 x 4.2 x 3.4 cm. Lower extremity venous doppler: The deep veins are anechoic and fully compressible from the groin to the popliteal fossa in the left lower extremity. Color flow imaging is homogeneous. Spectral Doppler interrogation demonstrates intact respiratory variation in flow and normal manual augmentation of flow. There is no evidence of deep vein thrombosis. 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 One of these femoral veins contains nonocclusive thrombus consistent with deep vein thrombosis. There is also a small focus of nonocclusive thrombosis in the popliteal vein on the right. Otherwise, the femoral vein and common femoral vein and popliteal vein segments are clear. IMPRESSION: Negative left lower extremity duplex venous ultrasound. No evidence of deep vein thrombosis. 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 ACTIVITY: [As tolerated]. DIET: As tolerated DISPOSITION: 01 Home, Self-Care. DISCHARGE INSTRUCTIONS: Follow up with Cardiology AYALA PMD in 1 week DISCHARGE CONDITION: [Stable]. TIME SPENT ON DISCHARGE: 40 minutes. Vital Signs/I&Os Vital Signs Label Value Date Time Patient Temperature 98.0 degrees F 11/24/20 1400 Temperature Source Oral 11/24/20 1400 Pulse 73 11/24/20 1400 Respiratory Rate 20 bpm 11/24/20 1400 Blood Pressure Assessment 119/66 (83) 11/24/20 1400 Bedside Pulse Oximetry 100 % 11/24/20 1400 Discharge Medications Scheduled Aspirin (Aspirin EC) 81 Mg Tablet.dr, 81 MG PO DAILY, (Reported) Atorvastatin Calcium (Atorvastatin Calcium) 40 Mg Tab, 40 MG PO QHS, (Reported) Calcium Carbonate/Vitamin D3 (Calcium 500-Vit D3 200 Tablet) 1 Each Tablet, 1 TAB PO BID, (Reported) Cetirizine HCl (Cetirizine HCl) 10 Mg Tablet, 10 MG PO DAILY, (Reported) Cholecalciferol (Vitamin D3) (Vitamin D3) 1,000 Unit Tablet, 2,000 UNITS PO QHS, (Reported) Ezetimibe (Zetia) 10 Mg Tab, 10 MG PO QHS, (Reported) Folic Acid (Folic Acid) 0.4 Mg Tablet, 400 MCG PO BID, (Reported) Inulin (Fiber Gummies) 2 Gm Tab.chew, 1 TAB PO BID, (Reported) Isosorbide Mononitrate (Isosorbide Mononitrate ER) 60 Mg Tab.er.24h, 60 MG PO DAILY, (Reported) Levothyroxine Sodium (Levothyroxine Sodium) 25 Mcg Tablet, 25 MCG PO QAM, (Reported) Methotrexate Sodium (Methotrexate) 2.5 Mg Tablet, 15 MG PO 1XWK, (Reported) THURSDAY Multivitamins (Thera M Plus Tablet) 1 Each Tablet, 1 TAB PO DAILY, (Reported) Omeprazole (Omeprazole) 40 Mg Cap, 40 MG PO DAILY, (Reported) Potassium Chloride (Potassium Chloride) 10 Meq Tablet.er, 10 MEQ PO TID, (Reported) Prednisone (Prednisone) 20 Mg Tablet, 20 MG PO DAILY Rivaroxaban (Xarelto) 20 Mg Tablet, 20 MG PO QPM, (Reported) Scheduled PRN Acetaminophen (Acetaminophen) 500 Mg Tablet, 1,000 MG PO Q6H PRN for PAIN, (Reported) Nitroglycerin (Nitrostat) 0.4 Mg Tab.subl, 0.4 MG SL NITRO PRN for CHEST PAIN, (Reported) Oxycodone HCl/Acetaminophen (Oxycodone-Acetaminophen 5-325) 1 Each Tablet, 1 TAB PO Q6H PRN for PAIN, (Reported) Tizanidine HCl (Tizanidine HCl) 4 Mg Tablet, 4 MG PO QHS PRN for MUSCLE SPASMS, (Reported) Allergies Coded Allergies: FISH (Verified Allergy, Severe, THROAT SWELLING, 07/02/20) Quinolones (Verified Allergy, Intermediate, hives, and Headache, 07/02/20) ciprofloxacin (Verified Allergy, Intermediate, swelling, rash, 07/02/20) Sulfa (Sulfonamide Antibiotics) (Verified Allergy, Mild, rash, 07/02/20) codeine (Verified Adverse Reaction, Mild, n/v, 07/02/20) GAL PAPPAS MD Dec 04, 2020 01:53
== END 2020-11-24 19:10 | disposition home or self-care (01) | DRG 315 ==
LOC: M ED 15:50 → M ED INP 20:39 → M MSPAV 23:10
PROVIDERS: ADMIT Internal Medicine; ATTEND Internal Medicine Nephrology
DX: I30.9 Acute pericarditis, unspecified (principal); I24.1 Dressler's syndrome; N17.9 Acute kidney failure, unspecified; E87.2 Acidosis; M06.9 Rheumatoid arthritis, unspecified; I10 Essential (primary) hypertension; E03.9 Hypothyroidism, unspecified; I25.10 Atherosclerotic heart disease of native coronary artery without angina pectoris; Z79.899 Other long term (current) drug therapy; Z79.82 Long term (current) use of aspirin; Z88.2 Allergy status to sulfonamides; Z88.5 Allergy status to narcotic agent; Z88.8 Allergy status to other drugs, medicaments and biological substances; Z91.013 Allergy to seafood; K57.30 Diverticulosis of large intestine without perforation or abscess without bleeding; D64.9 Anemia, unspecified

== ENCOUNTER → 2020-12-05 | Outpatient (REF) | payer MEDICARE, MEDICAID ==
[~2020-12-05] MED LIST changes: +ACET-683 PO; -CALC500T44 PO; +CVS1CHW13 PO; +FOLI400T13 PO; +LEVO25TA5 PO; +OYST500T92 PO; +PRED20TA PO; +XARE20TA PO
[2020-12-05 18:50] LABS: BASO # 0.1 10^3/uL (0.0-0.2); BASO % 0.9 % (0.0-1.0); EOS # 0.3 10^3/uL (0.0-0.5); EOS % 3.2 % (0.0-3.0); HEMATOCRIT 35.4 % (36.0-47.0); HEMOGLOBIN 10.7 g/dl (12.0-15.5); LYMPH # 1.5 10^3/uL (1.5-5.0); LYMPH % 18.9 % (24.0-44.0); MEAN CORPUSCULAR HEMOGLOBIN 30.6 pg (27.0-33.0); MEAN CORPUSCULAR HGB CONC 30.2 g/dl (32.0-36.5); MEAN CORPUSCULAR VOLUME 101.1 fl (80.0-96.0); MONO # 0.4 10^3/uL (0.0-0.8); MONO % 5.1 % (2.0-8.0); NEUTROPHILS # 5.6 10^3/uL (1.5-8.5); NEUTROPHILS % 71.4 % (36.0-66.0); PLATELET COUNT, AUTOMATED 314 10^3/uL (150-450); WHITE BLOOD COUNT 7.9 10^3/uL (4.0-10.0)
[2020-12-05 19:11] LABS: ALT/SGPT 52 U/L (12-78); BILIRUBIN,TOTAL 0.2 MG/DL (0.2-1.0); BLOOD UREA NITROGEN 22 MG/DL (7-18); C REACTIVE PROTEIN QUANTITATIV 0.82 MG/DL (0.00-0.30); CALCIUM LEVEL 9.5 MG/DL (8.8-10.2); CARBON DIOXIDE LEVEL 15 MEQ/L (21-32); CHLORIDE LEVEL 116 MEQ/L (98-107); CREATININE FOR GFR 1.22 MG/DL (0.55-1.30); FREE T4 0.87 NG/DL (0.76-1.46); GLOMERULAR FILTRATION RATE 47.7 (>45); GLUCOSE, FASTING 102 MG/DL (70-100); IRON (FE) 30 UG/DL (50-170); PERCENT SATURATION 8.4 % (13.2-45.0); POTASSIUM SERUM 4.6 MEQ/L (3.5-5.1); RHEUMATOID FACTOR QUANT < 10.0 IU/ML (<15.0); SODIUM LEVEL 138 MEQ/L (136-145); TOTAL IRON BINDING CAPACITY 359 UG/DL (250-450); TOTAL PROTEIN 7.3 GM/DL (6.4-8.2)
[2020-12-05 19:12] LABS: ERYTHROCYTE SEDIMENTATION RATE 39 mm/hr (0-30)
[2020-12-06 08:29] LABS: LDH LACTATE DEHYDROGENASE 225 U/L (84-246)
[2020-12-06 10:10] LABS: VITAMIN B12 LEVEL 492 PG/ML
[2020-12-06 10:11] LABS: FOLATE > 24.0 NG/ML
[2020-12-07 23:06] LABS: ANA (HEP2) Positive (.); CYCLIC CITRULLINATED PEPTIDE 5 units (0-19); HAPTOGLOBIN 269 mg/dL (37-355)
== END ==
LOC: M SFHCCLAY 10:23
PROVIDERS: ATTEND Family Medicine
DX: M06.9 Rheumatoid arthritis, unspecified (principal); D46.4 Refractory anemia, unspecified; E03.9 Hypothyroidism, unspecified; I31.9 Disease of pericardium, unspecified

== ENCOUNTER → 2021-02-20 | Outpatient (REF) | payer MEDICARE, MEDICAID ==
[~2021-02-20] MED LIST changes: +OMEP40CA4 PO; -OMEP40CA97 PO
[2021-02-20 17:09] LABS: BASO % 0.3 % (0.0-1.0); EOS # 0.1 10^3/uL (0.0-0.5); EOS % 0.4 % (0.0-3.0); HEMATOCRIT 37.1 % (36.0-47.0); HEMOGLOBIN 11.5 g/dl (12.0-15.5); LYMPH % 8.7 % (24.0-44.0); MEAN CORPUSCULAR HEMOGLOBIN 29.8 pg (27.0-33.0); MEAN CORPUSCULAR VOLUME 96.1 fl (80.0-96.0); MONO # 0.5 10^3/uL (0.0-0.8); MONO % 4.4 % (2.0-8.0); NEUTROPHILS # 9.8 10^3/uL (1.5-8.5); NEUTROPHILS % 85.7 % (36.0-66.0); PLATELET COUNT, AUTOMATED 324 10^3/uL (150-450); RED BLOOD COUNT 3.86 10^6/uL (4.00-5.40); WHITE BLOOD COUNT 11.5 10^3/uL (4.0-10.0)
== END ==
LOC: M LABDRAWC 15:49
PROVIDERS: ATTEND Surgery
DX: Z43.2 Encounter for attention to ileostomy (principal)

== ENCOUNTER → 2021-02-22 | Outpatient (CLI) | payer MEDICARE, MEDICAID ==
--- NOTE | 2021-02-22 11:20 | REPMRS ---
Patient History The patient states she has not had a clinical breast exam in over a year. Family history of endometrial cancer in maternal cousin, colorectal cancer in maternal cousin, ovarian cancer in paternal cousin. Took unspecified hormones for 5 years. Patient states no breast complaints today. Patient has signed MRS History Sheet. Digital Woman Screen Mammo: February 22, 2021 - Exam #: [id number] Bilateral CC and MLO view(s) were taken. Technologist: Joelle Emanuel, Technologist Prior study comparison: February 20, 2020, bilateral digital woman screen mammo performed at [facility]. December 22, 2018, bilateral digital woman screen mammo performed at [facility]. November 05, 2017, digital woman screen mammo performed at [facility]. FINDINGS: There are scattered fibroglandular densities. The Volpara volumetric breast density category is: B. There is a moderate amount of residual fibroglandular tissue which is fairly symmetric. There is no interval development of dominant mass, architectural distortion, or grouped microcalcification typical of malignancy. There has been no change in the appearance of the mammogram from the prior studies. 3-D tomosynthesis shows no additional findings. Assessment: BI-RADS/ACR category 1 mammogram. Negative Mammogram. Recommendation Routine screening mammogram of both breasts in 1 year (for women over age 40). This patient's [facility] Lifetime Breast Cancer RIsk is estimated at 7.3 %. This mammogram was interpreted with the aid of an FDA-approved computer-aided dectection system. Electronically Signed By: Braden Obando MD 02/22/21 [id number]
== END ==
LOC: M WHC 09:58
PROVIDERS: ATTEND Family Medicine
DX: Z12.31 Encounter for screening mammogram for malignant neoplasm of breast (principal); Z80.0 Family history of malignant neoplasm of digestive organs; Z80.49 Family history of malignant neoplasm of other genital organs

== ENCOUNTER → 2021-02-27 | Outpatient (CLI) | payer MEDICARE, MEDICAID ==
[~2021-02-27] MED LIST changes: +GASTROGRAFIN SOLUTION 30ML (Q9963) As Ordered ONE; +ISOVUE-370 76% 100ML VIAL As Ordered ONE; +QC F0.52 PO
--- NOTE | 2021-02-27 13:51 | REP ---
INDICATION: LOWER ABD PAIN. COMPARISON: 07/02/2020 TECHNIQUE: Axial contrast-enhanced images from the lung bases to the pubic symphysis using oral and 100 cc Isovue 370 intravenous contrast material. Precontrast images of the abdomen obtained along with coronal and sagittal reformations. This CT examination was performed using the following dose reduction techniques: Automated exposure control, adjustment of mA and/or kv according to the patient's size, and the use of iterative reconstruction technique. FINDINGS: Liver includes stable 1.5 cm cyst within the medial left lobe and small focal area of fatty infiltration adjacent to the falciform ligament. Spleen, pancreas, gallbladder, and bilateral adrenal glands are normal. Kidneys demonstrate stable age-related cortical thinning and atrophy/scarring involving the left kidney. No associated perinephric stranding or hydronephrosis. There is an ileostomy via the right anterior abdominal wall with a small peristomal hernia containing mesenteric fat and nonobstructed small bowel. There is no evidence for bowel obstruction. The colon demonstrates significantly high density intraluminal contrast material which may be secondary to prior barium study. Postsurgical changes involving the sigmoid colon are also identified. No obvious acute enteric inflammatory process is appreciated. Previous intra-abscesses have resolved. Pelvis demonstrates normal bladder and prior hysterectomy. No ascites. No free air. No intraperitoneal or retroperitoneal adenopathy. A right common iliac vein stent is appreciated. The abdominal aorta and arterial vasculature demonstrate arthritic changes without aneurysm or dissection. Musculoskeletal structures are intact and without acute osseous abnormality. Lung bases are clear. IMPRESSION: 1. Postsurgical changes involving the small and large bowel as described above which are relatively similar to prior examination. However, the ileostomy via the right anterior abdominal wall now demonstrates a small peristomal hernia containing mesenteric fat and nonobstructed loop of small bowel. No associated inflammatory stranding to suggest acute process is appreciated. 2. Relatively chronic nonacute appearing findings as detailed above. 3. No ascites, focal inflammatory stranding, free air, or adenopathy. <Electronically signed by Serafin Snyder > 02/27/21 [id number]
== END ==
LOC: M RAD 11:16
PROVIDERS: ATTEND Surgery
DX: Z43.2 Encounter for attention to ileostomy (principal); K43.5 Parastomal hernia without obstruction or gangrene
CPT/HCPCS: 74178; Q9963; Q9967

== ENCOUNTER → 2021-03-07 | Outpatient (CLI) | payer MEDICARE, MEDICAID ==
[~2021-03-07] MED LIST changes: -GASTROGRAFIN SOLUTION 30ML (Q9963) As Ordered ONE; -ISOVUE-370 76% 100ML VIAL As Ordered ONE
== END ==
LOC: M LABSMTC 09:41
PROVIDERS: ATTEND Anesthesiology
DX: Z01.812 Encounter for preprocedural laboratory examination (principal); Z20.822 Contact with and (suspected) exposure to COVID-19

== ENCOUNTER 2021-03-12 07:30 | Inpatient (IN) | payer MEDICARE, MEDICAID ==
[~2021-03-12] VITALS: Ht 154.9 cm; Wt 65.0 kg
[~2021-03-12 07:30] MED LIST changes: +AMPICILLIN SOD/SULBACTAM SOD 3 GM in D5W MINI-BAG PLUS 100 ML IV ONE; +LR 1,000 ML IV ONE
[2021-03-12] MEDS ORDERED: METR-265 (08:52)
[2021-03-12] MEDS ORDERED: NEOM500T (08:52)
[2021-03-12] MEDS ORDERED: propofoL 200 MG/20 ML VIAL As Ordered ONE (09:32)
[2021-03-12] MEDS ORDERED: fentaNYL 250 MCG/5 ML INJECTION (J3010) As Ordered ONE (09:32)
[2021-03-12] MEDS ORDERED: MIDAZOLAM INJ 2MG/2ML VIAL (J2250 PER 1MG) As Ordered ONE (09:32)
[2021-03-12] MEDS ORDERED: LIDOCAINE 2% 100MG/5ML SDV (FOR ANES.) As Ordered ONE (09:32)
[2021-03-12] MEDS ORDERED: ROCURONIUM BROMIDE 50 MG/5 ML VIAL As Ordered ONE (09:32)
[2021-03-12] MEDS ORDERED: LR 1,000 ML IV SCH ×2 (10:10→12:05)
[2021-03-12] MEDS ORDERED: MEPERIDINE INJ 25 MG/ML VIAL (J2175) IV PRN (10:10)
[2021-03-12] MEDS ORDERED: ONDANSETRON 4MG/2ML VIAL IV PRN (10:10)
[2021-03-12] MEDS ORDERED: GLUCAGON INJ 1MG VIAL As Ordered ONE (10:15)
[2021-03-12] MEDS ORDERED: BUPIVACAINE LIPOSOME/PF 1.3% 20ML VIAL (13.3MG/ML)(EXPAREL)(C9290 PER1MG) As Ordered ONE (10:36)
[2021-03-12] MEDS ORDERED: BUPIVACAINE HCL 0.25% 10ML VIAL As Ordered ONE (10:36)
[2021-03-12] MEDS ORDERED: ePHEDrine SULFATE 25 MG/5 ML(5MG/ML) SYRINGE As Ordered ONE (10:45)
[2021-03-12] MEDS ORDERED: PHENYLephrine 500MCG 5ML (100MCG/ML) SYRINGE As Ordered ONE (10:45)
[2021-03-12] MEDS ORDERED: dexameTHASONE 4 MG/ML 1ML VIAL (J1100 PER 1MG) As Ordered ONE (10:47)
[2021-03-12] MEDS ORDERED: ONDANSETRON 4MG/2ML VIAL As Ordered ONE (11:06)
[2021-03-12] MEDS ORDERED: SUGAMMADEX SODIUM 500 MG/5 ML VIAL (BRIDION) As Ordered ONE (11:07)
[2021-03-12] MEDS ORDERED: ACETAMINOPHEN 1000MG 100ML IV BTL (OFIRMEV) (J0131 PER 10MG) As Ordered ONE (11:07)
[2021-03-12] MEDS ORDERED: IPRATROPIUM 0.5MG/ALBUTEROL 2.5MG INH SOL UD 3ML (DUONEB) NEB PRN (12:05)
[2021-03-12] MEDS ORDERED: ACETAMINOPHEN 500 MG TAB PO PRN (12:05)
[2021-03-12] MEDS ORDERED: MORPHINE 2 MG/ML 1ML VIAL (J2270) IV PRN (12:05)
[2021-03-12] MEDS: HYDROMORPHONE HCL 0.5 MG/ 0.5 ML SYRINGE (J1170 PER 1) IV PRN ×2 (12:54→13:02)
[2021-03-12 13:31] VITALS: BP 141/82
[2021-03-12] MEDS: LEVOTHYROXINE 25MCG TABLET (0.025MG) PO SCH (13:49)
[2021-03-12] MEDS: ASPIRIN 81MG ENTERIC TABLET PO SCH (13:50)
[2021-03-12] MEDS: CETIRIZINE (ZyrTEC) 10 MG TAB PO SCH (13:50)
[2021-03-12 14:21] VITALS: BP 138/76
[2021-03-12] MEDS: IPRATROPIUM 0.5MG/ALBUTEROL 2.5MG INH SOL UD 3ML (DUONEB) NEB SCH ×2 (15:03→19:56)
[2021-03-12 15:30] VITALS: BP 139/75
[2021-03-12 17:09] VITALS: BP 137/75
[2021-03-12] MEDS: AMPICILLIN SOD/SULBACTAM SOD 1.5 GM in D5W MINI-BAG PLUS 100 ML IV SCH ×2 (17:30→22:13)
[2021-03-12] MEDS: PERCOCET 5MG/325MG TAB PO PRN ×2 (17:31→23:53)
[2021-03-12 18:08] VITALS: BP 134/73
[2021-03-12 22:00] VITALS: BP 120/57
[2021-03-12] MEDS: ATORVASTATIN 20 MG TAB PO SCH (22:13)
[2021-03-12] MEDS: EZETIMIBE 10 MG TAB (ZETIA) PO SCH (22:13)
[2021-03-13] MEDS: IPRATROPIUM 0.5MG/ALBUTEROL 2.5MG INH SOL UD 3ML (DUONEB) NEB SCH ×4 (01:28→19:20)
[2021-03-13 02:00] VITALS: BP 101/50
[2021-03-13] MEDS: LEVOTHYROXINE 25MCG TABLET (0.025MG) PO SCH (05:14)
[2021-03-13] MEDS: AMPICILLIN SOD/SULBACTAM SOD 1.5 GM in D5W MINI-BAG PLUS 100 ML IV SCH ×4 (05:14→23:22)
[2021-03-13 06:00] VITALS: BP 117/58
[2021-03-13] MEDS: ASPIRIN 81MG ENTERIC TABLET PO SCH (08:13)
[2021-03-13] MEDS: PANTOPRAZOLE 40MG VIAL (C9113 PER 1) IV SCH (08:13)
[2021-03-13] MEDS: CETIRIZINE (ZyrTEC) 10 MG TAB PO SCH (08:13)
[2021-03-13] MEDS: PERCOCET 5MG/325MG TAB PO PRN ×3 (08:14→20:25)
[2021-03-13] MEDS: ISOSORBIDE MON. (IMDUR) 60 MG XR TAB PO SCH (08:16)
[2021-03-13 10:00] VITALS: BP 106/53
--- NOTE | 2021-03-13 11:14 | IPNPDOC ---
Text Note Date of Service The patient was seen on 03/13/21. NOTE General surgery. Dr. Peña The patient is a 60-year-old female status post ileostomy reversal as per Dr. Peña 03/12/2021. The patient is sitting up in bed, she reports some discomfort around incision sites. Denies nausea or vomiting. Denies flatus or bowel movement. Tolerating clear liquids. Afebrile VSS MMM Lungs with good air entry S1-S2 regular rate rhythm Abdomen soft, mild tenderness around incision sites. Incisions are clean/dry/intact with dry dressings. Extremities with no edema No new labs I/O 1620/7015 +905 Assessment/plan Status post ileostomy reversal 03/12/[address] Peña. The patient is reviewed and examined as per Dr. Peña this morning Tolerating clear liquids, plan to advance to regular diet today. No flatus or bowel movement yet Continue with pain control IV Unasyn Encourage out of bed Continue to monitor. VS,Fishbone, I+O VS, Fishbone, I+O Vital Signs Date Time Temp Pulse Resp B/P (MAP) Pulse Ox O2 Delivery O2 Flow Rate FiO2 03/13/21 08:44 18 03/13/21 08:16 126/71 03/13/21 08:14 Room Air 03/13/21 06:00 97.1 74 96 I&O- Last 24 Hours up to 6 AM 03/13/21 05:59 Intake Total 1620 ml Output Total 1015 ml Balance 605 ml Gifty Stone Mar 13, 2021 11:13
[2021-03-13] MEDS: MORPHINE 2 MG/ML 1ML VIAL (J2270) IV PRN ×2 (12:26→17:36)
[2021-03-13 16:00] VITALS: BP 134/71
[2021-03-13] MEDS: ONDANSETRON 4 MG TAB PO PRN (20:24)
[2021-03-13] MEDS: ATORVASTATIN 20 MG TAB PO SCH (20:24)
[2021-03-13] MEDS: EZETIMIBE 10 MG TAB (ZETIA) PO SCH (20:24)
[2021-03-13 22:03] VITALS: BP 116/58
[2021-03-14 02:00] VITALS: BP 114/56
[2021-03-14] MEDS: IPRATROPIUM 0.5MG/ALBUTEROL 2.5MG INH SOL UD 3ML (DUONEB) NEB SCH ×4 (03:31→19:53)
[2021-03-14] MEDS: AMPICILLIN SOD/SULBACTAM SOD 1.5 GM in D5W MINI-BAG PLUS 100 ML IV SCH ×4 (04:50→23:07)
[2021-03-14] MEDS: PERCOCET 5MG/325MG TAB PO PRN ×3 (04:59→21:08)
[2021-03-14] MEDS: LEVOTHYROXINE 25MCG TABLET (0.025MG) PO SCH (05:00)
[2021-03-14 06:00] VITALS: BP 135/63
[2021-03-14] MEDS: ASPIRIN 81MG ENTERIC TABLET PO SCH (09:17)
[2021-03-14] MEDS: CETIRIZINE (ZyrTEC) 10 MG TAB PO SCH (09:17)
[2021-03-14] MEDS: PANTOPRAZOLE 40MG VIAL (C9113 PER 1) IV SCH (09:17)
[2021-03-14] MEDS: ISOSORBIDE MON. (IMDUR) 60 MG XR TAB PO SCH (09:20)
--- NOTE | 2021-03-14 09:30 | IPNPDOC ---
Text Note Date of Service The patient was seen on 03/14/21. NOTE General surgery. Dr. Peña The patient is a 60-year-old female status post ileostomy reversal as per Dr. Peña 03/12/2021. The patient is sitting in the chair, she reports pain has been controlled. Denies nausea or vomiting. Reports some flatus but no bowel movement yet. Tolerating regular diet. Afebrile VSS MMM Lungs with good air entry S1-S2 regular rate rhythm Abdomen soft, mild tenderness around incision sites. Incisions are clean/dry/intact with dry dressings. Extremities with no edema CBC/BMP pending I/O 1000/825, +175 Assessment/plan Status post ileostomy reversal 03/12/[address] Peña. The patient is reviewed and examined as per Dr. Peña this morning Tolerating regular diet. Reports some flatus but no bowel movement yet IV Unasyn Encourage out of bed/ambulation Continue to monitor. VS,Fishbone, I+O VS, Fishbone, I+O Vital Signs Date Time Temp Pulse Resp B/P (MAP) Pulse Ox O2 Delivery O2 Flow Rate FiO2 03/14/21 09:20 145/75 03/14/21 06:00 98.2 61 16 96 Room Air I&O- Last 24 Hours up to 6 AM 03/14/21 06:00 Intake Total 1300 ml Output Total 926 ml Balance 374 ml Gifty Stone Mar 14, 2021 09:30
[2021-03-14 09:43] LABS: HEMATOCRIT 32.7 % (36.0-47.0); HEMOGLOBIN 10.6 g/dl (12.0-15.5); MEAN CORPUSCULAR HEMOGLOBIN 30.3 pg (27.0-33.0); MEAN CORPUSCULAR HGB CONC 32.4 g/dl (32.0-36.5); MEAN CORPUSCULAR VOLUME 93.4 fl (80.0-96.0); PLATELET COUNT, AUTOMATED 254 10^3/uL (150-450)
[2021-03-14 10:12] LABS: CALCIUM LEVEL 8.1 MG/DL (8.8-10.2); CREATININE FOR GFR 1.42 MG/DL (0.55-1.30); POTASSIUM SERUM 3.2 MEQ/L (3.5-5.1)
[2021-03-14 14:00] VITALS: BP 129/68
[2021-03-14 18:00] VITALS: BP 136/70
[2021-03-14] MEDS: ATORVASTATIN 20 MG TAB PO SCH (21:08)
[2021-03-14] MEDS: EZETIMIBE 10 MG TAB (ZETIA) PO SCH (21:09)
[2021-03-14 22:00] VITALS: BP 109/70
[2021-03-15 02:00] VITALS: BP 116/58
[2021-03-15] MEDS: IPRATROPIUM 0.5MG/ALBUTEROL 2.5MG INH SOL UD 3ML (DUONEB) NEB SCH ×4 (02:38→19:40)
[2021-03-15] MEDS: PERCOCET 5MG/325MG TAB PO PRN ×3 (05:30→21:18)
[2021-03-15] MEDS: AMPICILLIN SOD/SULBACTAM SOD 1.5 GM in D5W MINI-BAG PLUS 100 ML IV SCH ×2 (05:30→11:58)
[2021-03-15] MEDS: LEVOTHYROXINE 25MCG TABLET (0.025MG) PO SCH (05:30)
[2021-03-15 06:00] VITALS: BP 135/59
[2021-03-15] MEDS: CETIRIZINE (ZyrTEC) 10 MG TAB PO SCH (09:55)
[2021-03-15] MEDS: ASPIRIN 81MG ENTERIC TABLET PO SCH (09:55)
[2021-03-15] MEDS: PANTOPRAZOLE 40MG VIAL (C9113 PER 1) IV SCH (09:55)
[2021-03-15] MEDS: ISOSORBIDE MON. (IMDUR) 60 MG XR TAB PO SCH (09:57)
[2021-03-15 12:47] LABS: HEMATOCRIT 30.5 % (36.0-47.0); HEMOGLOBIN 9.9 g/dl (12.0-15.5); MEAN CORPUSCULAR HEMOGLOBIN 29.9 pg (27.0-33.0); MEAN CORPUSCULAR HGB CONC 32.5 g/dl (32.0-36.5); MEAN CORPUSCULAR VOLUME 92.1 fl (80.0-96.0); PLATELET COUNT, AUTOMATED 250 10^3/uL (150-450); RED BLOOD COUNT 3.31 10^6/uL (4.00-5.40); WHITE BLOOD COUNT 10.9 10^3/uL (4.0-10.0)
[2021-03-15 13:24] LABS: CALCIUM LEVEL 8.3 MG/DL (8.8-10.2); CREATININE FOR GFR 1.14 MG/DL (0.55-1.30); GLOMERULAR FILTRATION RATE 51.6 (>45); POTASSIUM SERUM 3.2 MEQ/L (3.5-5.1)
[2021-03-15 14:00] VITALS: BP 111/62
[2021-03-15] MEDS ORDERED: BISACODYL 10 MG SUPP PR ONE (16:55)
[2021-03-15 18:00] VITALS: BP 133/72
[2021-03-15] MEDS: EZETIMIBE 10 MG TAB (ZETIA) PO SCH (21:18)
[2021-03-15] MEDS: HEPARIN SOD (PORCINE) 5000UNITS/ML 1ML VIAL/SYRINGE SQ SCH (21:19)
[2021-03-15] MEDS: ATORVASTATIN 20 MG TAB PO SCH (21:19)
[2021-03-15 22:00] VITALS: BP 136/65
[2021-03-16] MEDS: IPRATROPIUM 0.5MG/ALBUTEROL 2.5MG INH SOL UD 3ML (DUONEB) NEB SCH ×4 (01:37→19:13)
[2021-03-16 02:00] VITALS: BP 120/50
[2021-03-16] MEDS: LEVOTHYROXINE 25MCG TABLET (0.025MG) PO SCH (05:35)
[2021-03-16] MEDS: PERCOCET 5MG/325MG TAB PO PRN ×4 (05:36→20:32)
[2021-03-16 06:00] VITALS: BP 114/59
[2021-03-16 10:00] VITALS: BP 117/68
[2021-03-16] MEDS: ASPIRIN 81MG ENTERIC TABLET PO SCH (10:01)
[2021-03-16] MEDS: CETIRIZINE (ZyrTEC) 10 MG TAB PO SCH (10:01)
[2021-03-16] MEDS: HEPARIN SOD (PORCINE) 5000UNITS/ML 1ML VIAL/SYRINGE SQ SCH ×2 (10:02→20:34)
[2021-03-16] MEDS: ISOSORBIDE MON. (IMDUR) 60 MG XR TAB PO SCH (10:02)
[2021-03-16 14:00] VITALS: BP 122/63
--- NOTE | 2021-03-16 17:10 | IPN ---
PROGRESS NOTE DATE: 03/15/2021 SUBJECTIVE: Patient still is very slow to improve over time. Her major issue at this point is she still is not having any bowel movements. She did have a little bit of flatus the other day but really, from her standpoint, has had no nausea or vomiting. She is tolerating some minimal oral intake and her drain has put out extremely minimal serosanguinous. She has had no fevers or chills. She has been on antibiotics empirically, given her elevated white count and immunosuppressive issues. PHYSICAL EXAMINATION: Her abdomen is softly distended, nontender except in the incisional area. Her dressing is clean and dry. IMPRESSION/PLAN: Patient has still a slow to resolve postoperative ileus and it is most likely because she had nonfunctioning small bowel and large bowel for such a long time. I do feel that we will give her some time, see how she does with the suppository and increase her activity. We will start her on some heparin, given her previous hypercoagulable state issues determined previously and, depending on how she does, we may need to restart her on Xarelto.
--- NOTE | 2021-03-16 17:24 | IPN ---
PROGRESS NOTE DATE: 03/16/2021 SUBJECTIVE: Patient is slowly making some progress from a dietary standpoint and activity standpoint. She is still having some pain at the incision, but she states that overall, she is not taking all that much for pain medication. She has not had any fevers or chills and white count was still slightly elevated at 10.9 yesterday, but otherwise, still making some good progress. She had a suppository yesterday that resulted in some minimal drainage in mucus, but no significant bowel movement. IMPRESSION/PLAN: Patient is still slow to resolve the reversal of her ileostomy at this point and we will see how she does, but from my standpoint, it is not unreasonable to increase her activity and discontinue the Cristian-Nelson (CLINT) drain and, if she is doing well, possibly discharge her to home later on today. Otherwise, she is stable and no new changes. She seems relatively well-hydrated at this time and maintaining her fluid status.
[2021-03-16 18:00] VITALS: BP 137/65
[2021-03-16] MEDS: ATORVASTATIN 20 MG TAB PO SCH (20:33)
[2021-03-16] MEDS: EZETIMIBE 10 MG TAB (ZETIA) PO SCH (20:33)
[2021-03-17 02:00] VITALS: BP 134/62
[2021-03-17] MEDS: IPRATROPIUM 0.5MG/ALBUTEROL 2.5MG INH SOL UD 3ML (DUONEB) NEB SCH ×4 (02:00→20:01)
[2021-03-17] MEDS: LEVOTHYROXINE 25MCG TABLET (0.025MG) PO SCH (05:39)
[2021-03-17] MEDS: PERCOCET 5MG/325MG TAB PO PRN ×3 (05:39→20:34)
[2021-03-17 06:00] VITALS: BP 137/66
[2021-03-17] MEDS: ISOSORBIDE MON. (IMDUR) 60 MG XR TAB PO SCH (08:33)
[2021-03-17] MEDS: CETIRIZINE (ZyrTEC) 10 MG TAB PO SCH (08:33)
[2021-03-17] MEDS: ASPIRIN 81MG ENTERIC TABLET PO SCH (08:33)
[2021-03-17] MEDS: HEPARIN SOD (PORCINE) 5000UNITS/ML 1ML VIAL/SYRINGE SQ SCH ×2 (08:34→20:33)
[2021-03-17] MEDS ORDERED: BISACODYL 10 MG SUPP PR ONE (09:15)
[2021-03-17 10:00] VITALS: BP 134/71
[2021-03-17] MEDS ORDERED: PERCOCET PO (13:16)
[2021-03-17] MEDS: ONDANSETRON 4 MG TAB PO PRN (13:36)
[2021-03-17 14:00] VITALS: BP 134/73
--- NOTE | 2021-03-17 14:12 | IPN ---
PROGRESS NOTE DATE: 03/17/2021 SUBJECTIVE: Patient is status post ileostomy reversal and has been very slow to come around. She still has been taking clear liquids and doing well with this without any nausea and without any vomiting or crampy abdominal pain. She had some minimal drainage out of her Cristian-Nelson drain that we removed and really has been afebrile. She has not had any significant flatus and is slow to resolve her ileus at this time. She has had a small amount of flatus and bowel movement with suppository and thus we will try that again today. IMPRESSION/PLAN: Patient is slowly getting through these last few days with tolerating some clear liquids. However, her major issue is that her small bowel distal to the ileostomy had atrophied incredibly and, at this point, it may take a little while for this to resolve and thus I had a long discussion with her concerning whether to continue with just clears and water at this point or, given that she does not appear obstructed and/or proceed with additional testing, et cetera. At this point, she feels comfortable given that she really has not been taking much for pain medication and noticed that most of her pain is resolving. She has been afebrile and we will see if she can tolerate clears at home and she will contact the office over the next couple of days if she is having some continued difficulty or if she does not have improvement/resolution of her symptoms.
[2021-03-17] MEDS: NS 1,000 ML IV SCH ×2 (14:25→20:33)
[2021-03-17] MEDS: EZETIMIBE 10 MG TAB (ZETIA) PO SCH (20:33)
[2021-03-17] MEDS: ATORVASTATIN 20 MG TAB PO SCH (20:33)
[2021-03-17 22:00] VITALS: BP 150/68
[2021-03-18 02:00] VITALS: BP 127/60
[2021-03-18] MEDS: IPRATROPIUM 0.5MG/ALBUTEROL 2.5MG INH SOL UD 3ML (DUONEB) NEB SCH ×4 (03:09→19:34)
[2021-03-18] MEDS: NS 1,000 ML IV SCH ×4 (03:14→22:02)
[2021-03-18] MEDS: LEVOTHYROXINE 25MCG TABLET (0.025MG) PO SCH (05:31)
[2021-03-18 06:00] VITALS: BP 136/62
[2021-03-18 06:16] LABS: HEMATOCRIT 28.1 % (36.0-47.0); HEMOGLOBIN 8.8 g/dl (12.0-15.5); MEAN CORPUSCULAR HEMOGLOBIN 29.7 pg (27.0-33.0); MEAN CORPUSCULAR HGB CONC 31.3 g/dl (32.0-36.5); MEAN CORPUSCULAR VOLUME 94.9 fl (80.0-96.0); PLATELET COUNT, AUTOMATED 267 10^3/uL (150-450); RED BLOOD COUNT 2.96 10^6/uL (4.00-5.40); WHITE BLOOD COUNT 8.1 10^3/uL (4.0-10.0)
[2021-03-18] MEDS: HEPARIN SOD (PORCINE) 5000UNITS/ML 1ML VIAL/SYRINGE SQ SCH ×2 (08:55→19:54)
[2021-03-18] MEDS: ISOSORBIDE MON. (IMDUR) 60 MG XR TAB PO SCH (08:55)
[2021-03-18] MEDS: ASPIRIN 81MG ENTERIC TABLET PO SCH (08:55)
[2021-03-18] MEDS: CETIRIZINE (ZyrTEC) 10 MG TAB PO SCH (08:55)
[2021-03-18 09:05] LABS: BLOOD UREA NITROGEN 8 MG/DL (7-18); CALCIUM LEVEL 7.6 MG/DL (8.8-10.2); CARBON DIOXIDE LEVEL 26 MEQ/L (21-32); CHLORIDE LEVEL 109 MEQ/L (98-107); CREATININE FOR GFR 0.72 MG/DL (0.55-1.30); GLOMERULAR FILTRATION RATE > 60.0 (>45); GLUCOSE, FASTING 80 MG/DL (70-100); POTASSIUM SERUM 3.5 MEQ/L (3.5-5.1); SODIUM LEVEL 142 MEQ/L (136-145)
[2021-03-18] MEDS ORDERED: FUROSEMIDE 20 MG TAB PO ONE (09:45)
[2021-03-18 10:00] VITALS: BP 131/72
[2021-03-18] MEDS ORDERED: FLUCONAZOLE 100 MG TAB PO ONE (11:45)
[2021-03-18] MEDS: PERCOCET 5MG/325MG TAB PO PRN ×2 (12:17→19:54)
[2021-03-18 14:00] VITALS: BP 132/71
[2021-03-18] MEDS ORDERED: FLEET ENEMA PR PRN (14:40)
[2021-03-18] MEDS: ATORVASTATIN 20 MG TAB PO SCH (19:53)
[2021-03-18] MEDS: EZETIMIBE 10 MG TAB (ZETIA) PO SCH (19:54)
[2021-03-18 22:00] VITALS: BP 138/72
[2021-03-19 02:00] VITALS: BP 137/72
[2021-03-19] MEDS: IPRATROPIUM 0.5MG/ALBUTEROL 2.5MG INH SOL UD 3ML (DUONEB) NEB SCH ×4 (02:00→20:12)
[2021-03-19] MEDS: NS 1,000 ML IV SCH ×3 (03:41→17:43)
[2021-03-19 06:00] VITALS: BP 129/76
[2021-03-19] MEDS: LEVOTHYROXINE 25MCG TABLET (0.025MG) PO SCH (06:27)
[2021-03-19] MEDS: HEPARIN SOD (PORCINE) 5000UNITS/ML 1ML VIAL/SYRINGE SQ SCH ×2 (09:09→20:43)
[2021-03-19] MEDS: ASPIRIN 81MG ENTERIC TABLET PO SCH (09:09)
[2021-03-19] MEDS: CETIRIZINE (ZyrTEC) 10 MG TAB PO SCH (09:09)
[2021-03-19] MEDS: FLUCONAZOLE 100 MG TAB PO SCH (09:09)
[2021-03-19] MEDS: ISOSORBIDE MON. (IMDUR) 60 MG XR TAB PO SCH (09:10)
[2021-03-19 10:00] VITALS: BP 130/74
[2021-03-19] MEDS: PERCOCET 5MG/325MG TAB PO PRN ×2 (10:06→17:43)
[2021-03-19] MEDS ORDERED: SENNA 8.6 MG TAB (SENOKOT) PO ONE (13:10)
[2021-03-19] MEDS ORDERED: DOCUSATE SODIUM 100MG CAPSULE PO ONE (13:10)
[2021-03-19] MEDS ORDERED: PILL CUTTER 1 EACH XX PRN (13:25)
[2021-03-19] MEDS: SIMETHICONE 80MG CHEW TAB PO SCH ×3 (13:52→20:43)
[2021-03-19 14:00] VITALS: BP 129/71
--- NOTE | 2021-03-19 14:10 | REP ---
INDICATION: ileus?. COMPARISON: Chest 11/23/2020. TECHNIQUE: Supine and erect views abdomen, frontal view chest. FINDINGS: There is no evidence of free intraperitoneal air. There is moderate air distention of the colon diffusely. Several mildly distended air-filled small bowel loops are seen in the mid abdomen. Skin dexter are seen overlying the right lower quadrant. A vascular stent is seen in the adjacent right lower quadrant. There are mild degenerative changes of the spine. There is no acute infiltrate in either lung. Metallic clips overlie the lower aspect of the left hemithorax. The heart and mediastinum are unremarkable. IMPRESSION: No evidence of free intraperitoneal air. Moderately distended colon diffusely, with mild distention of several small bowel loops, may represent a generalized ileus. <Electronically signed by Guerrero Fuller > 03/19/21 [id number]
[2021-03-19 18:00] VITALS: BP 151/70
--- NOTE | 2021-03-19 20:37 | IPN ---
PROGRESS NOTE DATE: 03/18/2021 SUBJECTIVE: Patient seems to look much better today and in general initially still has had some flatus, no bowel movements, and I initially had some discharge orders in for her, however, she still feels rather distended and really has not progressed her diet and feels uncomfortable about going home. Thus I feel that it is reasonable to keep her the night, but otherwise she has been afebrile. She has been tolerating liquids. OBJECTIVE: She has T-max of 99.2, but otherwise has been doing well. She is status post ileostomy and her abdomen is softly distended, but mostly tympanic is what I am appreciating. No guarding. No rebound. She has some amarilys-incisional discomfort, but her incision is clean, dry, without drainage and without erythema. IMPRESSION/PLAN: Patient has an ileus that it is really slow to resolve, but I anticipate it is probably all related to this dysfunctional/non-used terminal ileum in colon and essentially is having a hard time starting up again, but we will see how she does over the next 24 hours. If she does not look like she has had much improvement over the next 12 hours, we will get a KUB and upright just to make sure that we are not seeing anything else other than a slowly resolving ileus.
[2021-03-19] MEDS: EZETIMIBE 10 MG TAB (ZETIA) PO SCH (20:43)
[2021-03-19] MEDS: SENNA 8.6 MG TAB (SENOKOT) PO SCH (20:43)
[2021-03-19] MEDS: DOCUSATE SODIUM 100MG CAPSULE PO SCH (20:44)
[2021-03-19] MEDS: ATORVASTATIN 20 MG TAB PO SCH (20:44)
--- NOTE | 2021-03-19 20:49 | IPN ---
PROGRESS NOTE DATE: 03/19/2021 SUBJECTIVE: Patient overall had more flatus this morning, but in general I was concerned that she was still distended and thus got some x-rays. It really does see air throughout the bowel and into the colon. She is really not any more tender that she was beforehand and she is actually getting slowly better and improving. She does complain of some amarilys-incisional discomfort, but that seems to be slowly improving every day as well. IMPRESSION/PLAN: Patient has an ileus/slow return of bowel function. We will start her on some stool softener to see if that makes any difference, and progress her diet and encourage her to eat a little bit more to see if that does not also make it more likely that she passes some more stool through, but I anticipate we should be able to get her out within the next 24 to 48 hours.
[2021-03-19 22:00] VITALS: BP 139/68
[2021-03-20] MEDS: NS 1,000 ML IV SCH ×2 (00:15→06:48)
[2021-03-20] MEDS: PERCOCET 5MG/325MG TAB PO PRN (00:17)
[2021-03-20 02:00] VITALS: BP 131/61
[2021-03-20] MEDS: IPRATROPIUM 0.5MG/ALBUTEROL 2.5MG INH SOL UD 3ML (DUONEB) NEB SCH ×2 (02:00→08:00)
[2021-03-20 06:00] VITALS: BP 126/61
[2021-03-20] MEDS: LEVOTHYROXINE 25MCG TABLET (0.025MG) PO SCH (06:03)
[2021-03-20 10:00] VITALS: BP 144/72
[2021-03-20] MEDS: HEPARIN SOD (PORCINE) 5000UNITS/ML 1ML VIAL/SYRINGE SQ SCH (10:30)
[2021-03-20] MEDS: ONDANSETRON 4 MG TAB PO PRN (10:33)
[2021-03-20] MEDS: ASPIRIN 81MG ENTERIC TABLET PO SCH (10:33)
[2021-03-20] MEDS: SIMETHICONE 80MG CHEW TAB PO SCH (10:34)
[2021-03-20] MEDS: SENNA 8.6 MG TAB (SENOKOT) PO SCH (10:35)
[2021-03-20] MEDS: FLUCONAZOLE 100 MG TAB PO SCH (10:36)
[2021-03-20 10:37] VITALS: BP 143/72
[2021-03-20] MEDS: ISOSORBIDE MON. (IMDUR) 60 MG XR TAB PO SCH (10:37)
[2021-03-20] MEDS: DOCUSATE SODIUM 100MG CAPSULE PO SCH (10:37)
[2021-03-20] MEDS: CETIRIZINE (ZyrTEC) 10 MG TAB PO SCH (10:37)
[2021-03-20] MEDS ORDERED: LASI20TA3 PO (12:07)
--- NOTE | 2021-03-26 09:23 | RO ---
OPERATIVE NOTE DATE OF OPERATION: 03/12/2021 PREOPERATIVE DIAGNOSIS: Ileostomy, status post perforated diverticulitis. POSTOPERATIVE DIAGNOSIS: Ileostomy, status post perforated diverticulitis. PROCEDURE: Ileostomy reversal. SURGEON: Gareth Peña Jr, MD [employer]PER[employer]OR: ANESTHESIA: General endotracheal anesthesia. EBL: Minimal. FLUIDS: Crystalloid. DESCRIPTION OF PROCEDURE: The patient was taken to the operating room, was given general anesthesia. After adequate anesthesia and preoperative antibiotics were given, the patient was prepped and draped in usual sterile fashion. The ileostomy site itself was closed using #1 Prolene in baseball stitch manner. Electrocautery was used to cut around the ileostomy itself and using combination of blunt and sharp dissection as well as electrocautery I was eventually able to mobilize the ileostomy itself all the way down to the fascia. Once I was able to enter the peritoneum circumferentially I was able to feel some adhesions that were able to be taken down sharply as well as under direct visualization, some electrocautery was used to cut down some adhesions as well. Eventually these were nicely taken down and medially same was true. I was able to take down a bunch of adhesions. On the lateral aspect at about the 7 o'clock position the remnant of the terminal ileum was able to be grasped, delivered into the wound and then dissected off the abdominal wall. There was some minimal amount of adhesions here. Once I was able to mobilize this adequately it was a very atrophied and very small terminal ileum but I was able to create a [id number]-by-[id number] anastomosis, remove some of the redundant ileostomy site itself and [id number] anastomosis with UNIQUE stapler was performed and enterotomy site resected with UNIQUE stapler as well. The anterior surface was imbricated as well as the enterotomy site was imbricated using 3-0 Vicryl and then I used Tisseel across the incision as well given her immunosuppressed state. The ileostomy was returned to the abdominal cavity. The area was copiously irrigated until clear. The ostomy site was closed with #1 Vicryl in running manner and skin was loosely approximated over #8 Icelandic round drain. Lucero were used to approximate the skin. Dry, sterile dressing was applied. The patient was awakened, extubated, brought to the recovery room awake, alert, hemodynamically stable. Sponge and needle counts correct x2.
== END 2021-03-20 13:11 | disposition home or self-care (01) | DRG 330 ==
LOC: M OR 08:29 → M MSPAV 13:28
PROVIDERS: ADMIT Surgery; ATTEND Surgery
PROC: 0DBB0ZZ Excision of Ileum, Open Approach (ICD-10-PCS; principal; 2021-03-12 10:10)
DX: Z43.2 Encounter for attention to ileostomy (principal); K91.89 Other postprocedural complications and disorders of digestive system

== ENCOUNTER → 2021-05-24 | Outpatient (REF) | payer MEDICARE, MEDICAID ==
[~2021-05-24] MED LIST changes: -AMPICILLIN SOD/SULBACTAM SOD 3 GM in D5W MINI-BAG PLUS 100 ML IV ONE; +LASI20TA3 PO; -LR 1,000 ML IV ONE; +METR-265; +NEOM500T
[2021-05-24 16:21] LABS: HEMATOCRIT 33.1 % (36.0-47.0); HEMOGLOBIN 10.1 g/dl (12.0-15.5); MEAN CORPUSCULAR HEMOGLOBIN 30.3 pg (27.0-33.0); MEAN CORPUSCULAR HGB CONC 30.5 g/dl (32.0-36.5); MEAN CORPUSCULAR VOLUME 99.4 fl (80.0-96.0); PLATELET COUNT, AUTOMATED 353 10^3/uL (150-450); RED BLOOD COUNT 3.33 10^6/uL (4.00-5.40); WHITE BLOOD COUNT 5.4 10^3/uL (4.0-10.0)
[2021-05-24 16:22] LABS: ALBUMIN 3.4 GM/DL (3.2-5.2); ALT/SGPT 34 U/L (12-78); BILIRUBIN,TOTAL 0.3 MG/DL (0.2-1.0); BLOOD UREA NITROGEN 19 MG/DL (7-18); CALCIUM LEVEL 8.9 MG/DL (8.8-10.2); CARBON DIOXIDE LEVEL 29 MEQ/L (21-32); CHLORIDE LEVEL 109 MEQ/L (98-107); CREATININE FOR GFR 0.99 MG/DL (0.55-1.30); GLOMERULAR FILTRATION RATE > 60.0 (>45); GLUCOSE, FASTING 78 MG/DL (70-100); POTASSIUM SERUM 3.9 MEQ/L (3.5-5.1); SODIUM LEVEL 145 MEQ/L (136-145); TOTAL PROTEIN 6.5 GM/DL (6.4-8.2)
[2021-05-24 17:05] LABS: ERYTHROCYTE SEDIMENTATION RATE 34 mm/hr (0-30)
[2021-05-24 17:49] LABS: ATYPICAL LYMPH 2 % (0-5); BASOPHILS 2 % (0-1); EOSINOPHILS 2 % (0-3); LYMPHOCYTES 37 % (16-44); MONOCYTES 6 % (0-5); NEUTROPHILS 51 % (28-66); PLATELET ESTIMATE NORMAL (NORMAL)
[2021-05-24 17:51] LABS: ANISOCYTOSIS 1+; HYPOCHROMASIA 1+
== END ==
LOC: M LABDRAWC 15:53
PROVIDERS: ATTEND Internal Medicine Rheumatology
DX: Z51.81 Encounter for therapeutic drug level monitoring (principal); Z79.899 Other long term (current) drug therapy; I31.9 Disease of pericardium, unspecified

== ENCOUNTER → 2021-07-09 | Outpatient (REF) | payer MEDICARE, MEDICAID ==
[2021-07-09 16:19] LABS: HEMATOCRIT 35.1 % (36.0-47.0); MEAN CORPUSCULAR HEMOGLOBIN 30.1 pg (27.0-33.0); MEAN CORPUSCULAR HGB CONC 31.3 g/dl (32.0-36.5); MEAN CORPUSCULAR VOLUME 95.9 fl (80.0-96.0); PLATELET COUNT, AUTOMATED 375 10^3/uL (150-450); RED BLOOD COUNT 3.66 10^6/uL (4.00-5.40); WHITE BLOOD COUNT 5.9 10^3/uL (4.0-10.0)
[2021-07-09 16:23] LABS: ALBUMIN 3.7 GM/DL (3.2-5.2); ALT/SGPT 49 U/L (12-78); BILIRUBIN,TOTAL 0.3 MG/DL (0.2-1.0); BLOOD UREA NITROGEN 14 MG/DL (7-18); CALCIUM LEVEL 9.4 MG/DL (8.8-10.2); CARBON DIOXIDE LEVEL 30 MEQ/L (21-32); CHLORIDE LEVEL 110 MEQ/L (98-107); GLOMERULAR FILTRATION RATE > 60.0 (>45); GLUCOSE, FASTING 92 MG/DL (70-100); IRON (FE) 51 UG/DL (50-170); PERCENT SATURATION 14.4 % (13.2-45.0); POTASSIUM SERUM 4.5 MEQ/L (3.5-5.1); SODIUM LEVEL 141 MEQ/L (136-145); THYROID STIMULATING HORMONE 0.978 uIU/ML (0.358-3.740); TOTAL IRON BINDING CAPACITY 354 UG/DL (250-450); TOTAL PROTEIN 6.8 GM/DL (6.4-8.2)
== END ==
LOC: M SFHCCLAY 11:47
PROVIDERS: ATTEND Family Medicine
DX: M06.9 Rheumatoid arthritis, unspecified (principal); D46.4 Refractory anemia, unspecified; E03.9 Hypothyroidism, unspecified; I25.10 Atherosclerotic heart disease of native coronary artery without angina pectoris
CPT/HCPCS: 80053; 83550; 84439; 84443; 85027; G0463

== ENCOUNTER → 2021-09-17 | Outpatient (CLI) | payer MEDICARE, MEDICAID ==
[~2021-09-17] MED LIST changes: +GASTROGRAFIN SOLUTION 30ML (Q9963) As Ordered ONE; +ISOVUE-370 76% 100ML VIAL As Ordered ONE; -LISI-898 PO; +LISI5TAB11 PO; +TIZA10TA PO; -TIZA4TAB4 PO
== END ==
LOC: M RAD 08:11
PROVIDERS: ATTEND Surgery
DX: R10.84 Generalized abdominal pain (principal); R11.2 Nausea with vomiting, unspecified; K56.600 Partial intestinal obstruction, unspecified as to cause; K76.89 Other specified diseases of liver; K57.30 Diverticulosis of large intestine without perforation or abscess without bleeding; K42.9 Umbilical hernia without obstruction or gangrene; Z90.710 Acquired absence of both cervix and uterus; N26.1 Atrophy of kidney (terminal)
CPT/HCPCS: 74178; Q9963; Q9967

== ENCOUNTER → 2021-11-07 | Outpatient (REF) | payer MEDICARE, MEDICAID ==
[~2021-11-07] MED LIST changes: -D31000TA2 PO; -GASTROGRAFIN SOLUTION 30ML (Q9963) As Ordered ONE; -ISOVUE-370 76% 100ML VIAL As Ordered ONE; +VITA100093 PO
[2021-11-07 12:16] LABS: CHOLESTEROL RISK RATIO 2.439 (<5)
== END ==
LOC: M SFHCCLAY 09:23
PROVIDERS: ATTEND Family Medicine
DX: I25.10 Atherosclerotic heart disease of native coronary artery without angina pectoris (principal)

== ENCOUNTER → 2022-02-10 | Outpatient (REF) | payer MEDICARE, MEDICAID ==
[2022-02-10 11:48] LABS: BASO # 0.1 10^3/uL (0.0-0.2); BASO % 1.2 % (0.0-1.0); EOS # 0.2 10^3/uL (0.0-0.5); EOS % 3.2 % (0.0-3.0); HEMOGLOBIN 11.7 g/dl (12.0-15.5); LYMPH # 1.5 10^3/uL (1.5-5.0); LYMPH % 24.3 % (24.0-44.0); MEAN CORPUSCULAR HGB CONC 31.6 g/dl (32.0-36.5); MEAN CORPUSCULAR VOLUME 94.9 fl (80.0-96.0); MONO # 0.5 10^3/uL (0.0-0.8); MONO % 7.9 % (2.0-8.0); NEUTROPHILS # 3.8 10^3/uL (1.5-8.5); NEUTROPHILS % 62.9 % (36.0-66.0); PLATELET COUNT, AUTOMATED 289 10^3/uL (150-450)
[2022-02-10 12:36] LABS: ALBUMIN 3.9 GM/DL (3.2-5.2); BILIRUBIN,TOTAL 0.5 MG/DL (0.2-1.0); CHOLESTEROL RISK RATIO 2.892 (<5); CREATININE FOR GFR 1.03 MG/DL (0.55-1.30); FREE T4 0.89 NG/DL (0.76-1.46); GLOMERULAR FILTRATION RATE 57.8 (>45); POTASSIUM SERUM 4.3 MEQ/L (3.5-5.1); THYROID STIMULATING HORMONE 1.96 uIU/ML (0.358-3.740); TOTAL PROTEIN 6.8 GM/DL (6.4-8.2)
== END ==
LOC: M SFHCCLAY 08:28
PROVIDERS: ATTEND Family Medicine
DX: I25.10 Atherosclerotic heart disease of native coronary artery without angina pectoris (principal); I10 Essential (primary) hypertension; E03.9 Hypothyroidism, unspecified; M06.9 Rheumatoid arthritis, unspecified

== ENCOUNTER → 2022-03-13 | Outpatient (CLI) | payer MEDICARE, MEDICAID | LOC: M WHC 10:25 | PROVIDERS: ATTEND Family Medicine | DX: Z12.31 Encounter for screening mammogram for malignant neoplasm of breast (principal); Z80.49 Family history of malignant neoplasm of other genital organs; Z80.0 Family history of malignant neoplasm of digestive organs; Z80.41 Family history of malignant neoplasm of ovary ==

== ENCOUNTER → 2022-06-02 | Outpatient (REF) | payer MEDICARE, MEDICAID ==
[2022-06-02 19:02] LABS: BASO # 0.1 10^3/uL (0.0-0.2); BASO % 1.2 % (0.0-1.0); EOS # 0.1 10^3/uL (0.0-0.5); EOS % 2.4 % (0.0-3.0); HEMOGLOBIN 12.7 g/dl (12.0-15.5); LYMPH # 1.6 10^3/uL (1.5-5.0); LYMPH % 26.9 % (24.0-44.0); MEAN CORPUSCULAR HEMOGLOBIN 30.1 pg (27.0-33.0); MEAN CORPUSCULAR HGB CONC 31.8 g/dl (32.0-36.5); MEAN CORPUSCULAR VOLUME 94.8 fl (80.0-96.0); MONO # 0.4 10^3/uL (0.0-0.8); MONO % 6.3 % (2.0-8.0); NEUTROPHILS # 3.7 10^3/uL (1.5-8.5); NEUTROPHILS % 62.9 % (36.0-66.0); PLATELET COUNT, AUTOMATED 366 10^3/uL (150-450); RED BLOOD COUNT 4.22 10^6/uL (4.00-5.40); WHITE BLOOD COUNT 5.8 10^3/uL (4.0-10.0)
[2022-06-02 19:08] LABS: ALBUMIN 3.8 GM/DL (3.2-5.2); ALT/SGPT 39 U/L (12-78); BILIRUBIN,TOTAL 0.4 MG/DL (0.2-1.0); BLOOD UREA NITROGEN 17 MG/DL (7-18); CALCIUM LEVEL 9.4 MG/DL (8.8-10.2); CARBON DIOXIDE LEVEL 29 MEQ/L (21-32); CHLORIDE LEVEL 104 MEQ/L (98-107); CREATININE FOR GFR 0.96 MG/DL (0.55-1.30); GLOMERULAR FILTRATION RATE > 60.0 (>45); GLUCOSE, FASTING 105 MG/DL (70-100); POTASSIUM SERUM 4.3 MEQ/L (3.5-5.1); SODIUM LEVEL 138 MEQ/L (136-145); TOTAL PROTEIN 7.3 GM/DL (6.4-8.2)
[2022-06-02 19:32] LABS: ERYTHROCYTE SEDIMENTATION RATE 30 mm/hr (0-30)
== END ==
LOC: M LABDRAWC 17:14
PROVIDERS: ATTEND Internal Medicine Rheumatology
DX: M17.0 Bilateral primary osteoarthritis of knee (principal); I31.9 Disease of pericardium, unspecified; Z79.899 Other long term (current) drug therapy

== ENCOUNTER → 2022-08-19 | Outpatient (CLI) | payer MEDICARE, MEDICAID ==
[~2022-08-19] MED LIST changes: +GASTROGRAFIN SOLUTION 30ML As Ordered ONE; +ISOVUE-370 76% 100ML VIAL As Ordered ONE
== END ==
LOC: M RAD 10:50
PROVIDERS: ATTEND Surgery
DX: R10.84 Generalized abdominal pain (principal); K76.0 Fatty (change of) liver, not elsewhere classified; I70.0 Atherosclerosis of aorta; I25.10 Atherosclerotic heart disease of native coronary artery without angina pectoris; K80.20 Calculus of gallbladder without cholecystitis without obstruction; K76.89 Other specified diseases of liver; N26.1 Atrophy of kidney (terminal); Z98.0 Intestinal bypass and anastomosis status; M48.56XA Collapsed vertebra, not elsewhere classified, lumbar region, initial encounter for fracture; Z95.828 Presence of other vascular implants and grafts; M51.37 Other intervertebral disc degeneration, lumbosacral region
CPT/HCPCS: 74178; Q9963; Q9967

== ENCOUNTER → 2022-09-10 | Outpatient (REF) | payer MEDICARE, MEDICAID ==
[~2022-09-10] MED LIST changes: -GASTROGRAFIN SOLUTION 30ML As Ordered ONE; -ISOVUE-370 76% 100ML VIAL As Ordered ONE
[2022-09-10 18:12] LABS: BASO # 0.1 10^3/uL (0.0-0.2); BASO % 0.9 % (0.0-1.0); EOS # 0.2 10^3/uL (0.0-0.5); HEMATOCRIT 42.1 % (36.0-47.0); HEMOGLOBIN 13.4 g/dl (12.0-15.5); LYMPH # 1.7 10^3/uL (1.5-5.0); LYMPH % 25.2 % (24.0-44.0); MEAN CORPUSCULAR HEMOGLOBIN 30.7 pg (27.0-33.0); MEAN CORPUSCULAR HGB CONC 31.8 g/dl (32.0-36.5); MEAN CORPUSCULAR VOLUME 96.3 fl (80.0-96.0); MONO # 0.3 10^3/uL (0.0-0.8); MONO % 4.7 % (2.0-8.0); NEUTROPHILS # 4.4 10^3/uL (1.5-8.5); NEUTROPHILS % 65.8 % (36.0-66.0); PLATELET COUNT, AUTOMATED 301 10^3/uL (150-450); RED BLOOD COUNT 4.37 10^6/uL (4.00-5.40); WHITE BLOOD COUNT 6.8 10^3/uL (4.0-10.0)
[2022-09-10 18:34] LABS: C REACTIVE PROTEIN QUANTITATIV < 0.40 MG/DL (<1.0)
[2022-09-10 18:36] LABS: ERYTHROCYTE SEDIMENTATION RATE 20 mm/hr (0-30)
[2022-09-10 18:37] LABS: ALBUMIN 4.2 G/DL (3.2-5.2); ALKALINE PHOSPHATASE 135 U/L (46-116); ALT/SGPT 34 U/L (7.0-40); AST/SGOT 22 U/L (<34); BILIRUBIN,TOTAL 0.4 MG/DL (0.3-1.2); BLOOD UREA NITROGEN 15 MG/DL (9-23); CALCIUM LEVEL 9.6 MG/DL (8.3-10.6); CARBON DIOXIDE LEVEL 28 MMOL/L (20-31); CHLORIDE LEVEL 105 MMOL/L (98-107); CHOLESTEROL LEVEL 166 MG/DL (<200); CHOLESTEROL RISK RATIO 2.87 (<5); CREATININE FOR GFR 1.02 MG/DL (0.55-1.30); GLOMERULAR FILTRATION RATE 58.3 (>45); GLUCOSE, FASTING 93 MG/DL (74-106); HDL CHOLESTEROL 57.8 MG/DL (>40); LDL CHOLESTEROL 76.2 MG/DL (<100); NON-HDL-C 108 MG/DL; POTASSIUM SERUM 4.7 MMOL/L (3.5-5.1); SODIUM LEVEL 142 MMOL/L (136-145); TOTAL PROTEIN 7.1 G/DL (5.7-8.2); TRIGLYCERIDES LEVEL 160 MG/DL (<150)
[2022-09-10 18:55] LABS: APPEARANCE, URINE MANUAL CLEAR (CLEAR); BILIRUBIN, URINE MANUAL NEGATIVE (NEGATIVE); BLOOD URINE MANUAL NEGATIVE (NEGATIVE); COLOR, URINE MANUAL YELLOW (YELLOW); GLUCOSE, URINE (UA) MANUAL NEGATIVE (NEGATIVE); KETONE, URINE MANUAL NEGATIVE (NEGATIVE); LEUKOCYTE ESTERASE, URINE MAN NEGATIVE (NEGATIVE); NITRITE, URINE MANUAL NEGATIVE (NEGATIVE); PROTEIN, URINE MANUAL NEGATIVE (NEGATIVE); SPECIFIC GRAVITY,URINE MANUAL 1.015 (1.002-1.035); UROBILINOGEN, URINE MANUAL NORMAL (NORMAL)
[2022-09-10 21:09] LABS: FREE T4 0.97 NG/DL (0.89-1.76); THYROID STIMULATING HORMONE 2.201 uIU/ML (0.55-4.78)
== END ==
LOC: M SFHCCLAY 10:28
PROVIDERS: ATTEND Family Medicine
DX: I25.10 Atherosclerotic heart disease of native coronary artery without angina pectoris (principal); M06.9 Rheumatoid arthritis, unspecified; I24.1 Dressler's syndrome; R10.9 Unspecified abdominal pain; G89.29 Other chronic pain; Z79.899 Other long term (current) drug therapy; E03.9 Hypothyroidism, unspecified

== ENCOUNTER → 2022-10-24 | Outpatient (REF) | payer MEDICARE, MEDICAID | LOC: M SFHCCLAY 12:00 | PROVIDERS: ATTEND Family Medicine | DX: B34.9 Viral infection, unspecified (principal) ==

== ENCOUNTER → 2022-11-21 | Outpatient (REF) | payer MEDICARE, MEDICAID | LOC: M SFHCCLAY 12:21 | PROVIDERS: ATTEND Family Medicine | DX: J03.90 Acute tonsillitis, unspecified (principal) | CPT/HCPCS: 87070; G0463 ==

== ENCOUNTER → 2022-12-10 | Outpatient (REF) | payer MEDICARE, MEDICAID ==
[2022-12-10 12:10] LABS: C REACTIVE PROTEIN QUANTITATIV < 0.40 MG/DL (<1.0)
[2022-12-10 12:12] LABS: ALBUMIN 3.7 G/DL (3.2-5.2); ALKALINE PHOSPHATASE 97 U/L (46-116); ALT/SGPT 34 U/L (7.0-40); AST/SGOT 18 U/L (<34); BILIRUBIN,TOTAL 0.4 MG/DL (0.3-1.2); BLOOD UREA NITROGEN 22 MG/DL (9-23); CALCIUM LEVEL 8.7 MG/DL (8.3-10.6); CARBON DIOXIDE LEVEL 26 MMOL/L (20-31); CHLORIDE LEVEL 108 MMOL/L (98-107); CREATININE FOR GFR 0.88 MG/DL (0.55-1.30); GLOMERULAR FILTRATION RATE > 60.0 (>45); GLUCOSE, FASTING 95 MG/DL (74-106); POTASSIUM SERUM 4.4 MMOL/L (3.5-5.1); RHEUMATOID FACTOR QUANT 3.9 IU/ML (<14); SODIUM LEVEL 141 MMOL/L (136-145); TOTAL PROTEIN 6.2 G/DL (5.7-8.2)
[2022-12-10 12:15] LABS: BASO # 0.1 10^3/uL (0.0-0.2); BASO % 1.2 % (0.0-1.0); EOS # 0.1 10^3/uL (0.0-0.5); EOS % 1.5 % (0.0-3.0); HEMATOCRIT 36.6 % (36.0-47.0); HEMOGLOBIN 11.9 g/dl (12.0-15.5); LYMPH # 2.5 10^3/uL (1.5-5.0); LYMPH % 29.7 % (24.0-44.0); MEAN CORPUSCULAR HEMOGLOBIN 31.6 pg (27.0-33.0); MEAN CORPUSCULAR HGB CONC 32.5 g/dl (32.0-36.5); MEAN CORPUSCULAR VOLUME 97.3 fl (80.0-96.0); MONO # 0.5 10^3/uL (0.0-0.8); MONO % 5.3 % (2.0-8.0); NEUTROPHILS # 5.2 10^3/uL (1.5-8.5); NEUTROPHILS % 61.7 % (36.0-66.0); PLATELET COUNT, AUTOMATED 304 10^3/uL (150-450); RED BLOOD COUNT 3.76 10^6/uL (4.00-5.40); WHITE BLOOD COUNT 8.5 10^3/uL (4.0-10.0)
[2022-12-10 12:26] LABS: ERYTHROCYTE SEDIMENTATION RATE 13 mm/hr (0-30)
[2022-12-11 20:08] LABS: ANTINUCLEAR ANTIBODIES DIRECT Negative (Negative); CYCLIC CITRULLINATED PEPTIDE 4 units (0-19)
== END ==
LOC: M LABDRAWC 11:16
PROVIDERS: ATTEND Internal Medicine Rheumatology
DX: I31.9 Disease of pericardium, unspecified (principal); M79.641 Pain in right hand; M25.441 Effusion, right hand; Z79.899 Other long term (current) drug therapy

== ENCOUNTER → 2022-12-10 | Outpatient (CLI) | payer MEDICARE, MEDICAID | LOC: M CLY 09:37 | PROVIDERS: ATTEND Internal Medicine Rheumatology | DX: M17.0 Bilateral primary osteoarthritis of knee (principal) ==

== ENCOUNTER → 2022-12-25 | Outpatient (CLI) | payer MEDICARE, MEDICAID ==
[~2022-12-25] MED LIST changes: +E-Z-GAS II EFFERVESCENT PACKET (SODIUM BICARB./CITRIC ACID/SIMETHICONE) As Ordered ONE; +E-Z-HD 98% w/w 340GM SUSP BTL As Ordered ONE; +E-Z-PAQUE 96% w/w SUSP 176GM BTL As Ordered ONE
== END ==
LOC: M RAD 09:26
PROVIDERS: ATTEND Internal Medicine Gastroenterology
DX: R10.13 Epigastric pain (principal); K21.9 Gastro-esophageal reflux disease without esophagitis; K44.9 Diaphragmatic hernia without obstruction or gangrene

== ENCOUNTER → 2023-01-21 | Outpatient (REF) | payer MEDICARE, MEDICAID ==
[~2023-01-21] MED LIST changes: -E-Z-GAS II EFFERVESCENT PACKET (SODIUM BICARB./CITRIC ACID/SIMETHICONE) As Ordered ONE; -E-Z-HD 98% w/w 340GM SUSP BTL As Ordered ONE; -E-Z-PAQUE 96% w/w SUSP 176GM BTL As Ordered ONE
[2023-01-21 12:47] LABS: CHOLESTEROL RISK RATIO 2.26 (<5); HDL CHOLESTEROL 61.8 MG/DL (>40); LDL CHOLESTEROL 56.8 MG/DL (<100); NON-HDL-C 78.2 MG/DL
== END ==
LOC: M SFHCCLAY 08:39
PROVIDERS: ATTEND Family Medicine
DX: I25.10 Atherosclerotic heart disease of native coronary artery without angina pectoris (principal)

== ENCOUNTER 2023-03-10 10:03 | Day surgery (SDC) | payer MEDICARE, MEDICAID ==
[~2023-03-10] VITALS: Ht 157.5 cm; Wt 71.2 kg
[~2023-03-10 10:03] MED LIST changes: +ACETYLCHOLINE OPHTH SOLN 1% 2ML (MIOCHOL-E) As Ordered ONE; +CARV12.5 PO; +CEFUROXIME 1MG/0.1ML INTRACAMERAL INJ As Ordered ONE; +CYCLOPENTOLATE 1% OPHTH SOLN 2ML BTL OD SCH; +EZET10TA21 PO; +LIDOCAINE 1% SDV 5ML VIAL As Ordered ONE; +PHENYLEPHRINE 2.5% OPHTH SOL 2ML OD SCH; +PROPARACAINE 0.5% OPHTH SOL 15ML OD ONE; +TROPICAMIDE 1% OPHTH SOLN 15ML OD SCH; +XARE15TA PO
[2023-03-10] MEDS ORDERED: BSS IRR 500ML/OMIDRIA 4ML IRR BAG (OR ONLY) As Ordered ONE (11:06)
[2023-03-10] MEDS ORDERED: fentaNYL 100 MCG/2 ML INJECTION As Ordered ONE (12:08)
[2023-03-10] MEDS ORDERED: MIDAZOLAM INJ 2MG/2ML VIAL As Ordered ONE (12:08)
[2023-03-10] MEDS ORDERED: EPINEPHrine 1MG/ML INJ 30ML MD-VIAL As Ordered ONE (13:14)
[2023-03-10 14:00] VITALS: BP 132/65; TEMP 97.1; O2SAT 100
== END 2023-03-10 14:15 | disposition home or self-care (01) ==
LOC: M SDC 10:03
PROVIDERS: ATTEND Ophthalmology
DX: H25.11 Age-related nuclear cataract, right eye (principal); H27.8 Other specified disorders of lens; I48.91 Unspecified atrial fibrillation; I25.2 Old myocardial infarction; Z95.5 Presence of coronary angioplasty implant and graft; I10 Essential (primary) hypertension; E03.9 Hypothyroidism, unspecified; Z88.1 Allergy status to other antibiotic agents; Z88.2 Allergy status to sulfonamides; Z88.5 Allergy status to narcotic agent; Z79.899 Other long term (current) drug therapy; Z79.01 Long term (current) use of anticoagulants
CPT/HCPCS: 66984; J0171; J0697; J1097; J2250; J3010; L8699; V2632

== ENCOUNTER → 2023-04-02 | Outpatient (CLI) | payer MEDICARE, MEDICAID ==
[~2023-04-02] MED LIST changes: -ACETYLCHOLINE OPHTH SOLN 1% 2ML (MIOCHOL-E) As Ordered ONE; -CEFUROXIME 1MG/0.1ML INTRACAMERAL INJ As Ordered ONE; -CYCLOPENTOLATE 1% OPHTH SOLN 2ML BTL OD SCH; -LIDOCAINE 1% SDV 5ML VIAL As Ordered ONE; -PHENYLEPHRINE 2.5% OPHTH SOL 2ML OD SCH; -PROPARACAINE 0.5% OPHTH SOL 15ML OD ONE; -TROPICAMIDE 1% OPHTH SOLN 15ML OD SCH
== END ==
LOC: M WHC 09:02
PROVIDERS: ATTEND Family Medicine
DX: Z12.31 Encounter for screening mammogram for malignant neoplasm of breast (principal)

== ENCOUNTER → 2023-06-11 | Outpatient (CLI) | payer MEDICARE, MEDICAID ==
[~2023-06-11] MED LIST changes: +EZET10TA58 PO; -ZETI10TA16 PO
== END ==
LOC: M CLY 09:40
PROVIDERS: ATTEND Family Medicine
DX: M19.031 Primary osteoarthritis, right wrist (principal); M25.531 Pain in right wrist; I31.9 Disease of pericardium, unspecified; Z79.899 Other long term (current) drug therapy

== ENCOUNTER → 2023-06-11 | Outpatient (REF) | payer MEDICARE, MEDICAID | LOC: M SFHCCLAY 09:30 | PROVIDERS: ATTEND Family Medicine | DX: B35.1 Tinea unguium (principal) ==

== ENCOUNTER → 2023-06-11 | Outpatient (REF) | payer MEDICARE, MEDICAID ==
[2023-06-11 12:50] LABS: BASO # 0.1 10^3/uL (0.0-0.2); BASO % 1.4 % (0.0-1.0); EOS # 0.2 10^3/uL (0.0-0.5); EOS % 3.5 % (0.0-3.0); HEMATOCRIT 36.3 % (36.0-47.0); HEMOGLOBIN 11.8 g/dl (12.0-15.5); LYMPH # 1.6 10^3/uL (1.5-5.0); LYMPH % 24.1 % (24.0-44.0); MEAN CORPUSCULAR HGB CONC 32.5 g/dl (32.0-36.5); MEAN CORPUSCULAR VOLUME 98.4 fl (80.0-96.0); MONO # 0.4 10^3/uL (0.0-0.8); MONO % 6.4 % (2.0-8.0); NEUTROPHILS # 4.2 10^3/uL (1.5-8.5); NEUTROPHILS % 64.1 % (36.0-66.0); PLATELET COUNT, AUTOMATED 313 10^3/uL (150-450); RED BLOOD COUNT 3.69 10^6/uL (4.00-5.40); WHITE BLOOD COUNT 6.6 10^3/uL (4.0-10.0)
[2023-06-11 13:01] LABS: ERYTHROCYTE SEDIMENTATION RATE 21 mm/hr (0-30)
[2023-06-11 13:24] LABS: C REACTIVE PROTEIN QUANTITATIV < 0.40 MG/DL (<1.0)
[2023-06-11 13:26] LABS: ALBUMIN 3.8 G/DL (3.2-5.2); ALKALINE PHOSPHATASE 110 U/L (46-116); ALT/SGPT 33 U/L (7.0-40); AST/SGOT 19 U/L (<34); BILIRUBIN,TOTAL 0.4 MG/DL (0.3-1.2); BLOOD UREA NITROGEN 17 MG/DL (9-23); CALCIUM LEVEL 9.2 MG/DL (8.3-10.6); CARBON DIOXIDE LEVEL 28 MMOL/L (20-31); CHLORIDE LEVEL 106 MMOL/L (98-107); CREATININE FOR GFR 0.99 MG/DL (0.55-1.30); GLOMERULAR FILTRATION RATE > 60.0 (>45); GLUCOSE, FASTING 101 MG/DL (74-106); POTASSIUM SERUM 4.6 MMOL/L (3.5-5.1); SODIUM LEVEL 140 MMOL/L (136-145); TOTAL PROTEIN 6.5 G/DL (5.7-8.2)
== END ==
LOC: M LABDRAWC 11:50
PROVIDERS: ATTEND Internal Medicine Rheumatology
DX: I31.9 Disease of pericardium, unspecified (principal); Z79.899 Other long term (current) drug therapy

== ENCOUNTER → 2023-07-17 | Outpatient (REF) | payer MEDICARE, MEDICAID | LOC: M SFHCCLAY 17:01 | PROVIDERS: ATTEND Family Medicine | DX: B35.1 Tinea unguium (principal) ==

== ENCOUNTER → 2023-10-06 | Outpatient (REF) | payer MEDICARE, MEDICAID ==
[2023-10-06 14:08] LABS: HEMATOCRIT 37.8 % (36.0-47.0); MEAN CORPUSCULAR HEMOGLOBIN 30.8 pg (27.0-33.0); MEAN CORPUSCULAR HGB CONC 31.7 g/dl (32.0-36.5); MEAN CORPUSCULAR VOLUME 97.2 fl (80.0-96.0); PLATELET COUNT, AUTOMATED 273 10^3/uL (150-450); RED BLOOD COUNT 3.89 10^6/uL (4.00-5.40); WHITE BLOOD COUNT 8.9 10^3/uL (4.0-10.0)
[2023-10-06 14:34] LABS: ALBUMIN 3.6 G/DL (3.2-5.2); BILIRUBIN,TOTAL 0.5 MG/DL (0.3-1.2); CALCIUM LEVEL 9.2 MG/DL (8.3-10.6); CREATININE FOR GFR 1.03 MG/DL (0.55-1.30); GLOMERULAR FILTRATION RATE 57.4 (>45); POTASSIUM SERUM 4.8 MMOL/L (3.5-5.1); TOTAL PROTEIN 6.1 G/DL (5.7-8.2)
[2023-10-06 14:50] LABS: ERYTHROCYTE SEDIMENTATION RATE 24 mm/hr (0-30)
== END ==
LOC: M LABDRAWC 13:16
PROVIDERS: ATTEND Internal Medicine Cardiovascular Disease
DX: I25.10 Atherosclerotic heart disease of native coronary artery without angina pectoris (principal); I30.0 Acute nonspecific idiopathic pericarditis

== ENCOUNTER 2024-01-18 12:01 | Day surgery (SDC) | payer MEDICARE, MEDICAID ==
[~2024-01-18] VITALS: Ht 157.5 cm; Wt 72.8 kg
[~2024-01-18 12:01] MED LIST changes: -ASPI-161 PO; +ASPI-615 PO; +ATOR80TA59 PO; +DIPH1TAB81 PO; -DIPH2.5T15 PO; +LR 1,000 ML IV SCH; +MIDAZOLAM INJ 2MG/2ML VIAL As Ordered ONE; +TERB250T91 PO; +fentaNYL 100 MCG/2 ML INJECTION As Ordered ONE
[2024-01-18] MEDS: PHENYLEPHRINE 2.5% OPHTH SOL 2ML OS SCH (14:14)
[2024-01-18] MEDS: ATROPINE SULFATE 1% OPHTH SOLN 2ML BTL OS SCH (14:14)
[2024-01-18] MEDS: TETRACAINE 0.5% OPHTH SOLN 4ML OS SCH (14:15)
[2024-01-18] MEDS: FLURBIPROFEN 0.03% OPHTH SOLN 2.5 ML OS SCH (14:15)
[2024-01-18] MEDS: LIDOCAINE 1% SDV 5ML VIAL As Ordered ONE (15:04)
[2024-01-18] MEDS: CEFUROXIME 1MG/0.1ML INTRACAMERAL INJ As Ordered ONE (15:04)
[2024-01-18 15:25] VITALS: BP 169/72; TEMP 97; O2SAT 99
== END 2024-01-18 15:48 | disposition home or self-care (01) ==
LOC: M SDC 12:01
PROVIDERS: ATTEND Ophthalmology
DX: H25.12 Age-related nuclear cataract, left eye (principal); I25.10 Atherosclerotic heart disease of native coronary artery without angina pectoris; I25.2 Old myocardial infarction; E78.5 Hyperlipidemia, unspecified; E03.9 Hypothyroidism, unspecified; I48.91 Unspecified atrial fibrillation; Z98.61 Coronary angioplasty status; Z87.891 Personal history of nicotine dependence; I10 Essential (primary) hypertension; K21.9 Gastro-esophageal reflux disease without esophagitis; K57.92 Diverticulitis of intestine, part unspecified, without perforation or abscess without bleeding; Z79.82 Long term (current) use of aspirin; Z79.02 Long term (current) use of antithrombotics/antiplatelets; Z88.2 Allergy status to sulfonamides; Z88.5 Allergy status to narcotic agent; Z88.1 Allergy status to other antibiotic agents; Z91.013 Allergy to seafood
CPT/HCPCS: 66984; J0697; J2250; J3010; V2632

== ENCOUNTER → 2024-04-04 | Outpatient (CLI) | payer MEDICARE, MEDICAID ==
[~2024-04-04] MED LIST changes: -LR 1,000 ML IV SCH; -MIDAZOLAM INJ 2MG/2ML VIAL As Ordered ONE; +ONDA-282 PO; -ONDA4TAB6 PO; -fentaNYL 100 MCG/2 ML INJECTION As Ordered ONE
== END ==
LOC: M WHC 07:35
PROVIDERS: ATTEND Family Medicine
DX: Z12.31 Encounter for screening mammogram for malignant neoplasm of breast (principal); R92.333 Mammographic heterogeneous density, bilateral breasts

== ENCOUNTER → 2024-04-29 | Outpatient (REF) | payer MEDICARE, MEDICAID ==
[2024-04-29 18:19] LABS: ALBUMIN 4.3 G/DL (3.2-5.2); BILIRUBIN,TOTAL 0.5 MG/DL (0.3-1.2); CALCIUM LEVEL 9.5 MG/DL (8.3-10.6); CHOLESTEROL RISK RATIO 2.51 (<5); CREATININE FOR GFR 1.01 MG/DL (0.55-1.30); GLOMERULAR FILTRATION RATE 58.7 (>45); HDL CHOLESTEROL 57.7 MG/DL (>40); LDL CHOLESTEROL 66.1 MG/DL (<100); NON-HDL-C 87.3 MG/DL; POTASSIUM SERUM 4.5 MMOL/L (3.5-5.1); TOTAL PROTEIN 7.3 G/DL (5.7-8.2)
[2024-04-29 20:55] LABS: BASO # 0.1 10^3/uL (0.0-0.2); BASO % 1.2 % (0.0-1.0); EOS # 0.1 10^3/uL (0.0-0.5); EOS % 1.9 % (0.0-3.0); HEMATOCRIT 38.4 % (36.0-47.0); HEMOGLOBIN 12.5 g/dl (12.0-15.5); LYMPH # 1.5 10^3/uL (1.5-5.0); LYMPH % 22.6 % (24.0-44.0); MEAN CORPUSCULAR HEMOGLOBIN 31.6 pg (27.0-33.0); MEAN CORPUSCULAR HGB CONC 32.6 g/dl (32.0-36.5); MONO # 0.5 10^3/uL (0.0-0.8); MONO % 7.1 % (2.0-8.0); NEUTROPHILS # 4.5 10^3/uL (1.5-8.5); NEUTROPHILS % 66.8 % (36.0-66.0); PLATELET COUNT, AUTOMATED 291 10^3/uL (150-450); RED BLOOD COUNT 3.96 10^6/uL (4.00-5.40); WHITE BLOOD COUNT 6.7 10^3/uL (4.0-10.0)
[2024-04-29 21:00] LABS: ERYTHROCYTE SEDIMENTATION RATE 35 mm/hr (0-30)
[2024-05-03 13:54] LABS: FREE T4 1.25 NG/DL (0.89-1.76); THYROID STIMULATING HORMONE 2.891 uIU/ML (0.55-4.78)
== END ==
LOC: M SFHCCLAY 12:23
PROVIDERS: ATTEND Family Medicine
DX: Z00.00 Encounter for general adult medical examination without abnormal findings (principal); E03.9 Hypothyroidism, unspecified; I10 Essential (primary) hypertension; I25.10 Atherosclerotic heart disease of native coronary artery without angina pectoris; M06.9 Rheumatoid arthritis, unspecified; Z79.899 Other long term (current) drug therapy

== ENCOUNTER → 2024-05-06 | Outpatient (CLI) | payer MEDICARE, MEDICAID | LOC: M WHC 10:50 | PROVIDERS: ATTEND Family Medicine | DX: Z78.0 Asymptomatic menopausal state (principal) ==

== ENCOUNTER → 2024-05-10 | Outpatient (CLI) | payer MEDICARE, MEDICAID | LOC: M RAD 15:17 | PROVIDERS: ATTEND Family Medicine | DX: R26.89 Other abnormalities of gait and mobility (principal) ==

== ENCOUNTER → 2024-07-22 | Outpatient (CLI) | payer MEDICARE, MEDICAID ==
[~2024-07-22] MED LIST changes: +GASTROGRAFIN SOLUTION 30ML As Ordered ONE; +ISOVUE-370 76% 100ML VIAL As Ordered ONE
== END ==
LOC: M RAD 07:49
PROVIDERS: ATTEND Surgery
DX: K43.2 Incisional hernia without obstruction or gangrene (principal); K80.20 Calculus of gallbladder without cholecystitis without obstruction; K57.30 Diverticulosis of large intestine without perforation or abscess without bleeding
CPT/HCPCS: 74177; Q9963; Q9967

== ENCOUNTER → 2024-10-26 | Outpatient (REF) | payer MEDICARE, MEDICAID ==
[~2024-10-26] MED LIST changes: -GASTROGRAFIN SOLUTION 30ML As Ordered ONE; -ISOVUE-370 76% 100ML VIAL As Ordered ONE
[2024-10-26 17:13] LABS: ALKALINE PHOSPHATASE 117 U/L (35-104); ALT/SGPT 37 U/L (7.0-40); AST/SGOT 19 U/L (<34); BILIRUBIN,TOTAL 0.5 MG/DL (0.3-1.2); BLOOD UREA NITROGEN 18 MG/DL (9-23); CALCIUM LEVEL 9.3 MG/DL (8.3-10.6); CARBON DIOXIDE LEVEL 26 MMOL/L (20-31); CHLORIDE LEVEL 104 MMOL/L (98-107); CHOLESTEROL LEVEL 148 MG/DL (<200); CHOLESTEROL RISK RATIO 2.69 (<5); GLOMERULAR FILTRATION RATE > 60.0 (>45); GLUCOSE, FASTING 93 MG/DL (74-106); LDL CHOLESTEROL 62.4 MG/DL (<100); POTASSIUM SERUM 4.5 MMOL/L (3.5-5.1); SODIUM LEVEL 143 MMOL/L (136-145); TOTAL PROTEIN 7.1 G/DL (5.7-8.2); TRIGLYCERIDES LEVEL 153 MG/DL (<150)
[2024-10-26 17:14] LABS: FREE T4 1.16 NG/DL (0.89-1.76); THYROID STIMULATING HORMONE 2.209 uIU/ML (0.55-4.78)
[2024-10-26 17:26] LABS: HEMOGLOBIN A1c 5.9 % (4.0-6.0)
== END ==
LOC: M SFHCCLAY 11:12
PROVIDERS: ATTEND Nurse Practitioner Family
DX: I25.10 Atherosclerotic heart disease of native coronary artery without angina pectoris (principal); I10 Essential (primary) hypertension; E03.9 Hypothyroidism, unspecified; E78.5 Hyperlipidemia, unspecified; K21.9 Gastro-esophageal reflux disease without esophagitis; R73.03 Prediabetes; I31.9 Disease of pericardium, unspecified

== ENCOUNTER → 2024-11-07 | Outpatient (REF) | payer MEDICARE, MEDICAID ==
[2024-11-07 17:32] LABS: BASO # 0.1 10^3/uL (0.0-0.2); BASO % 1.1 % (0.0-1.0); EOS # 0.1 10^3/uL (0.0-0.5); EOS % 2.2 % (0.0-3.0); HEMATOCRIT 38.4 % (36.0-47.0); HEMOGLOBIN 12.3 g/dl (12.0-15.5); LYMPH # 1.7 10^3/uL (1.5-5.0); LYMPH % 25.5 % (24.0-44.0); MEAN CORPUSCULAR HEMOGLOBIN 31.5 pg (27.0-33.0); MEAN CORPUSCULAR VOLUME 98.5 fl (80.0-96.0); MONO # 0.4 10^3/uL (0.0-0.8); MONO % 5.7 % (2.0-8.0); NEUTROPHILS # 4.2 10^3/uL (1.5-8.5); NEUTROPHILS % 64.9 % (36.0-66.0); PLATELET COUNT, AUTOMATED 377 10^3/uL (150-450); WHITE BLOOD COUNT 6.5 10^3/uL (4.0-10.0)
[2024-11-07 17:53] LABS: ALBUMIN 4.1 G/DL (3.2-5.2); ALKALINE PHOSPHATASE 120 U/L (35-104); ALT/SGPT 44 U/L (7.0-40); AST/SGOT 35 U/L (<34); BILIRUBIN,TOTAL 0.4 MG/DL (0.3-1.2); BLOOD UREA NITROGEN 22 MG/DL (9-23); CALCIUM LEVEL 9.8 MG/DL (8.3-10.6); CARBON DIOXIDE LEVEL 26 MMOL/L (20-31); CHLORIDE LEVEL 106 MMOL/L (98-107); CREATININE FOR GFR 0.95 MG/DL (0.55-1.30); GLOMERULAR FILTRATION RATE > 60.0 (>45); GLUCOSE, FASTING 114 MG/DL (74-106); SODIUM LEVEL 141 MMOL/L (136-145); TOTAL PROTEIN 7.3 G/DL (5.7-8.2)
== END ==
LOC: M SFHCCLAY 10:51
PROVIDERS: ATTEND Nurse Practitioner Family
DX: Z01.818 Encounter for other preprocedural examination (principal)

== ENCOUNTER 2024-11-15 10:19 | Observation (INO) | payer MEDICARE, MEDICAID ==
[~2024-11-15] VITALS: Ht 157.5 cm; Wt 75.0 kg
[2024-11-15] MEDS: LR 1,000 ML IV SCH ×2 (10:25→14:45)
[2024-11-15] MEDS ORDERED: ACETAMINOPHEN 1000MG/100ML IV BAG As Ordered ONE (10:46)
[2024-11-15] MEDS ORDERED: fentaNYL 100 MCG/2 ML INJECTION As Ordered ONE (10:46)
[2024-11-15] MEDS ORDERED: propofoL 200 MG/20 ML VIAL As Ordered ONE (10:46)
[2024-11-15] MEDS ORDERED: MIDAZOLAM INJ 2MG/2ML VIAL As Ordered ONE (10:46)
[2024-11-15] MEDS ORDERED: LIDOCAINE 2% 100MG/5ML SDV (FOR ANES.) As Ordered ONE (10:47)
[2024-11-15] MEDS ORDERED: SUGAMMADEX SODIUM 500 MG/5 ML VIAL (BRIDION) As Ordered ONE (10:47)
[2024-11-15] MEDS ORDERED: ROCURONIUM BROMIDE 50MG/5ML VIAL As Ordered ONE (10:47)
[2024-11-15] MEDS ORDERED: ONDANSETRON 4MG 2ML VIAL As Ordered ONE (10:50)
[2024-11-15] MEDS ORDERED: KETOROLAC 30 MG/ML 1ML VIAL As Ordered ONE (10:50)
[2024-11-15] MEDS: ceFAZolin SODIUM 2 GM VIAL As Ordered ONE (13:15)
[2024-11-15] MEDS: BUPivacaine LIPOSOME/PF 266MG 20ML VIAL (13.3MG/ML)(EXPAREL) As Ordered ONE (13:26)
[2024-11-15] MEDS ORDERED: hydrALAZINE 20MG/ML 1ML VIAL As Ordered ONE (13:34)
[2024-11-15] MEDS ORDERED: HYDROmorphone HCL 2MG/ML 1ML VIAL As Ordered ONE (13:38)
[2024-11-15] MEDS ORDERED: oxyCODONE 5MG TAB PO PRN (14:45)
[2024-11-15] MEDS: ONDANSETRON 4MG 2ML VIAL IV PRN (15:11)
[2024-11-15] MEDS: fentaNYL 100 MCG/2 ML INJECTION IV PRN (15:11)
[2024-11-15] MEDS: HYDROMORPHONE HCL 0.5 MG/ 0.5 ML SYRINGE IV PRN (15:30)
[2024-11-15] MEDS: oxyCODONE 5MG TAB PO PRN (15:34)
[2024-11-15] MEDS ORDERED: ONDANSETRON 4MG 2ML VIAL IV PRN (17:15)
[2024-11-15] MEDS ORDERED: PROMETHAZINE 25MG/ML 1ML VIAL IV PRN (17:15)
[2024-11-15] MEDS ORDERED: MORPHINE 4 MG/ML 1ML VIAL IV PRN (17:15)
[2024-11-15] MEDS ORDERED: tiZANidine 4 MG TAB PO PRN (17:15)
[2024-11-15 18:20] VITALS: BP 142/46; TEMP 97.5; O2SAT 98
[2024-11-15] MEDS: NS (Normal Saline) 0.9% 1,000 ML IV SCH (18:33)
[2024-11-15 18:50] VITALS: BP 146/51; TEMP 97.7; O2SAT 96
[2024-11-15] MEDS: IPRATROPIUM 0.5MG/ALBUTEROL 2.5MG INH SOL UD 3ML (DUONEB) NEB SCH (19:27)
[2024-11-15] MEDS ORDERED: HOME MED LIST COMPLETE! XX SCH (19:45)
[2024-11-15] MEDS: PERCOCET 5MG/325MG TAB PO PRN (19:47)
[2024-11-15 20:30] VITALS: BP 123/48; TEMP 97.5; O2SAT 94
[2024-11-15] MEDS: EZETIMIBE 10MG TABLET (ZETIA) PO SCH (20:49)
[2024-11-15] MEDS: ATORVASTATIN 20 MG TAB PO SCH (20:50)
[2024-11-15] MEDS: KETOROLAC 30 MG/ML 1ML VIAL IV SCH (20:50)
[2024-11-15] MEDS: POTASSIUM CHLORIDE 10MEQ SR TABLET PO SCH (20:50)
[2024-11-15] MEDS: ceFAZolin SOD 2 GM IV ONCE IV ONE (20:53)
[2024-11-15 21:30] VITALS: BP 124/49; TEMP 97.5; O2SAT 94
[2024-11-15 22:30] VITALS: BP 113/57; TEMP 97.5; O2SAT 95
[2024-11-16] VITALS: BP 118/50; TEMP 97.5; O2SAT 93
[2024-11-16 04:00] VITALS: BP 116/47; TEMP 97.7; O2SAT 95
[2024-11-16] MEDS: LEVOTHYROXINE 25MCG TABLET (0.025MG) PO SCH (05:52)
[2024-11-16 07:38] VITALS: BP 135/57; TEMP 97.3; O2SAT 98
[2024-11-16 08:23] LABS: HEMATOCRIT 33.5 % (36.0-47.0); HEMOGLOBIN 10.8 g/dl (12.0-15.5)
[2024-11-16] MEDS: PANTOPRAZOLE 40MG VIAL IV SCH (09:10)
[2024-11-16] MEDS: CETIRIZINE (ZyrTEC) 10 MG TAB PO SCH (09:10)
[2024-11-16 10:41] VITALS: O2SAT 95
[2024-11-16] MEDS: PERCOCET 5MG/325MG TAB PO PRN (13:16)
[2024-11-19] MEDS ORDERED: METHOTREXATE 2.5MG TAB PO SCH (09:00)
== END 2024-11-16 14:03 | disposition home or self-care (01) ==
LOC: M SDC 10:19 → M RR INP 10:20 → M MSPAV 18:21
PROVIDERS: ADMIT Surgery; ATTEND Surgery
DX: K43.2 Incisional hernia without obstruction or gangrene (principal); I10 Essential (primary) hypertension; E78.5 Hyperlipidemia, unspecified; Z92.21 Personal history of antineoplastic chemotherapy; R73.03 Prediabetes; K57.92 Diverticulitis of intestine, part unspecified, without perforation or abscess without bleeding; K21.9 Gastro-esophageal reflux disease without esophagitis; Z86.718 Personal history of other venous thrombosis and embolism; M81.0 Age-related osteoporosis without current pathological fracture; I25.10 Atherosclerotic heart disease of native coronary artery without angina pectoris; Z98.61 Coronary angioplasty status; Z79.82 Long term (current) use of aspirin; Z79.899 Other long term (current) drug therapy; Z87.891 Personal history of nicotine dependence; Z88.2 Allergy status to sulfonamides; Z88.1 Allergy status to other antibiotic agents; Z91.013 Allergy to seafood
CPT/HCPCS: 36415; 49593; 85014; 85018; 94640; 96361; 96374; C1765; C1781; G0378; J0131; J0360; J0665; J0666; J0690; J1100; J1171; J1885; J2250; J2405; J2470; J3010; S2900

== ENCOUNTER → 2025-04-05 | Outpatient (CLI) | payer MEDICARE, MEDICAID | LOC: M WHC 12:04 | PROVIDERS: ATTEND Nurse Practitioner Family | DX: Z12.31 Encounter for screening mammogram for malignant neoplasm of breast (principal); R92.333 Mammographic heterogeneous density, bilateral breasts ==

== ENCOUNTER → 2025-04-26 | Outpatient (REF) | payer MEDICARE, MEDICAID ==
[~2025-04-26] MED LIST changes: -IBUP-1022 PO; +IBUP600T42 PO
[2025-04-26 19:58] LABS: FREE T4 1.2 NG/DL (0.89-1.76)
[2025-04-26 19:59] LABS: ALT/SGPT 32.0 U/L (7.0-40); AST/SGOT 24.0 U/L (<34); CALCIUM LEVEL 9.7 MG/DL (8.3-10.6); CARBON DIOXIDE LEVEL 28.0 MMOL/L (20-31); CHLORIDE LEVEL 104.0 MMOL/L (98-107); CHOLESTEROL LEVEL 145.0 MG/DL (<200); CHOLESTEROL RISK RATIO 2.87 (<5); CREATININE FOR GFR 1.06 MG/DL (0.55-1.30); GLOMERULAR FILTRATION RATE 58.3 (>45); LDL CHOLESTEROL 67.6 MG/DL (<100); NON-HDL-C 94.6 MG/DL; POTASSIUM SERUM 5.2 MMOL/L (3.5-5.1); SODIUM LEVEL 142.0 MMOL/L (136-145); TRIGLYCERIDES LEVEL 135.0 MG/DL (<150)
[2025-04-26 20:30] LABS: ESTIMATED AVERAGE GLUCOSE 128.0 MG/DL (60-110)
== END ==
LOC: M SFHCCLAY 10:34
PROVIDERS: ATTEND Nurse Practitioner Family
DX: I10 Essential (primary) hypertension (principal); I25.10 Atherosclerotic heart disease of native coronary artery without angina pectoris; E03.9 Hypothyroidism, unspecified; E78.5 Hyperlipidemia, unspecified; K21.9 Gastro-esophageal reflux disease without esophagitis; R73.03 Prediabetes; I31.9 Disease of pericardium, unspecified

== ENCOUNTER 2025-05-11 13:19 | Day surgery (SDC) | payer MEDICARE, MEDICAID ==
[~2025-05-11] VITALS: Ht 154.9 cm; Wt 71.7 kg
[~2025-05-11 13:19] MED LIST changes: -EZET10TA21 PO; +EZET10TA57 PO
[2025-05-11 13:55] VITALS: BP 132/61; O2SAT 98
== END 2025-05-11 13:55 | disposition home or self-care (01) ==
LOC: M OPP 13:19
PROVIDERS: ATTEND Surgery
DX: Z12.11 Encounter for screening for malignant neoplasm of colon (principal); Z98.0 Intestinal bypass and anastomosis status; Z86.73 Personal history of transient ischemic attack (TIA), and cerebral infarction without residual deficits; Z95.5 Presence of coronary angioplasty implant and graft; Z88.1 Allergy status to other antibiotic agents; Z88.2 Allergy status to sulfonamides; Z88.5 Allergy status to narcotic agent; Z88.8 Allergy status to other drugs, medicaments and biological substances; Z91.013 Allergy to seafood; Z79.82 Long term (current) use of aspirin; Z79.01 Long term (current) use of anticoagulants; Z79.899 Other long term (current) drug therapy